=== PATIENT | male | born 1980 | race Caucasian/White ===

== ENCOUNTER 2017-02-25 09:47 | Outpatient (RCR) | payer MEDICARE, SELFPAY ==
[2017-02-17 00:41] VITALS: BP 166/114; PULSE 108; RESP 18; TEMP 37
== END 2017-03-17 23:59 ==
LOC: WC 09:47
PROVIDERS: Family Provider Family Medicine; PCP Family Medicine; Visit Provider Surgery
DX: Z09 Encounter for follow-up examination after completed treatment for conditions other than malignant neoplasm (principal)

== ENCOUNTER 2018-06-12 23:04 | Emergency (ER) | payer MEDICARE, SELFPAY ==
[2018-06-12 23:05] VITALS: BP 155/76; PULSE 110; RESP 18; TEMP 36.9; O2SAT 92; BMI 34.0
--- NOTE | 2018-06-12 23:23 | ED.DCSUM_ITS ---
- ER Visit Summary Date of Service: 06/12/18 Chief Complaint: Multiple complaints History of Present Illness: The patient is a 37 M who is been ill for a couple of days. He complains of about 2 days of subjective fever, sore throat, right ear pain, cough. He also complains of 3 days of nausea and vomiting. He complains of right upper abdominal and flank pain. No diarrhea. No urinary symptoms. Physical Examination: Heart rate 110 vitals otherwise unremarkable Tympanic membranes are clear Uvula is midline and patient appears to have bilateral tonsillar enlargement I could not clearly see exudates however there is poor visualization as patient has a strong gag reflex Tender anterior cervical lymphadenopathy worse on the right Heart regular tachycardia Lungs are clear Abdomen soft no reproducible tenderness no guarding no rebound Test Results: CBC CMP lipase unremarkable. Creatinine is 1.56. Chest x-ray shows no acute disease. CT of the soft tissue of the neck shows a 1.9 x 1.5 x 1.6 cm right Palatino tonsillar abscess. Emergency Department Course and Treatment: Patient was symptomatically treated with IV fluids and Toradol. I did speak to Dr. Lofton who is on-call for ENT. He did review the images. The abscess or fluid collection does appear to be within the tonsil itself rather than a peritonsillar abscess. He notes that these are not drained. He recommended IV antibiotics here as well as steroids. He was given IV Unasyn and Decadron. He will be discharged on oral antibiotics to follow closely as an outpatient in the office tomorrow. Patient understands to return for new or worsening symptoms. All questions answered bedside. Patient discharged. Treatment Plan: [] Disposition: Discharge Impression: Right palatine tonsillar abscess This note was generated with [employer] dictation software. It may contain incorrect words, spelling, and punctuation that were not noted in review of the chart prior to signing ED Disposition - Plan for ED Patient: Referrals: Michael Perez MD [Primary Care Provider] -
[2018-06-12 23:38] LABS: Absolute Lymphocyte Count 1.15 X10^3/ul (0.83-4.51); Absolute Neutrophil Count 3.9 X10^3/uL (2.0-7.7); Basophil# 0.03 X10^3/uL; Basophil% 0.5 % (0-1); Eosinophil# 0.03 X10^3/uL; Eosinophils% 0.5 % (0-5); Hematocrit 46.3 % (40-54); Hemoglobin 15.3 g/dl (13.0-16.5); Lymphocyte # 1.15 X10^3/ul (4.0); Lymphocyte % 19.7 % (19-41); Mean Corpuscular Volume 90.8 fL (80-94); Mean Platelet Vol. 11.1 fl (6.2-12.0); Monocyte# 0.74 X10^3/uL; Monocyte% 12.6 % (0-10); Neutrophil # 3.89 X10^3/uL (2.7-7.7); Neutrophil % 66.5 % (47-70); Platelet Count 189 K/mm3 (150-450); RBC Distribution Width CV 13.9 % (11.6-14.6); White Blood Count 5.9 K/mm3 (4.4-11.0)
[2018-06-12] MEDS: Ketorolac 30 MG/ML Syringe IV (23:38)
[2018-06-12] MEDS: 0.9% Normal Saline 1,000 ML 999 ML IV (23:38)
[2018-06-12 23:39] LABS: POSITIVE COUNT NO; POSITIVE DIFFERENTIAL NO; POSITIVE MORPHOLOGY NO
[2018-06-13] LABS: BUN 21 mg/dL (7-18); Creatinine, Serum 1.56 mg/dL (0.70-1.30); Estimated Creatinine Clearance 66.29 ml/min; Glucose 201 mg/dL (74-106)
[2018-06-13 00:01] LABS: ALB/GLOB Ratio 0.9 RATIO (0.9-2.4); AST(SGOT) 38 U/L (15-37); Alanine Aminotransfer ALT/SGPT 38 U/L (16-61); Albumin, Serum 3.5 g/dL (3.2-5.0); Alkaline Phosphatase 92 U/L (45-117); Anion Gap 8 (5-15); BUN/Creat Ratio 13.5 RATIO (10-20); Calcium,Total 8.6 mg/dL (8.5-10.1); Chloride 101 mmol/L (98-107); EST Glomerular Filtration Rate 53 mL/min (>60); Est Glom Filt Rate - Afr Amer 64 mL/min (>60); Globulin 3.9 g/dL (2.2-4.2); Lipase 131 U/L (73-393); Potassium 3.5 mmol/L (3.5-5.1); Protein, Total 7.4 g/dL (6.4-8.2); Sodium Level 138 mmol/L (136-145)
--- NOTE | 2018-06-13 00:10 | RAD_ITS ---
STUDY: X-RAY CHEST REASON FOR EXAM: Male, 37 years old. General illness with nausea and vomiting. TECHNIQUE: PA and lateral views of the chest. COMPARISON: March 19, 2014. FINDINGS: The lungs appear hyperexpanded. There is mild interstitial thickening visible in both lungs. There is no evidence for airspace consolidation. There is no demonstrated pleural abnormality. Normal size heart. Normal mediastinum and asad. There is prominence of the pulmonary hilar arteries without peripheral pulmonary vascular congestion. Normal visualized aortic arch and descending thoracic aorta. Normal visualized thoracic spine. Normal visualized ribs, clavicles, and shoulders. There is no demonstrated abnormality of the visualized soft tissue structures of the upper abdomen. RAD/Chest PA and Lateral IMPRESSION: No radiographic evidence of acute cardiopulmonary disease. Electronically Signed: Tracy Becerril MD at 1:03 EDT , Service support ,
--- NOTE | 2018-06-13 01:29 | ED.DEP ---
ED Disposition - Plan for ED Patient: Instructions: ED Tonsillitis Prescriptions: Amox/Clavulanate Tablet [Augmentin Tablet] 875 mg PO Q12H #20 tab Referrals: Michael Perez MD [Primary Care Provider] - Wilian Valero MD [STAFF PHYSICIAN] -
[2018-06-13 02:48] VITALS: PULSE 79; RESP 16; O2SAT 100
--- NOTE | 2018-06-13 23:21 | CT_ITS ---
STUDY: CT SOFT TISSUE NECK WITH CONTRAST REASON FOR EXAM: Male, 37 years old. Throat and right-sided ear pain. RADIATION DOSAGE (If Supplied By Facility): CTDIvol = ( 22.35 ) mGy, DLP = ( 613.83 ) mGycm TECHNIQUE: The patient was scanned in a multi-detector CT scanner. High resolution transaxial imaging was performed following intravenous administration of 100 ml Isovue 300. Sagittal and coronal images were reconstructed. Individualized dose optimization techniques were used for this CT. COMPARISON: None. FINDINGS: Normal bilateral parotid glands. Normal bilateral group burner machine spaces. Normal bilateral parapharyngeal spaces. Normal bilateral carotid spaces. Normal bilateral sublingual and submandibular glands and spaces. Normal visualized nasopharynx. Normal retropharyngeal space. Normal perivertebral space. There is a loculated collection in the right palatine tonsil measuring 1.9 x 1.5 x 1.6 cm in size. This suggests the possibility of an abscess. This lesion has some peripheral enhancement. The visualized tongue, tongue base and oropharynx are normal. There are some prominent right-sided level 2 nodes, possibly hyperplastic. Normal epiglottis, bilateral vallecula and hypopharynx. The pre-epiglottic and paraglottic adipose spaces are normal. Normal visualized bilateral piriform sinuses, aryepiglottic folds, vocal cords, and arytenoid-cricoid articulations. Normal subglottic trachea. Normal bilateral lobes of the thyroid gland. Normal visualized pulmonary apices. There is mucoperiosteal thickening visible throughout several ethmoid sinuses. There is mucoperiosteal thickening within bilateral maxillary sinuses and sphenoid sinuses. Frontal sinuses appear to be clear. Normal visualized cervical spine. CT/Soft Tissue Neck WITH Contrast IMPRESSION: 1. CT findings suggest a tonsillar abscess in the right palatine tonsil. 2. Mildly right-sided hyperplastic lymph nodes. 3. Mild paranasal sinus disease. Electronically Signed: Tracy Becerril MD at 0:51 EDT , Service support ,
== END 2018-06-13 02:48 | disposition home or self-care (01) ==
LOC: ED 23:35
PROVIDERS: Emergency Provider Emergency Medicine; Family Provider Family Medicine; PCP Family Medicine
DX: J36 Peritonsillar abscess (principal); E11.9 Type 2 diabetes mellitus without complications; Z72.0 Tobacco use
CPT/HCPCS: 70491; 71046; 80053; 83690; 85025; 96361; 96365; 96375; 99284; J7030; J7050; Q9967; A4216; J0295

== ENCOUNTER 2019-10-12 02:32 | Inpatient (IN) | payer MEDICARE, MEDICAID, SELFPAY ==
[2019-10-12] VITALS (39 sets, daily range): BP systolic 130–193; BP diastolic 50–122; PULSE 69–108; RESP 12–22; TEMP 36.3–37.2; O2SAT 96–100; BMI 35.1; BMI 35.4
--- NOTE | 2019-10-12 02:46 | EKG12_ITS ---
Test Reason : CP Blood Pressure : / mmHG Vent. Rate : 096 BPM Atrial Rate : 096 BPM P-R Int : 156 ms QRS Dur : 086 ms QT Int : 352 ms P-R-T Axes : 042 029 025 degrees QTc Int : 444 ms Normal sinus rhythm ST elevation consider lateral injury or acute infarct ACUTE MN / STEMI Abnormal ECG Confirmed by VITOR MENDOZA, LILIAN ([id number]), video effects editor AARON WAYNE ([id number]) on 10/12/2019 1:26:24 PM Referred By: Lior Juarez Confirmed By:LILIAN ADLER MD
--- NOTE | 2019-10-12 02:50 | RAD_ITS ---
STUDY: X-RAY CHEST REASON FOR EXAM: Male, 39 years old. CHEST PAIN TECHNIQUE: Frontal view COMPARISON: 06-13-18 FINDINGS: The lungs are clear and expanded. There is no demonstrated pleural abnormality. Normal size heart. Normal mediastinum and asad. Normal visualized pulmonary arteries. Normal visualized aortic arch and descending thoracic aorta. Normal visualized thoracic spine. Normal visualized ribs, clavicles, and shoulders. There is no demonstrated abnormality of the visualized soft tissue structures of the upper abdomen. RAD/Chest 1 View (Portable) IMPRESSION: Normal x-ray examination of the chest. Electronically Signed: Mil Peters MD at 3:10 EDT , Service support ,
[2019-10-12] MEDS: Heparin Injection (Vial) 5,000 UNIT/ML VIAL 4000 UNIT IV (02:52)
[2019-10-12] MEDS: TICAGRELOR 90 MG TABLET 180 MG PO (02:52)
[2019-10-12] MEDS: Aspirin 81 MG TAB.CHEW 324 MG PO (02:52)
[2019-10-12 02:55] LABS: Absolute Neutrophil Count 6.4 X10^3/uL (2.0-7.7); Basophil# 0.04 X10^3/uL; Basophil% 0.4 % (0-1); Eosinophil# 0.23 X10^3/uL; Eosinophils% 2.2 % (0-5); Hematocrit 47.2 % (40-54); Hemoglobin 15.3 g/dL (13.0-16.5); Lymphocyte % 27.8 % (19-41); Mean Corp Hgb Conc 32.4 g/dL (32-36); Mean Corpuscular Hgb 29.8 pg (27.0-32.0); Mean Platelet Vol. 10.5 fl (6.2-12.0); Monocyte# 0.87 X10^3/uL; Monocyte% 8.3 % (0-10); NRBC Flagged by Analyzer 0 % (0-5); Neutrophil # 6.38 X10^3/uL (2.7-7.7); Platelet Count 275 K/mm3 (150-450); RBC Distribution Width CV 14.1 % (11.6-14.6); RBC Distribution Width SD 47.8 fl (35.1-43.9); Red Blood Count 5.13 M/mm3 (4.6-6.2); White Blood Count 10.5 K/mm3 (4.4-11.0)
[2019-10-12] MEDS: Nitroglycerin SL (ED/IMG/CATH) 0.4 MG TABLET SUBLINGUAL ×2 (02:57→03:02)
[2019-10-12] MEDS: 0.9% Normal Saline 1,000 ML 150 ML IV ×2 (02:58→05:13)
--- NOTE | 2019-10-12 02:59 | ED.DCSUM_ITS ---
- ER Visit Summary Date of Service: 10/12/19 Chief Complaint: Chest pain History of Present Illness: The patient is a [address] Perez. He reports that 2 hours ago while working on his truck (light activity) he developed a substernal squeezing. He denies any radiation. He states it was 9 out of 10 at worst an 8 out of 10 currently. This was worsened by nothing. Reports that he was very diaphoretic with it and putting cold on his chest seemed to help. He denies any nausea, vomiting, or shortness of breath. He has never had anything like this before. Patient reports that he has a history of diabetes in the past, but that his doctor took him off of medications for this a while ago. He denies any high blood pressure high cholesterol. No known history of heart problems. He does not smoke. He does chew tobacco. He does have a family history of coronary artery disease a greater than 55 years old. Physical Examination: Vitals: Stable. Afebrile. General: Well-nourished and well-developed. Head: Normocephalic atraumatic. Neck: Supple, no lymphadenopathy. No JVD. Nontender. Cardiovascular: Tachycardic regular rhythm. No murmurs. Respiratory: No respiratory distress. Clear to auscultation bilaterally. Abdominal: Soft, nontender, nondistended, normal bowel sounds. No guarding, rebound, or peritoneal signs. Back: Nontender. Extremities: Nontender, no edema. Skin: Normal color, no rash. Skin graft in the right inguinal region with no evidence of infection. Neurologic: Alert and oriented ?3. Cranial nerves II through XII are intact. Normal strength and sensation. Psych: Normal affect. Test Results: EKG is sinus at [address] elevation in leads I and aVL and reciprocal changes inferiorly. This is a change since 2017. Emergency Department Course and Treatment: Patient was given aspirin p.o. He was given sublingual nitroglycerin. He was given heparin IV. He is given Brilinta p.o. Treatment Plan: Patient was discussed with Dr. Juarez and Dr. Wisdom. He is going to be taken to the Licensed Sales Assistant for further evaluation and treatment. Disposition: Admitted in serious condition. Impression: 1. ST elevation PR. 2. Critical care time 30 minutes. This note was generated with Dragon dictation software. It may contain incorrect words, spelling, and punctuation that were not noted in review of the chart p rior to signing ED Disposition - Plan for ED Patient: Referrals: Michael Perez MD [Primary Care Provider] -
[2019-10-12 03:01] LABS: Prothrombin Time (Protime)PT. 12.7 SECONDS (11.7-14.9)
[2019-10-12 03:02] LABS: Partial Thromboplast Time 28.7 Seconds (24.1-36.2)
[2019-10-12] MEDS: Metoprolol Tartrate 5 MG/5 ML Vial IV ×3 (03:09→17:06)
[2019-10-12 03:12] LABS: Anion Gap 4 (5-15); BUN 10 mg/dL (7-18); BUN/Creat Ratio 9.6 RATIO (10-20); Chloride 104 mmol/L (98-107); Creatinine, Serum 1.04 mg/dL (0.70-1.30); EST Glomerular Filtration Rate 84 mL/min (>60); Est Glom Filt Rate - Afr Amer 102 mL/min (>60); Estimated Creatinine Clearance 100.56 ml/min; Glucose 240 mg/dL (74-106); Potassium 3.7 mmol/L (3.5-5.1); Sodium Level 138 mmol/L (136-145)
--- NOTE | 2019-10-12 03:16 | PCM.HP.STD ---
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 Patient was working on his truck when his symptoms started. His chest pain improved with placing something cold on his chest.. Associated with his symptoms is nausea and diaphoresis. His EKG showed ST elevation so a STEMI alert was called and patient was taken to cardiac cath. Patient reports that his home hypertensive and diabetic medication was discontinued by his doctor Of note patient from heart attack on September 182019. His mother was 60 years old at the time of . Past Medical History Past Medical History (Chronic Problems): Chronic Problems Proteinuria due to type 2 diabetes mellitus (Chronic) Tobacco dependence (Chronic) Morbid obesity (Chronic) Poor personal hygiene (Chronic) Noncompliance with diet and medication regimen (Chronic) Uncontrolled type 2 diabetes mellitus (Chronic) Allergies No Known Allergies Allergy (Verified 06/12/18 23:07) Home Medications: Ambulatory Orders Medication Instructions Recorded Acetaminophen [Tylenol Tablet] 650 mg PO Q4H PRN PRN tablet 11/16/16 Ascorbic Acid [Vitamin C] 500 mg PO BIDCM tablet 11/16/16 Carvedilol [Coreg (Beta Lan)] 12.5 mg PO BID tablet 11/16/16 Famotidine [Pepcid] 20 mg PO BID tablet 11/16/16 Glucerna Shake 120 ml PO 4X/DAY 11/16/16 Insulin Aspart [Novolog Flexpen] 16 units SC TIDAC 11/16/16 Insulin Detemir [Levemir FlexPen] 10 units SC QHS 11/16/16 Insulin Detemir [Levemir FlexPen] 26 units SC QAM 11/16/16 Nutritional Supplement [Johnson - 1 packet PO BIDCM packet 11/16/16 ORANGE FLAVOR] Oxycodone CR [Oxycontin] 10 mg PO BID #14 tablet 11/16/16 Oxycodone [Oxyir] 10 mg PO Q4H PRN PRN #60 tablet 11/16/16 Rivaroxaban [Xarelto] 10 mg PO DAILY #14 tablet 11/16/16 Zinc Sulfate (50mg elemental) 220 mg PO BID capsule 11/16/16 [Zinc Sulfate] Guaifenesin [Robitussin] 10 ml PO Q4H PRN PRN 12/03/16 Amox/Clavulanate Tablet [Augmentin 875 mg PO Q12H #20 tab 06/13/18 Tablet] Surgical History: - - recent I&D of diabetic abscess right thigh on 11/10/16. Psychiatric History: No pertinent psych hx Smoking Status: Current every day smoker Tobacco Use: Chew - *Family History Maternal History Items: Heart Disease Paternal History Items: Heart Disease Review of Systems Constitutional: Denies: Chills, Fever, Weight Change HEENT: Denies: Head Aches, Sinus Congestion, Sinus Drainage Cardiovascular: Reports: Chest Pain. Denies: Palpitations Respiratory: Denies: Cough, Shortness of breath at rest, Sputum production Gastrointestinal: Reports: Nausea. Denies: Abdominal Pain, Vomiting Genitourinary: Denies: Dysuria Musculoskeletal: Reports: Arm Pain. Denies: Joint Pain, Joint Tenderness Skin: Denies: Rash, Wounds Neurological: Denies: Numbness, Tingling, Focal weakness Psychiatric: Denies: Anxiety, Depression, Homicidal Ideations, Suicidal Ideations Hematologic/ Lymphatic: Denies: Easy Bruising, Easy Bleeding VTE Information - Inpt Only VTE Present on Admission: No VTE Mechan Device Prophylaxis: SCD's VTE Pharm Prophylaxis ordered?: No Patient Problems: Active and Suspected Problems STEMI (ST elevation myocardial infarction) (Acute) - Physical Exam Vitals/I&O's: Vital Signs Temp Pulse Resp BP Pulse Ox 98.5 F 108 H 16 180/110 H 99 10/12/19 02:33 10/12/19 03:02 10/12/19 02:44 10/12/19 03:02 10/12/19 02:59 Oxygen Flow Rate (L/min) 2 Oxygen Delivery Method Nasal Cannula Weight: 114.3 kg Body Mass Index (BMI) 35.1 Finger Stick Blood Glucose 194 General: Alert, Oriented x3, Cooperative HEENT: Atraumatic, PERRLA, EOMI, Normocephalic Neck: Supple, Trachea Midline Lungs: Clear to auscultation, Normal air movement Cardiovascular: Regular rate, Normal S1, Normal S2, No murmurs Abdomen: Bowel Sounds Present, Soft, Non Tender Extremities: No edema, Capillary Refill Less than 3 Seconds Skin: No rashes, No breakdown Musculoskeletal: No Tenderness to Palpation of Joints or Extremities Neurological: Cranial nerves II-XII grossly intact Psych/Mental Status: Normal Affect, Appropriate Laboratory Results 10/12/19 02:45: WBC 10.5, RBC 5.13, Hgb 15.3, Hct 47.2, MCV 92.0, MCH 29.8, MCHC 32.4, RDW Std Deviation 47.8 H, RDW Coeff of Hayley 14.1, Plt Count 275, MPV 10.5, Immature Gran % (Auto) 0.300, Neut % (Auto) 61.0, Lymph % (Auto) 27.8, [place] % (Auto) 8.3, Eos % (Auto) 2.2, Baso % (Auto) 0.4, Absolute Neuts (auto) 6.4, Absolute Lymphs (auto) 2.90, Nucleated RBC % 0 10/12/19 02:45: PT 12.7, INR 1.0, APTT 28.7 10/12/19 02:45: Sodium 138, Potassium 3.7, Chloride 104, Carbon Dioxide 30.0, Anion Gap 4 L, BUN 10, Creatinine 1.04, Estim Creat Clear Calc 100.56, Est GFR (MDRD) Af Amer 102, Est GFR (MDRD) Non-Af 84, BUN/Creatinine Ratio 9.6 L, Glucose 240 H, Calcium 9.0, Troponin I 0.022 Current Medications Sodium Chloride () 1,000 mls @ 150 mls/hr IV .Q6H40M PATEL Last Admin: 10/12/19 02:58 Dose: 150 mls/hr Documented by: Nitroglycerin (Nitrostat) 0.4 mg SUBLINGUAL Q5M PRN PRN Reason: Chest Pain Last Admin: 10/12/19 03:02 Dose: 0.4 mg Documented by: Assessment/Plan All Active Problems STEMI (ST elevation myocardial infarction) (Acute) The patient is a 39 year old M w significant history of hypertension; diabetes; and tobacco abuse who presents emergency department with excruciating substernal chest pain that radiated to his right arm and found to have ST elevation GA. STElevation GA. Patient received aspirin, Brilinta and heparin at emergency department. He also received sublingual nitroglycerin and Lopressor IV. He was brought to the Donor Floor Technician. Follow recommendations after Donor Floor Technician. Diabetes mellitus Accu-Chek QA CHS and 3 AM. Correction scale insulin ordered for now. A1c ordered. Hypertension Trend blood pressures After cardiac cath assess for need of blood pressure medications. Received Lopressor IV at the emergency department. Trend blood pressures. Tobacco abuse Patient chews tobacco Counseled. DVT prophylaxis SCD. Received heparin at emergency department for ST elevation GA. Inpatient E&M: 56124 Init Hosp L3
[2019-10-12 04:36] LABS: ACT Activated Clotting Time 147 sec (74-137)
[2019-10-12 04:36] LABS: ACT Activated Clotting Time 180 sec (74-137)
--- NOTE | 2019-10-12 04:38 | CL.I_ITS ---
Patient Name: ARIK CANAS Study Date: 10/12/2019 Performing: Lior Juarez MD Ht: 71 inches 180 cm : 1980 Wt: 251.7 lbs 114 kg Age: 39 Gender: male BSA: 2.32 PROCEDURE(S) PERFORMED PZ49-YLE/COR/LV ER11-EPM, SURYA AND/OR PTCA, ARTERY OR GRAFT, SINGLE VESSEL CLINICAL PROFILE AND CO-MORBIDITIES Patient presents with STEMI for emergent cardiac cath. Indications: New Onset Angina <= 2 months, ACS <= 24 hrs, Suspected CAD Heart Failure: None Stress/Imaging Stress/Image Study Performed: No Angina Classification Anginal Classification w/in 2 Weeks: CCS IV CAD Presentations: Unstable angina. STEMI. Symptom onset Date/Time: 10/12/2019 02:33:00 Time Cookie mated Comorbidities/Risk Factors: Hypertension Dyslipidemia Family History of Premature CAD CONCLUSIONS Normal LV size, wall motion,and systolic function Normal Left Ventricular systolic function LVEF: by LV gram 65 % Elevated Left Ventricular End Diastolic Pressure Single vessel CAD of the proximal OM#1 Possibly signficant distal RCA lesion Non obstructive coronary artery disease of LCX and LAD. Successful PTCA/SURYA proximal OM#1 with a 2.25 x 38 Promus Synergy, post dilated proximally with a 2.5 x 8 NC Balloon; 100%-->0%, no dissection. RECOMMENDATIONS Referred for immediate PCI Highly recommend quitting all tobacco products Follow up with primary blacking wheel tender Risk factor modification ASA Indefinitley Plavix for at least 12 months Routine post interventional care Refer for Outpatient Cardiac Rehab Manual sheath removal per protocol Follow up with Dr. Juarez Stress echo in 2 weeks to eval distal RCA lesion. Manual sheath removal. DESCRIPTION OF PROCEDURE The patient arrived to the procedure lab. The risks and benefits of the procedure as well as a full d escription of our services here and lack of surgical backup were fully explained to the patient and/o r their significant other prior to the catheterization. The Timeout was completed, verifying the elvira ect patient and procedure. The patient's procedural site was prepped and draped in the usual fashion. Local anesthetic was given subcutaneously to right groin region with Lidocaine 2%. Using a modified Seldinger technique, arterial access was obtained via the right femoral artery, a 6Fr sheath was inse rted.. Right Coronary Artery selective angiography was then performed in multiple views using a 4 Fr . 3DRC catheter. Left Coronary Artery selective angiography was performed in multiple views using a 6 Fr. EBU 3.75 Guide Catheter. Left Ventriculography was performed in MARTINEZ projection using a 4 Fr. Pig tail catheter. LV to AO pullback pressures were then recorded EBU 3.75 Guide catheter was inserted and engaged into the LCA. Runthrough Guide wire was advanced to the 1st OM. Emerge 2.0 x 12 Balloon catheter was inserted. Balloon catheter was advanced across l esion in the first obtuse marginal, proximal. PTCA balloon inflated at 6 atms for 8 secs. Emerge 2.0 x 12 Balloon catheter was reinserted Balloon catheter was advanced across lesion in the first obtuse marginal, proximal. PTCA balloon inflated at 7 atms for 14 secs. PTCA balloon inflated at 7 atms for 7 secs. PTCA balloon inflated at 6 atms for 7 secs. PTCA balloon inflated at 7 atms for 10 secs. Syne rgy 2.25 x 38 Drug Eluting stent was inserted. Drug Eluting stent was advanced across the lesion in t he first obtuse marginal, proximal. NC Emerge 2.5 x 8 Balloon catheter was inserted. Balloon catheter was advanced across lesion in the first obtuse marginal, proximal. Contrast was injected through the sheath and the Right Iliac and Femoral artery were assessed for possible closure device. The arterial sheath was sutured in place and capped CORONARY ANGIOGRAPHY DOMINANCE: Right Dominant LEFT HEART ASSESSMENT Left Ventricular Ejection Fraction: by LV Gram 65 % Normal Left Ventricular systolic function Elevated Left Ventricular End Diastolic Pressure LVEDP: 19 mmHg Normal LV wall motion LEFT MAIN: 30 distal % Stenosis LEFT ANTERIOR DESCENDING ARTERY: PROX LAD: Mild luminal irregularities less than 30% MID LAD: Mild luminal irregularities less than 30% DIAGONAL 1: Proximal - Mild luminal irregularities less than 30% CIRCUMFLEX ARTERY: Moderate luminal irregularities up to 50% OM 1: Proximal - is occluded RIGHT CORONARY ARTERY: PROX RCA: 40 % Stenosis DISTAL RCA: 65 % Stenosis INTERVENTION INFORMATION LESION SITE: 1st OM (Proximal) Lesion Complexity: High/C, lesion at bifurcation: No, thrombus present: Yes, lesion length: 38 mm, cu lprit lesion: Yes Pre Stenosis: 100 % Pre intervention CONI flow: 0 PROCEDURE: Drug Eluting Stent with pre and post dilatation Post Stenosis: 0 % Post intervention CONI flow: 3 Lesion Devices: Medtronic 6 Fr EBU3.5 100cm Guide Catheter Terumo .014 Runthrough Extra Floppy 180cm straight Albert Sci Synergy MR SURYA 2.25x38 Albert Sci NC EMERGE MR 2.50x08 BALLOON Albert Sci EMERGE MR 2.00x12 BALLOON COMPLICATIONS No Complications PROCEDURE MEDICATIONS Fentanyl 25 mcg IV Oxygen: 2 L/min via nasal cannula Heparin 6000 unit(s) IV 10/12/2019 03:45:17 Heparin 4000 unit(s) IV 10/12/2019 04:10:54 Nitro 200 mcg IC 10/12/2019 03:47:30 Nitro 200 mcg IC 10/12/2019 03:47:30 Nitro 200 mcg IC 10/12/2019 03:49:25 IV Bolus: .9 NaCl 900ml total 10/12/2019 03:42:44 SUMMARY OF HEMODYNAMIC DATA Time AIR REST ECG 03:28:11 AO 146/117 (132) SA 03:41:25 LV 154/-11, 16 04:06:51 LV 153/-10, 19 04:06:57 LVp 154/-13, 15 04:07:03 AOp 146/89 (113) 04:07:08 Signed By Lior Juarez MD On 10/12/2019 04:37:47 Lior Juarez MD
--- NOTE | 2019-10-12 04:42 | ECHOCS_ITS ---
Reason For Study: Chest Pain Procedure This was a 2D Doppler, Color Flow transthoracic echocardiogram. Contrast injection was performed. The study was technically difficult. Exam performed portable in ICU/CCU. Left Ventricle Mild concentric left ventricular hypertrophy. The estimated ejection fraction is 55 %. Normal diastology for age. Lateral-Basal: Mildly hypokinetic. Right Ventricle Normal size and thickness. Normal systolic function. Atria Normal left atrium. Normal right atrium. Normal atrial septum. Mitral Valve The mitral valve is structurally normal. No prolapse or stenosis seen. Tricuspid Valve Normal tricuspid valve. Unable to estimate RV systolic pressure due to insufficient tricuspid regurgitant envelope. Aortic Valve Normal aortic valve. Trisinus/trileaflet aortic valve. Pulmonic Valve Normal pulmonic valve. Great Vessels Normal aortic root. Normal arch. Normal inferior vena cava. Inferior vena cava collapse with respiration. Pericardium/Pleural No pericardial effusion. Medication Diluted definity 2ml given slow IV push to enhance endocardial definition. MMode/2D Measurements & Calculations LVIDd: 4.5 cm IVSd: 1.2 cm Ao root diam: 2.6 cm LVIDs: 3.0 cm LVPWd: 1.3 cm RVDd: 2.3 cm FS: 32.6 % LAV(MOD-bp): 41.3 ml LVAd ap4: 27.3 cm2 SV(MOD-sp4): 38.5 ml LAV(MOD-bp) Indexed: 17.7 ml/m2 EDV(MOD-sp4): 72.6 ml LAV(MOD-sp2): 50.3 ml EDV(sp4-el): 75.7 ml LAV(MOD-sp4): 28.0 ml LVAs ap4: 15.8 cm2 ESV(MOD-sp4): 34.1 ml ESV(sp4-el): 33.4 ml EF(MOD-sp4): 53.1 % EF(sp4-el): 56.0 % SV(sp4-el): 42.4 ml LA A4 area: 13.9 cm2 LA dimension(2D): 3.9 cm RA A4 area: 12.5 cm2 Doppler Measurements & Calculations MV E max darrion: 102.6 cm/sec Lat Peak E' Darrion: 10.0 cm/sec Med Peak E' Darrion: 7.1 cm/sec MV A max darrion: 87.1 cm/sec E/E' lat: 10.3 E/E' med: 14.4 MV E/A: 1.2 Ao V2 max: 126.2 cm/sec LV V1 max: 98.0 cm/sec PA V2 max: 93.8 cm/sec Ao max P.4 mmHg LV V1 max P.8 mmHg Ao V2 mean: 89.6 cm/sec Ao mean P.6 mmHg Ao V2 VTI: 23.9 cm Interpretation Summary Mild concentric left ventricular hypertrophy. The estimated ejection fraction is 55 %. Normal diastology for age. Lateral-Basal: Mildly hypokinetic Unable to estimate RV systolic pressure due to insufficient tricuspid regurgitant envelope. The study was technically difficult. Contrast injection was performed. There is no comparison study available. Ordering Physician: Lior Juarez Referring Physician: JESSICA Perez Performed By: Bety Sawyer RDCS, RVT
--- NOTE | 2019-10-12 04:42 | EKG12_ITS ---
Test Reason : POST CATH Blood Pressure : / mmHG Vent. Rate : 077 BPM Atrial Rate : 077 BPM P-R Int : 176 ms QRS Dur : 074 ms QT Int : 378 ms P-R-T Axes : 056 082 085 degrees QTc Int : 427 ms Normal sinus rhythm Normal ECG When compared with ECG of 12-OCT-2019 02:39, MANUAL COMPARISON REQUIRED, DATA IS UNCONFIRMED Confirmed by VITOR MENDOZA, LILIAN ([id number]), editor & co founder AARON WAYNE ([id number]) on 10/14/2019 1:05:25 PM Referred By: Lior Juarez Confirmed By:LILIAN ADLER MD
[2019-10-12] MEDS: diazePAM 5 MG Tablet PO (05:21)
[2019-10-12 06:04] LABS: Absolute Lymphocyte Count 2.17 X10^3/uL (0.83-4.51); Absolute Neutrophil Count 9.1 X10^3/uL (2.0-7.7); Basophil# 0.05 X10^3/uL; Basophil% 0.4 % (0-1); Eosinophil# 0.09 X10^3/uL; Eosinophils% 0.7 % (0-5); Hematocrit 43.4 % (40-54); Hemoglobin 14.1 g/dL (13.0-16.5); Lymphocyte # 2.17 X10^3/ul (4.0); Lymphocyte % 17.8 % (19-41); Mean Corp Hgb Conc 32.5 g/dL (32-36); Mean Corpuscular Hgb 29.8 pg (27.0-32.0); Mean Corpuscular Volume 91.8 fL (80-94); Mean Platelet Vol. 10.8 fl (6.2-12.0); Monocyte# 0.66 X10^3/uL; Monocyte% 5.4 % (0-10); NRBC Flagged by Analyzer 0 % (0-5); Neutrophil # 9.14 X10^3/uL (2.7-7.7); Neutrophil % 75.2 % (47-70); Platelet Count 264 K/mm3 (150-450); RBC Distribution Width CV 14.2 % (11.6-14.6); RBC Distribution Width SD 47.8 fl (35.1-43.9); Red Blood Count 4.73 M/mm3 (4.6-6.2); White Blood Count 12.2 K/mm3 (4.4-11.0)
[2019-10-12 06:31] LABS: ACT Activated Clotting Time 169 sec (74-137)
[2019-10-12 06:39] LABS: AST(SGOT) 172 U/L (15-37); Alanine Aminotransfer ALT/SGPT 78 U/L (16-61); Albumin, Serum 3.3 g/dL (3.2-5.0); Alkaline Phosphatase 86 U/L (45-117); Anion Gap 3 (5-15); BUN 9 mg/dL (7-18); BUN/Creat Ratio 9.5 RATIO (10-20); Chloride 106 mmol/L (98-107); Cholesterol 190 mg/dL (200); Creatinine, Serum 0.94 mg/dL (0.70-1.30); EST Glomerular Filtration Rate 94 mL/min (>60); Est Glom Filt Rate - Afr Amer 114 mL/min (>60); Estimated Creatinine Clearance 111.26 ml/min; Globulin 3.3 g/dL (2.2-4.2); Glucose 248 mg/dL (74-106); High Density Lipoprotein 24 mg/dL; Potassium 4.9 mmol/L (3.5-5.1); Protein, Total 6.6 g/dL (6.4-8.2); Sodium Level 135 mmol/L (136-145); Triglycerides 215 mg/dL; Very Low Density Lipoprotein 43 mg/dL (5-40)
--- NOTE | 2019-10-12 08:16 | CRPHASE1 ---
Patient Communication PHII Cardiac Rehab Discussed with Patient:: Yes Guide to Cardiac Rehab Given to Patient:: Yes Cardiac Rehab Facility Choice List Given to Patient:: Yes Choice Program [facility] CR PHII:: Communication Given to CR, Refer to [facility] Kick Press Operator:: Lior Juarez Refer Phase II Cardiac Rehab:: Yes Sessions:: 36 sessions - 3 days/wk, 12 weeks Risk Factors/Lifestyle Laboratory Values: Cardiac Rehab Phase I Labs Triglycerides 215 mg/dL (-199) H 10/12/19 05:50 Cholesterol 190 mg/dL (200) 10/12/19 05:50 LDL Cholesterol 123 mg/dL (0-130) 10/12/19 05:50 HDL Cholesterol 24 mg/dL (40-) L 10/12/19 05:50 Cardiac Rehabilitation Info Cardiac Rehabilitation Program Information: Cardiac Rehabilitation is important for patients like you who are recovering from a heart problem. Cardiac rehabilitation programs are recognized as integral to the continued care of the patient with coronary heart disease. The cardiac rehabilitation program is designed to optimize a patient's physical, psychological, and social functioning. Health child care teacher work in cardiac rehabilitation programs and assist you with getting the treatments you need to get stronger and healthier - like exercise, healthy eating habits, and medications. Cardiac rehabilitation has been show to help people with heart problems live longer and have better life enjoyment than people who do not go to cardiac rehabilitation. Please contact the Cardiac Rehabilitation Program at [facility] at in two weeks if you have not heard from them.
--- NOTE | 2019-10-12 08:17 | CRPH1.INSTRU ---
General Education CAD and cardiac anatomy and function:: Patient communicates acknowledgment Explanation of diagnoses and procedures:: Patient communicates acknowledgment Sign/Symptoms of NE:: Patient communicates acknowledgment Antiplatelet therapy: Patient communicates acknowledgment Proper use of NTG-SL: Patient communicates acknowledgment Emergency procedures and activation of EMS: Patient communicates acknowledgment Compliance of all prescribed medications: Patient communicates acknowledgment Smoking Patient Nicotine/Smoking Risk Factors Are:: Cigarettes Recommendations Include:: Smoking cessation strategies/Smoking packet Nicotine/Smoking Response Code:: Patient communicates acknowledgment, Needs reinforcement Dyslipidemia Patient Dyslipidemia Risk Factors Are:: Total Cholesterol, Triglycerides, HDL, LDL Recommendations Include:: Lipid profile provided Dyslipidemia Response Code:: Patient communicates acknowledgment, Needs reinforcement Overweight/Obesity Patient Overweight/Obesity Risk Factors Are:: Obesity - > or = 30 Recommendations Include:: Weight loss of 5-10% Overweight/Obesity:: Patient communicates acknowledgment, Needs reinforcement Hypertension Recommendations Include:: Maintain BP <130/85, BP <130/80 if diabetic, DASH dietary guidelines, Decrease/maintain normal body weight Hypertension:: Patient communicates acknowledgment, Needs reinforcement Diabetes Patient Diabetes Risk Factors Are:: Elevated blood sugars Date of HgbA1c:: 10/12/19 - PENDING Recommendations Include:: Maintain fasting blood sugars 70-110 md/dL, Maintain HgbA1c of 6% or less, Monitor blood sugar as prescribed, Diabetic dietary guidelines, Decrease/maintain body weight Diabetes:: Patient communicates acknowledgment, Needs reinforcement Metabolic Syndrome Patient Metabolic Syndrome Risk Factors Are [3 of 5]:: Fasting blood sugar > 100 mg/dL, Waist circumference > 35 [female] or 40 [male], High triglyceride >150, Hypertension, Low HDL <40 [male] or < 50 [female] Recommendations Include:: Reinforce compliance to risk factor modifications, Patient is diabetic, Encouraged follow-up with Primary Care Physician Metabolic Syndrome Response Code:: Patient communicates acknowledgment, Needs reinforcement Sedentary Patient Sedentary Risk Factors Are:: Lack of regular exercise Recommendations Include:: Aerobic exercise 5-7 times/week for 20-30 minutes continuously Sedentary Response Code:: Patient communicates acknowledgment, Needs reinforcement
[2019-10-12 08:20] LABS: Hemoglobin A1c 10.3 % (3.8-5.6)
[2019-10-12] MEDS: TICAGRELOR 90 MG TABLET PO ×2 (09:21→21:00)
[2019-10-12] MEDS: Carvedilol 3.125 MG TABLET PO (09:21)
[2019-10-12] MEDS: Losartan Potassium 25 MG Tablet PO ×2 (09:21→16:48)
[2019-10-12] MEDS: Insulin Lispro 100 UNIT/ML INSULN.PEN SC ×3 (10:02→21:01)
--- NOTE | 2019-10-12 11:36 | CASEMGMT ---
RN CM Assessment Note Intro role of CM to patient in room. Pt is awake, alert and able to participate in assessment. States he is independent, no care needs and plans to return home on discharge. Presentation: chest pain Diagnosis: STEMI PCP: Dr. Perez Insurance: [facility]: [facility] Prescription Benefit: yes, Brilinta savings card reviewed with patient including ballard checking for further prescriptions and taking medication as prescribed daily. Pt is aware to contact cardiology office if any issues arise with medications. LNOK: Friend, Allan Carias Living Arrangements: Lives independently. Tranportation: drives DME: none Patient DC Goals: Home on discharge DC Plan: Home on discharge. RN CM let pt know to contact cm if any concerns/needs arise. Aure ESCALANTE RN ACM
[2019-10-12] MEDS: 0.9% Saline Lock 10 ML Syringe IV ×2 (12:32→17:06)
[2019-10-12] MEDS: Carvedilol 6.25 MG Tablet PO (16:47)
[2019-10-12 16:51] LABS: Bedside Glucose 213 mg/dL (70-110)
--- NOTE | 2019-10-12 16:53 | NURSING ---
oral BP meds given
[2019-10-12] MEDS: Atorvastatin Calcium 80 MG Tablet PO (21:00)
[2019-10-12 21:26] LABS: Bedside Glucose 209 mg/dL (70-110)
[2019-10-13] VITALS (7 sets, daily range): BP systolic 142–151; BP diastolic 82–88; PULSE 63–97; RESP 16; TEMP 36.5–36.9; O2SAT 95–98
[2019-10-13] MEDS: Insulin Lispro 100 UNIT/ML INSULN.PEN SC ×3 (02:38→11:41)
[2019-10-13 02:51] LABS: Bedside Glucose 172 mg/dL (70-110)
--- NOTE | 2019-10-13 03:16 | CPS ---
EMISSION SPECIALIST discussed with patient about CPAP at home per order. Pt. told this EMISSION SPECIALIST that he does not wear CPAP at home. CPAP was not listed in patient's medical history either. PAP was not started for this reason.
[2019-10-13 07:00] LABS: Bedside Glucose 192 mg/dL (70-110)
[2019-10-13] MEDS: TICAGRELOR 90 MG TABLET PO (09:08)
[2019-10-13] MEDS: Carvedilol 6.25 MG Tablet PO (09:08)
[2019-10-13] MEDS: Aspirin E.C. 81 MG Tablet PO (09:08)
--- NOTE | 2019-10-13 09:08 | CASEMGMT ---
Call from pt's Mark ESCAMILLA and she was updated on pt at this time. SStorion NICOLE CM
[2019-10-13] MEDS: Losartan Potassium 25 MG Tablet PO (09:19)
--- NOTE | 2019-10-13 09:20 | PCM.PN.CARD ---
Subjectve: Patient doing very well, no 24-hour events. Telemetry negative. EKG shows normal sinus rhythm with resolution of ST segment elevation and lateral T wave inversion. Echocardiogram shows minimal inferior lateral hypokinesis. Right groin is clean/dry/intact without evidence of thrills, bruits or hematoma. Hemoglobin and creatinine are within nominal limits. Objective: Vital Signs Temp Pulse Resp BP Pulse Ox 97.8 F 97 16 151/88 H 95 10/13/19 09:00 10/13/19 09:00 10/13/19 09:00 10/13/19 09:00 10/13/19 09:00 Oxygen Flow Rate (L/min) 2 Oxygen Delivery Method Room Air Weight: 247 lb 2.211 oz Body Mass Index (BMI) 35.4 Finger Stick Blood Glucose 194 Intake and Output for Last 24 Hours 10/11/19 10/12/19 10/13/19 23:59 23:59 23:59 Intake Total 2780 / 2780 300 / 300 Output Total 1600 / 1600 Balance 1180 / 1180 300 / 300 General: Awake, Alert, Oriented x 3 HEENT: PERRL, EOMI, Sclera Non Icteric Neck: Supple, Good ROM, No Lymph Node Enlargement Lungs: Clear to auscultation Cardiovascular: Regular Rhythm, Normal S1, Normal S2, No Murmurs, No Rubs, No Gallops Vascular: No Carotid Bruits, Normal Femoral Pulses, Normal Radial Pulses, Normal Dorsalis Pedal Pulse, Normal Posterior Tibial Pulses Abdomen: Bowel Sounds Present, Soft, Non Tender, No HSM, No Organomegaly Extremities: No Cyanosis, No Clubbing, No edema Neurological: No Focal Motor or Sensory Deficit Rhythm: EKG: ECHO: Stress Test: Cardiac Cath: PCI: CT Surgery: Holter monitor: EPS: PPM: CXR: Chest CT Scan: Medical Necessity - Tobacco Use Smoking Status: Current every day smoker Tobacco Use: Chew Assessment/Plan 1. STEMI: Patient presented with acute onset chest pain with lateral ST segment elevation and T wave inversion inferiorly. He underwent emergent left heart catheterization and emergent angioplasty and stenting of a small ramus intermedius branch with an excellent result. Patient has a distal right coronary artery stenosis that may require intervention in the future. At this point he will continue his baby aspirin, Brilinta, Coreg and losartan. We will evaluate him in 2 weeks time with a stress echocardiogram to determine whether he requires elective angioplasty and stenting of his distal right coronary artery. The patient wishes to be discharged home as he has nobody at home to take care of his dog who is been there for the past day and a half. I asked that the patient find somebody else to come and let the dog out, but apparently he is uncomfortable with that option. I would recommend we discharge the patient home this afternoon. Should he have any recurrent anginal symptoms between now and his stress test I would have a low threshold for intervention of his distal right coronary artery. 2. Hyperlipidemia: Continue Lipitor therapy. Repeat lipid profile in 6 weeks time. 3. Patient may be discharged home and follow-up with Dr. Juarez going forward. Inpatient E&M: [id number] Subs Hosp L2
--- NOTE | 2019-10-13 10:00 | EKG12_ITS ---
Test Reason : AM EKG Blood Pressure : / mmHG Vent. Rate : 070 BPM Atrial Rate : 070 BPM P-R Int : 164 ms QRS Dur : 074 ms QT Int : 406 ms P-R-T Axes : 006 091 104 degrees QTc Int : 438 ms Normal sinus rhythm Normal ECG When compared with ECG of 12-OCT-2019 06:33, MANUAL COMPARISON REQUIRED, DATA IS UNCONFIRMED Confirmed by ROQUE JUAREZ ([id number]), online editor AARON WAYNE ([id number]) on 10/15/2019 11:30:27 AM Referred By: Roque Juarez Confirmed By:ROQUE JUAREZ
--- NOTE | 2019-10-13 10:07 | PCM.DC ---
- Discharge Diagnoses Current Active Problems: Current Active and Chronic Problems (Last Updated 10/12/19 @ 11:08 by Laura Umanzor) Arteriosclerosis of coronary artery in patient with history of myocardial infarction (Chronic) Stented coronary artery (Chronic 10/12/19) Single vessel CAD of the proximal OM#1. Possibly signficant distal RCA lesion. Non obstructive coronary artery disease of LCX and LAD. Successful PTCA/SURYA proximal OM#1 with a 2.25 x 38 Promus Synergy, Per [facility] @ [facility] 10/12/2019 STEMI (ST elevation myocardial infarction) (Acute) You will use the following diet at home:: Calorie/Carbohydrate Controlled (specify 1200, 1400, etc) - 1800 rachele., Cardiac Your food should be the consistency of: Regular Discharge Activity: Return to Normal Activity Return to work on:: 10/19/19 Weight Bearing Status: Full weight bearing Call your doctor if you observe: Fever of 101 or Higher, Shortness of breath, Dizziness, Fainting spells, Chest pain, Increased palpitations (irregular heartbeat), Uncontrolled pain Instructions: Heart Attack, Coronary Stents, Using a Blood Sugar Log, Hypoglycemia (Low Blood Sugar), How to Check Your Blood Sugar Allergies/Adverse Reactions: Allergies No Known Allergies Allergy (Verified 06/12/18 23:07) Medications to take at Discharge Aspirin E.C. [Ecotrin] 81 mg PO DAILY@0800 #90 tab 10/13/19 Atorvastatin Calcium [Lipitor] 80 mg PO QHS #90 tab 10/13/19 Carvedilol [Coreg] 6.25 mg PO BID #90 tab 10/13/19 Insulin Glargine [Lantus SoloStar Pen] 16 units SUBCUT DAILY #2 pen 10/13/19 Losartan Potassium [Cozaar] 25 mg PO DAILY #90 tab 10/13/19 Metformin HCl [Glucophage] 500 mg PO BID #90 tab 10/13/19 Ticagrelor [Brilinta] 90 mg PO BID #90 tab 10/13/19 The following prescriptions were given: Ticagrelor [Brilinta] 90 mg PO BID #90 tab Transmission Status: Pending to [id number] Carvedilol [Coreg] 6.25 mg PO BID #90 tab Transmission Status: Pending to [id number] Losartan Potassium [Cozaar] 25 mg PO DAILY #90 tab Transmission Status: Pending to [id number] Aspirin E.C. [Ecotrin] 81 mg PO DAILY@0800 #90 tab Transmission Status: Pending to [id number] Metformin HCl [Glucophage] 500 mg PO BID #90 tab Transmission Status: Pending to [id number] Insulin Glargine [Lantus SoloStar Pen] 16 units SUBCUT DAILY #2 pen Transmission Status: Pending to [id number] Atorvastatin Calcium [Lipitor] 80 mg PO QHS #90 tab Transmission Status: Pending to [id number] Orders to be completed after discharge: Glucometer Location: None Selected Phase II, Outpatient Cardiac Rehab Location: None Selected Primary Care Physician: Michael Perez MD [Primary Care Provider] - Please follow up with your Primary Care Physician in: 1 week. Test Results: Test results from this visit will be discussed in further detail at your follow-up appointment, if applicable. Please Follow Up With: Lior Juarez MD When: 2 weeks.
--- NOTE | 2019-10-13 11:41 | PHA.DC.MC ---
Pharmacy Service has performed discharge medication reconciliation and counseling for this patient. 1. TICAGRELOR 90MG PO BID 2. CARVEDILOL 6.25MG PO BID 3. LOSARTAN 25MG PO DAILY 4. ASPIRIN 81MG PO DAILYCM 5. METFORMIN 500MG PO BID 6. INSULIN GLARGINE 16UNITS SC DAILY 7. ATORVASTATIN 80MG PO QHS The patient's discharge medication list was reviewed for discrepancies and discrepancies were resolved. Home Medications Aspirin E.C. [Ecotrin] 81 mg PO DAILY@0800 #90 tab 10/13/19 Atorvastatin Calcium [Lipitor] 80 mg PO QHS #90 tab 10/13/19 Carvedilol [Coreg] 6.25 mg PO BID #90 tab 10/13/19 Insulin Glargine [Lantus SoloStar Pen] 16 units SUBCUT DAILY #2 pen 10/13/19 Losartan Potassium [Cozaar] 25 mg PO DAILY #90 tab 10/13/19 Metformin HCl [Glucophage] 500 mg PO BID #90 tab 10/13/19 Ticagrelor [Brilinta] 90 mg PO BID #90 tab 10/13/19 The patient was counseled on the following discharge medications and changes in medications for homegoing were reviewed. The Reason for Use, instructions for use, and potential side effects were reviewed for all new medications. The patient's questions regarding all of their medications were answered. The patient was able to verbally demonstrate an understanding of their discharge medications. Patient counseled by student support counselorJameel.
[2019-10-13 11:55] LABS: Bedside Glucose 239 mg/dL (70-110)
--- NOTE | 2019-10-13 12:12 | PCM.DC.SUM ---
Discharge Date and Diagnosis - Problem List Patient Problems: Active and Suspected Problems (Last Updated 10/12/19 @ 11:08 by Laura Umanzor) STEMI (ST elevation myocardial infarction) (Acute) Date of Admission: 10/12/19 Date of Discharge: 10/13/19 - Primary Discharge Diagnosis Acute Problems: Active Problems (Last Updated 10/12/19 @ 11:08 by Laura Umanzor) #[address] elevation TX, status post PTCA/SURYA proximal obtuse marginal branch. #2 uncontrolled type 2 diabetes mellitus. #3 uncontrolled hypertension. #4 noncompliance. - Secondary Discharge Diagnosis Chronic Problems: Chronic Problems (Last Updated 10/12/19 @ 11:08 by Laura Umanzor) Arteriosclerosis of coronary artery in patient with history of myocardial infarction (Chronic) Stented coronary artery (Chronic 10/12/19) Single vessel CAD of the proximal OM#1. Possibly signficant distal RCA lesion. Non obstructive coronary artery disease of LCX and LAD. 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 Electronically Signed: Mil Peters MD at 3:10 EDT , Service support , Dr. Juarez, cardiology. Operations: None, - Procedures: 2-D Echocardiogram, Cardiac catheterization, EKG Summary of Care Provided: Patient seen and examined on the day of discharge and appeared to be stable to be discharged home. He denied any symptoms, no chest pain or shortness of breath. His vital signs are stable. He has been ambulating without symptoms. The patient is a 39 year old M presented to the emergency room because of chest pain, found to have acute ST elevation TX. He underwent emergent cardiac catheterization, found to have proximal obtuse marginal branch lesion, status post PTCA/SURYA and also found to have possible significant distal RCA lesion which was not stented. His troponin went up to 37. His chest x-ray showed no acute findings. This patient does have history of type 2 diabetes mellitus and hypertension but he is not compliant. He is supposed to be on blood pressure medications as well as insulin but he is not taking any medications for the last year and half. He mentioned that he just stopped taking his medications. His hemoglobin C was 10.3%. Lipid profile revealed triglyceride of 215, total cholesterol of 190, LDL cholesterol of 123 and HDL cholesterol of 24. Patient was treated with aspirin, Lipitor, Brilinta, Coreg and losartan. Post cardiac catheterization, patient had no more chest pain. He remained in sinus rhythm on telemetry without evidence of cardiac arrhythmias. Blood pressure stabilized as well as blood glucose. He was started on Lantus as well as sliding scale. 2D echocardiogram revealed mild LVH, ejection fraction of 55%, mildly hypokinetic lateral basal wall. After started on Lantus daily, blood sugar stable in the range of around 190s. Patient counseled multiple times on the importance of compliance with his medications given that he was noncompliant and now, he ended up with heart attack. Patient discharged home in a stable condition, discharged on aspirin, Lipitor, Coreg, losartan, Brilinta, Lantus and metformin, prescription was given for glucometer with lancets and alcohol swabs, recommended to check blood sugar at least 3-4 times daily, monitor blood pressure, recommended follow-up with PCP in 1 week and follow-up with cardiology in 2 weeks. Cardiology is planning to do stress echocardiogram as outpatient in 2 weeks. Patient Problems: Active and Suspected Problems (Last Updated 10/12/19 @ 11:08 by Laura Umanzor) STEMI (ST elevation myocardial infarction) (Acute) - Physical Exam Vitals/I&O's: Vital Signs Temp Pulse Resp BP Pulse Ox 97.8 F 97 16 151/88 H 95 10/13/19 09:00 10/13/19 09:00 10/13/19 09:00 10/13/19 09:00 10/13/19 09:00 Oxygen Flow Rate (L/min) 2 Oxygen Delivery Method Room Air Weight: 247 lb 2.211 oz Body Mass Index (BMI) 35.4 Finger Stick Blood Glucose 194 Intake and Output for Last 24 Hours 10/11/19 10/12/19 10/13/19 23:59 23:59 23:59 Intake Total 2780 / 2780 300 / 300 Output Total 1600 / 1600 Balance 1180 / 1180 300 / 300 General: Alert, Oriented x3, Cooperative, No apparent distress HEENT: Atraumatic, PERRLA, EOMI, Normocephalic Oral: Moist Mucosa, No Gingival or Mucosal Lesions/ Ulcerations Neck: Supple, No JVD, Negative Carotid Bruits, Trachea Midline, Thyroid Normal Size and Texture Lungs: Clear to auscultation, Normal air movement, No rhonchi, No wheeze, No rales Cardiovascular: Regular rate, Regular Rhythm, Normal S1, Normal S2, PMI Normal Abdomen: Bowel Sounds Present, Soft, Non Tender, Non-Distended, No Hepato-splenomegaly, Obese Extremities: No clubbing, No cyanosis, No edema Skin: No rashes, No breakdown Lymphatic: No Cervical, Supraclavicular, or Inguinal Adenopathy Neurological: Cranial nerves II-XII grossly intact, Neuro grossly intact Psych/Mental Status: Normal Affect, Appropriate Laboratory Results 10/12/19 16:45: POC Glucose 213 H 10/12/19 20:56: POC Glucose 209 H 10/13/19 02:37: POC Glucose 172 H 10/13/19 06:42: POC Glucose 192 H 10/13/19 11:39: POC Glucose 239 H Current Medications Acetaminophen (Tylenol) 650 mg PO Q6H PRN PRN PRN Reason: Pain Score 1-3/10 Aspirin (Ecotrin) 81 mg PO DAILY@0800 [facility] Last Admin: 10/13/19 09:08 Dose: 81 mg Documented by: Atorvastatin Calcium (Lipitor) 80 mg PO QHS [facility] Last Admin: 10/12/19 21:00 Dose: 80 mg Documented by: Atropine Sulfate () 0.5 mg IV UD PRN PRN Reason: HR <50 bpm [facility] Last Admin: 10/13/19 09:08 Dose: 6.25 mg Documented by: Dextrose (D50w Syringe) 0 gm IV X1 PRN; Protocol PRN Reason: Hypoglycemia Diazepam (Valium) 5 mg PO Q6H PRN PRN PRN Reason: BACK SPASMS/ANXIETY Last Admin: 10/12/19 05:21 Dose: 5 mg Documented by: Glucagon () 1 mg IM .X1 PRN PRN Reason: Hypoglycemia Heparin Sodium (Beef Lung) (Heparin 500 Unit/5 Ml (100/Ml)) 500 unit IV UD PRN PRN Reason: HEPARIN FLUSH Insulin Glargine (Lantus ([facility] [place])) 16 units SC DAILY [facility] Last Admin: 10/13/19 11:41 Dose: 16 u Documented by: Insulin Human Lispro (Humalog Kwikpen ([facility] [place])) 0 unit SC ACHS & 3AM [facility]; Protocol Last Admin: 10/13/19 11:41 Dose: 4 u Documented by: Labetalol HCl (Trandate) 5 mg IV X1 PRN PRN Reason: SBP > 160 when pulling sheath Losartan Potassium (Cozaar) 25 mg PO DAILY [facility] Last Admin: 10/13/19 09:19 Dose: 25 mg Documented by: Metoclopramide HCl (Reglan) 5 mg IV Q6H PRN PRN PRN Reason: NAUSEA/VOMITING Metoprolol Tartrate (Lopressor (Beta Lan)) 5 mg IV Q4H PRN PRN Reason: BLOOD PRESSURE Last Admin: 10/12/19 17:06 Dose: 5 mg Documented by: Morphine Sulfate () 2 - 4 mg IV Q4H PRN PRN PRN Reason: Pain Score 1-10/10 Morphine Sulfate () 2 - 4 mg IV Q4H PRN PRN PRN Reason: Pain Score 1-10/10 Nitroglycerin (Nitrostat) 0.4 mg SUBLINGUAL Q5M PRN PRN Reason: CARDIAC/CHEST PAIN Ondansetron HCl (Zofran) 4 mg IV Q8H PRN PRN PRN Reason: NAUSEA/VOMITING Sodium Chloride () 500 ml IV BOLUS PRN PRN Reason: VASO-VAGAL PROTOCOL Sodium Chloride () 10 - 40 ml IV UD PRN PRN Reason: SALINE FLUSH Last Admin: 10/12/19 17:06 Dose: 10 ml Documented by: Ticagrelor (Brilinta) 90 mg PO BID [facility] Last Admin: 10/13/19 09:08 Dose: 90 mg Documented by: Discharge Activity: Return to Normal Activity Return to work on:: 10/19/19 Weight Bearing Status: Full weight bearing Call your doctor if you observe: Fever of 101 or Higher, Shortness of breath, Dizziness, Fainting spells, Chest pain, Increased palpitations (irregular heartbeat), Uncontrolled pain Home Medications: Medications to take at Discharge Aspirin E.C. [Ecotrin] 81 mg PO DAILY@0800 #90 tab 10/13/19 Atorvastatin Calcium [Lipitor] 80 mg PO QHS #90 tab 10/13/19 Carvedilol [Coreg] 6.25 mg PO BID #90 tab 10/13/19 Insulin Glargine [Lantus SoloStar Pen] 16 units SUBCUT DAILY #2 pen 10/13/19 Losartan Potassium [Cozaar] 25 mg PO DAILY #90 tab 10/13/19 Metformin HCl [Glucophage] 500 mg PO BID #90 tab 10/13/19 Ticagrelor [Brilinta] 90 mg PO BID #90 tab 10/13/19 Following Prescrptions Were Given to Patient: Ticagrelor [Brilinta] 90 mg PO BID #90 tab Transmission Status: Received by [id number] Carvedilol [Coreg] 6.25 mg PO BID #90 tab Transmission Status: Received by [id number] Losartan Potassium [Cozaar] 25 mg PO DAILY #90 tab Transmission Status: Received by [id number] Aspirin E.C. [Ecotrin] 81 mg PO DAILY@0800 #90 tab Transmission Status: Received by [id number] Metformin HCl [Glucophage] 500 mg PO BID #90 tab Transmission Status: Received by [id number] Insulin Glargine [Lantus SoloStar Pen] 16 units SUBCUT DAILY #2 pen Transmission Status: Received by [id number] Atorvastatin Calcium [Lipitor] 80 mg PO QHS #90 tab Transmission Status: Received by [id number] Other Amb Orders: Glucometer Location: None Selected Phase II, Outpatient Cardiac Rehab Location: None Selected Primary Care Physician: Michael Perez MD [Primary Care Provider] - Please follow up with your Primary Care Physician in: 1 week. Please Follow Up With: Lior Juarez MD When: 2 weeks. Patient Instructions: Using a Blood Sugar Log, Coronary Stents, Hypoglycemia (Low Blood Sugar), How to Check Your Blood Sugar, Heart Attack Disposition: Home Minutes spent on discharge:: 33 Patient Condition:: Stable Medical Necessity - Tobacco Use Smoking Status: Current every day smoker Tobacco Use: Chew Meaningful Use Info Meaningful Use Diagnoses (Choose all that apply): AMI - AMI/Post PCI/Angioplasty Aspirin given w/in 24hrs of arrival?: Yes ASA at discharge?: Yes Statins at discharge?: Yes Martín/ARB at discharge?: Yes Beta Lan at discharge?: Yes Done w/ Acute TX measure.: Yes Documented LVEF (%): 55 Inpatient E&M: 16101 Disch Hosp
== END 2019-10-13 15:33 | disposition home or self-care (01) | DRG 247 ==
LOC: ED 02:45 → ICU 03:20 → PCU 21:06
PROVIDERS: Admitting Provider Hospitalist; Emergency Provider Emergency Medicine; PCP Family Medicine; Referring Provider Internal Medicine Cardiovascular Disease; Visit Provider Hospitalist
DX: I21.3 ST elevation (STEMI) myocardial infarction of unspecified site (principal); I25.110 Atherosclerotic heart disease of native coronary artery with unstable angina pectoris; E11.65 Type 2 diabetes mellitus with hyperglycemia; R80.9 Proteinuria, unspecified; I10 Essential (primary) hypertension; E78.5 Hyperlipidemia, unspecified; F17.220 Nicotine dependence, chewing tobacco, uncomplicated; E66.01 Morbid (severe) obesity due to excess calories; Z68.35 Body mass index [BMI] 35.0-35.9, adult; Z91.14 Patient's other noncompliance with medication regimen; Z91.11 Patient's noncompliance with dietary regimen
CPT/HCPCS: 71045; 80048; 80053; 80061; 82962; 83036; 84484; 85025; 85347; 85610; 85730; 92941; 93005; 93306; 93458; 99152; 99251; 99285; 99406; J7030; J7040; Q9957; Q9967; A4216; C1725; C1769; C1874; C1887; C8929; C9606; G0463

== ENCOUNTER → 2019-10-30 12:27 | Outpatient (CLI) | payer MEDICARE, MEDICAID, SELFPAY ==
[2019-10-12 04:43] VITALS: BMI 35.4
--- NOTE | 2019-10-30 12:29 | STEWCON_ITS ---
Reason For Study: CAD Stress Results Protocol: Wes Protocol WITH DEFINITY Maximum Predicted HR: 180 bpm Target HR: 153 bpm % Maximum Predicted HR: 63 % Heart Stage Duration Rate BP Comment (mm:ss) (bpm) Diluted Definity 7 ML; Wes Protocol-Pt Jumped Off Treadmill D/T Leg Pain W/Max HR 122; Converted to Dobutamine-In 2nd Stage of - Baseline 78 144/78HR dec to 48 BPM and BP Elevated 240/120-Stopped -Hydralazine 10 mg IVP at 1332 Per Order-Switched to Wes Per Order Wes Protocol 3:00 103 138/72No Chest Pain Stage I Wes Protocol 3:14 114 154/72No Chest Pain; Patient Jumped Off Treadmill Again; Images Obtained Stage II Recovery 81 132/74No Chest Pain Stress Duration: 6:14 mm:ss Maximum Stress HR: 114 bpm METS: 7 Baseline Echocardiogram Findings The estimated ejection fraction is 65 %. Stress Echo Wall motion Data Resting WM Intermediate WM Stress WM Resting Wall Motion Wall Motion Stress No regional wall motion Infero-Basal: Mildly hypokinetic. abnormalities noted. EKG Data The baseline ECG displays normal sinus rhythm. The patient exercised according to the regular Wes protocol for a total duration of 6:14. The maximum heart rate attained was 114 beats per minute. This was 63% of maximum predicted heart rate. The patient exercised into stage 2 of the Wes protocol. During stress, there were no ST or T wave changes noted to suggest ischemia. No clinical angina was noted. No arrhythmias noted. Interpretation Summary The estimated ejection fraction is 65 %. Abnormal, submaximal, treadmill echocardiogram. Positive for subtle ischemia of the inferior basal tobias at peak exercise seen in the parasternal line parasternal short views. No anginal symptoms noted. No arrhythmias noted. Appropriate blood pressure response to exercise. Final LVEF of 55%. Test terminated the patient jumped off due to leg pain. Exercise testing initially involved patient walking on a treadmill but he jumped off due to his legs leg pain and poor heart rate response to exercise. He was then switched to a dobutamine however developed a hypertensive blood pressure response to dobutamine. The patient was given hydralazine 10 mg x 1 and his blood pressure improved. A second exercise attempt was performed but the patient again jumped off due to leg pain. Rate- pressure product was 17,094 making this an adequate test. Patient tolerate procedure well. Poor echo windows requiring Definity agent. No complications. The study was technically difficult. Contrast injection was performed. Ordering Physician: Lior Juarez Referring Physician: Michael Faust Performed By: Leon Groves RCS
== END ==
PROVIDERS: PCP Family Medicine; Referring Provider Internal Medicine Cardiovascular Disease; Visit Provider Internal Medicine Cardiovascular Disease
DX: I25.10 Atherosclerotic heart disease of native coronary artery without angina pectoris (principal); I25.2 Old myocardial infarction; Z95.5 Presence of coronary angioplasty implant and graft
CPT/HCPCS: 93017; 93350; J7040; Q9957; A4216; C8928

== ENCOUNTER → 2019-11-06 14:56 | Outpatient (CLI) | payer MEDICARE, MEDICAID, SELFPAY ==
[2019-11-06 14:27] VITALS: BMI 35.3
[2019-11-06 15:57] LABS: Hematocrit 41.4 % (40-54); Hemoglobin 13.5 g/dL (13.0-16.5); Mean Corp Hgb Conc 32.6 g/dL (32-36); Mean Corpuscular Hgb 29.7 pg (27.0-32.0); Mean Corpuscular Volume 91.2 fL (80-94); Mean Platelet Vol. 10.2 fl (6.2-12.0); Platelet Count 433 K/mm3 (150-450); RBC Distribution Width CV 13.6 % (11.6-14.6); RBC Distribution Width SD 45.4 fl (35.1-43.9); Red Blood Count 4.54 M/mm3 (4.6-6.2); White Blood Count 12.4 K/mm3 (4.4-11.0)
[2019-11-06 16:34] LABS: Anion Gap 5 (5-15); BUN 7 mg/dL (7-18); BUN/Creat Ratio 8.8 RATIO (10-20); Calcium,Total 8.9 mg/dL (8.5-10.1); Chloride 107 mmol/L (98-107); Creatinine, Serum 0.79 mg/dL (0.70-1.30); EST Glomerular Filtration Rate 115 mL/min (>60); Est Glom Filt Rate - Afr Amer 139 mL/min (>60); Glucose 135 mg/dL (74-106); Potassium 3.9 mmol/L (3.5-5.1); Sodium Level 138 mmol/L (136-145)
== END ==
PROVIDERS: PCP Family Medicine; Referring Provider Internal Medicine Cardiovascular Disease; Visit Provider Internal Medicine Cardiovascular Disease
DX: I25.10 Atherosclerotic heart disease of native coronary artery without angina pectoris (principal); I25.2 Old myocardial infarction; R94.39 Abnormal result of other cardiovascular function study; Z95.5 Presence of coronary angioplasty implant and graft
CPT/HCPCS: 36415; 80048; 85027

== ENCOUNTER 2020-04-14 21:14 | Emergency (ER) | payer MEDICARE, SELFPAY ==
[2019-11-06 14:27] VITALS: BMI 35.3
[2020-04-14 21:15] VITALS: BP 192/109; PULSE 98; RESP 16; TEMP 37; O2SAT 98; BMI 35.7
--- NOTE | 2020-04-14 21:55 | RAD_ITS ---
HISTORY: FALL. PAIN MOSTLY ON TOP OF LEFT HAND AROUND METACARPAL AREA. ADDITIONAL HISTORY: None provided. EXAMINATION/TECHNIQUE: XR Hand Min 3 Views Left Number of images including paperwork: 3 COMPARISON: None FINDINGS: BONES: No acute fracture. Old healed left fifth metacarpal fracture. JOINTS: No subluxation. SOFT TISSUES: No distinct foreign body. RAD/Hand Min 3 Views IMPRESSION: No acute osseous abnormality. at 2205 Reported and signed by: Beth Jackman MD Electronically Signed: Beth Jackman MD at 22:05 EST Tel , Service support ,
[2020-04-14 22:08] VITALS: BP 182/116; PULSE 101; RESP 16; O2SAT 99
--- NOTE | 2020-04-14 22:25 | ED.VIS.GEN ---
History of Present Illness Chief Complaint: Upper Extremity Injury Informant: Patient Onset: Today Context: Sudden Onset Timing: Continuous Current Severity: Moderate Maximum Severity: Moderate Narrative: Patient is an otherwise healthy 3-year-old male who presents to the emergency department with left hand injury. Patient states that he was trying to pull a wench. He states that he slipped on ice. He fell striking his left elbow and left hand. States he had no pain at the elbow. Since then, he has had burning pain on the dorsum of the left hand near the fourth and fifth fingers. He did not strike his head. He denies loss of consciousness. He is otherwise been in his normal state of health. Prior similar symptoms: No Recent Illness/Hospitalization: No Past Medical History - Allergies and Home Meds Allergies/Adverse Reactions: Allergies No Known Allergies Allergy (Verified 04/14/20 21:19) Primary Care Physician: Michael Perez MD [Primary Care Provider] - Prior records reviewed: Yes Past Medical History: None Surgical History: noncontributory, - - recent I&D of diabetic abscess right thigh on 11/10/16. Smoking Status: Current every day smoker - Family History Maternal Family History: Reports: Heart Disease Paternal Family History: Reports: Heart Disease Review of Systems General: Denies: Chills, Fever, Sweats Eyes: Denies: Visual changes - bilaterally, Diplopia ENT: Denies: Rhinorrhea, Sore throat Cardiovascular: Denies: Chest pain, Palpitations Respiratory: Denies: Dyspnea, Cough, Dyspnea on exertion Gastrointestinal: Denies: Abdominal pain, Nausea, Vomiting, Diarrhea, Melena, Hematochezia Genitourinary: Denies: Dysuria, Hematuria, Frequency Musculoskeletal: Denies: Back pain, Extremity Pain Skin: Denies: Rash, Wounds Neurological: Denies: Headache, Weakness, Numbness Physical Exam Vital Signs/Narrative: Vital Signs Temp Pulse Resp BP Pulse Ox 04/14/20 22:08 101 H 16 182/116 H 99 04/14/20 21:15 98.6 F 98 16 192/109 H 98 Inital Vital Signs reviewed: Yes General: Well nourished, Well developed, No Acute Distress Head: Normocephalic, Atraumatic Eyes: Perrl, EOMI ENT: Moist mucous membranes, No rhinorrhea Neck: Supple, Nontender Cardiovascular: Regular rate, Regular rhythm, No murmurs Respiratory: No distress, CTA bilaterally, Chest nontender Abdomen: Soft, Nontender, Nondistended, Normal bowel sounds Back: Nontender, Normal Inspection Extremities: No edema, Tenderness - Examination of the hand shows some mild tenderness on the dorsum. The skin is intact. His pulses are normal. He is able to flex and extend. Skin: Normal color, No rash Neurological: Alert, Oriented x3, Cranial nerves II-XII grossly intact, Normal Strength, Normal Sensation Psychological: Normal affect, Normal Mood Diagnostic/Tx/Re-eval Clinical Impression(s) from Imaging Studies Hand X-Ray 04/14/20 21:55 IMPRESSION: No acute osseous abnormality. at 2205 Reported and signed by: Beth Jackman MD Electronically Signed: Beth Jackman MD at 22:05 EST Tel , Service support , - Medical Decision Making Plain films were obtained of the hand. There is no evidence of fracture dislocation. Patient's pulses are normal. This was reviewed by both myself and the radiologist. My suspicion is that he may have an ulnar neuropraxia given the distribution of his pain. He will continue ice and elevation. He will be given a short course of analgesics. He will be discharged home. Impression 1. Ulnar neuropraxia ED Disposition - Plan for ED Patient: Instructions: ED Contusion, Upper Extremity Prescriptions: Hydrocodone Bitart/Apap 5-325 [[place] 5MG-325MG] 1 tab PO Q6H PRN PRN 3 Days #10 tab PRN Reason: Pain Prescription Printed Referrals: Michael Perez MD [Primary Care Provider] -
[2020-04-14] MEDS: HYDROcodone Bitartrate/Apap 5/325 Tablet PO (22:40)
[2020-04-14 22:45] VITALS: RESP 16
--- NOTE | 2020-04-14 22:46 | ED.RN ---
LEFT ARM RASHEEDA WRAPPED PER INSTRUCTION. FINGERS WARM, PINK, PULSES INTACT AFTER WRAPPING. PT INSTRUCTED ON PROPER USE OF RASHEEDA WRAP AT HOME. PT VERBALIZES UNDERSTANDING
== END 2020-04-14 22:47 | disposition home or self-care (01) ==
LOC: ED 22:42
PROVIDERS: Emergency Provider Emergency Medicine; PCP Family Medicine
DX: S54.02XA Injury of ulnar nerve at forearm level, left arm, initial encounter (principal); W01.10XA Fall on same level from slipping, tripping and stumbling with subsequent striking against unspecified object, initial encounter; Y93.9 Activity, unspecified; Y92.9 Unspecified place or not applicable; Y99.9 Unspecified external cause status; E11.9 Type 2 diabetes mellitus without complications; F17.200 Nicotine dependence, unspecified, uncomplicated; Z79.02 Long term (current) use of antithrombotics/antiplatelets; Z79.82 Long term (current) use of aspirin; Z79.4 Long term (current) use of insulin; Z79.899 Other long term (current) drug therapy
CPT/HCPCS: 73130; 99283

== ENCOUNTER 2020-07-11 16:14 | Emergency (ER) | payer MEDICARE, MEDICAID, SELFPAY ==
[2020-06-13 14:32] VITALS: BMI 35.7
[2020-07-11 16:15] VITALS: BP 129/82; PULSE 121; RESP 18; TEMP 36.8; O2SAT 97; BMI 35.0
--- NOTE | 2020-07-11 16:45 | EKG12_ITS ---
Test Reason : DIZZINESS Blood Pressure : / mmHG Vent. Rate : 115 BPM Atrial Rate : 115 BPM P-R Int : 152 ms QRS Dur : 086 ms QT Int : 336 ms P-R-T Axes : 048 078 072 degrees QTc Int : 464 ms Sinus tachycardia Otherwise normal ECG Confirmed by GIOVANNA MENDOAZ, YOLA ([id number]), commissioning editor GOLDIE MCNEAL ([id number]) on 07/14/2020 9:00:23 AM Referred By: SHYAM Confirmed By:YOLA HEREDIA MD
[2020-07-11] MEDS: 0.9% Normal Saline 1,000 ML 1000 ML IV (16:53)
--- NOTE | 2020-07-11 17:17 | RAD_ITS ---
STUDY: X-RAY CHEST REASON FOR EXAM: Male, 39 years old. Cough and dizziness TECHNIQUE: Single AP portable view of the chest. COMPARISON: 10/12/2019 FINDINGS: EKG leads overlie the chest The lungs are clear and expanded. There is no demonstrated pleural abnormality. Normal size heart. Normal mediastinum and asad. Normal visualized pulmonary arteries. Normal visualized aortic arch and descending thoracic aorta. Normal visualized thoracic spine. Normal visualized ribs, clavicles, and shoulders. There is no demonstrated abnormality of the visualized soft tissue structures of the upper abdomen. RAD/Chest 1 View (Portable) IMPRESSION: Normal x-ray examination of the chest. Electronically Signed: Tim Plata MD at 17:29 EDT , Service support ,
[2020-07-11] MEDS: 0.9% Normal Saline 1,000 ML 999 ML IV (17:25)
[2020-07-11 17:35] LABS: Absolute Lymphocyte Count 0.93 X10^3/uL (0.83-4.51); Absolute Neutrophil Count 9.9 X10^3/uL (2.0-7.7); Basophil# 0.03 X10^3/uL; Basophil% 0.3 % (0-1); Eosinophil# 0.17 X10^3/uL; Eosinophils% 1.5 % (0-5); Hematocrit 47.2 % (40-54); Hemoglobin 15.3 g/dL (13.0-16.5); Lymphocyte # 0.93 X10^3/ul (0.83-4.51); Mean Corp Hgb Conc 32.4 g/dL (32-36); Mean Corpuscular Hgb 29.1 pg (27.0-32.0); Mean Corpuscular Volume 89.9 fL (80-94); Mean Platelet Vol. 11.3 fl (6.2-12.0); Monocyte# 0.59 X10^3/uL; Monocyte% 5.1 % (0-10); NRBC Flagged by Analyzer 0 % (0-5); Neutrophil # 9.85 X10^3/uL (2.7-7.7); Neutrophil % 84.6 % (47-70); Platelet Count 274 K/mm3 (150-450); RBC Distribution Width CV 14.1 % (11.6-14.6); RBC Distribution Width SD 46.5 fl (35.1-43.9); Red Blood Count 5.25 M/mm3 (4.6-6.2); White Blood Count 11.6 K/mm3 (4.4-11.0)
[2020-07-11 17:47] LABS: AST(SGOT) 14 U/L (15-37); Alanine Aminotransfer ALT/SGPT 35 U/L (16-61); Albumin, Serum 3.5 g/dL (3.2-5.0); Alkaline Phosphatase 103 U/L (45-117); Anion Gap 10 (5-15); BUN 21 mg/dL (7-18); BUN/Creat Ratio 13.7 RATIO (10-20); Calcium,Total 8.3 mg/dL (8.5-10.1); Chloride 103 mmol/L (98-107); Creatinine, Serum 1.53 mg/dL (0.70-1.30); EST Glomerular Filtration Rate 54 mL/min (>60); Est Glom Filt Rate - Afr Amer 65 mL/min (>60); Estimated Creatinine Clearance 68.36 ml/min; Globulin 3.6 g/dL (2.2-4.2); Glucose 216 mg/dL (74-106); Potassium 4.1 mmol/L (3.5-5.1); Protein, Total 7.1 g/dL (6.4-8.2); Sodium Level 136 mmol/L (136-145)
[2020-07-11 18:50] LABS: D-Dimer Quantitative (DVT/PE) 0.37 FEU/ug/m (0.27-0.49)
[2020-07-11 18:57] VITALS: BP 141/83; PULSE 101; RESP 20; O2SAT 97
--- NOTE | 2020-07-11 19:28 | ED.DCSUM_ITS ---
- ER Visit Summary Date of Service: 07/11/20 Chief Complaint: Lightheaded History of Present Illness: The patient is a [address] Bearden off. He reports that he jumped out of bed this morning at 1030 and was lightheaded. He did not pass out. Reports throughout the day when he stands from a sitting position he gets lightheaded again. This lasts seconds at a time. He denies any vertigo or double vision. His review of systems is negative. Physical Examination: Vitals: Stable. Afebrile. General: Well-nourished and well-developed. Head: Normocephalic atraumatic. Neck: Supple, no lymphadenopathy. No JVD. Nontender. Cardiovascular: Regular rate and rhythm. No murmurs. Respiratory: No respiratory distress. Clear to auscultation bilaterally. Abdominal: Soft, nontender, nondistended, normal bowel sounds. No guarding, rebound, or peritoneal signs. Back: Nontender. Extremities: Nontender, no edema. Skin: Normal color, no rash. Neurologic: Alert and oriented ?3. Cranial nerves II through XII are intact. Normal strength and sensation. Psych: Normal affect. Test Results: EKG is sinus tach 115 with no acute changes. Troponin is negative. D-dimer is negative. LFTs show an AST of 14. Chem-7 shows a glucose 216, BUN 21, creatinine 1.53, calcium of 8.3. Creatinine was 0.79?1.04 in 2019. It was 1.56 in 2019. CBC shows a white count 11.6 with 85 segmented neutrophils and 8 lymphocytes. Clinical Impression(s) from Imaging Studies Chest X-Ray 07/11/20 17:17 IMPRESSION: Normal x-ray examination of the chest. Electronically Signed: Tim Plata MD at 17:29 EDT , Service support , Emergency Department Course and Treatment: Patient had an IV placed. He was given 2 L of normal saline and feels much improved. Treatment Plan: Patient will be discharged instructions to push fluids. Follow- up his primary care physician in 2 days for another exam. Return to the emergency department for any worsening symptoms. Disposition: To home in improved and stable condition. Impression: 1. Dehydration. 2. Acute kidney injury. This note was generated with [employer] dictation software. It may contain incorrect words, spelling, and punctuation that were not noted in review of the chart prior to signing ED Disposition - Plan for ED Patient: Disposition: Home or Assisted Living Instructions: ED Dehydration (Adult), ED Hypotension, Orthostatic Referrals: Michael Perez MD [Primary Care Provider] - 2 Days
[2020-07-11 19:42] VITALS: BP 129/76; PULSE 103; RESP 20; O2SAT 95
== END 2020-07-11 19:43 | disposition home or self-care (01) ==
PROVIDERS: Emergency Provider Emergency Medicine; PCP Family Medicine
DX: E86.0 Dehydration (principal); N17.9 Acute kidney failure, unspecified; I25.10 Atherosclerotic heart disease of native coronary artery without angina pectoris; E11.9 Type 2 diabetes mellitus without complications; I10 Essential (primary) hypertension; Z72.0 Tobacco use; Z79.82 Long term (current) use of aspirin; Z79.4 Long term (current) use of insulin; Z79.899 Other long term (current) drug therapy
CPT/HCPCS: 36415; 71045; 80053; 84484; 85025; 85379; 93005; 96360; 96361; 99284; J7030

== ENCOUNTER 2020-10-26 17:28 | Observation (INO) | payer MEDICARE, MEDICAID, SELFPAY ==
[2020-10-26] VITALS (10 sets, daily range): BP systolic 130–174; BP diastolic 79–114; PULSE 86–111; RESP 16–20; TEMP 36.6–37.1; O2SAT 95–98; BMI 36.9; BMI 34.4
--- NOTE | 2020-10-26 17:44 | EKG12_ITS ---
Test Reason : CP Blood Pressure : / mmHG Vent. Rate : 109 BPM Atrial Rate : 109 BPM P-R Int : 162 ms QRS Dur : 086 ms QT Int : 342 ms P-R-T Axes : 037 054 037 degrees QTc Int : 460 ms Sinus tachycardia Nonspecific ST abnormality Abnormal ECG Confirmed by NORM MENDOZA, KENAN ([id number]), photographic editor GOLDIE MCNEAL ([id number]) on 10/28/2020 10:13:39 A M Referred By: TIMA Confirmed By:KISHA ZHENG MD
[2020-10-26 17:53] LABS: Absolute Lymphocyte Count 2.17 X10^3/uL (0.83-4.51); Absolute Neutrophil Count 7.8 X10^3/uL (2.0-7.7); Basophil# 0.07 X10^3/uL; Basophil% 0.6 % (0-1); Eosinophil# 0.22 X10^3/uL; Hematocrit 44.2 % (40-54); Hemoglobin 14.4 g/dL (13.0-16.5); Lymphocyte # 2.17 X10^3/ul (0.83-4.51); Lymphocyte % 19.6 % (19-41); Mean Corp Hgb Conc 32.6 g/dL (32-36); Mean Corpuscular Hgb 29.4 pg (27.0-32.0); Mean Corpuscular Volume 90.4 fL (80-94); Mean Platelet Vol. 10.5 fl (6.2-12.0); Monocyte# 0.81 X10^3/uL; Monocyte% 7.3 % (0-10); NRBC Flagged by Analyzer 0 % (0-5); Neutrophil # 7.78 X10^3/uL (2.7-7.7); Neutrophil % 70.1 % (47-70); Platelet Count 330 K/mm3 (150-450); RBC Distribution Width CV 14.4 % (11.6-14.6); RBC Distribution Width SD 47.6 fl (35.1-43.9); Red Blood Count 4.89 M/mm3 (4.6-6.2); White Blood Count 11.1 K/mm3 (4.4-11.0)
[2020-10-26] MEDS: Aspirin 81 MG TAB.CHEW 324 MG PO (17:57)
--- NOTE | 2020-10-26 18:05 | RAD_ITS ---
STUDY: X-RAY CHEST REASON FOR EXAM: Male, 40 years old. chest pain TECHNIQUE: AP portable COMPARISON: 07/11/2020 FINDINGS: Less than optimal inspiratory effort is seen however the lungs are clear. There is no demonstrated pleural abnormality. Normal size heart. Normal mediastinum and asad. Normal visualized pulmonary arteries. Normal visualized aortic arch and descending thoracic aorta. Normal visualized thoracic spine. Normal visualized ribs, clavicles, and shoulders. There is no demonstrated abnormality of the visualized soft tissue structures of the upper abdomen. No change since prior exam RAD/Chest 1 View (Portable) IMPRESSION: No acute cardiopulmonary pathology. Electronically Signed: John Muñoz MD at 18:20 EDT , Service support ,
[2020-10-26 18:11] LABS: Anion Gap 10 (5-15); BUN 13 mg/dL (7-18); BUN/Creat Ratio 9.1 RATIO (10-20); Calcium,Total 9.1 mg/dL (8.5-10.1); Chloride 104 mmol/L (98-107); Creatinine, Serum 1.43 mg/dL (0.70-1.30); EST Glomerular Filtration Rate 58 mL/min (>60); Est Glom Filt Rate - Afr Amer 70 mL/min (>60); Estimated Creatinine Clearance 67.98 ml/min; Glucose 239 mg/dL (74-106); Potassium 4.3 mmol/L (3.5-5.1); Sodium Level 138 mmol/L (136-145); Troponin-I HS 26.8 pg/mL (3.0-78.5)
--- NOTE | 2020-10-26 18:46 | ED.VIS.CHEST ---
HPI History of Present Illness Chief Complaint: Chest Pain Informant: patient Onset/Context/Timing Onset: Hours Activity at onset: sudden and activity on onset (Pulling off a trailer hitch) Timing: Intermittent and Lasts (30 to 40 minutes) Quality: Positive for Tightness Location: Substernal Current Severity: 10 Maximum Severity: /10 Worsened By: Exertion Relieved By: Rest Associated Symptoms: Positive for Nausea, Diaphoresis and Lightheadedness; Negative for Vomiting, Dyspnea, Cough, Fever, Acid Reflux and Palpitations Narrative Narrative: Patient is a 40-year-old male with known history of coronary disease. He states he has 2 stents. He states he is compliant with his medication. He is a smoker. Does have history of poorly controlled diabetes, hypercholesterolemia and obesity. He states this pain was not similar to the pain he experienced when he had his ME. He denies heartburn, indigestion or sour eructation. Denies black or maroon-colored stool. He denies radiation of the discomfort. He denies history of PE. He has a remote history of DVT. Prior Similar Symptoms: No CVD Risk Factors: Positive for Diabetes and Smoking PE Risk Factors: Negative for Recent Travel/Surgery, Recent Immobilization and OCP + Smoking + >/=35 TAD Risk Factors: Positive for Hypertension; Negative for Marfan's Syndrome and Family History [facility] Medical History (Updated 10/26/20 @ 21:[address] Junior Walls MD) Abnormal stress echo Arteriosclerosis of coronary artery in patient with history of myocardial infarction History of ST elevation myocardial infarction (STEMI) (10/12/19) Morbid obesity Noncompliance with diet and medication regimen Poor personal hygiene Tobacco dependence Uncontrolled type 2 diabetes mellitus Home Medications aspirin 81 mg PO DAILY@0800 #90 tab 10/13/19 [Rx Last Taken Unknown] carvedilol 6.25 mg PO BID #90 tab 10/13/19 [Rx Last Taken Unknown] insulin glargine 16 units SC DAILY #2 pen 10/13/19 [Rx Last Taken Unknown] metformin 500 mg PO BID #90 tab 10/13/19 [Rx Last Taken Unknown] ticagrelor 90 mg PO BID #90 tab 10/13/19 [Rx Last Taken Unknown] atorvastatin 80 mg tablet 80 mg PO QHS #90 tab 06/13/20 [Rx Last Taken Unknown] losartan 25 mg tablet 25 mg PO DAILY #90 tablet 06/13/20 [Rx Last Taken Unknown] Allergy/AdvReac Type Severity Reaction Status Date / Time No Known Allergies Allergy Verified 10/26/20 17:30 Family History Father Myocardial infarction Mother CVA (cerebral vascular accident) Surgical History Stented coronary artery (10/12/19) Social History (Updated 10/26/20 @ 18:[address] Junior Walls MD) housing: other details: 3 dogs Smoking Status: Current every day smoker tobacco type: cigarettes and smokeless tobacco Smokeless tobacco user: chewing tobacco how long ago did patient quit smokin year ago alcohol intake: never substance use type: does not use caffeine: Yes Type: tea ROS ROS ED Constitutional Constitutional ED: Denies chills, fever(s), subjective, sweats or weight loss Eyes Eyes: Denies blurry vision, change in vision or diplopia ENT ENT ED: Denies ear pain, rhinorrhea or sore throat Cardiovascular Cardiovascular: Reports as per HPI; Denies orthopnea or paroxysmal nocturnal dyspnea Respiratory/Chest Respiratory/Chest: Reports dyspnea; Denies cough, dyspnea on exertion, orthopnea, paroxysmal nocturnal dyspnea or sputum Gastrointestinal Gastrointestinal: Reports nausea; Denies abdominal pain, constipation, diarrhea, melena or vomiting Genitourinary Genitourinary ED: Denies dysuria, hematuria or urinary frequency Musculoskeletal Musculoskeletal: Denies arthralgias, back pain, myalgias or neck pain Integumentary Denies rash Neurologic Neurologic: Denies headache(s), paresthesias or weakness Endocrine Endocrinology: Denies polydipsia, polyphagia or polyuria Hematologic/Lymphatic Hematologic/Lymphatic: Denies easy bleeding or easy bruising EXAM Physical Exam Const Vital Signs: 10/26/20 17:28 10/26/20 17:30 10/26/20 17:53 Temperature 97.9 F Temperature Source Oral Pulse Rate 111 H Respiratory Rate 18 Respiratory Effort Normal Non-Labored Blood Pressure 130/83 H Blood Pressure Mean 98 Pulse Ox 96 98 Oxygen Delivery Method Room Air Room Air 10/26/20 18:28 10/26/20 19:00 10/26/20 20:00 Temperature Temperature Source Pulse Rate 100 99 93 Respiratory Rate 18 18 18 Respiratory Effort Blood Pressure 143/86 H 135/84 H 138/79 H Blood Pressure Mean 105 101 98 Pulse Ox 98 96 96 Oxygen Delivery Method Room Air Room Air Room Air 10/26/20 21:00 Temperature Temperature Source Pulse Rate 92 Respiratory Rate 18 Respiratory Effort Blood Pressure 174/97 H Blood Pressure Mean 122 Pulse Ox 97 Oxygen Delivery Method Room Air Positive well nourished, well developed and obese General Appearance ED: well developed and NAD Nutritional Appearance: obese HEENT Reports TM's clear and moist mucous membranes normocephalic and atraumatic Tympanic Membrane ED: Yes TM's clear Eyes PERRL and EOMs intact bilaterally General Eye ED: Negative for pale conjunctiva or scleral icterus Neck No no lymphadenopathy, No supple and no JVD Chest Wall inspection of chest normal and palpation of chest normal Resp normal respiratory effort and clear to auscultation bilaterally Cardio regular rate, regular rhythm, S1 normal heart sound and S2 normal heart sound GI normal to inspection, nondistended, normoactive bowel sounds, soft to palpation and non-tender Back/Spine no CVA tenderness and no thoracic nor lumbar tenderness Extremity normal to inspection General Extremety ED: Negative for edema, pulses abnormal or tenderness General Extremity: Negative for edema or pulses abnormal Neuro oriented x3, CN's II-XII intact bilaterally and no sensory deficits noted Sensorium / Orientation: awake and alert Motor Exam: strength 5/5 throughout Psych mental status grossly normal Skin no rashes or lesions noted and no wounds Heart Score History: Moderately Suspicious ECG: Nonspecific Repolarization Age: </= 45 years Risk Factors: >/= 3 Risk Factors or History of CAD Troponin: </= Normal Limit Score: 4 MDM MDM Lab Data Attestation: I reviewed the patient's lab results. Lab results narrative: Patient was informed first troponin is normal. 3-hour delta was ordered. Labs: Laboratory Results - last 24 hr 10/26/20 10/26/20 10/26/20 17:30 17:30 19:41 WBC 11.1 H RBC 4.89 Hgb 14.4 Hct 44.2 MCV 90.4 MCH 29.4 MCHC 32.6 RDW Std Deviation 47.6 H RDW Coeff of Hayley 14.4 Plt Count 330 MPV 10.5 Immature Gran % (Auto) 0.400 Neut % (Auto) 70.1 H Lymph % (Auto) 19.6 [place] % (Auto) 7.3 Eos % (Auto) 2.0 Baso % (Auto) 0.6 Absolute Neuts (auto) 7.8 H Absolute Lymphs (auto) 2.17 Nucleated RBC % 0 Sodium 138 Potassium 4.3 Chloride 104 Carbon Dioxide 24.0 Anion Gap 10 BUN 13 Creatinine 1.43 H Estim Creat Clear Calc 67.98 Est GFR (MDRD) Af Amer 70 Est GFR (MDRD) Non-Af 58 L BUN/Creatinine Ratio 9.1 L Glucose 239 H Calcium 9.1 Troponin I High Sens 26.8 41.4 2-hour delta is abnormal. With patient's heart score of 4 hospitalist was paged for serial enzymes and cardiology consult to evaluate his exertional chest tightness. Radiography Chest X-Ray - ED: 1 View, Heart, Lungs, Mediastinum, Bony Structures and No Acute Disease Diagnostic Testing: Radiology Impression Chest X-Ray 10/26/20 18:05 IMPRESSION: No acute cardiopulmonary pathology. Electronically Signed: John Muñoz MD at 18:20 EDT , Service support , EKG Initial EKG: Interpretation: Sinus Tachycardia (Sinus tachycardia with a ventricular rate of 109. There is nonstick ST-T wave changes noted. GA interval is 160 ms. QRS duration 86 ms. QT duration 342 ms. 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 coronary artery disease, History of diabetes mellitus, type II, Dyslipidemia, Tobacco use Prescriptions: No Action atorvastatin 80 mg tablet 80 mg PO QHS Qty: 90 RF: 3 losartan 25 mg tablet 25 mg PO DAILY Qty: 90 RF: 3 aspirin 81 MG tablet 81 mg PO DAILY@0800 Qty: 90 RF: 0 insulin glargine 100 UNITS/ML insulin pen 16 units SC DAILY Qty: 2 RF: 0 ticagrelor 90 MG tablet 90 mg PO BID Qty: 90 RF: 0 carvedilol 6.25 MG tablet 6.25 mg PO BID Qty: 90 RF: 0 metformin 500 MG tablet 500 mg PO BID Qty: 90 RF: 0 Primary Care Provider: Michael Perez Referrals: Michael Perez MD [Primary Care Provider] - Disposition Disposition: Acute Care Hospital [facility]
[2020-10-26 20:15] LABS: Troponin-I HS 41.4 pg/mL (3.0-78.5)
--- NOTE | 2020-10-26 22:21 | PCM.HP.STD ---
HPI - General General Date of Admission: 10/26/20 HPI Narrative ARIK CANAS, is a 40 M with history of STEMI in September 2019 status post PCI of ramus intermedius came to ER for sudden onset of midsternal chest pressure that lasted for about 15 to 20 minutes while he was trying to pull tailgate from the truck. Patient also had chest pain about 6 months ago which resolved after 10 minutes on taking rest. This time, it was localized without radiation associated with mild shortness of breath. He denies near syncope, diaphoresis or syncope. In ED, patient heart rate in 90s to 110s, sinus rhythm, blood pressure elevated 174/97. Twelve-lead EKG in the ER shows sinus tach at 109 bpm, nonspecific ST-T abnormality QTC 460 ms. First isolated troponin negative. Patient used to follow Dr. Juarez and had a stress echo in October 2019 which reported EF 65% with no echo criteria for stress-induced arrhythmia or angina or ST-T changes suggestive of ischemia. Patient last follow-up was Anmol Sawyer in May 2020. The patient is further admitted for evaluation of atypical chest pain, possible unstable angina. Patient father of heart attack few months ago and his mother September 2019 from a stroke. Patient is still a smoker about a pack per day and chew tobacco too. [facility] Medical History Abnormal stress echo Arteriosclerosis of coronary artery in patient with history of myocardial infarction History of ST elevation myocardial infarction (STEMI) (10/12/19) Morbid obesity Noncompliance with diet and medication regimen Poor personal hygiene Tobacco dependence Uncontrolled type 2 diabetes mellitus Home Medications aspirin 81 mg PO DAILY@0800 #90 tab 10/13/19 [Rx Last Taken Unknown] carvedilol 6.25 mg PO BID #90 tab 10/13/19 [Rx Last Taken Unknown] insulin glargine 16 units SC DAILY #2 pen 10/13/19 [Rx Last Taken Unknown] metformin 500 mg PO BID #90 tab 10/13/19 [Rx Last Taken Unknown] ticagrelor 90 mg PO BID #90 tab 10/13/19 [Rx Last Taken Unknown] atorvastatin 80 mg tablet 80 mg PO QHS #90 tab 06/13/20 [Rx Last Taken Unknown] losartan 25 mg tablet 25 mg PO DAILY #90 tablet 06/13/20 [Rx Last Taken Unknown] Allergy/AdvReac Type Severity Reaction Status Date / Time No Known Allergies Allergy Verified 10/26/20 17:30 Family History Father Myocardial infarction Mother CVA (cerebral vascular accident) Surgical History Stented coronary artery (10/12/19) Social History housing: other details: 3 dogs Smoking Status: Current every day smoker tobacco type: cigarettes and smokeless tobacco Smokeless tobacco user: chewing tobacco how long ago did patient quit smokin year ago alcohol intake: never substance use type: does not use caffeine: Yes Type: tea ROS ROS Narrative Constitutional: No fever or chills. HEENT: Reports systems reviewed and no addt'l complaints, except as documented Respiratory/Chest: As mentioned in HPI Gastrointestinal: Denies coffee ground emesis, hematemesis or vomiting Genitourinary: Denies burning urination or new urinary tract symptoms Musculoskeletal: Reports joint pain and limited range of motion Neurologic: Denies seizure-like activity skin: No ulcer. No rash Endocrinology: Reports systems reviewed and no addt'l complaints, except as documented Hematologic/Lymphatic: Reports systems reviewed and no addt'l complaints, except as documented Rest 12 ROS are negative except as mentioned in HPI Vital Signs Vital Signs Vital Signs: 10/26/20 17:28 10/26/20 17:30 10/26/20 17:53 Temperature 97.9 F Temperature Source Oral Pulse Rate 111 H Respiratory Rate 18 Respiratory Effort Normal Non-Labored Blood Pressure 130/83 H Blood Pressure Mean 98 Pulse Ox 96 98 Oxygen Delivery Method Room Air Room Air 10/26/20 18:28 10/26/20 19:00 10/26/20 20:00 Temperature Temperature Source Pulse Rate 100 99 93 Respiratory Rate 18 18 18 Respiratory Effort Blood Pressure 143/86 H 135/84 H 138/79 H Blood Pressure Mean 105 101 98 Pulse Ox 98 96 96 Oxygen Delivery Method Room Air Room Air Room Air 10/26/20 21:00 Temperature Temperature Source Pulse Rate 92 Respiratory Rate 18 Respiratory Effort Blood Pressure 174/97 H Blood Pressure Mean 122 Pulse Ox 97 Oxygen Delivery Method Room Air Weight Weight: 250 lb Body Mass Index (BMI) 36.9 Physical Exam Narrative General: Alert, Oriented x3, Cooperative, morbid obesity BMI 36.9 kg/m?. HEENT: Atraumatic, PERRLA, EOMI, Normocephalic Oral: No Gingival or Mucosal Lesions/ Ulcerations Neck: Supple, No JVD, Negative Carotid Bruits Lungs: Air entry diminished in bilateral lung bases. No crepitation/rhonchi Cardiovascular: Regular rate, Regular Rhythm, Normal S1, Normal S2, No murmurs Abdomen: Bowel Sounds Present, Soft, Non Tender, Non-Distended : No renal angle tenderness. No suprapubic tenderness. Extremities: No edema, Capillary Refill Less than 3 Seconds Skin: No rashes, No breakdown Musculoskeletal: No Tenderness to Palpation of Joints or Extremities Neurological: Cranial nerves II-XII grossly intact, DTR 2+/4 and Symmetrical, Neuro grossly intact Psych/Mental Status: Normal Affect, Appropriate. Results Lab / Micro Data Result Diagrams: 10/26/20 17:30 10/26/20 17:30 Labs: Laboratory Results - last 24 hr 10/26/20 17:30: WBC 11.1 H, RBC 4.89, Hgb 14.4, Hct 44.2, MCV 90.4, MCH 29.4, MCHC 32.6, RDW Std Deviation 47.6 H, RDW Coeff of Hayley 14.4, Plt Count 330, MPV 10.5, Immature Gran % (Auto) 0.400, Neut % (Auto) 70.1 H, Lymph % (Auto) 19.6, [place] % (Auto) 7.3, Eos % (Auto) 2.0, Baso % (Auto) 0.6, Absolute Neuts (auto) 7.8 H, Absolute Lymphs (auto) 2.17, Nucleated RBC % 0 10/26/20 17:30: Sodium 138, Potassium 4.3, Chloride 104, Carbon Dioxide 24.0, Anion Gap 10, BUN 13, Creatinine 1.43 H, Estim Creat Clear Calc 67.98, Est GFR (MDRD) Af Amer 70, Est GFR (MDRD) Non-Af 58 L, BUN/Creatinine Ratio 9.1 L, Glucose 239 H, Calcium 9.1, Troponin I High Sens 26.8 10/26/20 19:41: Troponin I High Sens 41.4 Radiology Impression Chest X-Ray 10/26/20 18:05 IMPRESSION: No acute cardiopulmonary pathology. Electronically Signed: John Muñoz MD at 18:20 EDT , Service support , Assessment & Plan Assessment/Plan (1) Chest pain, exertional: PLAN: This 40-year-old old gentleman with history of coronary artery disease, STEMI in September 2019 admitted for atypical chest pain. 1. Atypical chest pain possible unstable angina: Patient is being admitted to PCU. CONI risk score 3. Serial hs-troponin enzymes and twelve-lead EKG. If hs-troponins negative, will do pharmacological nuclear stress test tomorrow a.m. The patient is on aspirin, Brilinta, carvedilol, high intensity atorvastatin and losartan. Patient home medications continued. Fasting profile and TSH tomorrow a.m. 2. Coronary artery disease status post STEMI in September 2019: Patient had PCI of ramus intermedius and was also found distal RCA stenosis which was left for future elective evaluation. 3. Diabetes mellitus type 2, uncontrolled: Glucose is 239. A1c tomorrow a.m. Accu-Chek insulin is covered with sliding scale. Lantus insulin increased to 20 minutes continues daily. 4. CKD stage III: Patient last creatinine was 1.53 in July 06. Currently 1.43. Estimated GFR 68 mL/min. 5. Hypertension: Blood pressure is uncontrolled. On losartan. Titrate the medication as required. 6. Dyslipidemia: As mentioned above. 7. Chronic tobacco use: Patient smokes cigarettes and also chews tobacco. Smoking session consult. Nicotine patch is contraindicated in view of current evaluation of acute coronary syndrome. VT prophylaxis: Lovenox 40 mg subcu daily. Advance directive: Patient agreed for full code. Patient does not have advanced directive/living will. Does not have designated healthcare power of sports attorney. Charges/Coding Visit Charges OBSV E&M: 41533 Initial observation care L3
[2020-10-26 22:54] LABS: Magnesium 2.1 mg/dL (1.6-2.6)
--- NOTE | 2020-10-26 23:40 | EKG12_ITS ---
Test Reason : CP ADMIT Blood Pressure : / mmHG Vent. Rate : 089 BPM Atrial Rate : 089 BPM P-R Int : 178 ms QRS Dur : 086 ms QT Int : 366 ms P-R-T Axes : 052 039 038 degrees QTc Int : 445 ms Normal sinus rhythm Nonspecific ST and T wave abnormality Abnormal ECG When compared with ECG of 11-JUL-2020 16:50, No significant change was found Confirmed by NORM MENDOZA, KENAN ([id number]), material expeditor GOLDIE MCNAEL ([id number]) on 10/28/2020 10:19:30 A M Referred By: DR QUAN Confirmed By:KISHA ZHENG MD
[2020-10-27] MEDS: Atorvastatin Calcium 80 MG Tablet PO (00:14)
[2020-10-27] MEDS: Carvedilol 6.25 MG Tablet PO ×2 (00:14→14:49)
[2020-10-27] MEDS: Enoxaparin 40 MG/0.4 ML Syringe SC ×2 (00:14→14:58)
[2020-10-27] MEDS: TICAGRELOR 90 MG TABLET PO ×2 (00:14→06:44)
[2020-10-27 02:29] LABS: Troponin-I HS 53.2 pg/mL (3.0-78.5)
[2020-10-27 02:42] LABS: Cholesterol 119 mg/dL (200); High Density Lipoprotein 26 mg/dL; Thyroid Stim Hormone (TSH) 1.53 uIU/mL (0.358-3.74); Triglycerides 291 mg/dL; Very Low Density Lipoprotein 58 mg/dL (5-40)
[2020-10-27 03:00] VITALS: PULSE 92
[2020-10-27 05:40] VITALS: BP 148/93; PULSE 82; RESP 16; TEMP 36.4; O2SAT 97
[2020-10-27 06:12] VITALS: RESP 16; O2SAT 97
[2020-10-27] MEDS: Aspirin E.C. 81 MG Tablet PO (06:43)
[2020-10-27] MEDS: Losartan Potassium 50 MG Tablet PO (06:43)
[2020-10-27 06:51] LABS: Bedside Glucose 184 mg/dL (70-110)
[2020-10-27 07:32] VITALS: PULSE 79
[2020-10-27 07:56] VITALS: O2SAT 96
--- NOTE | 2020-10-27 11:17 | DCINST_ITS ---
Discharge Instructions Diet Discharge Diet: Low fat / Low cholesterol and Carb Control Diet Activity Discharge Activity: Return to Normal Activity Dressing / Incision Call your doctor if you observe: Shortness of breath, Dizziness and Chest pain Follow Up Care Test Results: Test results from this visit will be discussed in further detail at your follow-up appointment, if applicable. Discharge Plan Admission Admit Date/Time: 10/26/20 22:20 Primary Reason for Your Visit: Chest pain Attending Provider: Grace Ríos Primary Care Provider: Michael Perez Discharge Orders/Prescriptions Prescriptions: Continued atorvastatin 80 mg tablet 80 mg PO QHS Qty: 90 RF: 3 aspirin 81 MG tablet 81 mg PO DAILY@0800 Qty: 90 RF: 0 ticagrelor 90 MG tablet 90 mg PO BID Qty: 90 RF: 0 carvedilol 6.25 MG tablet 6.25 mg PO BID Qty: 90 RF: 0 metformin 500 MG tablet 500 mg PO BID Qty: 90 RF: 0 Changed losartan 25 mg tablet 50 mg PO DAILY Qty: 90 RF: 3 insulin glargine 100 UNITS/ML insulin pen 20 unit SC DAILY Qty: 2 RF: 0 Referrals / Follow Up: Michael Perez MD [Primary Care Provider] - In 1 Week Anmol Sawyer NP, [employer]CHNICIAN-[facility] [Nurse Practitioner] - Within 1 Month Disposition Disposition (needs filled in before D/C Order can be placed): Home, Self Care
--- NOTE | 2020-10-27 11:30 | PHA.DC.MC ---
Pharmacy Service has performed discharge medication reconciliation and counseling for this patient. The patient was counseled on the following home discharge medication changes: 1. losartan: dose change 2. lantus: dose change The patient's questions regarding all of their medications were answered. The patient was able to verbally demonstrate an understanding of their discharge medications. Home Medications aspirin 81 mg PO DAILY@0800 #90 tab 10/13/19 carvedilol 6.25 mg PO BID #90 tab 10/13/19 metformin 500 mg PO BID #90 tab 10/13/19 ticagrelor 90 mg PO BID #90 tab 10/13/19 atorvastatin 80 mg tablet 80 mg PO QHS #90 tab 06/13/20 insulin glargine 20 unit SC DAILY #2 pen 10/27/20 losartan 50 mg PO DAILY #90 tablet 10/27/20 The patient's discharge medication list was reviewed for discrepancies and discrepancies were resolved.
[2020-10-27 12:06] LABS: Anion Gap 8 (5-15); BUN 15 mg/dL (7-18); BUN/Creat Ratio 16.2 RATIO (10-20); Calcium,Total 8.8 mg/dL (8.5-10.1); Chloride 101 mmol/L (98-107); Creatinine, Serum 0.93 mg/dL (0.70-1.30); EST Glomerular Filtration Rate 96 mL/min (>60); Est Glom Filt Rate - Afr Amer 116 mL/min (>60); Estimated Creatinine Clearance 111.33 ml/min; Glucose 278 mg/dL (74-106); Potassium 4.2 mmol/L (3.5-5.1); Sodium Level 135 mmol/L (136-145)
--- NOTE | 2020-10-27 12:54 | STRESSREP_ITS ---
Stress Test Report Date: 10/27/2020 Procedure: Pharmacologic stress nuclear imaging study Indications: Chest pain Consent: Per the patient Procedure: The patient underwent pharmacologic (Regadenoson) evaluation with a peak heart rate of 104 beats per minute (58%predicted maximal heart rate) and a peak blood pressure of 190/110 mmHg. The baseline ECG demonstrated sinus rhythm with diffuse ST depressions. EKG during lexiscan infusion revealed no significant change from baseline. EKG post infusion revealed no significant change from baseline [There were no cardiac dysrhythmias pretest, during pharmacologic infusion, or recovery]. [There was no complaint of chest discomfort during pharmacologic infusion or recovery]. The examination was discontinued secondary to completion of protocol. Impression: 1. Lexiscan stress test test is negative for Lexiscan infusion induced EKG changes of ischemia. 2. Lexiscan stress test test is negative for Lexiscan infusion induced chest pain. 3. Results of the nuclear portion of the test is as below Myocardial perfusion imaging study: Technique: The patient was injected with [] millicuries of technetium 99m Cardiolite and subsequently rest SPECT Cardiolite nuclear imaging was obtained in the horizontal long, vertical long, and short axis views. The patient underwent pharmacologic [Regadenoson 0.4mg] evaluation. Please see above for details. The patient was injected with [] millicuries of technetium 99m Cardiolite and subsequently stress SPECT Cardiolite nuclear imaging was obtained in the horizontal long, vertical long, and short axis views. A gated Cardiolite study at peak stress was obtained. Interpretation: Rest and stress SPECT Cardiolite nuclear imaging status post realignment, normalization, and attenuation correction demonstrate mildly decreased radioisotope uptake in the inferior wall on the rest images prior to attenuation correction that is worse on the stress images. After attenuation correction there appears to be overall normal myocardial radioisotope uptake. However there is also concern of artifact adjacent to the inferior wall on the attenuati on corrected images. Mild inferior ischemia cannot be excluded. Gated images reveal hypokinesis of the lateral wall and septum. The reported LVEF is 42%. Impression: 1. Mild inferior ischemia cannot be excluded. 2. Estimated ejection fraction is 42%. This note was generated with [employer] software. It may contain incorrect words, spelling, and punctuation that were not noted in checking the note before signing.
--- NOTE | 2020-10-27 14:16 | PCM.PN.HOSP ---
Documented by User: Esther Shelby NP, TELEPHONE ORDER CLERK ROOM SERVICE-C 10/27/20 14:29 Subjective Subjective Patient seen and examined. Denies further chest pain. Underwent stress test this morning which was reported to be abnormal. Plan for cardiology consultation. Patient denies other symptoms or complaints. Objective Data Objective Data Vital Signs: Vital Signs Temp Pulse Resp BP Pulse Ox 97.5 F L 79 16 148/93 H 96 10/27/20 05:40 10/27/20 07:32 10/27/20 06:12 10/27/20 05:40 10/27/20 07:56 Oxygen Delivery Method Room Air Weight: 246 lb 14.684 oz Body Mass Index (BMI) 34.4 Intake & Output: Intake and Output for Last 24 Hours 10/25/20 10/26/20 10/27/20 23:59 23:59 23:59 Intake Total 0 / 0 Balance 0 / 0 Lab / Micro Data Result Diagrams: 10/26/20 17:30 10/27/20 11:30 Labs: Laboratory Results - last 24 hr 10/26/20 17:30: WBC 11.1 H, RBC 4.89, Hgb 14.4, Hct 44.2, MCV 90.4, MCH 29.4, MCHC 32.6, RDW Std Deviation 47.6 H, RDW Coeff of Hayley 14.4, Plt Count 330, MPV 10.5, Immature Gran % (Auto) 0.400, Neut % (Auto) 70.1 H, Lymph % (Auto) 19.6, [place] % (Auto) 7.3, Eos % (Auto) 2.0, Baso % (Auto) 0.6, Absolute Neuts (auto) 7.8 H, Absolute Lymphs (auto) 2.17, Nucleated RBC % 0 10/26/20 17:30: Sodium 138, Potassium 4.3, Chloride 104, Carbon Dioxide 24.0, Anion Gap 10, BUN 13, Creatinine 1.43 H, Estim Creat Clear Calc 67.98, Est GFR (MDRD) Af Amer 70, Est GFR (MDRD) Non-Af 58 L, BUN/Creatinine Ratio 9.1 L, Glucose 239 H, Calcium 9.1, Troponin I High Sens 26.8 10/26/20 19:41: Troponin I High Sens 41.4 10/26/20 19:41: Magnesium 2.1 10/27/20 02:02: Triglycerides 291 H, Cholesterol 119, LDL Cholesterol 35, VLDL Cholesterol 58 H, HDL Cholesterol 26 L, TSH 1.53 10/27/20 02:02: Troponin I High Sens 53.2 10/27/20 06:41: POC Glucose 184 H 10/27/20 11:30: Sodium 135 L, Potassium 4.2, Chloride 101, Carbon Dioxide 26.0, Anion Gap 8, BUN 15, Creatinine 0.93, Estim Creat Clear Calc 111.33, Est GFR (MDRD) Af Amer 116, Est GFR (MDRD) Non-Af 96, BUN/Creatinine Ratio 16.2, Glucose 278 H, Calcium 8.8 Radiography Diagnostic Testing: Radiology Impression Chest X-Ray 10/26/20 18:05 IMPRESSION: No acute cardiopulmonary pathology. Electronically Signed: John Muñoz MD at 18:20 EDT , Service support , Physical Exam Const alert, oriented x3 and no apparent distress Orientation / Consciousness: awake, oriented to person, oriented to place and oriented to time HEENT normocephalic and moist oral mucous membranes Eyes PERRL, EOMs intact bilaterally and conjunctivae normal Neck no lymphadenopathy Resp normal respiratory effort and clear to auscultation bilaterally Cardio regular rate, regular rhythm and no murmurs Peripheral Pulses: pulses 2+ throughout GI normal to inspection, nondistended, normoactive bowel sounds, non-tender and non-distended Extremity normal to inspection Skin no rashes or lesions noted Lesions: no lesions Rashes: no rashes Trauma: no lacerations or abrasions Neuro CN's II-XII intact bilaterally, no focal motor deficits, no sensory deficits noted and deep tendon reflexes 2+ bilaterally Psych mental status grossly normal and affect normal Assessment & Plan Assessment/Plan (1) Chest pain, exertional: PLAN: 1. Chest pain, abnormal stress test-troponin negative. Patient underwent stress test which showed potential mild inferior ischemia, estimated ejection fraction 42%. Consult cardiology. Continue aspirin, statin, carvedilol, losartan, Brilinta. 2. CAD with history of PCI to ramus intermedius-cath September 2019 patient was also noted to have distal RCA stenosis with planned further outpatient evaluation/intervention. Continue medical management as noted above. 3. Type 2 diabetes mellitus-hold oral regimen. Accu-Cheks with sliding scale insulin. Continue long-acting regimen. Repeat hemoglobin A1c. 4. Hypertension-stable, continue losartan, carvedilol. 5. Hyperlipidemia-continue statin. 6. Chronic tobacco dependence-encouraged cessation. 7. Obesity-encouraged diet and lifestyle modifications. DVT prophylaxis-Lovenox subcu This patient was seen by FELIX Reyes under the supervision of Dr. Ríos. Documented by User: Dr. Grace Ríos MD 10/27/20 16:18 Objective Data Lab / Micro Data Result Diagrams: 10/26/20 17:30 10/27/20 11:30 Charges/Coding Addendum Addendum: Patient seen by Esther W[place] under my supervision Patient seen and examined. He was admitted with a complaint of chest pain and is been managed for chest pain rule out ACS. Patient has a history of CAD s/p stents back in 2019 and has continued smoking. At time of review he had no complaints and chest pain had improved. Review of systems otherwise negative. Labs and vitals reviewed. O/E: Const alert, oriented x3 and no apparent distress Orientation / Consciousness: awake, oriented to person, oriented to place and oriented to time HEENT normocephalic and moist oral mucous membranes Eyes PERRL, EOMs intact bilaterally and conjunctivae normal Neck no lymphadenopathy Resp normal respiratory effort and clear to auscultation bilaterally Cardio regular rate, regular rhythm and no murmurs Peripheral Pulses: pulses 2+ throughout GI normal to inspection, nondistended, normoactive bowel sounds, non-tender and non-distended Extremity normal to inspection Skin no rashes or lesions noted Lesions: no lesions Rashes: no rashes Trauma: no lacerations or abrasions Neuro CN's II-XII intact bilaterally, no focal motor deficits, no sensory deficits noted and deep tendon reflexes 2+ bilaterally Psych mental status grossly normal and affect normal Plan is for stress test today. Patient had stress test which was abnormal and showed potential mild inferior ischemia with estimated EF of 42%. On aspirin and statin as well as carvedilol, losartan and Brilinta. Cardiology consulted. Continue insulin sliding scale for diabetes well to oral meds on hold. Patient counseled to quit smoking. On Lovenox for DVT prophylaxis. Await cardiology recommendations. Rest as per FELIX Reyes's note which I reviewed and endorsed. Visit Charges Inpatient E&M: 23211 Subs Hosp L2
[2020-10-27 14:41] LABS: Bedside Glucose 190 mg/dL (70-110)
[2020-10-27 14:45] VITALS: BP 166/112; PULSE 80; RESP 16; TEMP 36.7; O2SAT 96
[2020-10-27 15:13] LABS: Hemoglobin A1c 9.4 % (3.8-5.6)
[2020-10-27] MEDS: Insulin Lispro 100 UNIT/ML INSULN.PEN SC (17:14)
[2020-10-27 17:26] LABS: Bedside Glucose 291 mg/dL (70-110)
--- NOTE | 2020-10-27 18:47 | PCM.DC ---
Discharge Instructions Diet Discharge Diet: Low fat / Low cholesterol and 2000 mg Sodium Diet Activity Discharge Activity: Return to Normal Activity (Limit strenuous activity) Dressing / Incision Call your doctor if you observe: Numbness or Tingling, Shortness of breath, Dizziness, Swelling in the ankles, Chest pain and Increased palpitations (irregular heartbeat) Follow Up Care Please Follow Up With: Cassandra Cruz MD When: call tomorrow to schedule heart catheterization Test Results: Test results from this visit will be discussed in further detail at your follow-up appointment, if applicable. Discharge Plan Admission Admit Date/Time: 10/26/20 22:20 Primary Reason for Your Visit: Chest pain Attending Provider: Grace Ríos Primary Care Provider: Michael Perez Consulting Providers: Cassandra Cruz Instructions Patient Instructions: CAD, Warning Signs of a Heart Attack, Heart Attack: Back at Home Discharge Orders/Prescriptions Prescriptions: Continued atorvastatin 80 mg tablet 80 mg PO QHS Qty: 90 RF: 3 aspirin 81 MG tablet 81 mg PO DAILY@0800 Qty: 90 RF: 0 ticagrelor 90 MG tablet 90 mg PO BID Qty: 90 RF: 0 carvedilol 6.25 MG tablet 6.25 mg PO BID Qty: 90 RF: 0 metformin 500 MG tablet 500 mg PO BID Qty: 90 RF: 0 Changed losartan 25 mg tablet 50 mg PO DAILY Qty: 90 RF: 3 insulin glargine 100 UNITS/ML insulin pen 20 unit SC DAILY Qty: 2 RF: 0 Referrals / Follow Up: Michael Perez MD [Primary Care Provider] - In 1 Week Anmol Sawyer NP, RESIDENTIAL SUPPORT WORKER-C [Nurse Practitioner] - Within 1 Month Cassandra Curz MD [STAFF PHYSICIAN] - In 1 Day (Call [facility] to schedule outpatient heart catheterization. ) Disposition Disposition (needs filled in before D/C Order can be placed): Home, Self Care
--- NOTE | 2020-10-27 19:28 | PCM.HOSP.N ---
Hospitalist Note Notified by Esther Shelby NP patient wanting to go home and follow-up outpatient for cardiac catheterization. States she discussed case with Dr. Cruz who agreed to patient following up outpatient and requesting that I enter discharge instructions for patient that he may be discharged today. Case discussed with Esther Shelby NP regarding patient's follow-up needs. Discharge instructions entered along with discharge order
--- NOTE | 2020-10-28 07:59 | PCM.DC.SUM ---
Documented by User: Esther Shelby NP, HEAD OF GEOGRAPHY-C 10/28/20 08:05 Providers Date of Admission: 10/26/20 Date of Discharge: 10/27/20 Primary Care Physician: Dr. Michael Perez MD Consultations 10/27/20 14:28 Consult: Cardiology Routine Consulting Provider: Cassandra Cruz Reason for Consult: Chest pain, abnormal stress EMERGENT Consult: No MD Notified: Yes Date Notified: 10/27/20 Time Notified: 14:28 Method of Notification: Text Reason For Visit: ATYPICAL CHEST PAIN Diagnosis Discharge Diagnosis (1) Chest pain, exertional: Status: Acute Code(s): R07.9 - Chest pain, unspecified Medications at Discharge Home Medications aspirin 81 mg PO DAILY@0800 #90 tab 10/13/19 carvedilol 6.25 mg PO BID #90 tab 10/13/19 metformin 500 mg PO BID #90 tab 10/13/19 ticagrelor 90 mg PO BID #90 tab 10/13/19 atorvastatin 80 mg tablet 80 mg PO QHS #90 tab 06/13/20 insulin glargine 20 unit SC DAILY #2 pen 10/27/20 losartan 50 mg PO DAILY #90 tablet 10/27/20 Hospital Course Operations None Procedures Stress test Summary of Care Provided Minutes Spent on Discharge: 35 Hospital Course: Patient is a 40-year-old male admitted 10/26/2020 due to chest pain. 1. Chest pain, abnormal stress test-troponin negative. Patient underwent stress test which showed potential mild inferior ischemia, estimated ejection fraction 42%. Cardiology consulted. Per cardiology, patient can complete heart cath as outpatient. He is to call office tomorrow to schedule. He denies further chest pain day of discharge. Continue aspirin, statin, carvedilol, losartan, Brilinta. 2. CAD with history of PCI to ramus intermedius-cath September 2019 patient was also noted to have distal RCA stenosis with planned further outpatient evaluation/intervention. Continue medical management as noted above. Plan for outpatient cath. 3. Type 2 diabetes mellitus-Repeat hemoglobin A1c 9.4%. Continue home oral regimen. Glargine increased to 20 units daily. Will need further outpatient adjustment. Recommend increasing Metformin to 1000 mg twice daily. Follow-up with PCP for further management. 4. Hypertension-stable, continue losartan, carvedilol. Losartan increased to 50 mg daily. 5. Hyperlipidemia-continue statin. 6. Chronic tobacco dependence-encouraged cessation. 7. Obesity-encouraged diet and lifestyle modifications. Physical Exam Const alert, oriented x3 and no apparent distress Orientation / Consciousness: awake, oriented to person, oriented to place and oriented to time HEENT normocephalic and moist oral mucous membranes Eyes PERRL, EOMs intact bilaterally and conjunctivae normal Neck no lymphadenopathy Resp normal respiratory effort and clear to auscultation bilaterally Cardio regular rate, regular rhythm and no murmurs Peripheral Pulses: pulses 2+ throughout GI normal to inspection, nondistended, normoactive bowel sounds, non-tender and non-distended Extremity normal to inspection Skin no rashes or lesions noted Lesions: no lesions Rashes: no rashes Trauma: no lacerations or abrasions Neuro CN's II-XII intact bilaterally, no focal motor deficits, no sensory deficits noted and deep tendon reflexes 2+ bilaterally Psych mental status grossly normal and affect normal Patient seen and examined prior to discharge. Physical assessment as noted above. Patient is stable for discharge with follow up recommendations as noted above. This patient was seen by FELIX Reyes under the supervision of Dr. Ríos. Weight / BMI Weight Weight: 246 lb 14.684 oz Body Mass Index (BMI) 34.4 ABG / Lab / Microbiology Data Result Diagrams: 10/26/20 17:30 10/27/20 11:30 Laboratory: Laboratory Results - last 24 hr 10/27/20 02:02: Hemoglobin A1c 9.4 H 10/27/20 11:30: Sodium 135 L, Potassium 4.2, Chloride 101, Carbon Dioxide 26.0, Anion Gap 8, BUN 15, Creatinine 0.93, Estim Creat Clear Calc 111.33, Est GFR (MDRD) Af Amer 116, Est GFR (MDRD) Non-Af 96, BUN/Creatinine Ratio 16.2, Glucose 278 H, Calcium 8.8 10/27/20 14:32: POC Glucose 190 H 10/27/20 17:11: POC Glucose 291 H D/C Instructions Discharge Diet: Low fat / Low cholesterol and 2000 mg Sodium Diet Call your doctor if you observe: Numbness or Tingling, Shortness of breath, Dizziness, Swelling in the ankles, Chest pain and Increased palpitations (irregular heartbeat) Please Follow Up With: Cassandra Cruz MD When: call tomorrow to schedule heart catheterization Meaningful Use Info Meaningful Use Diagnoses (Choose all that apply): None applicable Discharge Plan Admission Admit Date/Time: 10/26/20 22:20 Primary Reason for Your Visit: Chest pain Attending Provider: Grace Ríos Primary Care Provider: Michael Perez Consulting Providers: Cassandra Cruz Instructions Patient Instructions: CAD, Warning Signs of a Heart Attack, Heart Attack: Back at Home Discharge Orders/Prescriptions Prescriptions: Continued atorvastatin 80 mg tablet 80 mg PO QHS Qty: 90 RF: 3 aspirin 81 MG tablet 81 mg PO DAILY@0800 Qty: 90 RF: 0 ticagrelor 90 MG tablet 90 mg PO BID Qty: 90 RF: 0 carvedilol 6.25 MG tablet 6.25 mg PO BID Qty: 90 RF: 0 metformin 500 MG tablet 500 mg PO BID Qty: 90 RF: 0 Changed losartan 25 mg tablet 50 mg PO DAILY Qty: 90 RF: 3 insulin glargine 100 UNITS/ML insulin pen 20 unit SC DAILY Qty: 2 RF: 0 Referrals / Follow Up: Michael Perez MD [Primary Care Provider] - In 1 Week Cassandra Cruz MD [STAFF PHYSICIAN] - In 1 Day (Call [facility] to schedule outpatient heart catheterization. ) Anmol Sawyer NP, HEAD OF GEOGRAPHY-C [Nurse Practitioner] - Within 1 Month Disposition Disposition (needs filled in before D/C Order can be placed): Home, Self Care Documented by User: Dr. Grace Ríos MD 10/28/20 16:35 Providers Date of Admission: 10/26/20 Reason For Visit: ATYPICAL CHEST PAIN Medications at Discharge Home Medications aspirin 81 mg PO DAILY@0800 #90 tab 10/13/19 carvedilol 6.25 mg PO BID #90 tab 10/13/19 metformin 500 mg PO BID #90 tab 10/13/19 ticagrelor 90 mg PO BID #90 tab 10/13/19 atorvastatin 80 mg tablet 80 mg PO QHS #90 tab 06/13/20 insulin glargine 20 unit SC DAILY #2 pen 10/27/20 losartan 50 mg PO DAILY #90 tablet 10/27/20 ABG / Lab / Microbiology Data Result Diagrams: 10/26/20 17:30 10/27/20 11:30 Discharge Plan Admission Admit Date/Time: 10/26/20 22:20 Primary Reason for Your Visit: Chest pain Attending Provider: Grace Ríos Primary Care Provider: Michael Perez Consulting Providers: Cassandra Cruz Instructions Patient Instructions: CAD, Warning Signs of a Heart Attack, Heart Attack: Back at Home Discharge Orders/Prescriptions Prescriptions: Continued atorvastatin 80 mg tablet 80 mg PO QHS Qty: 90 RF: 3 aspirin 81 MG tablet 81 mg PO DAILY@0800 Qty: 90 RF: 0 ticagrelor 90 MG tablet 90 mg PO BID Qty: 90 RF: 0 carvedilol 6.25 MG tablet 6.25 mg PO BID Qty: 90 RF: 0 metformin 500 MG tablet 500 mg PO BID Qty: 90 RF: 0 Changed losartan 25 mg tablet 50 mg PO DAILY Qty: 90 RF: 3 insulin glargine 100 UNITS/ML insulin pen 20 unit SC DAILY Qty: 2 RF: 0 Referrals / Follow Up: Michael Perez MD [Primary Care Provider] - In 1 Week Cassandra Cruz MD [STAFF PHYSICIAN] - In 1 Day (Call [facility] to schedule outpatient heart catheterization. ) Anmol Sawyer NP, HEAD OF GEOGRAPHY-C [Nurse Practitioner] - Within 1 Month Disposition Disposition (needs filled in before D/C Order can be placed): Home, Self Care Charges/Coding Addendum Addendum: Patient seen by Esther Shelby NP-see under my supervision. Patient is a 40-year-old male with a past medical history of CAD s/p stents in September 2019 was admitted with a complaint of chest pain. He was admitted to manage for chest pain to rule out ACS. He had a stress test done which was abnormal and showed potential mild inferior ischemia with estimated EF of 42%. Cardiology was consulted. Patient was continued on his aspirin and Brilinta as well as carvedilol, losartan and statin. Patient insisted on being discharged and this was discharged with cardiology who felt patient could have cardiac cath on outpatient basis. Patient was therefore discharged home on 10/27/2020. He is follow-up with his primary care doctor and cardiology for scheduling of outpatient cath. Patient was seen and examined prior to discharge. He had no complaints and felt well. Chest pain had not recurred. Review of systems otherwise negative. Labs and vitals reviewed. Home medication reviewed and reconciled. O/E: Const alert, oriented x3 and no apparent distress Orientation / Consciousness: awake, oriented to person, oriented to place and oriented to time HEENT normocephalic and moist oral mucous membranes Eyes PERRL, EOMs intact bilaterally and conjunctivae normal Neck no lymphadenopathy Resp normal respiratory effort and clear to auscultation bilaterally Cardio regular rate, regular rhythm and no murmurs Peripheral Pulses: pulses 2+ throughout GI normal to inspection, nondistended, normoactive bowel sounds, non-tender and non-distended Extremity normal to inspection Skin no rashes or lesions noted Lesions: no lesions Rashes: no rashes Trauma: no lacerations or abrasions Neuro CN's II-XII intact bilaterally, no focal motor deficits, no sensory deficits noted and deep tendon reflexes 2+ bilaterally Psych mental status grossly normal and affect normal Plan is for discharge home, to follow up with cardiology to schedule outpatient cardiac cath, and to also follow up with PCP. Rest as per Esther Shelby HEAD OF GEOGRAPHY-C's note, which I have reviewed and endorsed. Visit Charges OBSV E&M: 18528 Observation care discharge
== END 2020-10-27 18:52 | disposition home or self-care (01) ==
LOC: ED 21:57 → PCU 23:03
PROVIDERS: Nurse Practitioner Family; Admitting Provider Internal Medicine; Emergency Provider Emergency Medicine; PCP Family Medicine; Visit Provider Student in an Organized Health Care Education/Training Program
DX: R07.89 Other chest pain (principal); I25.10 Atherosclerotic heart disease of native coronary artery without angina pectoris; E11.22 Type 2 diabetes mellitus with diabetic chronic kidney disease; E66.01 Morbid (severe) obesity due to excess calories; Z68.36 Body mass index [BMI] 36.0-36.9, adult; E78.5 Hyperlipidemia, unspecified; I12.9 Hypertensive chronic kidney disease with stage 1 through stage 4 chronic kidney disease, or unspecified chronic kidney disease; F17.210 Nicotine dependence, cigarettes, uncomplicated; F17.220 Nicotine dependence, chewing tobacco, uncomplicated; I25.2 Old myocardial infarction; Z91.14 Patient's other noncompliance with medication regimen; Z79.899 Other long term (current) drug therapy; Z79.4 Long term (current) use of insulin; Z86.718 Personal history of other venous thrombosis and embolism; Z79.82 Long term (current) use of aspirin; R94.39 Abnormal result of other cardiovascular function study; N18.1 Chronic kidney disease, stage 1
CPT/HCPCS: 36415; 71045; 78452; 80048; 80061; 82962; 83036; 83735; 84443; 84484; 85025; 93005; 93017; 96372; 97802; 99218; 99251; 99284; A9500; A4216; G0378; G0463; J2785

== ENCOUNTER → 2020-11-08 14:00 | Outpatient (CLI) | payer MEDICARE, MEDICAID, SELFPAY ==
[2020-11-08 13:22] LABS: International Normalized Ratio 0.9; Prothrombin Time (Protime)PT. 11.5 SECONDS (11.7-14.9)
[2020-11-08 14:19] LABS: AST(SGOT) 17 U/L (15-37); Alanine Aminotransfer ALT/SGPT 43 U/L (16-61); Albumin, Serum 3.7 g/dL (3.2-5.0); Alkaline Phosphatase 105 U/L (45-117); Bilirubin, Direct 0.11 mg/dL (0.00-0.30); Cholesterol 113 mg/dL (200); Globulin 3.7 g/dL (2.2-4.2); High Density Lipoprotein 30 mg/dL; Protein, Total 7.4 g/dL (6.4-8.2); Triglycerides 236 mg/dL; Very Low Density Lipoprotein 47 mg/dL (5-40)
[2020-11-10 08:21] VITALS: BMI 34.9
== END ==
PROVIDERS: Nurse Practitioner Family; Physician Assistant Medical; PCP Family Medicine; Visit Provider Specialist
DX: I25.119 Atherosclerotic heart disease of native coronary artery with unspecified angina pectoris (principal); I25.2 Old myocardial infarction; E78.5 Hyperlipidemia, unspecified; Z95.5 Presence of coronary angioplasty implant and graft
CPT/HCPCS: 36415; 80061; 80076; 85610

== ENCOUNTER 2020-11-11 12:35 | Inpatient (IN) | payer MEDICARE, MEDICAID, SELFPAY ==
[2020-11-11] VITALS (10 sets, daily range): BP systolic 125–177; BP diastolic 83–111; PULSE 81–94; RESP 15–20; TEMP 36.6–37.2; O2SAT 97–100; BMI 34.8; BMI 36.0
--- NOTE | 2020-11-11 12:47 | EKG12_ITS ---
Test Reason : CP Blood Pressure : / mmHG Vent. Rate : 090 BPM Atrial Rate : 090 BPM P-R Int : 172 ms QRS Dur : 086 ms QT Int : 364 ms P-R-T Axes : 042 025 046 degrees QTc Int : 445 ms Normal sinus rhythm Nonspecific ST abnormality Abnormal ECG Confirmed by VITOR MENDOZA, LILIAN ([id number]), news editor GOLDIE MCNEAL ([id number]) on 11/14/2020 12:41:50 PM Referred By: CATY Confirmed By:LILIAN ADLER MD
--- NOTE | 2020-11-11 13:00 | RAD_ITS ---
STUDY: X-RAY CHEST REASON FOR EXAM: Male, 40 years old. Chest pain TECHNIQUE: Single AP portable view of the chest. COMPARISON: Comparison is made with prior study 10/26/2020. FINDINGS: EKG electrodes are seen. Mild increased markings at the left lung base suggestive of either linear atelectasis and/or early infiltrate. Follow-up is recommended. There is no demonstrated pleural abnormality. Normal size heart. Normal mediastinum and asad. Normal visualized pulmonary arteries. Normal visualized aortic arch and descending thoracic aorta. Normal visualized thoracic spine. Normal visualized ribs, clavicles, and shoulders. There is no demonstrated abnormality of the visualized soft tissue structures of the upper abdomen. RAD/Chest 1 View (Portable) IMPRESSION: Increased linear markings at the left lung base suggestive of either linear atelectasis and/or early infiltrate. Electronically Signed: Danielito Tim MD at 13:24 EDT , Service support ,
--- NOTE | 2020-11-11 13:03 | ED.VIS.CHEST ---
HPI History of Present Illness Chief Complaint: Chest Pain Informant: patient Onset/Context/Timing Onset: Weeks Activity at onset: gradual Timing: Intermittent Quality: Positive for Dull and Heaviness Location: Substernal Current Severity: Gone Maximum Severity: Moderate Worsened By: Exertion Relieved By: Rest Associated Symptoms: Positive for Nausea, Vomiting, Diaphoresis and Dyspnea; Negative for Cough, Fever, Acid Reflux and Palpitations Narrative Narrative: 40-year-old male has a known history of coronary disease he had 2 cardiac stents a year ago. States for last 2 months has been having intermittent exertional chest pain with walking steps or going up a hill. He said he has to stop because the pain gets so intense. He gets short of breath nauseated sometimes vomits and sometimes breaks out in a sweat. Patient states that he was actually hospitalized 2 weeks ago and abnormal stress test and was post to have a cardiac catheterization this week and again canceled by his insurance according to the patient. He had chest pain today but that is since resolved. Prior Similar Symptoms: Yes Recent Illness/Hospitalization: Yes PFSH PFS Medical History Atherosclerotic heart disease [place] coronary artery w/angina pectoris DVT (deep venous thrombosis) Essential hypertension History of diabetes mellitus, type II History of ST elevation myocardial infarction (STEMI) (10/12/19) Morbid obesity Noncompliance with diet and medication regimen Poor personal hygiene Smoker Tobacco dependence Tobacco use Uncontrolled type 2 diabetes mellitus Home Medications aspirin 81 mg PO DAILY@0800 #90 tab 10/13/19 [Rx Last Taken 10/26/20 0900] carvedilol 6.25 mg PO BID #90 tab 10/13/19 [Rx Last Taken 10/26/20 09:00] metformin 500 mg PO BID #90 tab 10/13/19 [Rx Last Taken 10/26/20 09:00] ticagrelor 90 mg PO BID #90 tab 10/13/19 [Rx Last Taken 10/26/20 09:00] atorvastatin 80 mg tablet 80 mg PO QHS #90 tab 06/13/20 [Rx Last Taken 10/25/20 22:00] insulin glargine 20 unit SC DAILY #2 pen 10/27/20 [Rx Last Taken 10/26/20 09:00] losartan 50 mg PO DAILY #90 tablet 10/27/20 [Rx Last Taken 10/26/20 09:00] nitroglycerin 0.4 mg sublingual tablet 0.4 mg SUBLINGUAL Q5-15M PRN #25 tab 11/01/20 [Rx Last Taken Unknown] isosorbide mononitrate 30 mg tablet,extended release 24 hr 30 mg PO DAILY #30 tab 11/08/20 [Rx Last Taken Unknown] Allergy/AdvReac Type Severity Reaction Status Date / Time No Known Allergies Allergy Verified 11/11/20 12:40 Family History Father Myocardial infarction Mother CVA (cerebral vascular accident) Surgical History H/O cardiac catheterization History of coronary artery stent placement History of coronary artery stent placement (10/12/19) Social History housing: other details: 3 dogs Smoking Status: Current every day smoker tobacco type: cigarettes and smokeless tobacco Smokeless tobacco user: chewing tobacco how long ago did patient quit smokin year ago alcohol intake: never substance use type: does not use caffeine: Yes Type: tea ROS ROS ED ROS Narrative Chest pain, intermittent dyspnea with exertion intermittent nausea diaphoresis with chest pain. Review of Systems ROS Unobtainable: Denies due to encephalopathy Constitutional Constitutional ED: Denies chills or fever(s) Eyes Eyes: Reports none ENT ENT ED: Denies ear pain or sore throat Cardiovascular Cardiovascular: Reports as per HPI and chest pain; Denies palpitations or racing heartbeat Respiratory/Chest Respiratory/Chest: Reports cough and dyspnea on exertion; Denies dyspnea Gastrointestinal Gastrointestinal: Reports nausea and vomiting; Denies abdominal pain, constipation, diarrhea or melena Genitourinary Genitourinary ED: Denies dysuria or hematuria Musculoskeletal Musculoskeletal: Denies myalgias Integumentary Denies rash Neurologic Neurologic: Denies headache(s) Psychiatric Psychiatric: Denies depression Endocrine Endocrinology: Denies polyuria Hematologic/Lymphatic Hematologic/Lymphatic: Denies easy bruising Allergic/Immunologic Allergic/Immunologic ED: Denies urticaria EXAM Physical Exam Narrative Exam Narrative: Middle-age male in acute distress. Currently pain-free. His vital signs are stable afebrile. ENT exam is unremarkable. Neck nontender no JVD. Lungs clear to auscultation bilaterally. Heart regular rhythm no murmur. Abdomen soft nontender normal bowel sounds no peritoneal signs. Patient moving all 4 extremities. Calves are nontender without edema or cords. Neurologically is awake and alert with no focal motor deficits. Const Vital Signs: 11/11/20 12:36 11/11/20 12:58 11/11/20 12:59 Temperature 97.8 F Temperature Source Temporal Pulse Rate 94 Respiratory Rate 20 H Respiratory Effort Normal Non-Labored Blood Pressure 163/96 H Blood Pressure Mean 118 Pulse Ox 97 Oxygen Delivery Method Room Air Room Air Positive well nourished and well developed; Negative for obese, cachectic, contractures or unkempt General Appearance ED: well developed and NAD; Negative for unkempt, cachectic, contractures or pallor Nutritional Appearance: Negative for cachectic or obese HEENT Reports moist mucous membranes normocephalic and atraumatic; Negative for trauma or tenderness Eyes PERRL and EOMs intact bilaterally Neck no lymphadenopathy, supple and no JVD General: Negative for tenderness Chest Wall inspection of chest normal and palpation of chest normal Chest: Negative for tenderness Resp normal respiratory effort and clear to auscultation bilaterally Effort and Inspection: respiratory distress Cardio regular rate, regular rhythm, S1 normal heart sound, S2 normal heart sound and no murmurs Rate: Negative for bradycardia or tachycardic GI normal to inspection, nondistended, normoactive bowel sounds, soft to palpation, non-tender, non-distended and no masses Back/Spine no CVA tenderness General Back: Negative for CVA tenderness Extremity normal to inspection General Extremety ED: Negative for edema, pulses abnormal or tenderness General Extremity: Negative for edema or pulses abnormal Neuro oriented x3 and CN's II-XII intact bilaterally Sensorium / Orientation: awake, alert, oriented to person, oriented to place and oriented to time Motor Exam: strength 5/5 throughout Psych mental status grossly normal Appearance: Negative for unkempt Mood & Affect: Negative for depressed or tearful Skin no rashes or lesions noted and no wounds General Skin Exam: Negative for jaundice or pallor Heart Score History: Highly Suspicious ECG: Normal Age: </= 45 years Risk Factors: >/= 3 Risk Factors or History of CAD Score: 4 MDM MDM MDM Narrative Medical decision making narrative: Patient is a 40-year-old male with history of coronary disease and prior stents. Had reportedly had an abnormal stress test 2 weeks ago. His history is consistent with angina and even unstable angina. I spoke to the hospitalist who spoke to cardiology who is going to take him to the [facility]. He is not having acute HI but his symptoms need further evaluation with a cardiac catheterization. He is stable at this time. Lab Data Attestation: I reviewed the patient's lab results. Lab results narrative: CBC shows a white count of 10. Hemoglobin 13.7. Electrolytes unremarkable. Normal gap of 7. Normal creatinine. Troponin 18. Labs: Laboratory Results - last 24 hr 11/11/20 11/11/20 12:50 12:50 WBC 10.4 RBC 4.69 Hgb 13.7 Hct 42.4 MCV 90.4 MCH 29.2 MCHC 32.3 RDW Std Deviation 47.9 H RDW Coeff of Hayley 14.6 Plt Count 305 MPV 10.5 Immature Gran % (Auto) 0.300 Neut % (Auto) 72.6 H Lymph % (Auto) 17.7 L [place] % (Auto) 7.3 Eos % (Auto) 1.6 Baso % (Auto) 0.5 Absolute Neuts (auto) 7.5 Absolute Lymphs (auto) 1.84 Nucleated RBC % 0 Sodium 136 Potassium 4.4 Chloride 104 Carbon Dioxide 25.0 Anion Gap 7 BUN 10 Creatinine 0.85 Estim Creat Clear Calc 121.81 Est GFR (MDRD) Af Amer 128 Est GFR (MDRD) Non-Af 106 BUN/Creatinine Ratio 11.8 Glucose 250 H Calcium 9.0 Troponin I High Sens 18 Radiography Chest X-Ray - ED: 1 View, Read by ED Physician, Normal, Heart, Lungs, Mediastinum, Bony Structures, No Acute Disease and Chronic Changes Diagnostic Testing: Her recent chest x-ray shows no acute abnormality. Normal cardiac silhouette. No infiltrate. Interpreted by me. Rhythm Strip Rhythm Strip: Sinus Rhythm Rate: 90 Ectopy: None EKG Initial EKG: Attestation: I personally reviewed and interpreted this EKG as follows: Interpretation: Sinus Rhythm and No Acute Injury Pattern Comments: Normal sinus rhythm rate no acute signs of HI or ischemia. Prior EKG tracings: not available for review Discharge Plan Dx/Rx/DC Orders Clinical Impression: Acute chest pain, History of coronary artery stent placement, Angina of effort, Diabetes Disposition Disposition: Acute Care Hospital [facility]
[2020-11-11 13:04] LABS: Absolute Lymphocyte Count 1.84 X10^3/uL (0.83-4.51); Absolute Neutrophil Count 7.5 X10^3/uL (2.0-7.7); Basophil# 0.05 X10^3/uL; Basophil% 0.5 % (0-1); Eosinophil# 0.17 X10^3/uL; Eosinophils% 1.6 % (0-5); Hematocrit 42.4 % (40-54); Hemoglobin 13.7 g/dL (13.0-16.5); Lymphocyte # 1.84 X10^3/ul (0.83-4.51); Lymphocyte % 17.7 % (19-41); Mean Corp Hgb Conc 32.3 g/dL (32-36); Mean Corpuscular Hgb 29.2 pg (27.0-32.0); Mean Corpuscular Volume 90.4 fL (80-94); Mean Platelet Vol. 10.5 fl (6.2-12.0); Monocyte# 0.76 X10^3/uL; Monocyte% 7.3 % (0-10); NRBC Flagged by Analyzer 0 % (0-5); Neutrophil # 7.53 X10^3/uL (2.7-7.7); Neutrophil % 72.6 % (47-70); Platelet Count 305 K/mm3 (150-450); RBC Distribution Width CV 14.6 % (11.6-14.6); RBC Distribution Width SD 47.9 fl (35.1-43.9); Red Blood Count 4.69 M/mm3 (4.6-6.2); White Blood Count 10.4 K/mm3 (4.4-11.0)
[2020-11-11] MEDS: Aspirin 81 MG TAB.CHEW 324 MG PO (13:11)
[2020-11-11 13:16] LABS: Anion Gap 7 (5-15); BUN 10 mg/dL (7-18); BUN/Creat Ratio 11.8 RATIO (10-20); Chloride 104 mmol/L (98-107); Creatinine, Serum 0.85 mg/dL (0.70-1.30); EST Glomerular Filtration Rate 106 mL/min (>60); Est Glom Filt Rate - Afr Amer 128 mL/min (>60); Estimated Creatinine Clearance 121.81 ml/min; Glucose 250 mg/dL (74-106); Potassium 4.4 mmol/L (3.5-5.1); Sodium Level 136 mmol/L (136-145); Troponin-I HS 18 pg/mL (3.0-78.0)
--- NOTE | 2020-11-11 14:08 | CASEMGMT ---
According to the [facility] website, the following are in-network tertiary facilities: [facility], [facility], [facility], [facility], [facility], [facility], [facility], and . [facility] NICOLE CM
--- NOTE | 2020-11-11 14:24 | CL.D_ITS ---
Patient Name: ARIK CANAS Study Date: 11/11/2020 Performing: Mitchel Denis MD Ht: 70.86 inches 180 cm : 1980 Wt: 249.12 lbs 113 kg Age: 40 Gender: male BSA: 2.31 PROCEDURE(S) PERFORMED [id number]/COR/LV CLINICAL PROFILE AND INDICATIONS Indications: Worsening Angina Heart Failure: None Stress/Imaging Stress/Image Study Performed: No CAD Presentations: Unstable angina. CONCLUSIONS Severe triple-vessel disease with distal left main coronary stenosis, high-grade proximal LAD stenosi s, high-grade proximal right coronary artery stenosis in the large vessel and high-grade distal right coronary artery stenosis. Previously placed stent in the circumflex artery is patent. RECOMMENDATIONS Surgery consult for coronary revascularization DESCRIPTION OF PROCEDURE The patient arrived to the procedure lab. The risks and benefits of the procedure as well as a full d escription of our services here and current unavailability of surgical backup were fully explained to the patient and/or their significant other prior to the catheterization. The Timeout was completed, verifying the correct patient and procedure. The patient's procedural site was prepped and draped in the usual fashion. Local anesthetic was given subcutaneously to right radial region with Lidocaine 2% . Using a modified Seldinger technique, arterial access was obtained via the right radial artery, a 6 Fr sheath was inserted. Right Coronary Artery selective angiography was then performed in multiple v iews using a 5 Fr. 4.0 [place] catheter. Left Coronary Artery selective angiography was performed in mu ltiple views using a 5 Fr. 4.0 [place] catheter. Left Ventriculography was performed in MARTINEZ projection using a 5 Fr. [place] catheter. LV to AO pullback pressures were then recorded.The arterial sheath was pulled and a TR Band was applied for hemostasis w/ 16ml air0 CORONARY ANGIOGRAPHY DOMINANCE: Right Dominant LEFT HEART ASSESSMENT Left Ventricular Ejection Fraction: by LV Gram 60 % Normal LV wall motion Normal Left Ventricular systolic function LEFT MAIN: 40% distal LEFT ANTERIOR DESCENDING ARTERY: PROX LAD: Proximal 90% stenosis in a tandem 80% stenosis and diffuse disease noted in the mid to dist al LAD CIRCUMFLEX ARTERY: MID CIRC: Mild luminal irregularities OM 1: Proximal - Previously placed stent is patent RIGHT CORONARY ARTERY: Large dominant right coronary artery with critical 99% proximal stenosis and m id to distal 80% stenosis COMPLICATIONS No Complications PROCEDURE MEDICATIONS Versed 1 mg IV Fentanyl 50 mcg IV Oxygen: 2 L/min via nasal cannula Heparin given IA 11/11/2020 13:48:04 Verapamil 2.5mg, Ntg 100mcgs, 3000 units of Heparin given IA 11/11/2020 13:48:04 SUMMARY OF HEMODYNAMIC DATA Time AIR REST ECG 13:42:20 AO 158/101 (135) SA 13:54:01 LV 150/13, 20 14:04:37 LV 156/13, 20 14:04:44 LV 143/15, 24 14:05:47 LV 148/16, 23 14:05:54 LVp 150/15, 23 14:05:59 AOp 149/98 (116) 14:06:04 Signed By Mitchel Denis MD On 11/11/2020 14:23:09 Mitchel Denis MD
--- NOTE | 2020-11-11 16:37 | NURSING ---
The patient gave his keys to alessia vazquez, in security. It is planned that his brother will come and get the keys, and vehicle later today.
--- NOTE | 2020-11-11 17:05 | PCM.CONS.C ---
Assessment & Plan Assessment/Plan (1) Acute chest pain: PLAN: He presented with acute chest discomfort which was suggestive of unstable angina. A decision was made to bring him directly to the cardiac catheterization lab. This was undertaken and the results are noted below. Left main coronary artery with distal 40% stenosis. Left anterior descending artery with proximal 90% stenosis. Left circumflex artery with first obtuse marginal branch previously stented which is patent. Dominant large right coronary artery with proximal to mid 99% stenosis and mid to distal 80% stenosis. Preserved left ventricular systolic function. Based on the above angiographic findings the patient will be referred for urgent coronary artery bypass surgery. (2) History of coronary artery stent placement: PLAN: His previous stenting is as noted above and is noted to be patent. (3) Essential hypertension: PLAN: His blood pressure is mildly elevated he would continue with the current medical therapy. Thank you for allowing me to participate in the care of your patient. Please don't hesitate to call if any issues arise. HPI Consult Data Date of Consult: 11/11/20 HPI Narrative HPI Narrative: ARIK CANAS, is a 40 M who presented to the emergency room with complaints of chest discomfort. He has a history of coronary artery disease status post ST elevated myocardial infarction in September 2019 with PTCA/SURYA to proximal OM 1. This was followed by a stress echocardiogram on 10/30/2019 that was considered to be abnormal. Due to abnormal stress test, he was to undergo repeat heart catheterization to evaluate RCA. This was not done. He presented to the emergency room 2 weeks ago with chest pain and diaphoresis and underwent a stress test again which was abnormal. He was scheduled for a cardiac catheterization to be performed on an outpatient basis but this was denied by his insurance. He has continued to complain of tightness in his chest and presented to the emergency room today with chest pain I was called by the hospitalist to try and sort out this conundrum. We decided that as he had continued chest discomfort, an abnormal stress test, and mildly abnormal EKG he should undergo a cardiac catheterization. He has denied any dizziness or diaphoresis near syncope or syncope. [facility] Medical History Atherosclerotic heart disease [place] coronary artery w/angina pectoris DVT (deep venous thrombosis) Essential hypertension History of diabetes mellitus, type II History of ST elevation myocardial infarction (STEMI) (10/12/19) Morbid obesity Noncompliance with diet and medication regimen Poor personal hygiene Smoker Tobacco dependence Tobacco use Uncontrolled type 2 diabetes mellitus Home Medications aspirin 81 mg PO DAILY@0800 #90 tab 10/13/19 [Rx Last Taken 10/26/20 0900] carvedilol 6.25 mg PO BID #90 tab 10/13/19 [Rx Last Taken 10/26/20 09:00] metformin 500 mg PO BID #90 tab 10/13/19 [Rx Last Taken 10/26/20 09:00] ticagrelor 90 mg PO BID #90 tab 10/13/19 [Rx Last Taken 10/26/20 09:00] atorvastatin 80 mg tablet 80 mg PO QHS #90 tab 06/13/20 [Rx Last Taken 10/25/20 22:00] insulin glargine 20 unit SC DAILY #2 pen 10/27/20 [Rx Last Taken 10/26/20 09:00] losartan 50 mg PO DAILY #90 tablet 10/27/20 [Rx Last Taken 10/26/20 09:00] nitroglycerin 0.4 mg sublingual tablet 0.4 mg SUBLINGUAL Q5-15M PRN #25 tab 11/01/20 [Rx Last Taken Unknown] isosorbide mononitrate 30 mg tablet,extended release 24 hr 30 mg PO DAILY #30 tab 11/08/20 [Rx Last Taken Unknown] Allergy/AdvReac Type Severity Reaction Status Date / Time No Known Allergies Allergy Verified 11/11/20 12:40 Family History Father Myocardial infarction Mother CVA (cerebral vascular accident) Surgical History H/O cardiac catheterization (11/11/20) History of coronary artery stent placement (10/12/19) Social History housing: other details: 3 dogs Smoking Status: Current every day smoker tobacco type: cigarettes and smokeless tobacco Smokeless tobacco user: chewing tobacco how long ago did patient quit smokin year ago alcohol intake: never substance use type: does not use caffeine: Yes Type: tea ROS Constitutional Constitutional: Denies fever(s) or weight loss Eyes Eyes: Reports systems reviewed and no addt'l complaints, except as documented ENT HEENT: Reports systems reviewed and no addt'l complaints, except as documented Cardiovascular Cardiovascular: Reports chest pain at rest and chest pain with activity; Denies dyspnea at rest, dyspnea on exertion, edema, palpitations or paroxysmal nocturnal dyspnea Respiratory/Chest Respiratory/Chest: Denies dyspnea on exertion, productive cough, shortness of breath at rest or shortness of breath with exertion Gastrointestinal Gastrointestinal: Denies change in bowel habits, nausea, vomiting or weight changes Genitourinary Genitourinary: Denies difficulty urinating Musculoskeletal Musculoskeletal: Denies joint stiffness or muscle weakness Integumentary Integumentary: Denies lesions Neurologic Neurologic: Denies dizziness or syncope Psychiatric Psychiatric: Denies anxiety Endocrine Endocrinology: Denies excessive sweating or fatigue Hematologic/Lymphatic Hematologic/Lymphatic: Denies anemia Allergic/Immunologic Allergic/Immunologic: Denies seasonal rhinorrhea Physical Exam Const oriented x3 and healthy appearing HEENT normocephalic Eyes PERRL Neck full ROM Chest inspection of chest normal Cardio regular rate, regular rhythm, S1 normal heart sound and S2 normal heart sound GI normal to inspection, nondistended, normoactive bowel sounds Extremity no pedal edema Neuro oriented x3 and CN's II-XII intact bilaterally Objective Data Vital Signs: Vital Signs Temp Pulse Resp BP Pulse Ox 98.9 F 85 15 125/83 H 98 11/11/20 16:40 11/11/20 16:40 11/11/20 16:40 11/11/20 16:40 11/11/20 16:40 Oxygen Delivery Method Room Air Weight: 251 lb Body Mass Index (BMI) 36.0 Lab / Micro Data Result Diagrams: 11/11/20 12:50 11/11/20 12:50 Labs: Laboratory Results - last 24 hr 11/11/20 12:50: WBC 10.4, RBC 4.69, Hgb 13.7, Hct 42.4, MCV 90.4, MCH 29.2, MCHC 32.3, RDW Std Deviation 47.9 H, RDW Coeff of [place] 14.6, Plt Count 305, MPV 10.5, Immature Gran % (Auto) 0.300, Neut % (Auto) 72.6 H, Lymph % (Auto) 17.7 L, [place] % (Auto) 7.3, Eos % (Auto) 1.6, Baso % (Auto) 0.5, Absolute Neuts (auto) 7.5, Absolute Lymphs (auto) 1.84, Nucleated RBC % 0 11/11/20 12:50: Sodium 136, Potassium 4.4, Chloride 104, Carbon Dioxide 25.0, Anion Gap 7, BUN 10, Creatinine 0.85, Estim Creat Clear Calc 121.81, Est GFR (MDRD) Af Amer 128, Est GFR (MDRD) Non-Af 106, BUN/Creatinine Ratio 11.8, Glucose 250 H, Calcium 9.0, Troponin I High Sens 18 Rhythm Strip Rhythm Strip: Sinus Rhythm Rate: 90 Ectopy: None Cardiology Labs/Tests 11/11/20 12:50: WBC 10.4, RBC 4.69, Hgb 13.7, Hct 42.4, MCV 90.4, MCH 29.2, MCHC 32.3, Plt Count 305, MPV 10.5, Immature Gran % (Auto) 0.300, Neut % (Auto) 72.6 H, Lymph % (Auto) 17.7 L, [place] % (Auto) 7.3, Eos % (Auto) 1.6, Baso % (Auto) 0.5, Absolute Neuts (auto) 7.5, Nucleated RBC % 0 11/11/20 12:50: Sodium 136, Potassium 4.4, Chloride 104, Carbon Dioxide 25.0, Anion Gap 7, BUN 10, Creatinine 0.85, Est GFR (MDRD) Af Amer 128, Est GFR (MDRD) Non-Af 106, BUN/Creatinine Ratio 11.8, Glucose 250 H, Calcium 9.0 Rhythm: EKG: ECHO: Stress Test: Cardiac Cath: PCI: CT Surgery: Holter monitor: EPS: PPM: CXR: Chest CT Scan: Radiography Diagnostic Testing: Radiology Impression Chest X-Ray 11/11/20 13:00 IMPRESSION: Increased linear markings at the left lung base suggestive of either linear atelectasis and/or early infiltrate. Electronically Signed: Danielito Tim MD at 13:24 EDT , Service support ,
--- NOTE | 2020-11-11 17:08 | HP.PCM.HOS_ITS ---
Documented by User: Esther Shelby NP, ASSISTED LIVING HOME DIRECTOR-C 11/11/20 17:33 HPI - General General Date of Admission: 11/11/20 Date of Service: 11/11/20 Chief Complaint: Abnormal heart cath HPI Narrative ARIK CANAS, is a 40 M who presentsTo the emergency room due to chest pain. Patient reports chest pain awoke him from sleep this morning. He describes associated nausea and diaphoresis. Patient has had intermittent exertional chest pain symptoms for a few months. He had an abnormal stress test 2 weeks ago and had planned for outpatient cardiac cath however this was delayed due to insurance. Patient underwent heart cath upon admission which showed severe triple-vessel disease. Patient accepted at [facility] and transport arrangements made. Patient was seen and examined in the intensive care unit. He denies chest pain currently. Patient complains of anxiety. He has a past medical history of CAD with history of PCI to ramus intermedius, type 2 diabetes mellitus, hypertension, hyperlipidemia, chronic tobacco dependence, obesity. [facility]LY [facility] Medical History Atherosclerotic heart disease [place] coronary artery w/angina pectoris DVT (deep venous thrombosis) Essential hypertension History of diabetes mellitus, type II History of ST elevation myocardial infarction (STEMI) (10/12/19) Morbid obesity Noncompliance with diet and medication regimen Poor personal hygiene Smoker Tobacco dependence Tobacco use Uncontrolled type 2 diabetes mellitus Home Medications aspirin 81 mg PO DAILY@0800 #90 tab 10/13/19 [Rx Last Taken 10/26/20 0900] carvedilol 6.25 mg PO BID #90 tab 10/13/19 [Rx Last Taken 10/26/20 09:00] metformin 500 mg PO BID #90 tab 10/13/19 [Rx Last Taken 10/26/20 09:00] ticagrelor 90 mg PO BID #90 tab 10/13/19 [Rx Last Taken 10/26/20 09:00] atorvastatin 80 mg tablet 80 mg PO QHS #90 tab 06/13/20 [Rx Last Taken 10/25/20 22:00] insulin glargine 20 unit SC DAILY #2 pen 10/27/20 [Rx Last Taken 10/26/20 09:00] losartan 50 mg PO DAILY #90 tablet 10/27/20 [Rx Last Taken 10/26/20 09:00] nitroglycerin 0.4 mg sublingual tablet 0.4 mg SUBLINGUAL Q5-15M PRN #25 tab 11/01/20 [Rx Last Taken Unknown] isosorbide mononitrate 30 mg tablet,extended release 24 hr 30 mg PO DAILY #30 tab 11/08/20 [Rx Last Taken Unknown] Allergy/AdvReac Type Severity Reaction Status Date / Time No Known Allergies Allergy Verified 11/11/20 12:40 Family History Father Myocardial infarction Mother CVA (cerebral vascular accident) Surgical History H/O cardiac catheterization (11/11/20) History of coronary artery stent placement (10/12/19) Social History housing: other details: 3 dogs Smoking Status: Current every day smoker tobacco type: cigarettes and smokeless tobacco Smokeless tobacco user: chewing tobacco how long ago did patient quit smokin year ago alcohol intake: never substance use type: does not use caffeine: Yes Type: tea ROS Constitutional Constitutional: Denies change in weight, chills, fatigue, fever(s) or weakness Cardiovascular Cardiovascular: Reports chest pain; Denies edema, lightheadedness, palpitations or syncope Respiratory/Chest Respiratory/Chest: Denies cough, dyspnea, productive cough, shortness of breath at rest, shortness of breath with exertion or wheezing Gastrointestinal Gastrointestinal: Denies abdominal pain, constipation, diarrhea, nausea or vomiting Genitourinary Genitourinary: Denies burning urination, difficulty urinating, dysuria, hematuria, urinary frequency, urinary incontinence or urinary urgency Musculoskeletal Musculoskeletal: Denies back pain, joint pain or muscle weakness Integumentary Integumentary: Denies erythema, lesions, rash or wounds Neurologic Neurologic: Denies abnormal speech, confusion, dizziness, focal weakness, numbness, paresthesias, seizure-like activity or syncope Psychiatric Psychiatric: Denies anxiety or depression Hematologic/Lymphatic Hematologic/Lymphatic: Denies anemia, easy bleeding or easy bruising Allergic/Immunologic Allergic/Immunologic: Denies hives or asthma Vital Signs Vital Signs Vital Signs: 11/11/20 12:36 11/11/20 12:58 11/11/20 12:59 Temperature 97.8 F Temperature Source Temporal Pulse Rate 94 Respiratory Rate 20 H Respiratory Effort Normal Non-Labored Blood Pressure 163/96 H Blood Pressure Mean 118 Blood Pressure Source Blood Pressure Position Blood Pressure Location Pulse Ox 97 Oxygen Delivery Method Room Air Room Air 11/11/20 13:46 11/11/20 16:40 Temperature 98 F 98.9 F Temperature Source Temporal Temporal Pulse Rate 89 85 Respiratory Rate 16 15 Respiratory Effort Blood Pressure 151/91 H 125/83 H Blood Pressure Mean 111 97 Blood Pressure Source Monitor Blood Pressure Position Semi-Fowlers Blood Pressure Location Left Arm Pulse Ox 98 98 Oxygen Delivery Method Room Air Room Air Weight Weight: 251 lb Body Mass Index (BMI) 36.0 Physical Exam Const alert, oriented x3 and no apparent distress Orientation / Consciousness: awake, oriented to person, oriented to place and oriented to time HEENT normocephalic and moist oral mucous membranes Eyes PERRL, EOMs intact bilaterally and conjunctivae normal Neck no lymphadenopathy Resp normal respiratory effort and clear to auscultation bilaterally Cardio regular rate, regular rhythm and no murmurs Peripheral Pulses: pulses 2+ throughout GI normal to inspection, nondistended, normoactive bowel sounds, non-tender and non-distended Extremity normal to inspection Skin no rashes or lesions noted Lesions: no lesions Rashes: no rashes Trauma: no lacerations or abrasions Neuro CN's II-XII intact bilaterally, no focal motor deficits, no sensory deficits noted and deep tendon reflexes 2+ bilaterally Psych mental status grossly normal and affect normal Results Lab / Micro Data Result Diagrams: 11/11/20 12:50 11/11/20 12:50 Labs: Laboratory Results - last 24 hr 11/11/20 12:50: WBC 10.4, RBC 4.69, Hgb 13.7, Hct 42.4, MCV 90.4, MCH 29.2, MCHC 32.3, RDW Std Deviation 47.9 H, RDW Coeff of [place]ley 14.6, Plt Count 305, MPV 10.5, Immature Gran % (Auto) 0.300, Neut % (Auto) 72.6 H, Lymph % (Auto) 17.7 L, [place] % (Auto) 7.3, Eos % (Auto) 1.6, Baso % (Auto) 0.5, Absolute Neuts (auto) 7.5, Absolute Lymphs (auto) 1.84, Nucleated RBC % 0 11/11/20 12:50: Sodium 136, Potassium 4.4, Chloride 104, Carbon Dioxide 25.0, Anion Gap 7, BUN 10, Creatinine 0.85, Estim Creat Clear Calc 121.81, Est GFR (MDRD) Af Amer 128, Est GFR (MDRD) Non-Af 106, BUN/Creatinine Ratio 11.8, Glucose 250 H, Calcium 9.0, Troponin I High Sens 18 Rhythm Strip Rhythm Strip: Sinus Rhythm Rate: 90 Ectopy: None Radiology Impression Chest X-Ray 11/11/20 13:00 IMPRESSION: Increased linear markings at the left lung base suggestive of either linear atelectasis and/or early infiltrate. Electronically Signed: Danielito Tim MD at 13:24 EDT , Service support , Assessment & Plan Assessment/Plan (1) Atherosclerotic heart disease [place] coronary artery w/angina pectoris: PLAN: 1. Unstable angina, severe triple disease-patient underwent heart cath which demonstrated severe triple-vessel disease with distal left main coronary stenosis, high-grade proximal LAD stenosis, high-grade proximal right coronary artery stenosis in the large vessel and high-grade distal right coronary artery stenosis. Previous stent in the circumflex artery patent. Patient will be transferred to [facility] for surgery consult for coronary revascularization. 2. CAD with history of PCI to ramus intermedius-medical management, transfer to tertiary facility as noted above. 3. Type 2 diabetes mellitus-recent hemoglobin A1c 9.4%. Continue home oral and insulin regimen. 4. Hypertension-stable, continue losartan, carvedilol, isosorbide. 5. Hyperlipidemia-continue statin. 6. Chronic tobacco dependence-encouraged cessation. 7. Obesity-encouraged diet and lifestyle modifications. DVT prophylaxis-Heparin This patient was seen by FELIX Reyes under the supervision of Dr. Clemente. Documented by User: Dr. Shaq Clemente DO 11/11/20 18:27 HPI - General General Date of Admission: 11/11/20 [facility] Medical History Atherosclerotic heart disease [place] coronary artery w/angina pectoris DVT (deep venous thrombosis) Essential hypertension History of diabetes mellitus, type II History of ST elevation myocardial infarction (STEMI) (10/12/19) Morbid obesity Noncompliance with diet and medication regimen Poor personal hygiene Smoker Tobacco dependence Tobacco use Uncontrolled type 2 diabetes mellitus Home Medications aspirin 81 mg PO DAILY@0800 #90 tab 10/13/19 [Rx Last Taken 10/26/20 0900] carvedilol 6.25 mg PO BID #90 tab 10/13/19 [Rx Last Taken 10/26/20 09:00] metformin 500 mg PO BID #90 tab 10/13/19 [Rx Last Taken 10/26/20 09:00] ticagrelor 90 mg PO BID #90 tab 10/13/19 [Rx Last Taken 10/26/20 09:00] atorvastatin 80 mg tablet 80 mg PO QHS #90 tab 06/13/20 [Rx Last Taken 10/25/20 22:00] insulin glargine 20 unit SC DAILY #2 pen 10/27/20 [Rx Last Taken 10/26/20 09:00] losartan 50 mg PO DAILY #90 tablet 10/27/20 [Rx Last Taken 10/26/20 09:00] nitroglycerin 0.4 mg sublingual tablet 0.4 mg SUBLINGUAL Q5-15M PRN #25 tab 11/01/20 [Rx Last Taken Unknown] isosorbide mononitrate 30 mg tablet,extended release 24 hr 30 mg PO DAILY #30 tab 11/08/20 [Rx Last Taken Unknown] Allergy/AdvReac Type Severity Reaction Status Date / Time No Known Allergies Allergy Verified 11/11/20 12:40 Family History Father Myocardial infarction Mother CVA (cerebral vascular accident) Surgical History H/O cardiac catheterization (11/11/20) History of coronary artery stent placement (10/12/19) Social History (Reviewed 11/11/20 @ 17:30 by Esther Shelby ASSISTED LIVING HOME DIRECTOR, ASSISTED LIVING HOME DIRECTOR-C) housing: other details: 3 dogs Smoking Status: Current every day smoker tobacco type: cigarettes and smokeless tobacco Smokeless tobacco user: chewing tobacco how long ago did patient quit smokin year ago alcohol intake: never substance use type: does not use caffeine: Yes Type: tea Results Lab / Micro Data Result Diagrams: 11/11/20 12:50 11/11/20 12:50 Charges/Coding Addendum Addendum: Patient was seen and examined independently of Esther Shelby, he came to the emergency room today at [facility] with complaints of chest discomfort and shortness of breath on minimal exertion, patient had a positive stress test approximately 2 weeks ago and was scheduled for an outpatient cardiac catheterization but according to the patient and the emergency room physician, this heart catheterization was not approved by his insurance carrier. On examination he appeared in good health and spirits. Vital signs as documented. Skin warm and dry and without overt rashes. Neck without JVD, neck was supple, trachea midline, thyroid was normal. Lungs clear bilaterally, normal air movement was noted. Heart exam notable for regular rhythm, normal sounds and absence of murmurs, rubs or gallops. Abdomen unremarkable and without evidence of organomegaly, masses, or abdominal aortic enlargement. Bowel sounds are present, abdomen is not distended. Extremities nonedematous, no cyanosis was noted, no clubbing was noted. Neuro: Cranial nerves II through XII are grossly intact, no focal motor deficits were noted, sensation to light touch and pinprick intact, motor exam 5/5 throughout. Psych: Patient is alert and oriented x3, he does not appear anxious or depressed, he does not appear agitated. I contacted Dr. Denis by phone, I reviewed the case with him and he decided to take the patient to [facility] to do an emergent cath on the patient. I have reviewed Esther Shelby's history and physical including her medical assessment and plan of care and endorse it. Visit Charges Inpatient E&M: 18766 Init Hosp L3
--- NOTE | 2020-11-11 17:33 | PCM.DC.SUM ---
Documented by User: Esther Shelby NP, DOG HANDLER-C 11/11/20 17:34 Providers Date of Admission: 11/11/20 Date of Discharge: 11/11/20 Primary Care Physician: Dr. Michael Perez MD Reason For Visit: chest pain Diagnosis Discharge Diagnosis (1) Atherosclerotic heart disease [place] coronary artery w/angina pectoris: Status: Acute Code(s): I25.119 - Atherosclerotic heart disease of [place] coronary artery with unspecified angina pectoris Medications at Discharge Home Medications aspirin 81 mg PO DAILY@0800 #90 tab 10/13/19 carvedilol 6.25 mg PO BID #90 tab 10/13/19 metformin 500 mg PO BID #90 tab 10/13/19 ticagrelor 90 mg PO BID #90 tab 10/13/19 atorvastatin 80 mg tablet 80 mg PO QHS #90 tab 06/13/20 insulin glargine 20 unit SC DAILY #2 pen 10/27/20 losartan 50 mg PO DAILY #90 tablet 10/27/20 nitroglycerin 0.4 mg sublingual tablet 0.4 mg SUBLINGUAL Q5-15M PRN #25 tab 11/01/20 isosorbide mononitrate 30 mg tablet,extended release 24 hr 30 mg PO DAILY #30 tab 11/08/20 Hospital Course Operations None Procedures Cardiac catheterization Summary of Care Provided Minutes Spent on Discharge: 35 Hospital Course: Patient is a 40-year-old male admitted 11/11/2020 due to unstable angina. 1. Unstable angina, severe triple disease-patient underwent heart cath which demonstrated severe triple-vessel disease with distal left main coronary stenosis, high-grade proximal LAD stenosis, high-grade proximal right coronary artery stenosis in the large vessel and high-grade distal right coronary artery stenosis. Previous stent in the circumflex artery patent. Patient will be transferred to [facility] for surgery consult for coronary revascularization. 2. CAD with history of PCI to ramus intermedius-medical management, transfer to tertiary facility as noted above. 3. Type 2 diabetes mellitus-recent hemoglobin A1c 9.4%. Continue home oral and insulin regimen. 4. Hypertension-stable, continue losartan, carvedilol, isosorbide. 5. Hyperlipidemia-continue statin. 6. Chronic tobacco dependence-encouraged cessation. 7. Obesity-encouraged diet and lifestyle modifications. Patient seen and examined prior to discharge. Physical assessment as noted below. Transfer to [facility] for further cardiac management. This patient was seen by FELIX Reyes under the supervision of Dr. Clemente. Physical Exam Const alert, oriented x3 and no apparent distress Orientation / Consciousness: awake, oriented to person, oriented to place and oriented to time HEENT normocephalic and moist oral mucous membranes Eyes PERRL, EOMs intact bilaterally and conjunctivae normal Neck no lymphadenopathy Resp normal respiratory effort and clear to auscultation bilaterally Cardio regular rate, regular rhythm and no murmurs Peripheral Pulses: pulses 2+ throughout GI normal to inspection, nondistended, normoactive bowel sounds, non-tender and non-distended Extremity normal to inspection Skin no rashes or lesions noted Lesions: no lesions Rashes: no rashes Trauma: no lacerations or abrasions Neuro CN's II-XII intact bilaterally, no focal motor deficits, no sensory deficits noted and deep tendon reflexes 2+ bilaterally Psych mental status grossly normal and affect normal Weight / BMI Weight Weight: 251 lb Body Mass Index (BMI) 36.0 ABG / Lab / Microbiology Data Result Diagrams: 11/11/20 12:50 11/11/20 12:50 Laboratory: Laboratory Results - last 24 hr 11/11/20 12:50: WBC 10.4, RBC 4.69, Hgb 13.7, Hct 42.4, MCV 90.4, MCH 29.2, MCHC 32.3, RDW Std Deviation 47.9 H, RDW Coeff of [place]ley 14.6, Plt Count 305, MPV 10.5, Immature Gran % (Auto) 0.300, Neut % (Auto) 72.6 H, Lymph % (Auto) 17.7 L, [place] % (Auto) 7.3, Eos % (Auto) 1.6, Baso % (Auto) 0.5, Absolute Neuts (auto) 7.5, Absolute Lymphs (auto) 1.84, Nucleated RBC % 0 11/11/20 12:50: Sodium 136, Potassium 4.4, Chloride 104, Carbon Dioxide 25.0, Anion Gap 7, BUN 10, Creatinine 0.85, Estim Creat Clear Calc 121.81, Est GFR (MDRD) Af Amer 128, Est GFR (MDRD) Non-Af 106, BUN/Creatinine Ratio 11.8, Glucose 250 H, Calcium 9.0, Troponin I High Sens 18 Radiography Diagnostic Testing: Radiology Impression Chest X-Ray 11/11/20 13:00 IMPRESSION: Increased linear markings at the left lung base suggestive of either linear atelectasis and/or early infiltrate. Electronically Signed: Danielito Tim MD at 13:24 EDT , Service support , Meaningful Use Info Meaningful Use Diagnoses (Choose all that apply): None applicable Discharge Plan Admission Admit Date/Time: 11/11/20 16:20 Attending Provider: Shaq Clemente Primary Care Provider: Michael Perez Discharge Orders/Prescriptions Prescriptions: No Action atorvastatin 80 mg tablet 80 mg PO QHS Qty: 90 RF: 3 isosorbide mononitrate 30 mg tablet extended release 24 hr 30 mg PO DAILY Qty: 30 RF: 6 aspirin 81 MG tablet 81 mg PO DAILY@0800 Qty: 90 RF: 0 ticagrelor 90 MG tablet 90 mg PO BID Qty: 90 RF: 0 carvedilol 6.25 MG tablet 6.25 mg PO BID Qty: 90 RF: 0 metformin 500 MG tablet 500 mg PO BID Qty: 90 RF: 0 losartan 25 mg tablet 50 mg PO DAILY Qty: 90 RF: 3 insulin glargine 100 UNITS/ML insulin pen 20 unit SC DAILY Qty: 2 RF: 0 nitroglycerin [Nitrostat] 0.4 mg tablet, sublingual 0.4 mg sublingual Q5-15M PRN (Reason: chest pain) Qty: 25 RF: 3 Referrals / Follow Up: Michael Perez MD [Primary Care Provider] - Disposition Discharge Orders: Discharge Patient (Routine); Ordered 11/11/20 Ordered By: Esther Shelby DOG HANDLER Documented by User: Dr. Shaq Clemente DO 11/11/20 18:32 Providers Date of Admission: 11/11/20 Reason For Visit: chest pain Medications at Discharge Home Medications aspirin 81 mg PO DAILY@0800 #90 tab 10/13/19 carvedilol 6.25 mg PO BID #90 tab 10/13/19 metformin 500 mg PO BID #90 tab 10/13/19 ticagrelor 90 mg PO BID #90 tab 10/13/19 atorvastatin 80 mg tablet 80 mg PO QHS #90 tab 06/13/20 insulin glargine 20 unit SC DAILY #2 pen 10/27/20 losartan 50 mg PO DAILY #90 tablet 10/27/20 nitroglycerin 0.4 mg sublingual tablet 0.4 mg SUBLINGUAL Q5-15M PRN #25 tab 11/01/20 isosorbide mononitrate 30 mg tablet,extended release 24 hr 30 mg PO DAILY #30 tab 11/08/20 ABG / Lab / Microbiology Data Result Diagrams: 11/11/20 12:50 11/11/20 12:50 Discharge Plan Admission Admit Date/Time: 11/11/20 16:20 Attending Provider: Shaq Clemente Primary Care Provider: Michael Perez Discharge Orders/Prescriptions Prescriptions: No Action atorvastatin 80 mg tablet 80 mg PO QHS Qty: 90 RF: 3 isosorbide mononitrate 30 mg tablet extended release 24 hr 30 mg PO DAILY Qty: 30 RF: 6 aspirin 81 MG tablet 81 mg PO DAILY@0800 Qty: 90 RF: 0 ticagrelor 90 MG tablet 90 mg PO BID Qty: 90 RF: 0 carvedilol 6.25 MG tablet 6.25 mg PO BID Qty: 90 RF: 0 metformin 500 MG tablet 500 mg PO BID Qty: 90 RF: 0 losartan 25 mg tablet 50 mg PO DAILY Qty: 90 RF: 3 insulin glargine 100 UNITS/ML insulin pen 20 unit SC DAILY Qty: 2 RF: 0 nitroglycerin [Nitrostat] 0.4 mg tablet, sublingual 0.4 mg sublingual Q5-15M PRN (Reason: chest pain) Qty: 25 RF: 3 Referrals / Follow Up: Michael Perez MD [Primary Care Provider] - Disposition Discharge Orders: Discharge Patient (Routine); Ordered 11/11/20 Ordered By: Esther Shelby NP Charges/Coding Addendum Addendum: Patient was seen and examined independently of Esther Shelby, he underwent a cardiac catheterization today which showed triple-vessel disease, cardiology called [facility] and was able to get the patient admitted to [facility] in [place] for probable bypass. At the time my examination in ICU, patient appeared comfortable and did not have any chest pain or shortness of breath. On examination he appeared in good health and spirits. Vital signs as documented. Skin warm and dry and without overt rashes. Neck without JVD, neck was supple, trachea midline, thyroid was normal. Lungs clear bilaterally, normal air movement was noted. Heart exam notable for regular rhythm, normal sounds and absence of murmurs, rubs or gallops. Abdomen unremarkable and without evidence of organomegaly, masses, or abdominal aortic enlargement. Bowel sounds are present, abdomen is not distended. Extremities nonedematous, no cyanosis was noted, no clubbing was noted. Neuro: Cranial nerves II through XII are grossly intact, no focal motor deficits were noted, sensation to light touch and pinprick intact, motor exam 5/5 throughout. Psych: Patient is alert and oriented x3, he does not appear anxious or depressed, he does not appear agitated. I discussed his medical care with him including explaining why he needed to be transferred to [facility] in [place], the patient seemed to understand this. He also seemed to understand the cardiac bypass procedure after I explained to him. I have reviewed Esther Shelby's discharge summary including her medical assessment and plan of care and endorse it. Visit Charges OBSV E&M: [id number] Observ/hosp same date L3
[2020-11-11] MEDS: hydrALAZINE 20 MG/ML Vial 10 MG IV (17:34)
[2020-11-11] MEDS: 0.9% Saline Lock 10 ML Syringe IV (17:36)
== END 2020-11-11 18:30 | disposition short-term general hospital (02) | DRG 287 ==
LOC: ED 13:16 → CLSP 14:44 → ACINP 14:47 → ICU 15:22 → CLSP 17:00 → ICU 17:00
PROVIDERS: Admitting Provider Internal Medicine; Emergency Provider Emergency Medicine; PCP Family Medicine; Visit Provider Internal Medicine
DX: I25.110 Atherosclerotic heart disease of native coronary artery with unstable angina pectoris (principal); E11.65 Type 2 diabetes mellitus with hyperglycemia; I10 Essential (primary) hypertension; E78.5 Hyperlipidemia, unspecified; F17.210 Nicotine dependence, cigarettes, uncomplicated; E66.01 Morbid (severe) obesity due to excess calories; Z68.36 Body mass index [BMI] 36.0-36.9, adult; Z91.11 Patient's noncompliance with dietary regimen; Z91.14 Patient's other noncompliance with medication regimen; Z79.02 Long term (current) use of antithrombotics/antiplatelets; Z79.82 Long term (current) use of aspirin; Z79.4 Long term (current) use of insulin; Z79.899 Other long term (current) drug therapy; I25.2 Old myocardial infarction; Z86.718 Personal history of other venous thrombosis and embolism; Z95.5 Presence of coronary angioplasty implant and graft
CPT/HCPCS: 71045; 80048; 84484; 85025; 87426; 93005; 93458; 99152; 99153; 99285; J7040; Q9967; A4216; C1769; C1894

== ENCOUNTER 2020-12-12 04:50 | Emergency (ER) | payer MEDICARE, MEDICAID, SELFPAY ==
[2020-12-12 04:52] VITALS: BP 166/102; PULSE 108; RESP 18; TEMP 36.1; O2SAT 97; BMI 32.1
--- NOTE | 2020-12-12 04:54 | EKG12_ITS ---
Test Reason : CP Blood Pressure : / mmHG Vent. Rate : 106 BPM Atrial Rate : 106 BPM P-R Int : 170 ms QRS Dur : 086 ms QT Int : 348 ms P-R-T Axes : 042 064 050 degrees QTc Int : 462 ms Sinus tachycardia Otherwise normal ECG Confirmed by VITOR MENDOZA, LILIAN ([id number]), editorial assistant GOLDIE MCNEAL ([id number]) on 12/14/2020 10:13:56 AM Referred By: BRITTNEY Confirmed By:LILIAN ADLER MD
--- NOTE | 2020-12-12 05:11 | EX.ED.DYSGE1 ---
HPI History of Present Illness Chief Complaint: Chest Other Informant: patient Narrative Narrative: 40-year-old male presents the emergency department for pain in the right shoulder. He tells me that about a month ago he had a heart catheterization in [place]. He states that they went through his right wrist. Last night he was laying in bed he woke with a sudden onset of pain in the shoulder. Notes it is very focal worse with some movements. He notes that yesterday he had to pull on his hitch to to get it apart. PFSH PFS Medical History Atherosclerotic heart disease [place] coronary artery w/angina pectoris DVT (deep venous thrombosis) Essential hypertension History of ST elevation myocardial infarction (STEMI) (10/12/19) Morbid obesity Noncompliance with diet and medication regimen Poor personal hygiene Smoker Tobacco dependence Tobacco use Type 2 diabetes mellitus Uncontrolled type 2 diabetes mellitus Home Medications aspirin 81 mg PO DAILY@0800 #90 tab 10/13/19 [Rx Last Taken 10/26/20 0900] metformin 500 mg PO BID #90 tab 10/13/19 [Rx Last Taken 10/26/20 09:00] ticagrelor 90 mg PO BID #90 tab 10/13/19 [Rx Last Taken 10/26/20 09:00] atorvastatin 80 mg tablet 80 mg PO QHS #90 tab 06/13/20 [Rx Last Taken 10/25/20 22:00] insulin glargine 20 unit SC DAILY #2 pen 10/27/20 [Rx Last Taken 10/26/20 09:00] nitroglycerin 0.4 mg sublingual tablet 0.4 mg SUBLINGUAL Q5-15M PRN #25 tab 11/01/20 [Rx Last Taken Unknown] carvedilol 25 mg tablet 25 mg PO BID 11/17/20 [History Last Taken Unknown] chlorthalidone 25 mg tablet 25 mg PO DAILY 11/17/20 [History Last Taken Unknown] losartan 100 mg tablet 100 mg PO DAILY 11/17/20 [History Last Taken Unknown] amlodipine 5 mg tablet 5 mg PO DAILY #30 tab 12/05/20 [Rx Last Taken Unknown] Allergy/AdvReac Type Severity Reaction Status Date / Time No Known Allergies Allergy Verified 12/12/20 04:54 Family History Father Myocardial infarction Mother CVA (cerebral vascular accident) Surgical History H/O cardiac catheterization (11/11/20) History of coronary artery stent placement (11/14/20) Social History housing: other details: 3 dogs Smoking Status: Current every day smoker tobacco type: cigarettes and smokeless tobacco Smokeless tobacco user: chewing tobacco how long ago did patient quit smokin year ago alcohol intake: never substance use type: does not use caffeine: Yes Type: tea ROS ROS ED Constitutional Constitutional ED: Denies chills or weight loss Eyes Eyes: Denies change in vision or diplopia ENT ENT ED: Denies ear pain, rhinorrhea or sore throat Cardiovascular Cardiovascular: Denies chest pain, orthopnea, palpitations or racing heartbeat Respiratory/Chest Respiratory/Chest: Denies cough, dyspnea or orthopnea Gastrointestinal Gastrointestinal: Denies abdominal pain, diarrhea, nausea or vomiting Genitourinary Genitourinary ED: Denies dysuria, hematuria or urinary frequency Musculoskeletal Musculoskeletal: Reports other Details: See HPI ; Denies arthralgias or myalgias Integumentary Denies abscess or rash Neurologic Neurologic: Denies headache(s) or weakness Psychiatric Psychiatric: Denies anxiety, depression, suicidal ideation or suicidal thoughts Endocrine Endocrinology: Denies polydipsia, polyphagia or polyuria Allergic/Immunologic Allergic/Immunologic ED: Denies mouth swelling, tongue swelling or urticaria EXAM Physical Exam Const Vital Signs: 12/12/20 04:52 Temperature 97 F L Temperature Source Temporal Pulse Rate 108 H Respiratory Rate 18 Blood Pressure 166/102 H Blood Pressure Mean 123 Pulse Ox 97 Positive well nourished and well developed General Appearance ED: well developed HEENT Reports normocephalic, head/scalp atraumatic and moist mucous membranes Eyes PERRL and EOMs intact bilaterally Neck no lymphadenopathy, supple and no JVD Resp normal respiratory effort and clear to auscultation bilaterally Cardio regular rate, regular rhythm and no murmurs GI normal to inspection, nondistended, normoactive bowel sounds and non-tender Palpation: soft Back/Spine no CVA tenderness and normal ROM Extremity Extremity Narrative: Patient has focal tenderness to palpation along the biceps tendons both the long and the short. He also has some tenderness to the supraspinatus region. General Extremety ED: Negative for edema General Extremity: Negative for edema Neuro oriented x3 and CN's II-XII intact bilaterally Sensorium / Orientation: alert Motor Exam: strength 5/5 throughout Psych mental status grossly normal Mood & Affect: Negative for depressed or tearful Skin no rashes or lesions noted and no wounds MDM MDM MDM Narrative Medical decision making narrative: EKG obtained through nursing protocol showed a sinus tachycardia at a rate of 106. On my examination however the patient's heart rate is 82 all at rest I do not think that this is a pulmonary embolism. Clinically however his pain is reproducible with palpation of the tendons and with his history of pulling on a hitch yesterday could easily be a tendinitis. He will receive a dose of Toradol. Would recommend ice rest anti-inflammatories with food follow-up with primary care if not improved EKG Initial EKG: Attestation: I personally reviewed and interpreted this EKG as follows: Comments: Sinus tachycardia with a ventricular rate of 106. Discharge Plan Triage Chief Complaint: Chest Other ED Provider: Lior Hernandez Dx/Rx/DC Orders Clinical Impression: Biceps tendinitis of right shoulder Instructions: ED Tendonitis Prescriptions: No Action atorvastatin 80 mg tablet 80 mg PO QHS Qty: 90 RF: 3 amlodipine [Norvasc] 5 mg tablet 5 mg PO DAILY Qty: 30 RF: 12 aspirin 81 MG tablet 81 mg PO DAILY@0800 Qty: 90 RF: 0 ticagrelor 90 MG tablet 90 mg PO BID Qty: 90 RF: 0 metformin 500 MG tablet 500 mg PO BID Qty: 90 RF: 0 insulin glargine 100 UNITS/ML insulin pen 20 unit SC DAILY Qty: 2 RF: 0 nitroglycerin [Nitrostat] 0.4 mg tablet, sublingual 0.4 mg sublingual Q5-15M PRN (Reason: chest pain) Qty: 25 RF: 3 carvedilol 25 mg tablet 25 mg PO BID RF: 0 chlorthalidone 25 mg tablet 25 mg PO DAILY RF: 0 losartan 100 mg tablet 100 mg PO DAILY RF: 0 Primary Care Provider: Michael Perez Referrals: Michael Perez MD [Primary Care Provider] - 1 Week if not improving Disposition Disposition: Home, Self Care
[2020-12-12] MEDS: Ketorolac 60 MG/2 ML Vial IM (05:21)
== END 2020-12-12 05:43 | disposition home or self-care (01) ==
LOC: ED 05:20
PROVIDERS: Emergency Provider Emergency Medicine; PCP Family Medicine
DX: M75.21 Bicipital tendinitis, right shoulder (principal); I25.119 Atherosclerotic heart disease of native coronary artery with unspecified angina pectoris; E11.65 Type 2 diabetes mellitus with hyperglycemia; I10 Essential (primary) hypertension; Z91.14 Patient's other noncompliance with medication regimen; F17.210 Nicotine dependence, cigarettes, uncomplicated; E66.01 Morbid (severe) obesity due to excess calories; Z79.4 Long term (current) use of insulin; Z79.82 Long term (current) use of aspirin; Z79.02 Long term (current) use of antithrombotics/antiplatelets; Z79.899 Other long term (current) drug therapy; I25.2 Old myocardial infarction; Z95.5 Presence of coronary angioplasty implant and graft
CPT/HCPCS: 93005; 96372; 99282

== ENCOUNTER 2021-02-21 16:11 | Inpatient (IN) | payer MEDICARE, MEDICAID, SELFPAY ==
[2021-02-21 16:11] VITALS: BP 172/98; PULSE 102; RESP 18; TEMP 35.7; O2SAT 98; BMI 32.1
[2021-02-21 18:43] LABS: Absolute Lymphocyte Count 1.79 X10^3/uL (0.83-4.51); Absolute Neutrophil Count 10.8 X10^3/uL (2.0-7.7); Basophil# 0.06 X10^3/uL; Basophil% 0.4 % (0-1); Eosinophil# 0.21 X10^3/uL; Eosinophils% 1.5 % (0-5); Hematocrit 42.1 % (40-54); Hemoglobin 14.1 g/dL (13.0-16.5); Lymphocyte # 1.79 X10^3/ul (0.83-4.51); Lymphocyte % 12.7 % (19-41); Mean Corp Hgb Conc 33.5 g/dL (32-36); Mean Corpuscular Volume 86.6 fL (80-94); Mean Platelet Vol. 10.1 fl (6.2-12.0); Monocyte# 1.22 X10^3/uL; Monocyte% 8.6 % (0-10); NRBC Flagged by Analyzer 0 % (0-5); Neutrophil # 10.77 X10^3/uL (2.7-7.7); Neutrophil % 76.3 % (47-70); Platelet Count 420 K/mm3 (150-450); RBC Distribution Width SD 41.1 fl (35.1-43.9); Red Blood Count 4.86 M/mm3 (4.6-6.2); White Blood Count 14.1 K/mm3 (4.4-11.0)
--- NOTE | 2021-02-21 20:43 | CT_ITS ---
We are attempting to reach an attending provider to discuss findings. An addendum with communication details will be sent when the communication is complete. INDICATION: Right flank pain EXAMINATION: CT ABDOMEN AND PELVIS WITHOUT CONTRAST - CT Abdomen And Pelvis W/O Contrast Injection TECHNIQUE: Helically acquired images were obtained of the abdomen and pelvis without oral or IV contrast. A radiation dose optimization technique was used for this scan. IV Contrast dosage and agent: None. Oral contrast: None. Radiation Dose (provided by facility) CTDIvol (19.25 ) mGy, DLP ( 1067.70) mGy-cm COMPARISON: None. FINDINGS: LOWER CHEST: Normal atelectasis of lung bases. There are several focal areas suspected atelectasis versus infiltrate along the RIGHT costophrenic sulcus. No cardiomegaly or pericardial effusion. Moderate to extensive vascular calcifications within the coronary vessels. LIVER: Normal size configuration density given limitation of noncontrast imaging.. No focal mass. GALLBLADDER AND BILIARY TREE: No calcified gallstones. No gallbladder distension or wall edema. No intra- or extrahepatic biliary ductal dilation. PANCREAS: No focal cystic or solid mass. SPLEEN: Normal size without focal cystic or solid mass. ADRENAL GLANDS: No nodules. KIDNEYS AND URETERS: 1. Kidneys have normal configuration. There is a subtle nonobstructing calcification in the RIGHT kidney measuring approximately 2 mm in size. No evidence of ureteral stones. 2. The RIGHT ureter however does, in close proximity to an area inflammatory changes and soft tissue stranding within the low pelvis on the RIGHT. No evidence of ureteral obstruction. PERITONEUM: There is soft tissue stranding in the RIGHT hemipelvis including the peritoneum which appears to be associated with the RIGHT side of the sigmoid colon, there is a organized fluid collection adjacent to the sigmoid colon measuring approximately 5.6 x 3.2 cm in size likely representing a peridiverticular abscess. No evidence of free air in the remaining abdomen and pelvis. There is moderate diverticulosis however in the remaining sigmoid colon. No other fluid collection. BOWEL: No evidence of acute appendicitis. No stomach or bowel distension. No focal inflammatory change. LYMPH NODES: No enlarged mesenteric or retroperitoneal lymph nodes. VESSELS: Aorta is non-dilated. Scattered aortic calcifications are present URINARY BLADDER: Bladder is contracted and has a thickened irregular wall which in part may be contributed by reactive changes secondary to the adjacent inflammatory/infectious changes of the sigmoid colon. REPRODUCTIVE ORGANS: No pelvic masses. ABDOMINAL WALL: No discrete abdominal or pelvic wall hernia. BONES: No lytic or blastic abnormality. CT/Abdomen/Pelvis without Cont IMPRESSION: 1. Small nonobstructing calcification in the LEFT kidney. No evidence of ureteral stones or CT evidence of obstructive uropathy. 2. Marked abnormality within the RIGHT hemipelvis with soft tissue stranding trace fluid noted, and an organized fluid collection adjacent to the RIGHT side of the sigmoid colon at the rectosigmoid junction measuring approximately 5.6 x 3.2 cm in size consistent with a peridiverticular abscess. No free air identified. 3. Moderate diverticulosis in the remaining sigmoid colon. No bowel obstruction. 4. Incidental note of minimal patchy atelectasis versus subtle infiltrate at the RIGHT lung base. 5. Moderate to extensive coronary vascular calcifications present. 6. Thickened wall of a contracted gallbladder. Reactive changes associated with the adjacent soft tissue stranding of the diverticulitis is a consideration. No calcifications or distinct bladder masses. No air noted within the bladder. 7. No evidence cholelithiasis. Electronically Signed: Huy Villagomez MD at 21:21 EST Tel , Service support ,
[2021-02-21 20:46] LABS: Mucous, Urine 0 SEEN /hpf (<or=2+)
[2021-02-21 20:56] LABS: Color, Urine Yellow (Yellow); Glucose, Dipstick 1000 mg/dl (Normal); Ketone-Dipstick Negative (Negative); Leukocyte Esterase-Dipstick 100 /ul (Negative); Nitrite-Dipstick Negative (Negative); Occult Blood-Urine 10 /ul (Negative); Protein-Dipstick 30 mg/dl (Negative); Specific Gravity, Urine 1.025 (1.002-1.030); Urine Bilirubin Dipstick Negative (Negative); Urine Clarity Sl. Cloudy (Clear); Urine Urobilinogen Normal (Normal)
[2021-02-21 21:06] LABS: Squamous Epithelial Cells - UA 0-5 SEEN /hpf (0-5)
[2021-02-21 21:07] LABS: Red Blood Cells-Urine 0-5 SEEN /hpf (0-5)
[2021-02-21 21:08] LABS: Bacteria 1+ /hpf (None Seen); White Blood Cells 25-50 SEEN /hpf (0-5)
[2021-02-21 21:37] LABS: Anion Gap 8 (5-15); BUN 9 mg/dL (7-18); BUN/Creat Ratio 9.2 RATIO (10-20); Calcium,Total 8.9 mg/dL (8.5-10.1); Chloride 104 mmol/L (98-107); Creatinine, Serum 0.97 mg/dL (0.70-1.30); EST Glomerular Filtration Rate 90 mL/min (>60); Est Glom Filt Rate - Afr Amer 109 mL/min (>60); Estimated Creatinine Clearance 106.74 ml/min; Glucose 196 mg/dL (74-106); Potassium 3.5 mmol/L (3.5-5.1); Sodium Level 137 mmol/L (136-145)
--- NOTE | 2021-02-21 23:08 | EDS_ITS ---
HPI HPI - GI History of Present Illness Chief Complaint: Abd Pain Informant: patient Abdominal Pain/Flank Pain Onset: Yesterday Context: Gradual Onset Timing: Continuous Quality: Cramping Location: Right Flank Worsened by: Food Relieved by: Nothing Nausea/Vomiting/Emesis GI Symptom: Positive for Nausea and Vomiting Diarrhea/Melena/Hematochezia GI Symptom: Positive for Diarrhea; Negative for Melena and Hematochezia Associated Symptoms Associated Symptoms: Positive for Frequency; Negative for Dysuria and Hematuria Narrative Narrative: Patient presents with abdominal pain that began yesterday. Patient states it is gradually getting worse. Patient describes the pain as cramping. Patient states the pain is over the right side of his abdomen. Patient states it is worse with eating. Patient admits to some nausea and vomiting. Patient denies any hematemesis or coffee-ground emesis. Patient admits to some diarrhea. Patient states it is brown and watery. Patient denies any melena or hematochezia. Patient admits to some urinary frequency but denies any dysuria or hematuria. PFSH PFSH Medical History Atherosclerotic heart disease [place] coronary artery w/angina pectoris DVT (deep venous thrombosis) Essential hypertension History of ST elevation myocardial infarction (STEMI) (10/12/19) Morbid obesity Noncompliance with diet and medication regimen Poor personal hygiene Smoker Tobacco dependence Tobacco use Type 2 diabetes mellitus Uncontrolled type 2 diabetes mellitus Home Medications aspirin 81 mg PO DAILY@0800 #90 tab 10/13/19 [Rx Last Taken 10/26/20 0900] metformin 500 mg PO BID #90 tab 10/13/19 [Rx Last Taken 10/26/20 09:00] ticagrelor 90 mg PO BID #90 tab 10/13/19 [Rx Last Taken 10/26/20 09:00] atorvastatin 80 mg tablet 80 mg PO QHS #90 tab 06/13/20 [Rx Last Taken 10/25/20 22:00] insulin glargine 20 unit SC DAILY #2 pen 10/27/20 [Rx Last Taken 10/26/20 09:00] nitroglycerin 0.4 mg sublingual tablet 0.4 mg SUBLINGUAL Q5-15M PRN #25 tab 11/01/20 [Rx Last Taken Unknown] carvedilol 25 mg tablet 25 mg PO BID 11/17/20 [History Last Taken Unknown] chlorthalidone 25 mg tablet 25 mg PO DAILY 11/17/20 [History Last Taken Unknown] losartan 100 mg tablet 100 mg PO DAILY 11/17/20 [History Last Taken Unknown] amlodipine 5 mg tablet 5 mg PO DAILY #30 tab 12/05/20 [Rx Last Taken Unknown] Allergy/AdvReac Type Severity Reaction Status Date / Time No Known Allergies Allergy Verified 02/21/21 16:13 Family History Father Myocardial infarction Mother CVA (cerebral vascular accident) Surgical History H/O cardiac catheterization (11/11/20) History of coronary artery stent placement (11/14/20) Social History housing: other details: 3 dogs Smoking Status: Current every day smoker tobacco type: cigarettes and smokeless tobacco Smokeless tobacco user: chewing tobacco how long ago did patient quit smokin year ago alcohol intake: never substance use type: does not use caffeine: Yes Type: tea ROS ROS ED Constitutional Constitutional ED: Denies chills or fever(s) Eyes Eyes: Denies blurry vision or change in vision ENT ENT ED: Denies rhinorrhea or sore throat Cardiovascular Cardiovascular: Denies chest pain or palpitations Respiratory/Chest Respiratory/Chest: Denies cough or dyspnea Gastrointestinal Gastrointestinal: Reports abdominal pain, diarrhea, nausea and vomiting Genitourinary Genitourinary ED: Denies dysuria or hematuria Musculoskeletal Musculoskeletal: Denies back pain or neck pain Integumentary Denies abscess or rash Neurologic Neurologic: Denies headache(s) or weakness Allergic/Immunologic Allergic/Immunologic ED: Denies mouth swelling or urticaria EXAM Physical Exam Const Vital Signs: 02/21/21 16:11 Temperature 96.2 F L Temperature Source Temporal Pulse Rate 102 H Respiratory Rate 18 Blood Pressure 172/98 H Blood Pressure Mean 122 Pulse Ox 98 Oxygen Delivery Method Room Air Positive well nourished, well developed and obese General Appearance ED: well developed Nutritional Appearance: obese HEENT Reports moist mucous membranes Neck supple and no JVD Resp normal respiratory effort and clear to auscultation bilaterally Cardio regular rate and regular rhythm GI non-distended Palpation: soft and tender epigastric, RLQ and RUQ; Negative for guarding or rebound tenderness present Neuro CN's II-XII intact bilaterally, moves all extremities and no sensory deficits noted Sensorium / Orientation: alert, oriented to person, oriented to place and o riented to time Motor Exam: strength 5/5 throughout Psych mental status grossly normal MDM MDM MDM Narrative Medical decision making narrative: CBC shows a leukocytosis of 14.1. Basic metabolic profile was within normal limits. Anion gap was normal. CO2 was normal. Urinalysis shows leukocyte Estrace of 100 with 25-50 white blood cells and 1+ bacteria. CT scan of the abdomen and pelvis was obtained. There is no ureteral lithiasis or obstruction. There is nonobstructing left renal calculus. There is a 5.6 x 3.2 cm diverticular abscess noted in the right hemipelvis along the sigmoid colon and rectosigmoid junction. This was interpreted by the radiologist and reviewed by myself. Patient was given a dose of IV Zosyn. Case was discussed with Dr. Reynoso. She agrees with Zosyn and will follow along with the patient. She recommended admitting the patient to the hospitalist. Case was discussed with the hospitalist. He will admit the patient to his service. Patient understands and is agreeable with the plan. All questions were answered. Lab Data Attestation: I reviewed the patient's lab results. Labs: Laboratory Results - last 24 hr 02/21/21 02/21/21 02/21/21 18:33 20:40 20:40 WBC 14.1 H RBC 4.86 Hgb 14.1 Hct 42.1 MCV 86.6 MCH 29.0 MCHC 33.5 RDW Std Deviation 41.1 RDW Coeff of [place] 13.0 Plt Count 420 MPV 10.1 Immature Gran % (Auto) 0.500 Neut % (Auto) 76.3 H Lymph % (Auto) 12.7 L [place] % (Auto) 8.6 Eos % (Auto) 1.5 Baso % (Auto) 0.4 Absolute Neuts (auto) 10.8 H Absolute Lymphs (auto) 1.79 Nucleated RBC % 0 Sodium 137 Potassium 3.5 Chloride 104 Carbon Dioxide 25.0 Anion Gap 8 BUN 9 Creatinine 0.97 Estim Creat Clear Calc 106.74 Est GFR (MDRD) Af Amer 109 Est GFR (MDRD) Non-Af 90 BUN/Creatinine Ratio 9.2 L Glucose 196 H Calcium 8.9 Urine Color Yellow Urine Clarity Sl. Cloudy Urine pH 5.0 Ur Specific [place] 1.025 Urine Protein 30 H Urine Glucose (UA) 1000 H Urine Ketones Negative Urine Occult Blood 10 H Urine Nitrite Negative Urine Bilirubin Negative Urine Urobilinogen Normal Ur Leukocyte Esterase 100 H Urine RBC 0-5 SEEN Urine WBC 25-50 SEEN Ur Squamous Epith Cells 0-5 SEEN Urine Bacteria 1+ Urine Mucus 0 SEEN Radiography Diagnostic Testing: Clinical Impression(s) from Imaging Studies Abdomen/Pelvis CT 02/21/21 20:43 IMPRESSION: 1. Small nonobstructing calcification in the LEFT kidney. No evidence of ureteral stones or CT evidence of obstructive uropathy. 2. Marked abnormality within the RIGHT hemipelvis with soft tissue stranding trace fluid noted, and an organized fluid collection adjacent to the RIGHT side of the sigmoid colon at the rectosigmoid junction measuring approximately 5.6 x 3.2 cm in size consistent with a peridiverticular abscess. No free air identified. 3. Moderate diverticulosis in the remaining sigmoid colon. No bowel obstruction. 4. Incidental note of minimal patchy atelectasis versus subtle infiltrate at the RIGHT lung base. 5. Moderate to extensive coronary vascular calcifications present. 6. Thickened wall of a contracted gallbladder. Reactive changes associated with the adjacent soft tissue stranding of the diverticulitis is a consideration. No calcifications or distinct bladder masses. No air noted within the bladder. 7. No evidence cholelithiasis. Electronically Signed: Huy Villagomez MD at 21:21 EST Tel , Service support , ADDENDUM: 02/21/21 0378 IMPRESSION: 1. Small nonobstructing calcification in the LEFT kidney. No evidence of ureteral stones or CT evidence of obstructive uropathy. 2. Marked abnormality within the RIGHT hemipelvis with soft tissue stranding trace fluid noted, and an organized fluid collection adjacent to the RIGHT side of the sigmoid colon at the rectosigmoid junction measuring approximately 5.6 x 3.2 cm in size consistent with a peridiverticular abscess. No free air identified. 3. Moderate diverticulosis in the remaining sigmoid colon. No bowel obstruction. 4. Incidental note of minimal patchy atelectasis versus subtle infiltrate at the RIGHT lung base. 5. Moderate to extensive coronary vascular calcifications present. 6. Thickened wall of a contracted gallbladder. Reactive changes associated with the adjacent soft tissue stranding of the diverticulitis is a consideration. No calcifications or distinct bladder masses. No air noted within the bladder. 7. No evidence cholelithiasis. N.B. : The above Results were Read Back by Huy Villagomez MD to Dr Devon MD, and understanding confirmed on 02/21/2021 21:28:12 (ET). Electronically Signed: Huy Villagomez MD at 21:21 EST Tel , Service support , Discharge Plan Triage Chief Complaint: Abd Pain ED Provider: Nolan Marquis Dx/Rx/DC Orders Clinical Impression: Colonic diverticular abscess Prescriptions: No Action atorvastatin 80 mg tablet 80 mg PO QHS Qty: 90 RF: 3 amlodipine [Norvasc] 5 mg tablet 5 mg PO DAILY Qty: 30 RF: 12 aspirin 81 MG tablet 81 mg PO DAILY@0800 Qty: 90 RF: 0 ticagrelor 90 MG tablet 90 mg PO BID Qty: 90 RF: 0 metformin 500 MG tablet 500 mg PO BID Qty: 90 RF: 0 insulin glargine 100 UNITS/ML insulin pen 20 unit SC DAILY Qty: 2 RF: 0 nitroglycerin [Nitrostat] 0.4 mg tablet, sublingual 0.4 mg sublingual Q5-15M PRN (Reason: chest pain) Qty: 25 RF: 3 carvedilol 25 mg tablet 25 mg PO BID RF: 0 chlorthalidone 25 mg tablet 25 mg PO DAILY RF: 0 losartan 100 mg tablet 100 mg PO DAILY RF: 0 Primary Care Provider: Michael Perez Referrals: Michael Perez MD [Primary Care Provider] - Disposition Disposition: Acute Care Hospital [facility]
--- NOTE | 2021-02-21 23:30 | PCM.HP.STD ---
HPI - General General Date of Admission: 02/21/21 HPI Narrative ARIK CANAS, is a 40 M s/p stent; tobacco abuse; and hypertension who presents to emergency department with progressively worsening right lower quadrant pain that started a day before presentation. He rates his pain as 6-7 on a scale of 1-10. He described the pain as squeezing. He denies any aggravating or ameliorating factors. He reports nausea and vomiting. The pain radiates to his entire abdomen and to his lower back. He reports reddish vomitus but reportedly had some pizza a day before he vomited and is unclear when there is color of the sputum was from the sputum. [facility] Medical History Atherosclerotic heart disease [place] coronary artery w/angina pectoris DVT (deep venous thrombosis) Essential hypertension History of ST elevation myocardial infarction (STEMI) (10/12/19) Morbid obesity Noncompliance with diet and medication regimen Poor personal hygiene Smoker Tobacco dependence Tobacco use Type 2 diabetes mellitus Uncontrolled type 2 diabetes mellitus Home Medications nitroglycerin 0.4 mg sublingual tablet 0.4 mg SUBLINGUAL Q5-15M PRN #25 tab 11/01/20 [Rx Last Taken Unknown] carvedilol 25 mg tablet 25 mg PO BID 11/17/20 [History Last Taken Unknown] losartan 100 mg tablet 100 mg PO DAILY 11/17/20 [History Last Taken Unknown] aspirin 81 mg PO DAILY@0800 02/21/21 [History Last Taken Unknown] atorvastatin 80 mg PO QHS 02/21/21 [History Last Taken Unknown] insulin glargine 16 unit SC QHS 02/21/21 [History Last Taken Unknown] metformin 500 mg PO BID 02/21/21 [History Last Taken Unknown] ticagrelor 90 mg PO BID 02/21/21 [History Last Taken Unknown] Allergy/AdvReac Type Severity Reaction Status Date / Time No Known Allergies Allergy Verified 02/21/21 16:13 Family History Father Myocardial infarction Mother CVA (cerebral vascular accident) Surgical History H/O cardiac catheterization (11/11/20) History of coronary artery stent placement (11/14/20) Social History housing: other details: 3 dogs Smoking Status: Current every day smoker tobacco type: cigarettes and smokeless tobacco Smokeless tobacco user: chewing tobacco how long ago did patient quit smokin year ago alcohol intake: never substance use type: does not use caffeine: Yes Type: tea ROS ROS Narrative Constitutional: Denies fever, chills, fatigue, anorexia and change in weight Eyes: Denies blurry vision, change in eye color, change in vision, discharge from eye(s), double vision, erythema, eye pain, loss of vision or other HEENT: Denies abnormal hearing, dysphagia, ear pain, epistaxis, headache(s), hearing loss, nasal congestion, nasal discharge, post nasal drip, sinus pressure, sore throat or other Cardiovascular: Denies chest pain or palpitations. Denies dyspnea on exertion, orthopnea and paroxysmal nocturnal dyspnea Respiratory/Chest: Denies cough, excessive phlegm production, shortness of breath with exertion and wheezing Gastrointestinal: Reports abdominal pain, nausea and vomiting. Coffee ground emesis, constipation, diarrhea, dyspepsia,hematochezia, loose stools, melena, or other Genitourinary: Denies burning urination, difficulty urinating, dysuria, hematuria, nocturia, urinary frequency, urinary hesitancy, urinary incontinence, urinary urgency or other Musculoskeletal: Denies arthralgias, back pain, joint pain, joint stiffness, joint swelling, myalgias, neck pain or other Neurologic: Denies abnormal gait, abnormal speech, confusion, disequilibrium, dizziness, focal weakness, headache(s), numbness, paresthesias, seizure-like activity, seizures, syncope, tingling, tremor(s) or other Psychiatric: Denies anxiety, depression, homicidal ideation, suicidal ideation or other Endocrinology: Denies change in body appearance, cold intolerance, excessive sweating, heat intolerance, polydipsia, polyuria or other Hematologic/Lymphatic: Denies anemia, easy bleeding, easy bruising, lymphadenopathy or other Integumentary: Denies rashes Allergic/Immunologic: Denies rhinitis, hives, eczema, asthma or other Vital Signs Vital Signs Vital Signs: 02/21/21 16:11 Temperature 96.2 F L Temperature Source Temporal Pulse Rate 102 H Respiratory Rate 18 Blood Pressure 172/98 H Blood Pressure Mean 122 Pulse Ox 98 Oxygen Delivery Method Room Air Weight Weight: 104.326 kg Body Mass Index (BMI) 32.1 Physical Exam Narrative Physical exam: General: Well-nourished, well-developed. Head: Normocephalic, atraumatic, no tenderness Eyes: PERRLA, EOMI ENT, no trauma, moist mucous membranes, no rhinorrhea Neck: Nontender, full range of motion, no spinal tenderness, deformities, step-off CVS: Regular rate and rhythm. S1-S2 present. No murmur, gallop or rub. Respiratory : clear to auscultation bilaterally, chest wall nontender, no wheezing Abdomen: Soft, tender, nondistended, normal bowel sounds, no masses : Deferred Back: Nontender, no CVA tenderness, no midline spinal tenderness, deformities, step-offs Extremities: Nontender full range of motion, no trauma Skin: Normal color, no trauma, abrasions Neuro: Alert, oriented, cranial nerves II through XII grossly intact. Psychiatry: Normal mood. Normal affect. Not depressed. Not anxious. Results Lab / Micro Data Result Diagrams: 02/21/21 18:33 02/21/21 20:40 Labs: Laboratory Results - last 24 hr 02/21/21 18:33: WBC 14.1 H, RBC 4.86, Hgb 14.1, Hct 42.1, MCV 86.6, MCH 29.0, MCHC 33.5, RDW Std Deviation 41.1, RDW Coeff of [place] 13.0, Plt Count 420, MPV 10.1, Immature Gran % (Auto) 0.500, Neut % (Auto) 76.3 H, Lymph % (Auto) 12.7 L, [place] % (Auto) 8.6, Eos % (Auto) 1.5, Baso % (Auto) 0.4, Absolute Neuts (auto) 10.8 H, Absolute Lymphs (auto) 1.79, Nucleated RBC % 0 02/21/21 20:40: Sodium 137, Potassium 3.5, Chloride 104, Carbon Dioxide 25.0, Anion Gap 8, BUN 9, Creatinine 0.97, Estim Creat Clear Calc 106.74, Est GFR (MDRD) Af Amer 109, Est GFR (MDRD) Non-Af 90, BUN/Creatinine Ratio 9.2 L, Glucose 196 H, Calcium 8.9 02/21/21 20:40: Urine Color Yellow, Urine Clarity Sl. Cloudy, Urine pH 5.0, Ur Specific [place] 1.025, Urine Protein 30 H, Urine Glucose (UA) 1000 H, Urine Ketones Negative, Urine Occult Blood 10 H, Urine Nitrite Negative, Urine Bilirubin Negative, Urine Urobilinogen Normal, Ur Leukocyte Esterase 100 H, Urine RBC 0-5 SEEN, Urine WBC 25-50 SEEN, Ur Squamous Epith Cells 0-5 SEEN, Urine Bacteria 1+, Urine Mucus 0 SEEN Radiology Impression Abdomen/Pelvis CT 02/21/21 20:43 IMPRESSION: 1. Small nonobstructing calcification in the LEFT kidney. No evidence of ureteral stones or CT evidence of obstructive uropathy. 2. Marked abnormality within the RIGHT hemipelvis with soft tissue stranding trace fluid noted, and an organized fluid collection adjacent to the RIGHT side of the sigmoid colon at the rectosigmoid junction measuring approximately 5.6 x 3.2 cm in size consistent with a peridiverticular abscess. No free air identified. 3. Moderate diverticulosis in the remaining sigmoid colon. No bowel obstruction. 4. Incidental note of minimal patchy atelectasis versus subtle infiltrate at the RIGHT lung base. 5. Moderate to extensive coronary vascular calcifications present. 6. Thickened wall of a contracted gallbladder. Reactive changes associated with the adjacent soft tissue stranding of the diverticulitis is a consideration. No calcifications or distinct bladder masses. No air noted within the bladder. 7. No evidence cholelithiasis. Electronically Signed: Huy Villagomez MD at 21:21 EST Tel , Service support , ADDENDUM: 02/21/21 [id number] IMPRESSION: 1. Small nonobstructing calcification in the LEFT kidney. No evidence of ureteral stones or CT evidence of obstructive uropathy. 2. Marked abnormality within the RIGHT hemipelvis with soft tissue stranding trace fluid noted, and an organized fluid collection adjacent to the RIGHT side of the sigmoid colon at the rectosigmoid junction measuring approximately 5.6 x 3.2 cm in size consistent with a peridiverticular abscess. No free air identified. 3. Moderate diverticulosis in the remaining sigmoid colon. No bowel obstruction. 4. Incidental note of minimal patchy atelectasis versus subtle infiltrate at the RIGHT lung base. 5. Moderate to extensive coronary vascular calcifications present. 6. Thickened wall of a contracted gallbladder. Reactive changes associated with the adjacent soft tissue stranding of the diverticulitis is a consideration. No calcifications or distinct bladder masses. No air noted within the bladder. 7. No evidence cholelithiasis. N.B. : The above Results were Read Back by Huy Villagomez MD to Dr Devon MD, and understanding confirmed on 02/21/2021 21:28:12 (ET). Electronically Signed: Huy Villagomez MD at 21:21 EST Tel , Service support , Assessment & Plan Assessment/Plan (1) Colonic diverticular abscess: (2) Atherosclerotic heart disease [place] coronary artery w/angina pectoris: QUALIFIERS: [place] vs. transplanted heart: [place] heart Qualified Code(s): I25.119 - Atherosclerotic heart disease of [place] coronary artery with unspecified angina pectoris PLAN: Diverticular abscess Review of Emergency department labs showed white count of 14.1; with neutrophilia and lymphopenia. Abdomen pelvis CT with diverticular abscess as above. Actual abdomen pelvis CT was independently interpreted and I agree with radiologist interpretation. Started on [facility] emergency department and continued. Emergency department doctor and hospitalist discussed the case with general surgeon. N.p.o. after midnight. General surgery consult. Pain control with as needed morphine IV and p.o. oxycodone. Bowel protocol and antiemetics ordered. Trend CBC and BMP Diabetes mellitus Patient with hyperglycemia on presentation Hold home Metformin. Basal insulin continued. Accu-Chek with correction scale insulin ordered. CAD status post stenting Review of record showed that patient had multivessel PCI on 11/14/2020. Procedure was done at [email or web address] Patient has had 6 stents in total. Aspirin and Brilinta continued. General surgery is not planning on surgery at this time. Losartan and carvedilol continued Hypertension Blood pressure is not within goal Losartan and carvedilol continued. Trend blood pressure and adjust blood pressure medications. DVT prophylaxis: SCD ordered. Charges/Coding Visit Charges Inpatient E&M: 52764 Init Hosp L3
[2021-02-21 23:49] VITALS: BP 128/76; PULSE 97; RESP 16; TEMP 36.6; O2SAT 98
[2021-02-22] VITALS (11 sets, daily range): BP systolic 104–174; BP diastolic 60–102; PULSE 81–95; RESP 18; TEMP 36.7–38; O2SAT 94–99; BMI 33.7
--- NOTE | 2021-02-22 00:13 | PCS.PANDOC ---
PANDEMIC DOCUMENTATION INITIATED: Date: 10/31/2020 Time: 190
[2021-02-22] MEDS: Insulin Lispro 100 UNIT/ML INSULN.PEN SC (00:42)
[2021-02-22] MEDS: 0.9% Saline Lock 10 ML Syringe IV ×2 (00:43→05:49)
[2021-02-22 00:56] LABS: Bedside Glucose 182 mg/dL (70-110)
[2021-02-22] MEDS: Morphine 2 MG/ML Syringe IV ×2 (00:57→05:49)
[2021-02-22 06:00] LABS: Absolute Lymphocyte Count 1.49 X10^3/uL (0.83-4.51); Absolute Neutrophil Count 10.8 X10^3/uL (2.0-7.7); Basophil# 0.05 X10^3/uL; Basophil% 0.4 % (0-1); Eosinophil# 0.23 X10^3/uL; Eosinophils% 1.7 % (0-5); Hematocrit 37.9 % (40-54); Hemoglobin 12.9 g/dL (13.0-16.5); Lymphocyte # 1.49 X10^3/ul (0.83-4.51); Lymphocyte % 10.7 % (19-41); Mean Corpuscular Hgb 29.7 pg (27.0-32.0); Mean Corpuscular Volume 87.1 fL (80-94); Mean Platelet Vol. 10.3 fl (6.2-12.0); Monocyte% 9.4 % (0-10); NRBC Flagged by Analyzer 0 % (0-5); Neutrophil # 10.76 X10^3/uL (2.7-7.7); Neutrophil % 77.3 % (47-70); Platelet Count 404 K/mm3 (150-450); RBC Distribution Width CV 13.1 % (11.6-14.6); RBC Distribution Width SD 41.7 fl (35.1-43.9); Red Blood Count 4.35 M/mm3 (4.6-6.2); White Blood Count 13.9 K/mm3 (4.4-11.0)
[2021-02-22] MEDS: Carvedilol 25 MG Tablet PO ×2 (06:34→22:15)
[2021-02-22] MEDS: Losartan Potassium 100 MG Tablet PO (06:34)
[2021-02-22 06:36] LABS: Anion Gap 9 (5-15); BUN 11 mg/dL (7-18); BUN/Creat Ratio 11.6 RATIO (10-20); Chloride 105 mmol/L (98-107); Creatinine, Serum 0.95 mg/dL (0.70-1.30); EST Glomerular Filtration Rate 93 mL/min (>60); Est Glom Filt Rate - Afr Amer 112 mL/min (>60); Estimated Creatinine Clearance 105.66 ml/min; Glucose 168 mg/dL (74-106); Potassium 3.1 mmol/L (3.5-5.1); Sodium Level 138 mmol/L (136-145)
[2021-02-22 06:50] LABS: Bedside Glucose 190 mg/dL (70-110)
--- NOTE | 2021-02-22 07:35 | PCM.CONS.GEN ---
Assessment & Plan Assessment/Plan (1) Colonic diverticular abscess: PLAN: I have been consulted in conjunction with Dr. Reynoso. I have discussed this patient with Dr. Reynoso. Recommend continued NPO, bowel rest, IV antibiotics and IV fluids. Discussed the CT scan with the patient. Plan to take a conservative treatment plan at this time. Due to patient's recent cardiac events, he is unable to come off of his blood thinners making surgery considerably more challenging. We are not planning surgical intervention at this time. The size of the abscess appears to be to small for drain placement. I have discussed with the patient awaiting until pain has resolved prior to starting him on a diet. We discussed the amount of day stay will depend on his symptoms. Patient is also aware that if his symptoms become worse, surgery may be recommended at that time. Patient's potassium is low, I would recommend replacing. Patient has had the opportunity to ask and have questions answered. Patient verbally understands and agrees with the plan. Thank you for allowing us to participate in this patient's care. HPI Consult Data Date of Consult: 02/22/21 HPI Narrative HPI Narrative: ARIK CANAS, is a 40 M who presents with 2 day history of worsening abdominal pain. Patient stated his pain/discomfort started on Saturday. He stated he had pizza on Saturday night and was blaming his symptoms on that. He denies any recent consumption of nuts, seeds or popcorn. He notes since his symptoms started he is having diarrhea. He had nausea and vomiting x 1 yesterday. He noted mid pelvic/left lower quadrant pain and pain in his lower back. He notes lack of appetite over the last few days. He denies previous history of diverticulitis. He denies previous colonoscopy. He denies family history of colon disease. He denies previous abdominal surgeries. He notes a cardiac history for the last few years. Patient states he has had 1 confirmed myocardial infarction in October 2020 and according to charting, patient had a myocardial infarction in summer. Patient had 5 stents placed including a bare metal stent at [facility] in October 2020. He notes he had a previous cardiac stent placed a few years ago. He is currently on Brilinta and aspirin. He has followed up with his boarding specialist here at [facility]. He will have to be maintained on his blood thinner for at least 1 year. He stated he returned to smoking cigarettes last week. He notes he has had the same pack of cigarettes for 1 week. He was a heavy smoker previously. He denies alcohol use or any illicit drug use. He denies any pulmonary history. He is a diabetic. Upon evaluation, patient states that his pain has improved especially while laying in bed. He denies nausea, vomiting. He states he is thirsty. He denies current chest pain or shortness of breath. He voiced he was hoping to be able to be discharged today. CT scan of the abdomen/pelvis obtained 02/21/21 is demonstrating sigmoid diverticulitis with abscess formation. There is an organized fluid collection measuring 5.6 x 3.2 cm. His WBC was 14.1 yesterday and 13.9 today. His potassium is 3.1 today. [facility] Medical History Atherosclerotic heart disease [place] coronary artery w/angina pectoris DVT (deep venous thrombosis) Essential hypertension History of ST elevation myocardial infarction (STEMI) (10/12/19) Morbid obesity Noncompliance with diet and medication regimen Poor personal hygiene Smoker Tobacco dependence Tobacco use Type 2 diabetes mellitus Uncontrolled type 2 diabetes mellitus Home Medications nitroglycerin 0.4 mg sublingual tablet 0.4 mg SUBLINGUAL Q5-15M PRN #25 tab 11/01/20 [Rx Last Taken Unknown] carvedilol 25 mg tablet 25 mg PO BID 11/17/20 [History Last Taken Unknown] losartan 100 mg tablet 100 mg PO DAILY 11/17/20 [History Last Taken Unknown] aspirin 81 mg PO DAILY@0800 02/21/21 [History Last Taken Unknown] atorvastatin 80 mg PO QHS 02/21/21 [History Last Taken Unknown] insulin glargine 16 unit SC QHS 02/21/21 [History Last Taken Unknown] metformin 500 mg PO BID 02/21/21 [History Last Taken Unknown] ticagrelor 90 mg PO BID 02/21/21 [History Last Taken Unknown] Allergy/AdvReac Type Severity Reaction Status Date / Time No Known Allergies Allergy Verified 02/21/21 16:13 Family History Father Myocardial infarction Mother CVA (cerebral vascular accident) Surgical History H/O cardiac catheterization (11/11/20) History of coronary artery stent placement (11/14/20) Social History housing: other details: 3 dogs Smoking Status: Current every day smoker tobacco type: cigarettes and smokeless tobacco Smokeless tobacco user: chewing tobacco how long ago did patient quit smokin year ago alcohol intake: never substance use type: does not use caffeine: Yes Type: tea ROS Constitutional Constitutional: Reports fatigue and poor appetite Eyes Eyes: Reports systems reviewed and no addt'l complaints, except as documented ENT HEENT: Reports systems reviewed and no addt'l complaints, except as documented Cardiovascular Cardiovascular: Reports systems reviewed and no addt'l complaints, except as documented Respiratory/Chest Respiratory/Chest: Reports systems reviewed and no addt'l complaints, except as documented Gastrointestinal Gastrointestinal: Reports change in bowel habits, diarrhea, loose stools, nausea and vomiting; Denies constipation, hematochezia, melena or weight changes Genitourinary Genitourinary: Reports systems reviewed and no addt'l complaints, except as documented Musculoskeletal Musculoskeletal: Reports back pain Integumentary Integumentary: Reports systems reviewed and no addt'l complaints, except as documented Neurologic Neurologic: Reports systems reviewed and no addt'l complaints, except as documented Psychiatric Psychiatric: Reports systems reviewed and no addt'l complaints, except as documented Endocrine Endocrinology: Reports systems reviewed and no addt'l complaints, except as documented Hematologic/Lymphatic Hematologic/Lymphatic: Reports systems reviewed and no addt'l complaints, except as documented Allergic/Immunologic Allergic/Immunologic: Reports systems reviewed and no addt'l complaints, except as documented Physical Exam Const alert, oriented x3 and no apparent distress HEENT normocephalic and head/scalp atraumatic Eyes PERRL Neck full ROM Lymph Lymphatic: no lymphadenopathy noted Chest inspection of chest normal Resp normal respiratory effort and clear to auscultation bilaterally Cardio regular rate and regular rhythm GI soft to palpation Inspection: central obesity Auscultation: hypoactive bowel sounds Palpation: tender LLQ no CVA tenderness Back/Spine no CVA tenderness Extremity normal to inspection Skin no rashes or lesions noted Neuro no focal motor deficits and no sensory deficits noted Psych mental status grossly normal Lab / Micro Data Result Diagrams: 02/22/21 05:26 02/22/21 05:26 Labs: Laboratory Results - last 24 hr 02/21/21 18:33: WBC 14.1 H, RBC 4.86, Hgb 14.1, Hct 42.1, MCV 86.6, MCH 29.0, MCHC 33.5, RDW Std Deviation 41.1, RDW Coeff of [place] 13.0, Plt Count 420, MPV 10.1, Immature Gran % (Auto) 0.500, Neut % (Auto) 76.3 H, Lymph % (Auto) 12.7 L, [place] % (Auto) 8.6, Eos % (Auto) 1.5, Baso % (Auto) 0.4, Absolute Neuts (auto) 10.8 H, Absolute Lymphs (auto) 1.79, Nucleated RBC % 0 02/21/21 20:40: Sodium 137, Potassium 3.5, Chloride 104, Carbon Dioxide 25.0, Anion Gap 8, BUN 9, Creatinine 0.97, Estim Creat Clear Calc 106.74, Est GFR (MDRD) Af Amer 109, Est GFR (MDRD) Non-Af 90, BUN/Creatinine Ratio 9.2 L, Glucose 196 H, Calcium 8.9 02/21/21 20:40: Urine Color Yellow, Urine Clarity Sl. Cloudy, Urine pH 5.0, Ur Specific [employer] 1.025, Urine Protein 30 H, Urine Glucose (UA) 1000 H, Urine Ketones Negative, Urine Occult Blood 10 H, Urine Nitrite Negative, Urine Bilirubin Negative, Urine Urobilinogen Normal, Ur Leukocyte Esterase 100 H, Urine RBC 0-5 SEEN, Urine WBC 25-50 SEEN, Ur Squamous Epith Cells 0-5 SEEN, Urine Bacteria 1+, Urine Mucus 0 SEEN 02/22/21 00:13: POC Glucose 182 H 02/22/21 05:26: WBC 13.9 H, RBC 4.35 L, Hgb 12.9 L, Hct 37.9 L, MCV 87.1, MCH 29.7, MCHC 34.0, RDW Std Deviation 41.7, RDW Coeff of [place] 13.1, Plt Count 404, MPV 10.3, Immature Gran % (Auto) 0.500, Neut % (Auto) 77.3 H, Lymph % (Auto) 10.7 L, [place] % (Auto) 9.4, Eos % (Auto) 1.7, Baso % (Auto) 0.4, Absolute Neuts (auto) 10.8 H, Absolute Lymphs (auto) 1.49, Nucleated RBC % 0 02/22/21 05:26: Sodium 138, Potassium 3.1 L, Chloride 105, Carbon Dioxide 24.0, Anion Gap 9, BUN 11, Creatinine 0.95, Estim Creat Clear Calc 105.66, Est GFR (MDRD) Af Amer 112, Est GFR (MDRD) Non-Af 93, BUN/Creatinine Ratio 11.6, Glucose 168 H, Calcium 9.0 02/22/21 05:43: POC Glucose 190 H Radiology Impression Abdomen/Pelvis CT 02/21/21 20:43 IMPRESSION: 1. Small nonobstructing calcification in the LEFT kidney. No evidence of ureteral stones or CT evidence of obstructive uropathy. 2. Marked abnormality within the RIGHT hemipelvis with soft tissue stranding trace fluid noted, and an organized fluid collection adjacent to the RIGHT side of the sigmoid colon at the rectosigmoid junction measuring approximately 5.6 x 3.2 cm in size consistent with a peridiverticular abscess. No free air identified. 3. Moderate diverticulosis in the remaining sigmoid colon. No bowel obstruction. 4. Incidental note of minimal patchy atelectasis versus subtle infiltrate at the RIGHT lung base. 5. Moderate to extensive coronary vascular calcifications present. 6. Thickened wall of a contracted gallbladder. Reactive changes associated with the adjacent soft tissue stranding of the diverticulitis is a consideration. No calcifications or distinct bladder masses. No air noted within the bladder. 7. No evidence cholelithiasis. Electronically Signed: Huy Villagomez MD at 21:21 EST Tel , Service support , ADDENDUM: 02/21/21 [id number] IMPRESSION: 1. Small nonobstructing calcification in the LEFT kidney. No evidence of ureteral stones or CT evidence of obstructive uropathy. 2. Marked abnormality within the RIGHT hemipelvis with soft tissue stranding trace fluid noted, and an organized fluid collection adjacent to the RIGHT side of the sigmoid colon at the rectosigmoid junction measuring approximately 5.6 x 3.2 cm in size consistent with a peridiverticular abscess. No free air identified. 3. Moderate diverticulosis in the remaining sigmoid colon. No bowel obstruction. 4. Incidental note of minimal patchy atelectasis versus subtle infiltrate at the RIGHT lung base. 5. Moderate to extensive coronary vascular calcifications present. 6. Thickened wall of a contracted gallbladder. Reactive changes associated with the adjacent soft tissue stranding of the diverticulitis is a consideration. No calcifications or distinct bladder masses. No air noted within the bladder. 7. No evidence cholelithiasis. N.B. : The above Results were Read Back by Huy Villagomez MD to Dr Devon MD, and understanding confirmed on 02/21/2021 21:28:12 (ET). Electronically Signed: Huy Villagomez MD at 21:21 EST Tel , Service support , Charges/Coding Visit Charges Office Visits / Consults: 91385 IP Consult L3
[2021-02-22] MEDS: oxyCODONE 5 MG Tablet PO ×3 (07:44→22:51)
[2021-02-22] MEDS: Potassium Chloride 10mEq/100mL 10 MEQ/100 ML IV.SOLN. 100 MEQ IV BOLUS ×4 (10:32→14:03)
[2021-02-22] MEDS: Aspirin E.C. 81 MG Tablet PO (10:33)
[2021-02-22] MEDS: TICAGRELOR 90 MG TABLET PO ×2 (10:33→22:16)
[2021-02-22 11:11] LABS: Bedside Glucose 194 mg/dL (70-110)
--- NOTE | 2021-02-22 11:58 | CASEMGMT ---
RN CM Assessment Introduced role of RN CM to patient.? Patient is alert, oriented and able?to participate in RN CM Assessment. ?Care providers, pharmacy, and demographics verified. Admit Dx: Diverticular Abcess Re-Admit: No Barriers/Issues: None PCP: Michael Perez Specialists: None Preferred Pharmacy: [facility] Insurance: [employer], [employer] Rx Benefit:?Yes LNOK:Sister Teena Belle LW/HPOA: None, declines offered information or completion with psych social worker on this admission. Made aware can return as an outpatient to complete with psych social worker dept. at a later time. Living Arrangements:?Lives alone in a gnd level Duplex, 1 step to enter. ADL?s: Independent with ambulation and ADLs Transportation: Patient drives, drove self to hospital and plans to drive on [place]. DME: None HHC: None SNF: [facility], [place] Goal: Home and does not think will have any needs at DC. Denies any issues, questions, or concerns with DC planning at this time. Aware RNCM will continue to follow should any needs arise. DC PLAN: Home with no anticipated needs identified at this time. ELHAM Medina
--- NOTE | 2021-02-22 12:15 | PCM.PN.HOSP ---
Subjective Subjective Follow-up on acute sigmoid diverticular abscess: Patient was seen and examined. He stated that his pain was much improved. Denied any fever or chills. Has some loose bowel movements. No diarrhea he stated. Objective Data Objective Data Vital Signs: Vital Signs Temp Pulse Resp BP Pulse Ox 99.3 F H 81 18 104/60 94 02/22/21 10:29 02/22/21 10:29 02/22/21 10:29 02/22/21 10:29 02/22/21 10:29 Oxygen Delivery Method Room Air Weight: 106.6 kg Body Mass Index (BMI) 33.7 Intake & Output: Intake and Output for Last 24 Hours 02/20/21 02/21/21 02/22/21 23:59 23:59 23:59 Intake Total 100 / 100 150 / 150 Balance 100 / 100 150 / 150 Lab / Micro Data Result Diagrams: 02/22/21 05:26 02/22/21 05:26 Labs: Laboratory Results - last 24 hr 02/21/21 18:33: WBC 14.1 H, RBC 4.86, Hgb 14.1, Hct 42.1, MCV 86.6, MCH 29.0, MCHC 33.5, RDW Std Deviation 41.1, RDW Coeff of [place] 13.0, Plt Count 420, MPV 10.1, Immature Gran % (Auto) 0.500, Neut % (Auto) 76.3 H, Lymph % (Auto) 12.7 L, [place] % (Auto) 8.6, Eos % (Auto) 1.5, Baso % (Auto) 0.4, Absolute Neuts (auto) 10.8 H, Absolute Lymphs (auto) 1.79, Nucleated RBC % 0 02/21/21 20:40: Sodium 137, Potassium 3.5, Chloride 104, Carbon Dioxide 25.0, Anion Gap 8, BUN 9, Creatinine 0.97, Estim Creat Clear Calc 106.74, Est GFR (MDRD) Af Amer 109, Est GFR (MDRD) Non-Af 90, BUN/Creatinine Ratio 9.2 L, Glucose 196 H, Calcium 8.9 02/21/21 20:40: Urine Color Yellow, Urine Clarity Sl. Cloudy, Urine pH 5.0, Ur Specific [place] 1.025, Urine Protein 30 H, Urine Glucose (UA) 1000 H, Urine Ketones Negative, Urine Occult Blood 10 H, Urine Nitrite Negative, Urine Bilirubin Negative, Urine Urobilinogen Normal, Ur Leukocyte Esterase 100 H, Urine RBC 0-5 SEEN, Urine WBC 25-50 SEEN, Ur Squamous Epith Cells 0-5 SEEN, Urine Bacteria 1+, Urine Mucus 0 SEEN 02/22/21 00:13: POC Glucose 182 H 02/22/21 05:26: WBC 13.9 H, RBC 4.35 L, Hgb 12.9 L, Hct 37.9 L, MCV 87.1, MCH 29.7, MCHC 34.0, RDW Std Deviation 41.7, RDW Coeff of [place] 13.1, Plt Count 404, MPV 10.3, Immature Gran % (Auto) 0.500, Neut % (Auto) 77.3 H, Lymph % (Auto) 10.7 L, [place] % (Auto) 9.4, Eos % (Auto) 1.7, Baso % (Auto) 0.4, Absolute Neuts (auto) 10.8 H, Absolute Lymphs (auto) 1.49, Nucleated RBC % 0 02/22/21 05:26: Sodium 138, Potassium 3.1 L, Chloride 105, Carbon Dioxide 24.0, Anion Gap 9, BUN 11, Creatinine 0.95, Estim Creat Clear Calc 105.66, Est GFR (MDRD) Af Amer 112, Est GFR (MDRD) Non-Af 93, BUN/Creatinine Ratio 11.6, Glucose 168 H, Calcium 9.0 02/22/21 05:26: Magnesium 2.0 02/22/21 05:43: POC Glucose 190 H 02/22/21 11:03: POC Glucose 194 H Radiography Diagnostic Testing: Radiology Impression Abdomen/Pelvis CT 02/21/21 20:43 IMPRESSION: 1. Small nonobstructing calcification in the LEFT kidney. No evidence of ureteral stones or CT evidence of obstructive uropathy. 2. Marked abnormality within the RIGHT hemipelvis with soft tissue stranding trace fluid noted, and an organized fluid collection adjacent to the RIGHT side of the sigmoid colon at the rectosigmoid junction measuring approximately 5.6 x 3.2 cm in size consistent with a peridiverticular abscess. No free air identified. 3. Moderate diverticulosis in the remaining sigmoid colon. No bowel obstruction. 4. Incidental note of minimal patchy atelectasis versus subtle infiltrate at the RIGHT lung base. 5. Moderate to extensive coronary vascular calcifications present. 6. Thickened wall of a contracted gallbladder. Reactive changes associated with the adjacent soft tissue stranding of the diverticulitis is a consideration. No calcifications or distinct bladder masses. No air noted within the bladder. 7. No evidence cholelithiasis. Electronically Signed: Huy Villagomez MD at 21:21 EST Tel , Service support , ADDENDUM: 02/21/212134 IMPRESSION: 1. Small nonobstructing calcification in the LEFT kidney. No evidence of ureteral stones or CT evidence of obstructive uropathy. 2. Marked abnormality within the RIGHT hemipelvis with soft tissue stranding trace fluid noted, and an organized fluid collection adjacent to the RIGHT side of the sigmoid colon at the rectosigmoid junction measuring approximately 5.6 x 3.2 cm in size consistent with a peridiverticular abscess. No free air identified. 3. Moderate diverticulosis in the remaining sigmoid colon. No bowel obstruction. 4. Incidental note of minimal patchy atelectasis versus subtle infiltrate at the RIGHT lung base. 5. Moderate to extensive coronary vascular calcifications present. 6. Thickened wall of a contracted gallbladder. Reactive changes associated with the adjacent soft tissue stranding of the diverticulitis is a consideration. No calcifications or distinct bladder masses. No air noted within the bladder. 7. No evidence cholelithiasis. N.B. : The above Results were Read Back by Huy Villagomez MD to Dr Devon MD, and understanding confirmed on 02/21/2021 21:28:12 (ET). Electronically Signed: Huy Villagomez MD at 21:21 EST Tel , Service support , Physical Exam Narrative Physical exam: General: Alert, Oriented x3, Cooperative, No apparent distress, Well developed HEENT: Atraumatic Oral: Moist Mucosa Neck: Supple Lungs: Diminished to auscultation Cardiovascular: HS I+II, regular, no murmurs Abdomen: Bowel Sounds Present, Soft, Non Tender Extremities: No edema Assessment & Plan Assessment/Plan (1) Colonic diverticular abscess: (2) Atherosclerotic heart disease [place] coronary artery w/angina pectoris: QUALIFIERS: [place] vs. transplanted heart: [place] heart Qualified Code(s): I25.119 - Atherosclerotic heart disease of [place] coronary artery with unspecified angina pectoris (3) Essential hypertension: (4) Hyperlipidemia: QUALIFIERS: Hyperlipidemia type: unspecified Qualified Code(s): E78.5 - Hyperlipidemia, unspecified (5) Type 2 diabetes mellitus: QUALIFIERS: Diabetes mellitus residential insulin use: with residential use Diabetes mellitus complication status: with other specified complication Qualified Code(s): E11.69 - Type 2 diabetes mellitus with other specified complication; Z79.4 - longterm (current) use of insulin (6) Morbid obesity: PLAN: 1. Acute sigmoid diverticular abscess, seen on CT of the abdomen and pelvis WBC count mildly improved to 13.9 from 14.1 General surgery consulted, patient kept n.p.o. Continue IV antibiotics, pain control 2. Hypokalemia, replaced, recheck in a.m. 3. Diabetes mellitus, type II, blood sugars are controlled, Continue to hold Metformin, continue on current Lantus, insulin sliding scale 4. Rest of his chronic medical conditions remained stable -CAD status post stent, hypertension Continue on aspirin, Brilinta, losartan, carvedilol Charges/Coding Visit Charges Inpatient E&M: 63276 Subs Hosp L2
[2021-02-22 17:51] LABS: Bedside Glucose 142 mg/dL (70-110)
[2021-02-22] MEDS: Atorvastatin Calcium 80 MG Tablet PO (22:16)
[2021-02-22 22:21] LABS: Bedside Glucose 125 mg/dL (70-110)
[2021-02-23 05:15] VITALS: BP 113/72; PULSE 80; RESP 18; TEMP 36.9; O2SAT 98
[2021-02-23] MEDS: oxyCODONE 5 MG Tablet PO ×3 (05:23→21:11)
[2021-02-23 05:25] LABS: Bedside Glucose 141 mg/dL (70-110)
[2021-02-23 05:26] VITALS: O2SAT 97
[2021-02-23 05:30] LABS: Absolute Lymphocyte Count 1.34 X10^3/uL (0.83-4.51); Absolute Neutrophil Count 12.4 X10^3/uL (2.0-7.7); Basophil# 0.06 X10^3/uL; Basophil% 0.4 % (0-1); Eosinophil# 0.16 X10^3/uL; Hematocrit 35.4 % (40-54); Hemoglobin 11.8 g/dL (13.0-16.5); Lymphocyte # 1.34 X10^3/ul (0.83-4.51); Lymphocyte % 8.7 % (19-41); Mean Corp Hgb Conc 33.3 g/dL (32-36); Mean Corpuscular Hgb 29.2 pg (27.0-32.0); Mean Corpuscular Volume 87.6 fL (80-94); Mean Platelet Vol. 10.1 fl (6.2-12.0); Monocyte# 1.26 X10^3/uL; Monocyte% 8.2 % (0-10); NRBC Flagged by Analyzer 0 % (0-5); Neutrophil # 12.44 X10^3/uL (2.7-7.7); Neutrophil % 81.2 % (47-70); Platelet Count 414 K/mm3 (150-450); RBC Distribution Width CV 13.3 % (11.6-14.6); RBC Distribution Width SD 43.1 fl (35.1-43.9); Red Blood Count 4.04 M/mm3 (4.6-6.2); White Blood Count 15.3 K/mm3 (4.4-11.0)
[2021-02-23 06:36] LABS: ALB/GLOB Ratio 0.5 RATIO (0.9-2.4); AST(SGOT) 12 U/L (15-37); Alanine Aminotransfer ALT/SGPT 21 U/L (16-61); Albumin, Serum 2.3 g/dL (3.2-5.0); Alkaline Phosphatase 89 U/L (45-117); Anion Gap 9 (5-15); BUN 19 mg/dL (7-18); BUN/Creat Ratio 12.2 RATIO (10-20); Calcium,Total 8.5 mg/dL (8.5-10.1); Chloride 109 mmol/L (98-107); Creatinine, Serum 1.56 mg/dL (0.70-1.30); EST Glomerular Filtration Rate 52 mL/min (>60); Est Glom Filt Rate - Afr Amer 63 mL/min (>60); Estimated Creatinine Clearance 64.34 ml/min; Globulin 4.5 g/dL (2.2-4.2); Glucose 150 mg/dL (74-106); Potassium 3.8 mmol/L (3.5-5.1); Protein, Total 6.8 g/dL (6.4-8.2); Sodium Level 141 mmol/L (136-145)
--- NOTE | 2021-02-23 07:32 | PCM.PN.SRG ---
Subjective Subjective and back pain are a lot better.States abdominal pain Patient white blood count is little up at 15. Patient states abdominal pain and back pain are a lot better still has some tenderness specially to move certain direction. Objective Data Objective Data Vital Signs: Vital Signs Temp Pulse Resp BP Pulse Ox 98.4 F 80 18 113/72 97 02/23/21 05:15 02/23/21 05:15 02/23/21 05:15 02/23/21 05:15 02/23/21 05:26 Oxygen Delivery Method Room Air Weight: 235 lb 0.204 oz Body Mass Index (BMI) 33.7 Intake & Output: Intake and Output for Last 24 Hours 02/21/21 02/22/21 02/23/21 23:59 23:59 23:59 Intake Total 100 / 100 1100 / 1300 450 / 450 Balance 100 / 100 1100 / 1300 450 / 450 Lab / Micro Data Result Diagrams: 02/23/21 05:08 02/23/21 05:08 Labs: Laboratory Results - last 24 hr 02/22/21 05:26: Magnesium 2.0 02/22/21 11:03: POC Glucose 194 H 02/22/21 17:19: POC Glucose 142 H 02/22/21 22:13: POC Glucose 125 H 02/23/21 05:08: WBC 15.3 H, RBC 4.04 L, Hgb 11.8 L, Hct 35.4 L, MCV 87.6, MCH 29.2, MCHC 33.3, RDW Std Deviation 43.1, RDW Coeff of [place] 13.3, Plt Count 414, MPV 10.1, Immature Gran % (Auto) 0.500, Neut % (Auto) 81.2 H, Lymph % (Auto) 8.7 L, [place] % (Auto) 8.2, Eos % (Auto) 1.0, Baso % (Auto) 0.4, Absolute Neuts (auto) 12.4 H, Absolute Lymphs (auto) 1.34, Nucleated RBC % 0 02/23/21 05:08: Sodium 141, Potassium 3.8, Chloride 109 H, Carbon Dioxide 23.0, Anion Gap 9, BUN 19 H, Creatinine 1.56 H, Estim Creat Clear Calc 64.34, Est GFR (MDRD) Af Amer 63, Est GFR (MDRD) Non-Af 52 L, BUN/Creatinine Ratio 12.2, Glucose 150 H, Calcium 8.5, Total Bilirubin 0.60, AST 12 L, ALT 21, Alkaline Phosphatase 89, Total Protein 6.8, Albumin 2.3 L, Globulin 4.5 H, Albumin/Globulin Ratio 0.5 L 02/23/21 05:12: POC Glucose 141 H Physical Exam GI soft to palpation GI Narrative: No peritoneal signs Palpation: tender suprapubic (Mild) Assessment & Plan Assessment/Plan (1) Colonic diverticular abscess: PLAN: Patient's white blood count has increased little bit to 15. However patient states his pain is not any worse and may be a little bit better from yesterday. Definitely better than when he came in. We will continue to monitor if increased pain or fever would check a CT scan today otherwise we will wait for lab work tomorrow?if increased white blood count with beginning a CT abdomen pelvis tomorrow. Carie Reynoso M.D. Pager: [phone] [facility] [address] [place] [address], [facility], [address] [place] [address] Office: [phone]
[2021-02-23 07:48] VITALS: O2SAT 95
[2021-02-23 09:23] VITALS: BP 125/64; PULSE 79; RESP 18; TEMP 36.9; O2SAT 97
[2021-02-23] MEDS: Carvedilol 25 MG Tablet PO ×2 (09:26→21:08)
[2021-02-23] MEDS: TICAGRELOR 90 MG TABLET PO ×2 (09:26→21:08)
[2021-02-23] MEDS: Losartan Potassium 100 MG Tablet PO (09:26)
[2021-02-23] MEDS: Aspirin E.C. 81 MG Tablet PO (09:26)
[2021-02-23 11:06] LABS: Bedside Glucose 165 mg/dL (70-110)
--- NOTE | 2021-02-23 13:41 | NURSING ---
This RN taking over care of pt at this time.
--- NOTE | 2021-02-23 15:41 | PCM.PN.HOSP ---
Subjective Subjective Follow-up on acute sigmoid diverticular abscess: Patient was seen and examined. He complains of slight supra-pubic and left lower quadrant pain. Denies any fever Objective Data Objective Data Vital Signs: Vital Signs Temp Pulse Resp BP Pulse Ox 98.5 F 79 18 125/64 H 97 02/23/21 09:23 02/23/21 09:23 02/23/21 09:23 02/23/21 09:23 02/23/21 09:23 Oxygen Delivery Method Room Air Weight: 106.6 kg Body Mass Index (BMI) 33.7 Intake & Output: Intake and Output for Last 24 Hours 02/21/21 02/22/21 02/23/21 23:59 23:59 23:59 Intake Total 100 / 100 1100 / 1300 500 / 500 Balance 100 / 100 1100 / 1300 500 / 500 Lab / Micro Data Result Diagrams: 02/23/21 05:08 02/23/21 05:08 Labs: Laboratory Results - last 24 hr 02/22/21 17:19: POC Glucose 142 H 02/22/21 22:13: POC Glucose 125 H 02/23/21 05:08: WBC 15.3 H, RBC 4.04 L, Hgb 11.8 L, Hct 35.4 L, MCV 87.6, MCH 29.2, MCHC 33.3, RDW Std Deviation 43.1, RDW Coeff of [place] 13.3, Plt Count 414, MPV 10.1, Immature Gran % (Auto) 0.500, Neut % (Auto) 81.2 H, Lymph % (Auto) 8.7 L, [place] % (Auto) 8.2, Eos % (Auto) 1.0, Baso % (Auto) 0.4, Absolute Neuts (auto) 12.4 H, Absolute Lymphs (auto) 1.34, Nucleated RBC % 0 02/23/21 05:08: Sodium 141, Potassium 3.8, Chloride 109 H, Carbon Dioxide 23.0, Anion Gap 9, BUN 19 H, Creatinine 1.56 H, Estim Creat Clear Calc 64.34, Est GFR (MDRD) Af Amer 63, Est GFR (MDRD) Non-Af 52 L, BUN/Creatinine Ratio 12.2, Glucose 150 H, Calcium 8.5, Total Bilirubin 0.60, AST 12 L, ALT 21, Alkaline Phosphatase 89, Total Protein 6.8, Albumin 2.3 L, Globulin 4.5 H, Albumin/Globulin Ratio 0.5 L 02/23/21 05:12: POC Glucose 141 H 02/23/21 11:02: POC Glucose 165 H Physical Exam Narrative Physical exam: General: Alert, Oriented x3, Cooperative, No apparent distress, Well developed HEENT: Atraumatic Oral: Moist Mucosa Neck: Supple Lungs: Diminished to auscultation Cardiovascular: HS I+II, regular, no murmurs Abdomen: Bowel Sounds Present, Soft, Non Tender Extremities: No edema Assessment & Plan Assessment/Plan (1) Colonic diverticular abscess: (2) Essential hypertension: (3) Hyperlipidemia: QUALIFIERS: Hyperlipidemia type: unspecified Qualified Code(s): E78.5 - Hyperlipidemia, unspecified (4) Type 2 diabetes mellitus: QUALIFIERS: Diabetes mellitus complication status: with other specified complication Diabetes mellitus skilled nursing insulin use: with skilled nursing use Qualified Code(s): E11.69 - Type 2 diabetes mellitus with other specified complication; 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 transplanted heart: [place] heart Qualified Code(s): I25.119 - Atherosclerotic heart disease of [place] coronary artery with unspecified angina pectoris (6) Morbid obesity: PLAN: 1. Acute sigmoid diverticular abscess, seen on CT of the abdomen and pelvis WBC count is 15.3 General surgery consulted, patient kept n.p.o. Continue IV antibiotics, pain control 2. MAURICIO secondary to dehydration, Cr is 1.56 Will hold Losartan, start on IVF 3. Hypokalemia, replaced, recheck in a.m. 3. Diabetes mellitus, type II, blood sugars are controlled, Continue to hold Metformin, continue on current Lantus, insulin sliding scale 4. Rest of his chronic medical conditions remained stable -CAD status post stent, hypertension Continue on aspirin, Brilinta, losartan, carvedilol Charges/Coding Visit Charges Inpatient E&M: 76265 Subs Hosp L2
[2021-02-23 16:50] VITALS: BP 151/90; PULSE 83; RESP 16; TEMP 36.7; O2SAT 97
[2021-02-23 17:11] LABS: Bedside Glucose 133 mg/dL (70-110)
[2021-02-23] MEDS: 0.9% Normal Saline 1,000 ML 200 ML IV (19:03)
[2021-02-23 20:57] VITALS: BP 174/94; PULSE 89; RESP 18; TEMP 36.7; O2SAT 98
[2021-02-23] MEDS: Atorvastatin Calcium 80 MG Tablet PO (21:08)
[2021-02-23 21:16] LABS: Bedside Glucose 118 mg/dL (70-110)
[2021-02-24] MEDS: 0.9% Normal Saline 1,000 ML 200 ML IV ×2 (01:36→06:43)
[2021-02-24 03:54] VITALS: BP 140/81; PULSE 80; RESP 18; TEMP 36.8; O2SAT 97
[2021-02-24] MEDS: 0.9% Saline Lock 10 ML Syringe IV (06:17)
[2021-02-24 06:20] LABS: Absolute Lymphocyte Count 1.38 X10^3/uL (0.83-4.51); Absolute Neutrophil Count 9.6 X10^3/uL (2.0-7.7); Basophil# 0.04 X10^3/uL; Basophil% 0.3 % (0-1); Eosinophil# 0.19 X10^3/uL; Eosinophils% 1.6 % (0-5); Hematocrit 34.8 % (40-54); Hemoglobin 11.5 g/dL (13.0-16.5); Lymphocyte # 1.38 X10^3/ul (0.83-4.51); Lymphocyte % 11.3 % (19-41); Mean Corpuscular Hgb 29.3 pg (27.0-32.0); Mean Corpuscular Volume 88.5 fL (80-94); Mean Platelet Vol. 10.4 fl (6.2-12.0); Monocyte# 1.03 X10^3/uL; Monocyte% 8.4 % (0-10); NRBC Flagged by Analyzer 0 % (0-5); Neutrophil # 9.55 X10^3/uL (2.7-7.7); Neutrophil % 77.9 % (47-70); Platelet Count 423 K/mm3 (150-450); RBC Distribution Width CV 13.2 % (11.6-14.6); RBC Distribution Width SD 43.2 fl (35.1-43.9); Red Blood Count 3.93 M/mm3 (4.6-6.2); White Blood Count 12.3 K/mm3 (4.4-11.0)
[2021-02-24 06:25] LABS: Bedside Glucose 143 mg/dL (70-110)
[2021-02-24 06:54] LABS: ALB/GLOB Ratio 0.5 RATIO (0.9-2.4); AST(SGOT) 14 U/L (15-37); Alanine Aminotransfer ALT/SGPT 17 U/L (16-61); Albumin, Serum 2.1 g/dL (3.2-5.0); Alkaline Phosphatase 91 U/L (45-117); Anion Gap 6 (5-15); BUN 18 mg/dL (7-18); BUN/Creat Ratio 15.5 RATIO (10-20); Calcium,Total 8.5 mg/dL (8.5-10.1); Chloride 112 mmol/L (98-107); Creatinine, Serum 1.16 mg/dL (0.70-1.30); EST Glomerular Filtration Rate 74 mL/min (>60); Est Glom Filt Rate - Afr Amer 89 mL/min (>60); Estimated Creatinine Clearance 86.53 ml/min; Globulin 4.3 g/dL (2.2-4.2); Glucose 137 mg/dL (74-106); Potassium 3.4 mmol/L (3.5-5.1); Protein, Total 6.4 g/dL (6.4-8.2); Sodium Level 143 mmol/L (136-145)
[2021-02-24 08:09] LABS: Magnesium 1.9 mg/dL (1.6-2.6)
--- NOTE | 2021-02-24 08:27 | PN.SURG_ITS ---
Subjective Subjective Patient states pain has improved. Patient's white blood count also improved from 15-12. Objective Data Objective Data Vital Signs: Vital Signs Temp Pulse Resp BP Pulse Ox 98.2 F 80 18 140/81 H 97 02/24/21 03:54 02/24/21 03:54 02/24/21 03:54 02/24/21 03:54 02/24/21 03:54 Oxygen Delivery Method Room Air Weight: 235 lb 0.204 oz Body Mass Index (BMI) 33.7 Intake & Output: Intake and Output for Last 24 Hours 02/22/21 02/23/21 02/24/21 23:59 23:59 23:59 Intake Total 1100 / 1300 550 / 550 2049 Balance 1100 / 1300 550 / 550 2049 Lab / Micro Data Result Diagrams: 02/24/21 05:25 02/24/21 05:25 Labs: Laboratory Results - last 24 hr 02/23/21 11:02: POC Glucose 165 H 02/23/21 16:56: POC Glucose 133 H 02/23/21 21:04: POC Glucose 118 H 02/24/21 05:25: WBC 12.3 H, RBC 3.93 L, Hgb 11.5 L, Hct 34.8 L, MCV 88.5, MCH 29.3, MCHC 33.0, RDW Std Deviation 43.2, RDW Coeff of [place] 13.2, Plt Count 423, MPV 10.4, Immature Gran % (Auto) 0.500, Neut % (Auto) 77.9 H, Lymph % (Auto) 11.3 L, [place] % (Auto) 8.4, Eos % (Auto) 1.6, Baso % (Auto) 0.3, Absolute Neuts (auto) 9.6 H, Absolute Lymphs (auto) 1.38, Nucleated RBC % 0 02/24/21 05:25: Sodium 143, Potassium 3.4 L, Chloride 112 H, Carbon Dioxide 25.0, Anion Gap 6, BUN 18, Creatinine 1.16, Estim Creat Clear Calc 86.53, Est GFR (MDRD) Af Amer 89, Est GFR (MDRD) Non-Af 74, BUN/Creatinine Ratio 15.5, Glucose 137 H, Calcium 8.5, Total Bilirubin 0.60, AST 14 L, ALT 17, Alkaline Phosphatase 91, Total Protein 6.4, Albumin 2.1 L, Globulin 4.3 H, Albumin/Globulin Ratio 0.5 L 02/24/21 05:25: Magnesium 1.9 02/24/21 06:15: POC Glucose 143 H Physical Exam GI soft to palpation GI Narrative: No peritoneal signs Inspection: Negative for abdominal distention Palpation: Negative for tender Assessment & Plan Assessment/Plan (1) Colonic diverticular abscess: PLAN: Patient's white blood count did come down to 12. Continue IV Zosyn. Patient's pain has improved will advance to clears we will plan to stand clears today. Plan for CT abdomen pelvis tomorrow just to verify the abscess has improved so if patient's white blood count is improved he could possibly be discharged tomorrow--patient may need standing liquids for a few days prior to beginning a low fiber diet which he needs to stay on until follow-up in [address] Gleason will be covering this weekend. Carie Reynoso M.D. Pager: [phone] [facility] [address] [place] [address], [facility], [address] [place] [address] Office: [phone] Charges/Coding Visit Charges Inpatient E&M: 85888 Subs Hosp L2
[2021-02-24 08:30] VITALS: BP 170/95; PULSE 84; RESP 14; TEMP 36.4; O2SAT 98
[2021-02-24] MEDS: Aspirin E.C. 81 MG Tablet PO (08:32)
[2021-02-24] MEDS: Carvedilol 25 MG Tablet PO ×2 (08:32→21:01)
[2021-02-24] MEDS: Potassium Chloride Oral Tablet 20 MEQ 60 MEQ PO (08:32)
[2021-02-24] MEDS: TICAGRELOR 90 MG TABLET PO ×2 (08:32→21:00)
[2021-02-24] MEDS: oxyCODONE 5 MG Tablet PO ×2 (11:23→21:07)
[2021-02-24 11:35] LABS: Bedside Glucose 170 mg/dL (70-110)
--- NOTE | 2021-02-24 14:28 | PCM.PN.HOSP ---
Subjective Subjective Follow-up on acute sigmoid diverticular abscess: Patient was seen and examined. He feels slightly improved, denies any fever or chills. No diarrhea Objective Data Objective Data Vital Signs: Vital Signs Temp Pulse Resp BP Pulse Ox 97.5 F L 84 14 170/95 H 98 02/24/21 08:30 02/24/21 08:30 02/24/21 08:30 02/24/21 08:30 02/24/21 08:30 Oxygen Delivery Method Room Air Weight: 106.6 kg Body Mass Index (BMI) 33.7 Intake & Output: Intake and Output for Last 24 Hours 02/22/21 02/23/21 02/24/21 23:59 23:59 23:59 Intake Total 1100 / 1300 550 / 550 2890 / 2890 Balance 1100 / 1300 550 / 550 2890 / 2890 Lab / Micro Data Result Diagrams: 02/24/21 05:25 02/24/21 05:25 Labs: Laboratory Results - last 24 hr 02/23/21 16:56: POC Glucose 133 H 02/23/21 21:04: POC Glucose 118 H 02/24/21 05:25: WBC 12.3 H, RBC 3.93 L, Hgb 11.5 L, Hct 34.8 L, MCV 88.5, MCH 29.3, MCHC 33.0, RDW Std Deviation 43.2, RDW Coeff of [place] 13.2, Plt Count 423, MPV 10.4, Immature Gran % (Auto) 0.500, Neut % (Auto) 77.9 H, Lymph % (Auto) 11.3 L, [place] % (Auto) 8.4, Eos % (Auto) 1.6, Baso % (Auto) 0.3, Absolute Neuts (auto) 9.6 H, Absolute Lymphs (auto) 1.38, Nucleated RBC % 0 02/24/21 05:25: Sodium 143, Potassium 3.4 L, Chloride 112 H, Carbon Dioxide 25.0, Anion Gap 6, BUN 18, Creatinine 1.16, Estim Creat Clear Calc 86.53, Est GFR (MDRD) Af Amer 89, Est GFR (MDRD) Non-Af 74, BUN/Creatinine Ratio 15.5, Glucose 137 H, Calcium 8.5, Total Bilirubin 0.60, AST 14 L, ALT 17, Alkaline Phosphatase 91, Total Protein 6.4, Albumin 2.1 L, Globulin 4.3 H, Albumin/Globulin Ratio 0.5 L 02/24/21 05:25: Magnesium 1.9 02/24/21 06:15: POC Glucose 143 H 02/24/21 11:20: POC Glucose 170 H Physical Exam Narrative Physical exam: General: Alert, Oriented x3, Cooperative, No apparent distress, Well developed HEENT: Atraumatic Oral: Moist Mucosa Neck: Supple Lungs: Diminished to auscultation Cardiovascular: HS I+II, regular, no murmurs Abdomen: Bowel Sounds Present, Soft, Non Tender Extremities: No edema Assessment & Plan Assessment/Plan (1) Colonic diverticular abscess: (2) Essential hypertension: (3) Hyperlipidemia: QUALIFIERS: Hyperlipidemia type: unspecified Qualified Code(s): E78.5 - Hyperlipidemia, unspecified (4) Type 2 diabetes mellitus: QUALIFIERS: Diabetes mellitus terminologist insulin use: with terminologist use Diabetes mellitus complication status: with other specified complication Qualified Code(s): E11.69 - Type 2 diabetes mellitus with other specified complication; 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 transplanted heart: [place] heart Qualified Code(s): I25.119 - Atherosclerotic heart disease of [place] coronary artery with unspecified angina pectoris (6) Morbid obesity: PLAN: 1. Acute sigmoid diverticular abscess, seen on CT of the abdomen and pelvis WBC count is 12.3 General surgery following, patient is on clear liquid diet Continue IV antibiotics, pain control 2. MAURICIO secondary to dehydration, improved Creatinine now is 1.1 Continue to hold Losartan, and IV fluids Repeat blood work in a.m. 3. Hypokalemia, replaced, recheck in a.m. 4. Diabetes mellitus, type II, blood sugars are controlled, Continue to hold Metformin, continue on current Lantus, insulin sliding scale 5. Rest of his chronic medical conditions remained stable -CAD status post stent, hypertension Patient had a recent SURYA placed in October 2020 in [facility]-cannot be off dual antiplatelets for at least 6 months Continue on aspirin, Brilinta, losartan, carvedilol Charges/Coding Visit Charges Inpatient E&M: 30975 Subs Hosp L2
[2021-02-24 14:29] VITALS: BP 151/91; PULSE 75; RESP 15; TEMP 36.6; O2SAT 99
[2021-02-24] MEDS: 0.9% Normal Saline 1,000 ML 100 ML IV (14:29)
[2021-02-24 16:19] VITALS: BP 152/90; PULSE 67; RESP 16; TEMP 36.6; O2SAT 96
[2021-02-24 16:55] LABS: Bedside Glucose 158 mg/dL (70-110)
[2021-02-24] MEDS: Atorvastatin Calcium 80 MG Tablet PO (21:01)
[2021-02-24 22:20] VITALS: BP 168/92; PULSE 75; RESP 18; TEMP 36.9; O2SAT 98
[2021-02-24 22:36] LABS: Bedside Glucose 155 mg/dL (70-110)
[2021-02-25] MEDS: 0.9% Normal Saline 1,000 ML 100 ML IV (00:12)
[2021-02-25 03:55] VITALS: BP 165/97; PULSE 75; RESP 18; TEMP 36.5; O2SAT 98
[2021-02-25 06:05] LABS: Absolute Lymphocyte Count 1.32 X10^3/uL (0.83-4.51); Absolute Neutrophil Count 5.8 X10^3/uL (2.0-7.7); Basophil# 0.05 X10^3/uL; Basophil% 0.6 % (0-1); Eosinophil# 0.23 X10^3/uL; Eosinophils% 2.8 % (0-5); Hematocrit 36.6 % (40-54); Hemoglobin 11.8 g/dL (13.0-16.5); Lymphocyte # 1.32 X10^3/ul (0.83-4.51); Mean Corp Hgb Conc 32.2 g/dL (32-36); Mean Corpuscular Hgb 28.8 pg (27.0-32.0); Mean Corpuscular Volume 89.3 fL (80-94); Mean Platelet Vol. 10.4 fl (6.2-12.0); Monocyte# 0.83 X10^3/uL; Monocyte% 10.1 % (0-10); NRBC Flagged by Analyzer 0 % (0-5); Neutrophil # 5.77 X10^3/uL (2.7-7.7); Platelet Count 457 K/mm3 (150-450); RBC Distribution Width CV 13.4 % (11.6-14.6); RBC Distribution Width SD 44.1 fl (35.1-43.9); White Blood Count 8.2 K/mm3 (4.4-11.0)
[2021-02-25 06:35] LABS: Bedside Glucose 145 mg/dL (70-110)
[2021-02-25 06:50] LABS: ALB/GLOB Ratio 0.5 RATIO (0.9-2.4); AST(SGOT) 17 U/L (15-37); Alanine Aminotransfer ALT/SGPT 23 U/L (16-61); Albumin, Serum 2.3 g/dL (3.2-5.0); Alkaline Phosphatase 91 U/L (45-117); Anion Gap 10 (5-15); BUN 11 mg/dL (7-18); BUN/Creat Ratio 11.3 RATIO (10-20); Calcium,Total 8.5 mg/dL (8.5-10.1); Chloride 112 mmol/L (98-107); Creatinine, Serum 0.97 mg/dL (0.70-1.30); EST Glomerular Filtration Rate 90 mL/min (>60); Est Glom Filt Rate - Afr Amer 109 mL/min (>60); Estimated Creatinine Clearance 103.48 ml/min; Globulin 4.7 g/dL (2.2-4.2); Glucose 146 mg/dL (74-106); Potassium 3.6 mmol/L (3.5-5.1); Sodium Level 143 mmol/L (136-145)
--- NOTE | 2021-02-25 06:57 | NURSING ---
Pt off the floor to CT scan
--- NOTE | 2021-02-25 07:00 | CT_ITS ---
STUDY: CT ABDOMEN AND PELVIS WITH CONTRAST REASON FOR EXAM: Male, 40 years old. diverticulitis w abscess -- with iv and po contrast RADIATION DOSAGE (If Supplied By Facility): CTDIvol = ( 21.54 ) mGy, DLP = ( 1263.78 ) mGycm TECHNIQUE: Transaxial images were obtained from the dome of the diaphragm to the symphysis pubis with oral contrast. Oral and amp; IV Gastrografin and amp; 100mL Isovue-370 was administered. Sagittal and coronal images were reconstructed. Individualized dose optimization techniques were used for this CT. COMPARISON: 02/21/2021 FINDINGS: The visualized lung bases are unremarkable. The visualized portions of the heart are within normal limits. Normal liver. Normal gallbladder and extrahepatic biliary system. Normal spleen. Normal pancreas. Normal bilateral adrenal glands. Normal right kidney. Normal left kidney. Normal visualized stomach. Normal small intestine. Continued wall thickening and stranding of surrounding fat of the sigmoid colon consistent with diverticulitis. Some adjacent free fluid but no loculated fluid collection to suggest abscess. Overall findings are improved when compared with the prior study. No pneumoperitoneum to suggest perforation. The appendix is visualized and appears normal. Normal abdominal aorta. Normal inferior vena cava. Normal retroperitoneum. Normal urinary bladder. Normal abdominal wall. Normal osseous structures. CT/Abdomen/Pelvis WITH Contrast IMPRESSION: Improved sigmoid diverticulitis. No abscess or perforation. Electronically Signed: Huy Granda MD at 8:16 EST Tel , Service support ,
[2021-02-25 08:17] VITALS: BP 175/101; PULSE 70; RESP 16; TEMP 36.6; O2SAT 98
[2021-02-25] MEDS: Carvedilol 25 MG Tablet PO (08:19)
[2021-02-25] MEDS: TICAGRELOR 90 MG TABLET PO (08:19)
[2021-02-25] MEDS: Aspirin E.C. 81 MG Tablet PO (08:20)
--- NOTE | 2021-02-25 10:03 | PCM.DC ---
Discharge Instructions Diet Discharge Diet: 2000 Calorie Control Diet and 2000 mg Sodium Diet Activity Discharge Activity: Return to Normal Activity Follow Up Care Test Results: Test results from this visit will be discussed in further detail at your follow-up appointment, if applicable. Discharge Plan Admission Admit Date/Time: 02/21/21 23:35 Primary Reason for Your Visit: Acute sigmoid diverticular abscess Attending Provider: Margie George Primary Care Provider: Michael Perez Consulting Providers: Carie Reynoso Discharge Orders/Prescriptions Prescriptions: New amoxicillin-pot clavulanate [Augmentin] 875-125 mg tablet 1 tab PO BID 14 Days Qty: 28 RF: 0 Continued metformin 500 MG tablet 500 mg PO BID RF: 0 atorvastatin 80 mg tablet 80 mg PO QHS RF: 0 aspirin 81 MG tablet,delayed release (DR/EC) 81 mg PO DAILY@0800 RF: 0 insulin glargine 100 UNITS/ML insulin pen 16 unit SC QHS RF: 0 ticagrelor 90 MG tablet 90 mg PO BID RF: 0 nitroglycerin [Nitrostat] 0.4 mg tablet, sublingual 0.4 mg sublingual Q5-15M PRN (Reason: chest pain) Qty: 25 RF: 3 carvedilol 25 mg tablet 25 mg PO BID RF: 0 losartan 100 mg tablet 100 mg PO DAILY RF: 0 Referrals / Follow Up: Michael Perez MD [Primary Care Provider] - Within 2 Weeks Carie Reynoso MD [STAFF PHYSICIAN] - Within 2 Weeks Disposition Disposition (needs filled in before D/C Order can be placed): Home, Self Care
--- NOTE | 2021-02-25 10:06 | DS.PCM_ITS ---
Providers Date of Admission: 02/21/21 Primary Care Physician: Dr. Michael Perez MD Consultations 02/21/21 23:58 Consult: General Surgery Routine Consulting Provider: Carie Reynoso Reason for Consult: Diverticular abscess EMERGENT Consult: No MD Notified: Yes Date Notified: 02/22/21 Time Notified: 00:23 Method of Notification: notified in ED by MD Reason For Visit: DIVERTICULAR ABSCESS Diagnosis Discharge Diagnosis (1) Colonic diverticular abscess: Status: Acute Code(s): K57.20 - Diverticulitis of large intestine with perforation and abscess without bleeding (2) Essential hypertension: Status: Chronic Code(s): I10 - Essential (primary) hypertension (3) Hyperlipidemia: Status: Chronic Code(s): E78.5 - Hyperlipidemia, unspecified Qualifiers: Hyperlipidemia type: unspecified Qualified Code(s): E78.5 - Hyperlipidemia, unspecified (4) Type 2 diabetes mellitus: Status: Chronic Code(s): E11.9 - Type 2 diabetes mellitus without complications Qualifiers: Diabetes mellitus senior living insulin use: with senior living use Diabetes mellitus complication status: with other specified complication Qualified Code(s): E11.69 - Type 2 diabetes mellitus with other specified complication; Z79.4 - longterm (current) use of insulin (5) Atherosclerotic heart disease [place] coronary artery w/angina pectoris: Status: Chronic Code(s): I25.119 - Atherosclerotic heart disease of [place] coronary artery with unspecified angina pectoris Qualifiers: [place] vs. transplanted heart: [place] heart Qualified Code(s): I25.119 - Atherosclerotic heart disease of [place] coronary artery with unspecified angina pectoris (6) Morbid obesity: Status: Chronic Code(s): E66.01 - Morbid (severe) obesity due to excess calories Medications at Discharge Home Medications nitroglycerin 0.4 mg sublingual tablet 0.4 mg SUBLINGUAL Q5-15M PRN #25 tab 11/01/20 carvedilol 25 mg tablet 25 mg PO BID 11/17/20 losartan 100 mg tablet 100 mg PO DAILY 11/17/20 aspirin 81 mg PO DAILY@0800 02/21/21 atorvastatin 80 mg PO QHS 02/21/21 insulin glargine 16 unit SC QHS 02/21/21 metformin 500 mg PO BID 02/21/21 ticagrelor 90 mg PO BID 02/21/21 amoxicillin-pot clavulanate [Augmentin] 1 tab PO BID 14 Days #28 tab 02/25/21 Hospital Course Operations None Procedures None Summary of Care Provided Minutes Spent on Discharge: 45 Hospital Course: 40-year-old male with past medical history of type II DM, hypertension who presented with progressive right lower quadrant pain, dull, radiates to lower back. CT of the abdomen and pelvis showed diverticular abscess, measures 5.6 x 3.2 cm. Patient was admitted to the PCU and started on IV Zosyn. He was kept n.p.o. He was followed by general surgery. Patient's hospital stay was complicated by acute kidney injury and electrolyte imbalances that improved. He was kept initially n.p.o. and later resumed on clear liquid diet and then full liquid diet prior to discharge. Patient was able to tolerate his diet. Repeat CT of the abdomen pelvis was done on that showed sigmoid diverticulitis but no abscess. He was discharged on 2 weeks of Augmentin. He will follow-up with Dr. Reynoso in the outpatient in 2 weeks. Physical Exam Narrative Physical exam: General: Alert, Oriented x3, Cooperative, No apparent distress, Well developed HEENT: Atraumatic Oral: Moist Mucosa Neck: Supple Lungs: Diminished to auscultation Cardiovascular: HS I+II, regular, no murmurs Abdomen: Bowel Sounds Present, Soft, very minimal tenderness in the suprapubic region Extremities: No edema Weight / BMI Weight Weight: 106.6 kg Body Mass Index (BMI) 33.7 ABG / Lab / Microbiology Data Result Diagrams: 02/25/21 05:44 02/25/21 05:44 Laboratory: Laboratory Results - last 24 hr 02/24/21 11:20: POC Glucose 170 H 02/24/21 16:17: POC Glucose 158 H 02/24/21 20:57: POC Glucose 155 H 02/25/21 05:44: WBC 8.2, RBC 4.10 L, Hgb 11.8 L, Hct 36.6 L, MCV 89.3, MCH 28.8, MCHC 32.2, RDW Std Deviation 44.1 H, RDW Coeff of [place]ley 13.4, Plt Count 457 H, MPV 10.4, Immature Gran % (Auto) 0.500, Neut % (Auto) 70.0, Lymph % (Auto) 16.0 L, [place] % (Auto) 10.1 H, Eos % (Auto) 2.8, Baso % (Auto) 0.6, Absolute Neuts (auto) 5.8, Absolute Lymphs (auto) 1.32, Nucleated RBC % 0 02/25/21 05:44: Sodium 143, Potassium 3.6, Chloride 112 H, Carbon Dioxide 21.0, Anion Gap 10, BUN 11, Creatinine 0.97, Estim Creat Clear Calc 103.48, Est GFR (MDRD) Af Amer 109, Est GFR (MDRD) Non-Af 90, BUN/Creatinine Ratio 11.3, Glucose 146 H, Calcium 8.5, Total Bilirubin 0.40, AST 17, ALT 23, Alkaline Phosphatase 91, Total Protein 7.0, Albumin 2.3 L, Globulin 4.7 H, Albumin/Globulin Ratio 0.5 L 02/25/21 05:58: POC Glucose 145 H Radiography Diagnostic Testing: Radiology Impression Abdomen/Pelvis CT 02/25/21 07:00 IMPRESSION: Improved sigmoid diverticulitis. No abscess or perforation. Electronically Signed: Huy Granda MD at 8:16 EST Tel , Service support , D/C Instructions Discharge Diet: 2000 Calorie Control Diet and 2000 mg Sodium Diet Meaningful Use Info Meaningful Use Diagnoses (Choose all that apply): None applicable Discharge Plan Admission Admit Date/Time: 02/21/21 23:35 Primary Reason for Your Visit: Acute sigmoid diverticular abscess Attending Provider: Margie George Primary Care Provider: Michael Perez Consulting Providers: Carie Reynoso Discharge Orders/Prescriptions Prescriptions: New amoxicillin-pot clavulanate [Augmentin] 875-125 mg tablet 1 tab PO BID 14 Days Qty: 28 RF: 0 Continued metformin 500 MG tablet 500 mg PO BID RF: 0 atorvastatin 80 mg tablet 80 mg PO QHS RF: 0 aspirin 81 MG tablet,delayed release (DR/EC) 81 mg PO DAILY@0800 RF: 0 insulin glargine 100 UNITS/ML insulin pen 16 unit SC QHS RF: 0 ticagrelor 90 MG tablet 90 mg PO BID RF: 0 nitroglycerin [Nitrostat] 0.4 mg tablet, sublingual 0.4 mg sublingual Q5-15M PRN (Reason: chest pain) Qty: 25 RF: 3 carvedilol 25 mg tablet 25 mg PO BID RF: 0 losartan 100 mg tablet 100 mg PO DAILY RF: 0 Referrals / Follow Up: Michael Perez MD [Primary Care Provider] - Within 2 Weeks Carie Reynoso MD [STAFF PHYSICIAN] - Within 2 Weeks Disposition Disposition (needs filled in before D/C Order can be placed): Home, Self Care Charges/Coding Visit Charges Inpatient E&M: 12191 Disch Hosp
--- NOTE | 2021-02-25 10:39 | PCM.PN.SRG ---
Subjective Subjective No complaints of abdominal pain today. Objective Data Objective Data Abdomen is soft no rebound guarding or peritoneal signs. Vital Signs: Vital Signs Temp Pulse Resp BP Pulse Ox 98 F 70 16 175/101 H 98 02/25/21 08:17 02/25/21 08:17 02/25/21 08:17 02/25/21 08:17 02/25/21 08:17 Oxygen Delivery Method Room Air Weight: 235 lb 0.204 oz Body Mass Index (BMI) 33.7 Intake & Output: Intake and Output for Last 24 Hours 02/23/21 02/24/21 02/25/21 23:59 23:59 23:59 Intake Total 550 / 550 4161.67 / 4161.67 1021.67 / 1021.67 Balance 550 / 550 4161.67 / 4161.67 1021.67 / 1021.67 Lab / Micro Data Result Diagrams: 02/25/21 05:44 02/25/21 05:44 Labs: Laboratory Results - last 24 hr 02/24/21 11:20: POC Glucose 170 H 02/24/21 16:17: POC Glucose 158 H 02/24/21 20:57: POC Glucose 155 H 02/25/21 05:44: WBC 8.2, RBC 4.10 L, Hgb 11.8 L, Hct 36.6 L, MCV 89.3, MCH 28.8, MCHC 32.2, RDW Std Deviation 44.1 H, RDW Coeff of [place] 13.4, Plt Count 457 H, MPV 10.4, Immature Gran % (Auto) 0.500, Neut % (Auto) 70.0, Lymph % (Auto) 16.0 L, [place] % (Auto) 10.1 H, Eos % (Auto) 2.8, Baso % (Auto) 0.6, Absolute Neuts (auto) 5.8, Absolute Lymphs (auto) 1.32, Nucleated RBC % 0 02/25/21 05:44: Sodium 143, Potassium 3.6, Chloride 112 H, Carbon Dioxide 21.0, Anion Gap 10, BUN 11, Creatinine 0.97, Estim Creat Clear Calc 103.48, Est GFR (MDRD) Af Amer 109, Est GFR (MDRD) Non-Af 90, BUN/Creatinine Ratio 11.3, Glucose 146 H, Calcium 8.5, Total Bilirubin 0.40, AST 17, ALT 23, Alkaline Phosphatase 91, Total Protein 7.0, Albumin 2.3 L, Globulin 4.7 H, Albumin/Globulin Ratio 0.5 L 02/25/21 05:58: POC Glucose 145 H Radiography Diagnostic Testing: Radiology Impression Abdomen/Pelvis CT 02/25/21 07:00 IMPRESSION: Improved sigmoid diverticulitis. No abscess or perforation. Electronically Signed: Huy Granda MD at 8:16 EST Tel , Service support , Assessment & Plan Assessment/Plan (1) Colonic diverticular abscess: PLAN: Okay for discharge.
[2021-02-25 13:00] VITALS: BP 186/105; BP 202/112
[2021-02-25] MEDS: amLODIPine 10 MG Tablet PO (13:17)
[2021-02-25 14:02] VITALS: BP 195/107
[2021-02-25 15:13] VITALS: BP 199/106; BP 201/108
[2021-02-25] MEDS: Losartan Potassium 100 MG Tablet PO (16:35)
[2021-02-25 18:06] VITALS: BP 191/102
--- NOTE | 2021-02-25 18:44 | NURSING ---
Patient's bp has been consistently high this afternoon despite x1 amlodipine and x1 losartan doses given. Dr. George aware. Discussed with her and she states she would like the patient to stay overnight. This RN told Dr. George that patient has been getting anxious/agitated and wanting to leave. She states we cannot keep him here against his will. if he chooses to leave he needs to be made aware of the risks. Patient was made aware of the risks of leaving with a BP this eleveated (stroke heart attack etc) and he still wishes to leave. He was asked to take his blood pressure at home (he states he has a wrist monitor at home) and he also needs to fill his amlodipine script.
== END 2021-02-25 18:55 | disposition home or self-care (01) | DRG 392 ==
LOC: ED 23:24 → PCU 02-22 00:40
PROVIDERS: Admitting Provider Hospitalist; Emergency Provider Emergency Medicine; PCP Family Medicine; Visit Provider Internal Medicine
DX: K57.20 Diverticulitis of large intestine with perforation and abscess without bleeding (principal); N17.9 Acute kidney failure, unspecified; E86.0 Dehydration; E87.6 Hypokalemia; R35.0 Frequency of micturition; I25.119 Atherosclerotic heart disease of native coronary artery with unspecified angina pectoris; E11.65 Type 2 diabetes mellitus with hyperglycemia; I10 Essential (primary) hypertension; E78.5 Hyperlipidemia, unspecified; E66.01 Morbid (severe) obesity due to excess calories; Z68.33 Body mass index [BMI] 33.0-33.9, adult; F17.210 Nicotine dependence, cigarettes, uncomplicated; Z91.14 Patient's other noncompliance with medication regimen; Z91.11 Patient's noncompliance with dietary regimen; Z79.4 Long term (current) use of insulin; Z79.82 Long term (current) use of aspirin; Z79.899 Other long term (current) drug therapy; I25.2 Old myocardial infarction; Z86.718 Personal history of other venous thrombosis and embolism; Z95.5 Presence of coronary angioplasty implant and graft
CPT/HCPCS: 36415; 74176; 74177; 80048; 80053; 81001; 82962; 83735; 85025; 99283; 99406; J7030; J7040; J7050; Q9967; A4216

== ENCOUNTER 2022-02-12 23:47 | Emergency (ER) | payer MEDICARE, MEDICAID, SELFPAY ==
[2022-02-12 23:48] VITALS: BP 191/105; PULSE 98; RESP 18; TEMP 35.8; O2SAT 100; BMI 34.6
--- NOTE | 2022-02-12 23:53 | EDS_ITS ---
HPI HPI - GI History of Present Illness Chief Complaint: Abd Pain Informant: patient Abdominal Pain/Flank Pain Onset: Yesterday Context: Gradual Onset (2 to 3 hours after eating [employer] last night) Timing: Continuous and Waxes and wanes (Somewhat colicky) Quality: Aching Location: Epigastric (No radiation, no back pain) Current Severity: 8/10 Maximum Severity: Severe Worsened by: Food (After eating today earlier) Relieved by: Nothing Nausea/Vomiting/Emesis GI Symptom: Positive for Nausea and Vomiting Onset: Today Quality: Positive for Nonbilious; Negative for Blood streaks, Coffee ground or Hematemesis Diarrhea/Melena/Hematochezia GI Symptom: Negative for Diarrhea, Melena or Hematochezia Associated Symptoms Associated Symptoms: Negative for Dysuria, Frequency or Hematuria Narrative Narrative: Patient presenting with abdominal pain that has been there for most 24 hours, started several hours after he ate [employer], worse with other bits of food today but he has not had much of an appetite so he has not eaten very much. Some nausea, force himself to vomit once but did not help the pain. No fevers, dyspnea, chest discomfort, diarrhea, no history of any abdominal surgeries in the past. Never had this pain before. Denies any hematemesis when he vomited. [facility] Medical History Atherosclerotic heart disease [place] coronary artery w/angina pectoris DVT (deep venous thrombosis) Essential hypertension History of ST elevation myocardial infarction (STEMI) (10/12/19) Morbid obesity Noncompliance with diet and medication regimen Poor personal hygiene Smoker Tobacco dependence Tobacco use Type 2 diabetes mellitus Uncontrolled type 2 diabetes mellitus Home Medications nitroglycerin 0.4 mg sublingual tablet (Nitrostat) 0.4 mg sublingual Q5-15M PRN chest pain #25 tabs 11/01/20 [Rx Last Taken Unknown] carvedilol 25 mg tablet 6.25 mg PO BID blood pressure 11/17/20 [History Last Taken Unknown] aspirin 81 mg tablet,delayed release 81 mg PO DAILY@0800 heart health 02/21/21 [History Last Taken Unknown] insulin glargine 100 unit/mL (3 mL) subcutaneous pen 8 unit SC BREAKFAST diabetes 02/21/21 [History Last Taken Unknown] metformin 500 mg tablet 500 mg PO BID diabetes 02/21/21 [History Last Taken Unknown] ticagrelor 90 mg tablet 90 mg PO BID anti platelet 02/21/21 [History Last Taken Unknown] atorvastatin 80 mg tablet 80 mg PO QHS cholesterol #90 tabs 05/10/21 [Rx Last Taken Unknown] losartan 100 mg tablet 50 mg PO DAILY blood pressure 02/12/22 [History Last Taken Unknown] pantoprazole 40 mg tablet,delayed release 40 mg PO DAILY #14 tabs 02/13/22 [Rx Last Taken Unknown] Allergy/AdvReac Type Severity Reaction Status Date / Time No Known Allergies Allergy Verified 02/12/22 23:48 Family History Father Myocardial infarction Mother CVA (cerebral vascular accident) Surgical History H/O cardiac catheterization (11/11/20) History of coronary artery stent placement (11/14/20) Social History housing: other details: 3 dogs Smoking Status: Current every day smoker tobacco type: cigarettes and smokeless tobacco Smokeless tobacco user: chewing tobacco how long ago did patient quit smokin year ago alcohol intake: never substance use type: does not use caffeine: Yes Type: tea ROS ROS ED Constitutional Constitutional ED: Denies chills or fever(s) Eyes Eyes: Denies change in vision or diplopia ENT ENT ED: Denies rhinorrhea or sore throat Cardiovascular Cardiovascular: Denies chest pain or palpitations Respiratory/Chest Respiratory/Chest: Denies cough or dyspnea Gastrointestinal Gastrointestinal: Reports abdominal pain, nausea and vomiting; Denies diarrhea or melena Genitourinary Genitourinary ED: Denies dysuria or hematuria Musculoskeletal Musculoskeletal: Denies back pain or neck pain Integumentary Denies abscess or rash Neurologic Neurologic: Denies headache(s), paresthesias or weakness Psychiatric Psychiatric: Denies anxiety or suicidal thoughts EXAM Physical Exam Const Vital Signs: 02/12/22 23:48 Temperature 96.5 F L Temperature Source Temporal Pulse Rate 98 Respiratory Rate 18 Blood Pressure 191/105 H Blood Pressure Mean 133 Pulse Ox 100 Oxygen Delivery Method Room Air Positive well nourished, well developed and obese General Appearance ED: well developed and NAD Nutritional Appearance: obese HEENT Reports moist mucous membranes normocephalic and atraumatic Eyes PERRL and EOMs intact bilaterally Neck full ROM and supple Resp normal respiratory effort and clear to auscultation bilaterally Cardio regular rate, regular rhythm and no murmurs GI non-distended GI Narrative: Mostly tender epigastrium, mildly left upper quadrant, no other areas of tenderness. No guarding or rebound tenderness. No pulsatile mass palpable. Auscultation: normoactive bowel sounds Palpation: soft Back/Spine no CVA tenderness General Back: other FROM Extremity normal to inspection and full ROM General Extremety ED: Negative for edema, pulses abnormal or tenderness General Extremity: Negative for edema or pulses abnormal Neuro oriented x3, CN's II-XII intact bilaterally and no sensory deficits noted Sensorium / Orientation: awake and alert Motor Exam: strength 5/5 throughout Psych mental status grossly normal and thought process normal Skin no rashes or lesions noted and no wounds MDM MDM MDM Narrative Medical decision making narrative: Labs unremarkable except for his glucose is elevated, he is already a known diabetic. His CT negative for any acute. Patient presents after ultrasound has left and they are unavailable, so I did a bedside ultrasound of his gallbladder which is very lateral in the right upper quadrant, normal-appearing with a normal thickness gallbladder wall 0.16 cm, and with a negative sonographic Snyder's. Patient was treated initially with IV fluids as well as Zofran, morphine, Toradol considering upper GI etiologies as well as biliary colic in the differential in this 41-year-old obese male. I do not see gallstones, as I discussed with him this does not completely rule out the possibility of biliary colic, but I am less suspicious of it because of the location of the pain compared with his gallbladder. He is feeling much better now. I am discharging him on a PPI for 2 weeks, if he still has recurrent discomfort I would advise a better diet, and close outpatient follow-up he is comfortable with that plan. Of note his blood pressure was 191/105 when he arrived. After treating his symptoms, he is 161/101, advised close outpatient follow-up for recheck. Patient does state that he has blood pressure medication that he takes tonight and has not yet taken it so he will take it upon arrival at home. Lab Data Attestation: I reviewed the patient's lab results. Labs: Laboratory Results - last 24 hr 02/13/22 02/13/22 00:01 00:01 WBC 10.8 RBC 4.96 Hgb 14.4 Hct 43.9 MCV 88.5 MCH 29.0 MCHC 32.8 RDW Std Deviation 45.6 H RDW Coeff of Hayley 14.3 Plt Count 289 MPV 10.6 Immature Gran % (Auto) 0.400 Neut % (Auto) 74.8 H Lymph % (Auto) 14.6 L [place] % (Auto) 8.1 Eos % (Auto) 1.6 Baso % (Auto) 0.5 Absolute Neuts (auto) 8.1 H Absolute Lymphs (auto) 1.58 Nucleated RBC % 0 Sodium 134 L Potassium 4.5 Chloride 102 Carbon Dioxide 24.0 Anion Gap 8 BUN 12 Creatinine 0.91 Estim Creat Clear Calc 112.63 Est GFR (MDRD) Af Amer 118 Est GFR (MDRD) Non-Af 97 BUN/Creatinine Ratio 13.2 Glucose 283 H Calcium 9.2 Total Bilirubin 0.50 AST 38 H ALT 55 Alkaline Phosphatase 88 Total Protein 7.3 Albumin 3.3 Globulin 4.0 Albumin/Globulin Ratio 0.8 L Lipase 120 Radiography Diagnostic Testing: Clinical Impression(s) from Imaging Studies Abdomen/Pelvis CT 02/13/22 00:00 IMPRESSION: Some distended and mildly dilated small bowel loops measuring up to 3.5 cm in the left abdomen, with no abrupt transition point identified. Findings may indicate partial obstruction due to stricture/adhesions, or possibly an ileus. Electronically Signed: Raphael Perales MD at 1:16 EST , Discharge Plan Triage Chief Complaint: Abd Pain ED Provider: Sotero Palmer Dx/Rx/DC Orders Clinical Impression: Acute epigastric pain, Hyperglycemia due to type 2 diabetes mellitus, Episode of hypertension Instructions: ED Epigastric Pain Uncertain Cause Prescriptions: New pantoprazole 40 mg tablet,delayed release (DR/EC) 40 mg PO DAILY Qty: 14 0RF No Action metformin 500 MG tablet 500 mg PO BID aspirin 81 MG tablet,delayed release (DR/EC) 81 mg PO DAILY@0800 insulin glargine 100 UNITS/ML insulin pen 8 unit SC BREAKFAST ticagrelor 90 MG tablet 90 mg PO BID losartan 100 mg tablet 50 mg PO DAILY nitroglycerin [Nitrostat] 0.4 mg tablet, sublingual 0.4 mg sublingual Q5-15M PRN (Reason: chest pain) Qty: 25 3RF Rx Instructions: do not exceed 3 doses per episode carvedilol 25 mg tablet 6.25 mg PO BID Rx Instructions: must administer with a meal/food atorvastatin 80 mg tablet 80 mg PO QHS Qty: 90 3RF Primary Care Provider: Care Physician,No Primary Referrals: Michael Perez MD [Non-Staff] - 1 Week if not improving Care Physician,No Primary [Primary Care Provider] - Activity Restrictions/Additional Instructions: Your blood sugar tonight 283; watch your sugar intake. Disposition Disposition: Home, Self Care
--- NOTE | 2022-02-13 | CT_ITS ---
EXAM: CT ABDOMEN AND PELVIS WITH INTRAVENOUS CONTRAST CLINICAL INDICATION: upper abd pain TECHNIQUE: Helically acquired images were obtained of the abdomen and pelvis with intravenous contrast. This CT exam was performed using one or more of the following dose reduction techniques: automated exposure control, adjustment of the mA and/or kV according to patient size, and/or use of iterative reconstruction technique. This report was created using [employer] report generation technology. CONTRAST: IV 100mL [id number] COMPARISON: 02/25/2021 FINDINGS: LOWER THORAX: Unremarkable. Lung bases are clear. No cardiomegaly. No significant pericardial effusion. ABDOMEN: LIVER: Hepatomegaly. GALLBLADDER AND BILE DUCTS: Unremarkable. No calcified gallstones. No gallbladder distention or wall edema. No intra- or extrahepatic biliary ductal dilation. PANCREAS: Unremarkable. No focal cystic or solid mass. SPLEEN: Unremarkable. Normal size without focal cystic or solid mass. ADRENALS: Unremarkable. No nodules. KIDNEYS AND URETERS: Unremarkable. Normal renal size and position. No hydronephrosis. STOMACH AND BOWEL: Some distended and mildly dilated small bowel loops measuring up to 3.5 cm in the left abdomen, with no abrupt transition point identified. Diverticular disease of the colon but no diverticulitis. PELVIS: APPENDIX: The appendix is normal. BLADDER: Unremarkable. REPRODUCTIVE: Unremarkable as visualized. No mass. ABDOMEN and PELVIS: INTRAPERITONEAL SPACE: Tiny amount of fluid in the mesentery. No free air. BONES/JOINTS: Unremarkable. No suspicious lytic or blastic abnormality. SOFT TISSUES: Unremarkable. No discrete abdominal or pelvic wall hernia. VASCULATURE: Unremarkable. Abdominal aorta is non-dilated. LYMPH NODES: Unremarkable. No enlarged lymph nodes. CT/Abdomen/Pelvis W IV Cont ONLY IMPRESSION: Some distended and mildly dilated small bowel loops measuring up to 3.5 cm in the left abdomen, with no abrupt transition point identified. Findings may indicate partial obstruction due to stricture/adhesions, or possibly an ileus. Electronically Signed: Raphael Perales MD at 1:16 EST ,
[2022-02-13 00:09] LABS: Absolute Lymphocyte Count 1.58 X10^3/uL (0.83-4.51); Absolute Neutrophil Count 8.1 X10^3/uL (2.0-7.7); Basophil# 0.05 X10^3/uL; Basophil% 0.5 % (0-1); Eosinophil# 0.17 X10^3/uL; Eosinophils% 1.6 % (0-5); Hematocrit 43.9 % (40-54); Hemoglobin 14.4 g/dL (13.0-16.5); Lymphocyte # 1.58 X10^3/ul (0.83-4.51); Lymphocyte % 14.6 % (19-41); Mean Corp Hgb Conc 32.8 g/dL (32-36); Mean Corpuscular Volume 88.5 fL (80-94); Mean Platelet Vol. 10.6 fl (6.2-12.0); Monocyte# 0.87 X10^3/uL; Monocyte% 8.1 % (0-10); NRBC Flagged by Analyzer 0 % (0-5); Neutrophil # 8.08 X10^3/uL (2.7-7.7); Neutrophil % 74.8 % (47-70); Platelet Count 289 K/mm3 (150-450); RBC Distribution Width CV 14.3 % (11.6-14.6); RBC Distribution Width SD 45.6 fl (35.1-43.9); Red Blood Count 4.96 M/mm3 (4.6-6.2); White Blood Count 10.8 K/mm3 (4.4-11.0)
[2022-02-13] MEDS: Morphine 4 MG/ML Syringe IV (00:17)
[2022-02-13] MEDS: Ondansetron 4 MG/2 ML Vial IV (00:17)
[2022-02-13] MEDS: Ketorolac 15 MG/ML Vial IV (00:17)
[2022-02-13] MEDS: 0.9% Normal Saline 1,000 ML 125 ML IV (00:18)
[2022-02-13 00:35] LABS: ALB/GLOB Ratio 0.8 RATIO (0.9-2.4); AST(SGOT) 38 U/L (15-37); Alanine Aminotransfer ALT/SGPT 55 U/L (16-61); Albumin, Serum 3.3 g/dL (3.2-5.0); Alkaline Phosphatase 88 U/L (45-117); Anion Gap 8 (5-15); BUN 12 mg/dL (7-18); BUN/Creat Ratio 13.2 RATIO (10-20); Calcium,Total 9.2 mg/dL (8.5-10.1); Chloride 102 mmol/L (98-107); Creatinine, Serum 0.91 mg/dL (0.70-1.30); EST Glomerular Filtration Rate 97 mL/min (>60); Est Glom Filt Rate - Afr Amer 118 mL/min (>60); Estimated Creatinine Clearance 112.63 ml/min; Glucose 283 mg/dL (74-106); Lipase 120 U/L (73-393); Potassium 4.5 mmol/L (3.5-5.1); Protein, Total 7.3 g/dL (6.4-8.2); Sodium Level 134 mmol/L (136-145)
[2022-02-13 01:37] VITALS: BP 161/101; PULSE 78; RESP 16; O2SAT 97
[2022-02-13] MEDS: Pantoprazole Sodium 40 MG Tablet PO (01:42)
== END 2022-02-13 01:46 | disposition home or self-care (01) ==
PROVIDERS: Emergency Provider Emergency Medicine; Visit Provider Emergency Medicine
DX: R10.13 Epigastric pain (principal); E11.65 Type 2 diabetes mellitus with hyperglycemia; I25.119 Atherosclerotic heart disease of native coronary artery with unspecified angina pectoris; I10 Essential (primary) hypertension; E66.9 Obesity, unspecified; Z79.02 Long term (current) use of antithrombotics/antiplatelets; Z79.82 Long term (current) use of aspirin; Z79.84 Long term (current) use of oral hypoglycemic drugs; Z79.899 Other long term (current) drug therapy; I25.2 Old myocardial infarction
CPT/HCPCS: 99283; 74177; 80053; 83690; 85025; 96361; 96374; 96375; J7030; Q9967; A4216; J2405

== ENCOUNTER 2022-02-14 03:35 | Inpatient (IN) | payer MEDICARE, MEDICAID, SELFPAY ==
[2022-02-14 03:36] VITALS: BP 170/80; PULSE 103; RESP 16; TEMP 36.3; O2SAT 98; BMI 34.6
--- NOTE | 2022-02-14 03:46 | ED.VIS.GI ---
HPI HPI - GI History of Present Illness Chief Complaint: Abd Pain Informant: patient Abdominal Pain/Flank Pain Onset: Hours (1.5) Context: - (Woke him up from sleep) Timing: Continuous Quality: Aching Location: Epigastric and LUQ Current Severity: Moderate Maximum Severity: Moderate Worsened by: Nothing Relieved by: Nothing Nausea/Vomiting/Emesis GI Symptom: Positive for Nausea; Negative for Vomiting Diarrhea/Melena/Hematochezia GI Symptom: Negative for Diarrhea, Melena or Hematochezia Associated Symptoms Associated Symptoms: Negative for Dysuria, Frequency or Hematuria Narrative Narrative: Patient was seen here last night for the same symptoms, he states that he was fine all day this past day, and went to sleep an hour or 2 after eating cream of turkey, which he ate earlier in the day and did not give him any problems, and woke up around 2 AM with the same pain that he had last night. He states it is epigastric, radiating more to the left than it did yesterday but otherwise the same. Nausea but no vomiting this time. States he did fill the PPI we prescribed him and started taking it. [facility] Medical History Atherosclerotic heart disease [place] coronary artery w/angina pectoris DVT (deep venous thrombosis) Essential hypertension History of ST elevation myocardial infarction (STEMI) (10/12/19) Morbid obesity Noncompliance with diet and medication regimen Poor personal hygiene Smoker Tobacco dependence Tobacco use Type 2 diabetes mellitus Uncontrolled type 2 diabetes mellitus Home Medications nitroglycerin 0.4 mg sublingual tablet (Nitrostat) 0.4 mg sublingual Q5-15M PRN chest pain #25 tabs 11/01/20 [Rx Last Taken Unknown] carvedilol 25 mg tablet 6.25 mg PO BID blood pressure 11/17/20 [History Last Taken Unknown] aspirin 81 mg tablet,delayed release 81 mg PO DAILY@0800 heart health 02/21/21 [History Last Taken Unknown] insulin glargine 100 unit/mL (3 mL) subcutaneous pen 8 unit SC BREAKFAST diabetes 02/21/21 [History Last Taken Unknown] metformin 500 mg tablet 500 mg PO BID diabetes 02/21/21 [History Last Taken Unknown] ticagrelor 90 mg tablet 90 mg PO BID anti platelet 02/21/21 [History Last Taken Unknown] atorvastatin 80 mg tablet 80 mg PO QHS cholesterol #90 tabs 05/10/21 [Rx Last Taken Unknown] losartan 100 mg tablet 50 mg PO DAILY blood pressure 02/12/22 [History Last Taken Unknown] pantoprazole 40 mg tablet,delayed release 40 mg PO DAILY #14 tabs 02/13/22 [Rx Last Taken Unknown] Allergy/AdvReac Type Severity Reaction Status Date / Time No Known Allergies Allergy Verified 02/14/22 03:41 Family History Father Myocardial infarction Mother CVA (cerebral vascular accident) Surgical History H/O cardiac catheterization (11/11/20) History of coronary artery stent placement (11/14/20) Social History housing: other details: 3 dogs Smoking Status: Current every day smoker tobacco type: cigarettes and smokeless tobacco Smokeless tobacco user: chewing tobacco how long ago did patient quit smokin year ago alcohol intake: never substance use type: does not use caffeine: Yes Type: tea ROS ROS ED Constitutional Constitutional ED: Denies chills or fever(s) Eyes Eyes: Denies change in vision or diplopia ENT ENT ED: Denies rhinorrhea or sore throat Cardiovascular Cardiovascular: Denies chest pain or palpitations Respiratory/Chest Respiratory/Chest: Denies cough or dyspnea Gastrointestinal Gastrointestinal: Reports abdominal pain and nausea; Denies diarrhea or vomiting Genitourinary Genitourinary ED: Denies dysuria or hematuria Musculoskeletal Musculoskeletal: Denies back pain or neck pain Integumentary Denies abscess or rash Neurologic Neurologic: Denies headache(s), paresthesias or weakness Psychiatric Psychiatric: Denies anxiety or suicidal thoughts EXAM Physical Exam Const Vital Signs: 02/14/22 03:36 02/14/22 06:21 Temperature 97.3 F L Temperature Source Temporal Pulse Rate 103 H 92 Respiratory Rate 16 14 Blood Pressure 170/80 H 189/100 H Blood Pressure Mean 110 129 Pulse Ox 98 97 Oxygen Delivery Method Room Air Room Air Positive well nourished, well developed and obese General Appearance ED: well developed and NAD Nutritional Appearance: obese HEENT Reports moist mucous membranes normocephalic and atraumatic Eyes PERRL and EOMs intact bilaterally Neck full ROM and supple Resp normal respiratory effort and clear to auscultation bilaterally Cardio regular rate, regular rhythm and no murmurs GI non-distended GI Narrative: Tender epigastrium and left upper quadrant. No right upper quadrant tenderness. Benign abdomen, no guarding or rebound tenderness, obesity limits exam. Auscultation: normoactive bowel sounds Palpation: soft Back/Spine no CVA tenderness General Back: other FROM Extremity normal to inspection General Extremety ED: Negative for edema, pulses abnormal or tenderness General Extremity: Negative for edema or pulses abnormal Neuro oriented x3, CN's II-XII intact bilaterally and no sensory deficits noted Sensorium / Orientation: awake and alert Motor Exam: strength 5/5 throughout Skin no rashes or lesions noted and no wounds MDM MDM MDM Narrative Medical decision making narrative: Labs are largely unchanged, except for the development of a mild nonspecific leukocytosis at 13, we did a CT yesterday that showed nonspecific findings with some distended mildly dilated small bowel loops in the left abdomen without any transition point identified, he has never had surgery in his abdomen so this is very unlikely to be an obstruction. Radiology mentioned the possibility of a localized ileus, again all of this is very nonspecific. I treated him here with IV Zofran and Toradol as well as a GI cocktail and dicyclomine which helped his discomfort. I discussed all this with surgery Dr. Hoang, who recommends repeating his CT with oral and IV contrast, which was obtained and is consistent with a partial small bowel obstruction for unknown reason will admit to medical surgical floor. Lab Data Attestation: I reviewed the patient's lab results. Labs: Laboratory Results - last 24 hr 02/14/22 02/14/22 03:55 03:55 WBC 13.3 H RBC 4.90 Hgb 14.5 Hct 43.5 MCV 88.8 MCH 29.6 MCHC 33.3 RDW Std Deviation 46.5 H RDW Coeff of Hayley 14.5 Plt Count 296 MPV 10.3 Immature Gran % (Auto) 0.400 Neut % (Auto) 79.9 H Lymph % (Auto) 10.6 L [place] % (Auto) 7.7 Eos % (Auto) 1.2 Baso % (Auto) 0.2 Absolute Neuts (auto) 10.6 H Absolute Lymphs (auto) 1.41 Nucleated RBC % 0 Sodium 138 Potassium 4.1 Chloride 103 Carbon Dioxide 25.0 Anion Gap 10 BUN 12 Creatinine 1.05 Estim Creat Clear Calc 97.61 Est GFR (MDRD) Af Amer 99 Est GFR (MDRD) Non-Af 82 BUN/Creatinine Ratio 11.4 Glucose 277 H Calcium 9.1 Lipase 128 Radiography Diagnostic Testing: Clinical Impression(s) from Imaging Studies Abdomen/Pelvis CT 02/14/22 05:27 IMPRESSION: 1. Findings suggest evolving or partial small bowel obstruction. 2. Colonic diverticulosis without evidence of acute diverticulitis. Electronically Signed: Ruma Shafer MD at 7:52 EST , Discharge Plan Triage Chief Complaint: Abd Pain ED Provider: Sotero Palmer Dx/Rx/DC Orders Clinical Impression: Partial small bowel obstruction Prescriptions: No Action metformin 500 MG tablet 500 mg PO BID aspirin 81 MG tablet,delayed release (DR/EC) 81 mg PO DAILY@0800 insulin glargine 100 UNITS/ML insulin pen 8 unit SC BREAKFAST ticagrelor 90 MG tablet 90 mg PO BID losartan 100 mg tablet 50 mg PO DAILY pantoprazole 40 mg tablet,delayed release (DR/EC) 40 mg PO DAILY Qty: 14 0RF nitroglycerin [Nitrostat] 0.4 mg tablet, sublingual 0.4 mg sublingual Q5-15M PRN (Reason: chest pain) Qty: 25 3RF Rx Instructions: do not exceed 3 doses per episode carvedilol 25 mg tablet 6.25 mg PO BID Rx Instructions: must administer with a meal/food atorvastatin 80 mg tablet 80 mg PO QHS Qty: 90 3RF Primary Care Provider: Care Physician,No Primary Referrals: Doctor,Your [Non-Staff] - 1-2 Days if not improving Disposition Disposition: Acute Care Hospital
[2022-02-14] MEDS: Ondansetron 4 MG/2 ML Vial IV (03:57)
[2022-02-14] MEDS: Ketorolac 15 MG/ML Vial IV (03:57)
[2022-02-14] MEDS: Dicyclomine 10 MG Capsule 20 MG PO (04:02)
[2022-02-14] MEDS: Mag Hydrox/Al Hydrox/Simeth 30 ML UDC PO (04:03)
[2022-02-14 04:05] LABS: Absolute Lymphocyte Count 1.41 X10^3/uL (0.83-4.51); Absolute Neutrophil Count 10.6 X10^3/uL (2.0-7.7); Basophil# 0.03 X10^3/uL; Basophil% 0.2 % (0-1); Eosinophil# 0.16 X10^3/uL; Eosinophils% 1.2 % (0-5); Hematocrit 43.5 % (40-54); Hemoglobin 14.5 g/dL (13.0-16.5); Lymphocyte # 1.41 X10^3/ul (0.83-4.51); Lymphocyte % 10.6 % (19-41); Mean Corp Hgb Conc 33.3 g/dL (32-36); Mean Corpuscular Hgb 29.6 pg (27.0-32.0); Mean Corpuscular Volume 88.8 fL (80-94); Mean Platelet Vol. 10.3 fl (6.2-12.0); Monocyte# 1.02 X10^3/uL; Monocyte% 7.7 % (0-10); NRBC Flagged by Analyzer 0 % (0-5); Neutrophil % 79.9 % (47-70); Platelet Count 296 K/mm3 (150-450); RBC Distribution Width CV 14.5 % (11.6-14.6); RBC Distribution Width SD 46.5 fl (35.1-43.9); White Blood Count 13.3 K/mm3 (4.4-11.0)
[2022-02-14 04:25] LABS: Anion Gap 10 (5-15); BUN 12 mg/dL (7-18); BUN/Creat Ratio 11.4 RATIO (10-20); Calcium,Total 9.1 mg/dL (8.5-10.1); Chloride 103 mmol/L (98-107); Creatinine, Serum 1.05 mg/dL (0.70-1.30); EST Glomerular Filtration Rate 82 mL/min (>60); Est Glom Filt Rate - Afr Amer 99 mL/min (>60); Estimated Creatinine Clearance 97.61 ml/min; Glucose 277 mg/dL (74-106); Lipase 128 U/L (73-393); Potassium 4.1 mmol/L (3.5-5.1); Sodium Level 138 mmol/L (136-145)
--- NOTE | 2022-02-14 05:27 | CT_ITS ---
STUDY: CT ABDOMEN AND PELVIS WITH CONTRAST REASON FOR EXAM: Male, 41 years old. left abd pain AND EPIGASTRIC, n/v -- po/iv RADIATION DOSAGE (If Supplied By Facility): CTDIvol = ( 16.90 ) mGy, DLP = ( 1351.10 ) mGycm TECHNIQUE: Transaxial images were obtained from the dome of the diaphragm to the symphysis pubis with oral contrast. IV 100mL Isovue-300 was administered. Sagittal and coronal images were reconstructed. Individualized dose optimization techniques were used for this CT. COMPARISON: CT abdomen and pelvis 02/13/2022 FINDINGS: LOWER CHEST: Dependent atelectasis. LIVER: Enlarged. Fatty infiltration. GALLBLADDER/BILE DUCTS: Unremarkable. PANCREAS: Unremarkable. SPLEEN: Unremarkable. ADRENAL GLANDS: Unremarkable. KIDNEYS / URETERS: Unremarkable. BOWEL / MESENTERY: Dilated small bowel, most pronounced in the left mid abdomen increased compared to prior study. Distal small bowel is decreased caliber relative transition of the right mid abdomen although no abrupt transition identified. There is mild stranding in the mesentery adjacent to the dilated small bowel. Diverticula in the colon. APPENDIX: Identified and normal. No evidence of acute appendicitis. PERITONEUM: No free air. Small amount of fluid in the mid lower abdomen. VESSELS: Abdominal aorta is normal caliber. RETROPERITONEUM: Unremarkable. REPRODUCTIVE ORGANS: Unremarkable. BLADDER: Unremarkable. ABDOMINAL WALL: Unremarkable. BONES: No acute abnormality. OTHER: None. CT/Abdomen/Pelvis WITH Contrast IMPRESSION: 1. Findings suggest evolving or partial small bowel obstruction. 2. Colonic diverticulosis without evidence of acute diverticulitis. Electronically Signed: Ruma Shafer MD at 7:52 EST ,
[2022-02-14 06:21] VITALS: BP 189/100; PULSE 92; RESP 14; O2SAT 97
[2022-02-14] MEDS: Morphine 4 MG/ML Syringe IV (06:54)
--- NOTE | 2022-02-14 08:10 | NURSING ---
MED SURG SULMA PARTIAL SBO
--- NOTE | 2022-02-14 08:12 | PCM.HP.STD ---
HPI - General HPI Narrative ARIK CANAS, is a 41 M who presents with epigastric pain. The patient was in the emergency room about 24 hours earlier. At that time he was having epigastric pain after eating some [employer]. He was discharged home after his pain resolved and he said he went all day until about 3 AM this morning when the pain returned. He says that he is not having any nausea or vomiting. He says that he passed gas since being admitted here in the emergency room and he had a bowel movement a few hours ago. Patient has never had a bowel obstruction in the past. He has no surgical history in his abdomen. [facility] Medical History Atherosclerotic heart disease [place] coronary artery w/angina pectoris DVT (deep venous thrombosis) Essential hypertension History of ST elevation myocardial infarction (STEMI) (10/12/19) Morbid obesity Noncompliance with diet and medication regimen Poor personal hygiene Smoker Tobacco dependence Tobacco use Type 2 diabetes mellitus Uncontrolled type 2 diabetes mellitus Home Medications nitroglycerin 0.4 mg sublingual tablet (Nitrostat) 0.4 mg sublingual Q5-15M PRN chest pain #25 tabs 11/01/20 [Rx Last Taken Unknown] carvedilol 25 mg tablet 6.25 mg PO BID blood pressure 11/17/20 [History Last Taken Unknown] aspirin 81 mg tablet,delayed release 81 mg PO DAILY@0800 [facility] 02/21/21 [History Last Taken Unknown] insulin glargine 100 unit/mL (3 mL) subcutaneous pen 8 unit SC BREAKFAST diabetes 02/21/21 [History Last Taken Unknown] metformin 500 mg tablet 500 mg PO BID diabetes 02/21/21 [History Last Taken Unknown] ticagrelor 90 mg tablet 90 mg PO BID anti platelet 02/21/21 [History Last Taken Unknown] atorvastatin 80 mg tablet 80 mg PO QHS cholesterol #90 tabs 05/10/21 [Rx Last Taken Unknown] losartan 100 mg tablet 50 mg PO DAILY blood pressure 02/12/22 [History Last Taken Unknown] pantoprazole 40 mg tablet,delayed release 40 mg PO DAILY #14 tabs 02/13/22 [Rx Last Taken Unknown] Allergy/AdvReac Type Severity Reaction Status Date / Time No Known Allergies Allergy Verified 02/14/22 03:41 Family History Father Myocardial infarction Mother CVA (cerebral vascular accident) Surgical History H/O cardiac catheterization (11/11/20) History of coronary artery stent placement (11/14/20) Social History housing: other details: 3 dogs Smoking Status: Current every day smoker tobacco type: cigarettes and smokeless tobacco Smokeless tobacco user: chewing tobacco how long ago did patient quit smokin year ago alcohol intake: never substance use type: does not use caffeine: Yes Type: tea ROS Constitutional Constitutional: Denies anorexia, chills or fatigue Eyes Eyes: Denies blurry vision ENT HEENT: Denies abnormal hearing Cardiovascular Cardiovascular: Denies chest pain Respiratory/Chest Respiratory/Chest: Denies cough or dyspnea Gastrointestinal Gastrointestinal: Reports abdominal pain; Denies constipation, diarrhea, dysphagia, nausea or vomiting Musculoskeletal Musculoskeletal: Denies abnormal gait Integumentary Integumentary: Denies new lesions Neurologic Neurologic: Denies abnormal gait Psychiatric Psychiatric: Denies anxiety Endocrine Endocrinology: Denies heat intolerance Hematologic/Lymphatic Hematologic/Lymphatic: Denies easy bleeding Vital Signs Vital Signs Vital Signs: 02/14/22 03:36 02/14/22 06:21 Temperature 97.3 F L Temperature Source Temporal Pulse Rate 103 H 92 Respiratory Rate 16 14 Blood Pressure 170/80 H 189/100 H Blood Pressure Mean 110 129 Pulse Ox 98 97 Oxygen Delivery Method Room Air Room Air Weight Weight: 248 lb 0.321 oz Body Mass Index (BMI) 34.6 Physical Exam Const oriented x3 Resp normal respiratory effort Cardio regular rate and regular rhythm GI soft to palpation Inspection: abdominal distention Palpation: tender epigastric and LLQ Results Lab / Micro Data Result Diagrams: 02/14/22 03:55 02/14/22 03:55 Labs: Laboratory Results - last 24 hr 02/14/22 03:55: WBC 13.3 H, RBC 4.90, Hgb 14.5, Hct 43.5, MCV 88.8, MCH 29.6, MCHC 33.3, RDW Std Deviation 46.5 H, RDW Coeff of Hayley 14.5, Plt Count 296, MPV 10.3, Immature Gran % (Auto) 0.400, Neut % (Auto) 79.9 H, Lymph % (Auto) 10.6 L, [place] % (Auto) 7.7, Eos % (Auto) 1.2, Baso % (Auto) 0.2, Absolute Neuts (auto) 10.6 H, Absolute Lymphs (auto) 1.41, Nucleated RBC % 0 02/14/22 03:55: Sodium 138, Potassium 4.1, Chloride 103, Carbon Dioxide 25.0, Anion Gap 10, BUN 12, Creatinine 1.05, Estim Creat Clear Calc 97.61, Est GFR (MDRD) Af Amer 99, Est GFR (MDRD) Non-Af 82, BUN/Creatinine Ratio 11.4, Glucose 277 H, Calcium 9.1, Lipase 128 Radiology Impression Abdomen/Pelvis CT 02/14/22 05:27 IMPRESSION: 1. Findings suggest evolving or partial small bowel obstruction. 2. Colonic diverticulosis without evidence of acute diverticulitis. Electronically Signed: Ruma Shafer MD at 7:52 EST , Assessment & Plan Assessment/Plan (1) Partial small bowel obstruction: PLAN: The patient returned to the emergency room with returning pain. Repeat CT scan showed small bowel dilation with possible transition point in the right mid abdomen. Patient does report he is having bowel movements and passing flatus and he has no surgical history. The patient had oral contrast during his CAT scan so I will repeat an x-ray in 4 hours to see if this is advanced the colon. Otherwise I will admit the patient was started on IV fluids and keep him n.p.o. I will allow him to have oral medications as he is on a lot of cardiac medications and has had STEMI in the past. Patient is reports that his heart stent was about a year to a year and a half ago. Patient will be observed and if there is no resolution then he may need surgical exploration. This was discussed with the patient. Patient was placed on insulin sliding scale as well. Audie Hoang MD Pager: [facility] [address] [place] [address], [address] [place] [phone] Office:
[2022-02-14 08:33] VITALS: BP 180/88; PULSE 90; RESP 16; TEMP 36.6; O2SAT 98
[2022-02-14 09:22] VITALS: BMI 33.7
[2022-02-14 09:31] VITALS: BP 176/111; PULSE 87; RESP 16; TEMP 36.9; O2SAT 98
[2022-02-14 10:00] LABS: Bedside Glucose 232 mg/dL (74-106)
[2022-02-14] MEDS: Pantoprazole Sodium 40 MG Tablet PO (10:27)
[2022-02-14] MEDS: Losartan Potassium 50 MG Tablet PO (10:27)
[2022-02-14] MEDS: 0.9% Normal Saline 1,000 ML 100 ML IV ×2 (10:27→21:20)
[2022-02-14] MEDS: Carvedilol 6.25 MG Tablet PO ×2 (10:27→21:34)
[2022-02-14] MEDS: Insulin Lispro 100 UNIT/ML INSULN.PEN SC (10:31)
[2022-02-14 12:10] LABS: Bedside Glucose 208 mg/dL (74-106)
--- NOTE | 2022-02-14 12:20 | RAD_ITS ---
INDICATION: sbo, got contrast during CT EXAMINATION/TECHNIQUE: X-RAY - XR Abdomen W/ Decub and/or Erect Views COMPARISON: CT 02/14/2022 FINDINGS: BOWEL GAS PATTERN: Persistent marked dilatation of multiple small bowel loops measuring up to 6.3 cm in diameter. FREE AIR: Not seen ORGANOMEGALY: Not seen. CALCIFICATIONS: No abnormal calcifications observed. LOWER CHEST: No acute pathology. BONES AND SOFT TISSUES: No acute pathology. RAD/Abd Decub and/or Erect(Portabl IMPRESSION: Persistent small bowel obstruction. Electronically Signed: Efe Morillo MD at 18:14 EST ,
[2022-02-14 14:03] VITALS: BP 146/93; PULSE 87; RESP 16; TEMP 36.5; O2SAT 98
[2022-02-14 17:40] LABS: Bedside Glucose 155 mg/dL (74-106)
[2022-02-14 20:00] VITALS: BP 138/81; PULSE 79; RESP 16; TEMP 36.6; O2SAT 97
[2022-02-14] MEDS: Atorvastatin Calcium 80 MG Tablet PO (21:34)
[2022-02-15] VITALS: BP 136/88; PULSE 87; RESP 16; TEMP 36.4; O2SAT 94
[2022-02-15 00:30] LABS: Bedside Glucose 129 mg/dL (74-106)
[2022-02-15 05:29] LABS: Absolute Lymphocyte Count 1.88 X10^3/uL (0.83-4.51); Absolute Neutrophil Count 4.5 X10^3/uL (2.0-7.7); Basophil# 0.03 X10^3/uL; Basophil% 0.4 % (0-1); Eosinophils% 2.7 % (0-5); Hemoglobin 12.6 g/dL (13.0-16.5); Lymphocyte # 1.88 X10^3/ul (0.83-4.51); Lymphocyte % 25.8 % (19-41); Mean Corp Hgb Conc 31.5 g/dL (32-36); Mean Corpuscular Hgb 28.6 pg (27.0-32.0); Mean Corpuscular Volume 90.7 fL (80-94); Mean Platelet Vol. 10.3 fl (6.2-12.0); Monocyte# 0.62 X10^3/uL; Monocyte% 8.5 % (0-10); NRBC Flagged by Analyzer 0 % (0-5); Neutrophil # 4.53 X10^3/uL (2.7-7.7); Neutrophil % 62.2 % (47-70); Platelet Count 269 K/mm3 (150-450); RBC Distribution Width CV 14.5 % (11.6-14.6); RBC Distribution Width SD 47.8 fl (35.1-43.9); Red Blood Count 4.41 M/mm3 (4.6-6.2); White Blood Count 7.3 K/mm3 (4.4-11.0)
[2022-02-15 05:52] LABS: Anion Gap 9 (5-15); BUN 12 mg/dL (7-18); Calcium,Total 8.1 mg/dL (8.5-10.1); Chloride 106 mmol/L (98-107); EST Glomerular Filtration Rate 113 mL/min (>60); Est Glom Filt Rate - Afr Amer 136 mL/min (>60); Estimated Creatinine Clearance 128.11 ml/min; Glucose 121 mg/dL (74-106); Potassium 3.7 mmol/L (3.5-5.1); Sodium Level 140 mmol/L (136-145)
--- NOTE | 2022-02-15 05:55 | RAD_ITS ---
STUDY: X-RAY - ABDOMEN/PELVIS REASON FOR EXAM: Male, 41 years old. sbo TECHNIQUE: Two AP supine views of the abdomen and pelvis. COMPARISON: Comparison is made with prior study dated 02/14/2022. FINDINGS: Normal visualized lung bases. There is less small bowel dilatation at this time. Fecal material is seen throughout the colon. The visualized liver, spleen and kidneys are grossly normal in size and morphology. Normal soft tissue structures. Normal visualized osseous structures. RAD/Abdomen Single View (Portable) IMPRESSION: Less small bowel dilatation at this time with moderate amount of fecal material seen in the colon down to the rectum. Electronically Signed: Danielito Tim MD at 10:46 EST ,
[2022-02-15 06:00] VITALS: BP 134/84; PULSE 90; RESP 14; TEMP 36.4; O2SAT 97
[2022-02-15 07:20] LABS: Bedside Glucose 125 mg/dL (74-106)
[2022-02-15 07:48] VITALS: BP 172/93; PULSE 87; RESP 18; TEMP 36.6; O2SAT 98
[2022-02-15] MEDS: Carvedilol 6.25 MG Tablet PO (07:56)
[2022-02-15] MEDS: Enoxaparin 40 MG/0.4 ML Syringe SC (07:56)
[2022-02-15] MEDS: Pantoprazole Sodium 40 MG Tablet PO (07:56)
[2022-02-15] MEDS: metFORMIN HCl 500 MG Tablet PO (07:57)
[2022-02-15] MEDS: Aspirin E.C. 81 MG Tablet PO (07:57)
[2022-02-15] MEDS: Losartan Potassium 50 MG Tablet PO (07:57)
--- NOTE | 2022-02-15 08:31 | PCM.PN.SRG ---
Subjective Subjective Patient reports he is feeling much better and passing flatus and having a bowel movement. No abdominal pain today. Objective Data Objective Data Vital Signs: Vital Signs Temp Pulse Resp BP Pulse Ox O2 Del Method 97.9 F 87 18 172/93 H 98 Room Air 02/15/22 07:48 02/15/22 07:48 02/15/22 07:48 02/15/22 07:48 02/15/22 07:48 02/15/22 07:48 Oxygen Delivery Method Room Air Weight: 241 lb 15.987 oz Body Mass Index (BMI) 33.7 Intake & Output: Intake and Output for Last 24 Hours 02/13/22 02/14/22 02/15/22 23:59 23:59 23:59 Intake Total 976.66 / 976.66 1120 / 1120 Balance 976.66 / 976.66 1120 / 1120 Lab / Micro Data Result Diagrams: 02/15/22 05:04 02/15/22 05:04 Labs: Laboratory Results - last 24 hr 02/14/22 09:42: POC Glucose 232 H 02/14/22 11:52: POC Glucose 208 H 02/14/22 17:23: POC Glucose 155 H 02/15/22 00:09: POC Glucose 129 H 02/15/22 05:04: WBC 7.3, RBC 4.41 L, Hgb 12.6 L, Hct 40.0, MCV 90.7, MCH 28.6, MCHC 31.5 L D, RDW Std Deviation 47.8 H, RDW Coeff of Hayley 14.5, Plt Count 269, MPV 10.3, Immature Gran % (Auto) 0.400, Neut % (Auto) 62.2, Lymph % (Auto) 25.8, [place] % (Auto) 8.5, Eos % (Auto) 2.7, Baso % (Auto) 0.4, Absolute Neuts (auto) 4.5, Absolute Lymphs (auto) 1.88, Nucleated RBC % 0 02/15/22 05:04: Sodium 140, Potassium 3.7, Chloride 106, Carbon Dioxide 25.0, Anion Gap 9, BUN 12, Creatinine 0.80, Estim Creat Clear Calc 128.11, Est GFR (MDRD) Af Amer 136, Est GFR (MDRD) Non-Af 113, BUN/Creatinine Ratio 15.0, Glucose 121 H, Calcium 8.1 L 02/15/22 06:47: POC Glucose 125 H Radiography Diagnostic Testing: Radiology Impression Abdomen/Pelvis CT 02/14/22 05:27 IMPRESSION: 1. Findings suggest evolving or partial small bowel obstruction. 2. Colonic diverticulosis without evidence of acute diverticulitis. Electronically Signed: Ruma Shafer MD at 7:52 EST , Abdomen X-Ray 02/14/22 12:20 IMPRESSION: Persistent small bowel obstruction. Electronically Signed: Efe Morillo MD at 18:14 EST , Physical Exam Const oriented x3 Resp normal respiratory effort Cardio regular rate GI soft to palpation and non-tender Assessment & Plan Assessment/Plan (1) Partial small bowel obstruction: PLAN: Patient reports he is doing well. I will start him on a clear liquid diet. His x-rays morning shows much less distended bowel in this contrast filling the colon. Patient is having bowel function. If he tolerates advancing his diet I will discharge him home later today. Audie Hoang MD Pager: [facility] [address] [place] [address], [address] [place] [address] Office:
[2022-02-15] MEDS: TICAGRELOR 90 MG TABLET PO (09:54)
--- NOTE | 2022-02-15 11:05 | CASEMGMT ---
RN CM Face to Face with patient for initial transition planning/care coordination assessment. RN CM introduced self and role at [facility]. Patient sitting in chair , alert and oriented. Patient willing to participate in assessment and is able to answer all questions appropriately. Care providers, pharmacy, and demographics verified. Patient wishes to discharge home, denies need for home health at this time. Patient states he has no further needs or concerns at this time. CM to follow for discharge planning needs that may arise. PCP:Chris, recently retired and patient states he will establish with new PCP at same office, declined list. Specialists: Adeel, field servicer Preferred Pharmacy: [facility] Insurance: [employer] Prescription Benefit: yes Living Will/HPOA: none LNOK: sister, brother Living Arrangements: Patient lives alone in a first floor apartment with no steps to enter. Patient states he is independent at home. Transportation: self, sister, brother DME/HHC: Patient denies DME in the home. Patient has previously been to [facility] Disposition Plan: Patient to discharge home with family support and follow-up plans in place. Hanh POWERN, RN, CM
[2022-02-15 11:48] VITALS: BP 161/101; PULSE 87; RESP 18; TEMP 36.6; O2SAT 98
[2022-02-15 12:10] LABS: Bedside Glucose 208 mg/dL (74-106)
[2022-02-15 13:32] VITALS: BP 126/77
--- NOTE | 2022-02-15 14:18 | DS.PCM_ITS ---
Providers Date of Admission: 02/14/22 Primary Care Physician: No Primary Care Phys Reason For Visit: SBO Diagnosis Discharge Diagnosis (1) Partial small bowel obstruction: Status: Acute Code(s): K56.600 - Partial intestinal obstruction, unspecified as to cause Plan: Patient reports he is doing well. I will start him on a clear liquid diet. His x-rays morning shows much less distended bowel in this contrast filling the colon. Patient is having bowel function. If he tolerates advancing his diet I will discharge him home later today. Audie Hoang MD Pager: [facility] [address] [place] [address], [address] [place] [phone] Office: Medications at Discharge Home Medications nitroglycerin 0.4 mg sublingual tablet (Nitrostat) 0.4 mg sublingual Q5-15M PRN chest pain #25 tabs 11/01/20 carvedilol 25 mg tablet 6.25 mg PO BID blood pressure 11/17/20 aspirin 81 mg tablet,delayed release 81 mg PO DAILY@0800 [facility] 02/21/21 insulin glargine 100 unit/mL (3 mL) subcutaneous pen 8 unit SC BREAKFAST diabetes 02/21/21 metformin 500 mg tablet 500 mg PO BID diabetes 02/21/21 ticagrelor 90 mg tablet 90 mg PO BID anti platelet 02/21/21 atorvastatin 80 mg tablet 80 mg PO QHS cholesterol #90 tabs 05/10/21 losartan 100 mg tablet 50 mg PO DAILY blood pressure 02/12/22 pantoprazole 40 mg tablet,delayed release 40 mg PO DAILY #14 tabs 02/13/22 Hospital Course Summary of Care Provided Hospital Course: Patient admitted with abdominal pain which resolved overnight. Morning xray showed that the contrast moved to the colon and small bowel was less distended. he started having more substantial bowel function and tolerated a diet then discharged home. Weight / BMI Weight Weight: 241 lb 15.987 oz Body Mass Index (BMI) 33.7 ABG / Lab / Microbiology Data Result Diagrams: 02/15/22 05:04 02/15/22 05:04 Laboratory: Laboratory Results - last 24 hr 02/14/22 17:23: POC Glucose 155 H 02/15/22 00:09: POC Glucose 129 H 02/15/22 05:04: WBC 7.3, RBC 4.41 L, Hgb 12.6 L, Hct 40.0, MCV 90.7, MCH 28.6, MCHC 31.5 L D, RDW Std Deviation 47.8 H, RDW Coeff of Hayley 14.5, Plt Count 269, MPV 10.3, Immature Gran % (Auto) 0.400, Neut % (Auto) 62.2, Lymph % (Auto) 25.8, [place] % (Auto) 8.5, Eos % (Auto) 2.7, Baso % (Auto) 0.4, Absolute Neuts (auto) 4.5, Absolute Lymphs (auto) 1.88, Nucleated RBC % 0 02/15/22 05:04: Sodium 140, Potassium 3.7, Chloride 106, Carbon Dioxide 25.0, Anion Gap 9, BUN 12, Creatinine 0.80, Estim Creat Clear Calc 128.11, Est GFR (MDRD) Af Amer 136, Est GFR (MDRD) Non-Af 113, BUN/Creatinine Ratio 15.0, Glucose 121 H, Calcium 8.1 L 02/15/22 06:47: POC Glucose 125 H 02/15/22 11:47: POC Glucose 208 H Radiography Diagnostic Testing: Radiology Impression Abdomen/Pelvis CT 02/14/22 05:27 IMPRESSION: 1. Findings suggest evolving or partial small bowel obstruction. 2. Colonic diverticulosis without evidence of acute diverticulitis. Electronically Signed: Ruma Shafer MD at 7:52 EST , Abdomen X-Ray 02/14/22 12:20 IMPRESSION: Persistent small bowel obstruction. Electronically Signed: Efe Morillo MD at 18:14 EST , KUB X-Ray 02/15/22 05:55 IMPRESSION: Less small bowel dilatation at this time with moderate amount of fecal material seen in the colon down to the rectum. Electronically Signed: Danielito Tim MD at 10:46 EST , D/C Instructions Discharge Diet: Light diet - advance as tolerated Discharge Activity: Return to Normal Activity Weight Bearing Status: Weight bearing as tolerated Call your doctor if your incision/area has: Increased Pain/ Swelling Call your doctor if you observe: Fever of 101 or Higher and Inability to have a bowel movement Cleanse incision/area with: Soap & Water Please Follow Up With: Audie Hoang MD When: as needed, Meaningful Use Info Meaningful Use Diagnoses (Choose all that apply): None applicable Discharge Plan Admission Admit Date/Time: 02/14/22 08:04 Attending Provider: Audie Hoang Primary Care Provider: Care Physician,No Primary Discharge Orders/Prescriptions Prescriptions: Continued metformin 500 MG tablet 500 mg PO BID aspirin 81 MG tablet,delayed release (DR/EC) 81 mg PO DAILY@0800 insulin glargine 100 UNITS/ML insulin pen 8 unit SC BREAKFAST ticagrelor 90 MG tablet 90 mg PO BID losartan 100 mg tablet 50 mg PO DAILY pantoprazole 40 mg tablet,delayed release (DR/EC) 40 mg PO DAILY Qty: 14 0RF nitroglycerin [Nitrostat] 0.4 mg tablet, sublingual 0.4 mg sublingual Q5-15M PRN (Reason: chest pain) Qty: 25 3RF Rx Instructions: do not exceed 3 doses per episode carvedilol 25 mg tablet 6.25 mg PO BID Rx Instructions: must administer with a meal/food atorvastatin 80 mg tablet 80 mg PO QHS Qty: 90 3RF Referrals / Follow Up: Care Physician,No Primary [Primary Care Provider] - Doctor,Your [Non-Staff] - 1-2 Days if not improving Disposition Disposition (needs filled in before D/C Order can be placed): Home, Self Care
== END 2022-02-15 15:45 | disposition home or self-care (01) | DRG 390 ==
LOC: ED 08:06 → MS3 08:59
PROVIDERS: Admitting Provider Surgery; Emergency Provider Emergency Medicine; Visit Provider Surgery
DX: K56.600 Partial intestinal obstruction, unspecified as to cause (principal); E11.65 Type 2 diabetes mellitus with hyperglycemia; I25.119 Atherosclerotic heart disease of native coronary artery with unspecified angina pectoris; Z79.4 Long term (current) use of insulin; I10 Essential (primary) hypertension; F17.210 Nicotine dependence, cigarettes, uncomplicated; F17.220 Nicotine dependence, chewing tobacco, uncomplicated; I25.2 Old myocardial infarction; E66.9 Obesity, unspecified; Z68.34 Body mass index [BMI] 34.0-34.9, adult; Z79.02 Long term (current) use of antithrombotics/antiplatelets; Z79.899 Other long term (current) drug therapy; Z79.82 Long term (current) use of aspirin; Z95.5 Presence of coronary angioplasty implant and graft
CPT/HCPCS: 36415; 74018; 74019; 74177; 80048; 80053; 82962; 83690; 85025; 96361; 96374; 96375; 99283; 99284; 99406; J7030; Q9967; A4216; J2405

== ENCOUNTER 2022-05-03 00:42 | Emergency (ER) | payer MEDICARE, MEDICAID, SELFPAY ==
[2022-05-03 00:44] VITALS: BP 201/100; PULSE 109; RESP 18; TEMP 36; O2SAT 100; BMI 35.6
--- NOTE | 2022-05-03 00:55 | RAD_ITS ---
INDICATION: trauma EXAMINATION/TECHNIQUE: X-RAY - XR Ribs Unilateral W/ PA Chest Min 3 Views COMPARISON: None. FINDINGS: SOFT TISSUES: No soft tissue swelling or gas. BONES: No displaced fracture. No sclerotic or destructive changes observed. VISUALIZED LUNGS: Clear. No pneumothorax. RAD/Ribs Uni Min 3V w/PA Chest IMPRESSION: No evidence of displaced rib fracture. Electronically Signed: Leanne Thornton MD at 2:00 EST ,
--- NOTE | 2022-05-03 00:56 | EDS_ITS ---
HPI History of Present Illness Chief Complaint: Chest Other Narrative Narrative: 41-year-old male past medical history of diabetes, coronary artery disease, presents with right-sided chest wall and rib pain that he sustained yesterday evening around 4 5 PM, approximately 9 hours ago. He states that he was taking the tarp off his camper because he was going to pressure wash it. He accidentally bumped into the roof of his truck with his right ribs. He denies falling, hitting his head, loss of consciousness, or other injury. He now has pain in his right ribs anterior and laterally at the bottom of his rib cage. It is worse with movement and coughing, and sometimes breathing. He denies other injury. He has not taken any analgesics because he does not like to take medicine like that. He presents wondering if he broke a rib. [facility] Medical History Atherosclerotic heart disease [place] coronary artery w/angina pectoris DVT (deep venous thrombosis) Essential hypertension History of ST elevation myocardial infarction (STEMI) (10/12/19) Morbid obesity Noncompliance with diet and medication regimen Poor personal hygiene Smoker Tobacco dependence Tobacco use Type 2 diabetes mellitus Uncontrolled type 2 diabetes mellitus Home Medications nitroglycerin 0.4 mg sublingual tablet (Nitrostat) 0.4 mg sublingual Q5-15M PRN chest pain #25 tabs 11/01/20 [Rx Last Taken Unknown] carvedilol 25 mg tablet 6.25 mg PO BID blood pressure 11/17/20 [History Last Taken 02/13/22] aspirin 81 mg tablet,delayed release 81 mg PO DAILY@0800 [facility] 02/21/21 [History Last Taken 02/13/22] insulin glargine 100 unit/mL (3 mL) subcutaneous pen 6 unit SC BREAKFAST diabetes 02/21/21 [History Last Taken 02/13/22] metformin 500 mg tablet 500 mg PO BID diabetes 02/21/21 [History Last Taken 02/13/22] ticagrelor 90 mg tablet 90 mg PO BID anti platelet 02/21/21 [History Last Taken 02/13/22] atorvastatin 80 mg tablet 80 mg PO QHS cholesterol #90 tabs 05/10/21 [Rx Last Taken 02/13/22] losartan 100 mg tablet 50 mg PO DAILY blood pressure 02/12/22 [History Last Taken 02/13/22] Allergy/AdvReac Type Severity Reaction Status Date / Time No Known Allergies Allergy Verified 05/03/22 00:47 Family History Father Myocardial infarction Mother CVA (cerebral vascular accident) Surgical History H/O cardiac catheterization (11/11/20) History of coronary artery stent placement (11/14/20) Social History housing: other details: 3 dogs Smoking Status: Current every day smoker tobacco type: cigarettes and smokeless tobacco Smokeless tobacco user: chewing tobacco how long ago did patient quit smokin year ago alcohol intake: never substance use type: does not use caffeine: Yes Type: tea ROS ROS ED ROS Narrative Constitutional: No fever, no chills. HEENT: No sore throat. No neck pain. No loss of vision. No rhinorrhea. Cardiovascular: Right-sided rib/chest wall type of chest pain. No palpitations. No pedal edema. Respiratory: No cough, no shortness of breath. Abdominal: No abdominal pain. No nausea. No vomiting. Genitourinary: No dysuria. No hematuria. Musculoskeletal: No myalgias. No arthralgias. Neurologic: No headaches. No dizziness. No lightheadedness. Skin: No rash. No change in color. Psychiatric: No depression. No anxiety. EXAM Physical Exam Narrative Exam Narrative: Afebrile. Vital signs noted. HEENT: Normocephalic. Atraumatic. PERRL, EOMI. Neck soft and supple. No point tenderness or step off. Cardiovascular: Regular rate and rhythm with intermittent tachycardia. No murmurs, rubs, or gallops appreciated. Respiratory: No tachypnea. Lungs clear to auscultation bilaterally. Mild tenderness to palpation right lateral to anterior ribs especially numbers 9 and 10. No crepitance. No noted ecchymosis over ribs. Gastrointestinal: Abdomen soft, nontender, with normoactive bowel sounds. No rebound or guarding. Neurological: Awake. Alert. Nonfocal, nonlateralizing. Skin: No rash. Normal color. No pallor. Musculoskeletal: No pedal edema. Full range of motion extremities. Const Vital Signs: 05/03/22 00:44 05/03/22 00:44 Temperature 96.8 F L Temperature Source Temporal Pulse Rate 109 H Respiratory Rate 18 Respiratory Effort Normal Blood Pressure 201/100 H Blood Pressure Mean 133 Pulse Ox 100 Oxygen Delivery Method Room Air MDM MDM MDM Narrative Medical decision making narrative: In the differential diagnosis is rib contusion versus rib fracture. I have low suspicion for pneumothorax. His pulse ox is 100% on room air without evidence of hypoxia. He was able to drive himself here. Of note, he does have elevated blood pressure of 201/100 but is asymptomatic with it. He does have history of hypertension. 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 Right-sided rib x-rays with chest x-ray were obtained and interpreted by myself. He was given an ice pack for comfort. X-rays interpreted by myself show no evidence of displaced rib fracture, no pneumothorax. I reviewed the radiology report which confirms my interpretation. He was given 1 tramadol tablet here. I do not feel narcotic pain medication and prescription form is indicated for his chest wall pain/rib contusion. He was told that he could take [id number] medications and that not all rib fractures are visible on x- ray. Additionally, he has elevated blood pressure reading here with history of hypertension. He is asymptomatic with it without headache or neurological signs or cardiac chest pain signs. I feel he can be discharged safely home with follow-up. Disposition is discharged home in stable condition. Return instructions were reviewed. Radiography Chest X-Ray - ED: Read by ED Physician Diagnostic Testing: Clinical Impression(s) from Imaging Studies Ribs w/Chest X-Ray 05/03/22 00:55 IMPRESSION: No evidence of displaced rib fracture. Electronically Signed: Leanne Thornton MD at 2:00 EST , Discharge Plan Triage Chief Complaint: Chest Other ED Provider: Juan Downs Dx/Rx/DC Orders Clinical Impression: Contusion of ribs, Chest wall pain, Elevated blood pressure reading with diagnosis of hypertension Instructions: ED Chest Wall Contusion, ED Hypertension, Established, ED Bruise, Rib Prescriptions: No Action metformin 500 MG tablet 500 mg PO BID aspirin 81 MG tablet,delayed release (DR/EC) 81 mg PO DAILY@0800 insulin glargine 100 UNITS/ML insulin pen 6 unit SC BREAKFAST ticagrelor 90 MG tablet 90 mg PO BID losartan 100 mg tablet 50 mg PO DAILY nitroglycerin [Nitrostat] 0.4 mg tablet, sublingual 0.4 mg sublingual Q5-15M PRN (Reason: chest pain) Qty: 25 3RF Rx Instructions: do not exceed 3 doses per episode carvedilol 25 mg tablet 6.25 mg PO BID Rx Instructions: must administer with a meal/food atorvastatin 80 mg tablet 80 mg PO QHS Qty: 90 3RF Primary Care Provider: Care Physician,No Primary Referrals: Care Physician,No Primary [Primary Care Provider] - Disposition Disposition: Home, Self Care
[2022-05-03 02:31] VITALS: BP 188/111; PULSE 97; RESP 20; O2SAT 100
[2022-05-03] MEDS: traMADol 50 MG Tablet PO (02:36)
== END 2022-05-03 02:39 | disposition home or self-care (01) ==
PROVIDERS: Emergency Provider Emergency Medicine; Visit Provider Emergency Medicine
DX: S20.219A Contusion of unspecified front wall of thorax, initial encounter (principal); E11.9 Type 2 diabetes mellitus without complications; I25.10 Atherosclerotic heart disease of native coronary artery without angina pectoris; F17.210 Nicotine dependence, cigarettes, uncomplicated; I10 Essential (primary) hypertension; F17.220 Nicotine dependence, chewing tobacco, uncomplicated; W22.8XXA Striking against or struck by other objects, initial encounter
CPT/HCPCS: 71101; 99283

== ENCOUNTER 2022-12-05 13:24 | Emergency (ER) | payer MEDICARE, MEDICAID, SELFPAY ==
[2022-12-05 13:25] VITALS: BP 192/111; PULSE 124; RESP 18; TEMP 37.2; O2SAT 97; BMI 33.4
[2022-12-05 13:35] VITALS: PULSE 120; RESP 12
--- NOTE | 2022-12-05 13:39 | EX.ED.DYSGE1 ---
HPI History of Present Illness Chief Complaint: Dizziness [facility] Medical History Atherosclerotic heart disease [place] coronary artery w/angina pectoris DVT (deep venous thrombosis) Essential hypertension History of ST elevation myocardial infarction (STEMI) (10/12/19) Morbid obesity Noncompliance with diet and medication regimen Poor personal hygiene Smoker Tobacco dependence Tobacco use Type 2 diabetes mellitus Uncontrolled type 2 diabetes mellitus Home Medications nitroglycerin 0.4 mg sublingual tablet (Nitrostat) 0.4 mg sublingual Q5-15M PRN chest pain #25 tabs 11/01/20 [Rx Last Taken Unknown] carvedilol 25 mg tablet 6.25 mg PO BID blood pressure 11/17/20 [History Last Taken 02/13/22] insulin glargine 100 unit/mL (3 mL) subcutaneous pen 6 unit SC BREAKFAST diabetes 02/21/21 [History Last Taken 02/13/22] metformin 500 mg tablet 500 mg PO BID diabetes 02/21/21 [History Last Taken 02/13/22] ticagrelor 90 mg tablet 90 mg PO BID anti platelet 02/21/21 [History Last Taken 02/13/22] losartan 100 mg tablet 50 mg PO DAILY blood pressure 02/12/22 [History Last Taken 02/13/22] Allergy/AdvReac Type Severity Reaction Status Date / Time No Known Allergies Allergy Verified 12/05/22 13:25 Family History Father Myocardial infarction Mother CVA (cerebral vascular accident) Surgical History H/O cardiac catheterization (11/11/20) History of coronary artery stent placement (11/14/20) Social History housing: other details: 3 dogs Smoking Status: Current every day smoker tobacco type: cigarettes and smokeless tobacco Smokeless tobacco user: chewing tobacco how long ago did patient quit smokin year ago alcohol intake: never substance use type: does not use caffeine: Yes Type: tea EXAM Physical Exam Const Vital Signs: 12/05/22 13:25 12/05/22 13:35 12/05/22 13:35 Temperature 98.9 F Temperature Source Temporal Pulse Rate 124 H 120 H Respiratory Rate 18 12 Respiratory Pattern Normal Blood Pressure 192/111 H Blood Pressure Mean 138 Pulse Ox 97 Oxygen Delivery Method Room Air 12/05/22 13:40 12/05/22 15:36 12/05/22 15:44 Temperature 98.9 F Temperature Source Temporal Pulse Rate 123 H 117 H 106 H Respiratory Rate 20 H Respiratory Pattern Blood Pressure 198/95 H 192/117 H 160/95 H Blood Pressure Mean 129 142 116 Pulse Ox 97 Oxygen Delivery Method Room Air 12/05/22 15:48 Temperature 99.4 F H Temperature Source Oral Pulse Rate 104 H Respiratory Rate 22 H Respiratory Pattern Blood Pressure 157/99 H Blood Pressure Mean 118 Pulse Ox 97 Oxygen Delivery Method Room Air MDM MDM MDM Narrative Medical decision making narrative: HISTORY OF PRESENT ILLNESS: 42-year-old male here with dizziness and urinary symptoms. States this began last night. Notes prickly sensation of the entire body also notes decreased urinary output. Drug use. Denies any alcohol use. Denies any chest pain denies any shortness of breath. Denies any fever. Denies any cough. Denies any back pain. Denies abdominal pain. REVIEW OF SYSTEMS: Pertinent positives: Dizziness, decreased urinary output Pertinent negatives: Chest pain, shortness of breath abdominal pain PHYSICAL EXAM: Nursing triage notes reviewed, Vital signs reviewed Constitutional: please see mdm HENT: MMM Eyes: Pupils equal round and reactive to light, Extraocular muscles intact Neck: No stridor, no JVD, full neck ROM Lungs: Clear to auscultation, No wheezing or rales. No increased work of breathing, no conversational dyspnea, no accessory muscle use, no nasal flaring. No respiratory distress noted Heart: Regular rate and rhythm, No murmurs, No rubs and No gallops, 2+ distal pulses (radial, femoral, posterior tibial) in all extremities Abdomen: Soft, there is no tenderness, rigidity, rebound or guarding, no obvious peritoneal signs, no palpable pulsatile abdominal masses, no auscultated abdominal bruit : No CVAT Extremities: No edema Neuro: Alert and oriented x3, neuro exam at baseline, cranial nerves II through XII are intact. No pain with extraocular muscle movement. There is negative test of skew. 5 of 5 strength in upper and lower extremities in flexion extension. Intact sensation to light touch in upper and lower extremity dermatomes. No truncal or extremity ataxia. No dysdiadochokinesia. Normal gait. 2+ reflexes in upper and lower extremities. No meningeal signs. Negative Babinski. NIH of 0. Skin: No rash or lesions noted MEDICAL DECISION MAKING: Chief Complaint: Dizziness External records reviewed: Last ED visit in April 2022 for chest wall pain Factors affecting care: CAD status post stent, STEMI, hyperlipidemia, type 2 diabetes, hypertension Social determinants of health: Tobacco abuse History obtained from others: none Consults: none ALL IMAGES (IF OBTAINED) HAVE BEEN PERSONALLY REVIEWED AND INTERPRETED BY MYSELF. CBC with leukocytosis suggestive of some inflammation, no anemia or thrombocytopenia BMP without evidence of significant electrolyte abnormalities, no anion gap, no acute kidney injury. With mild hyponatremia, no anion gap to suggest endorgan hypoperfusion, no MAURICIO, noted hyperglycemia LFTs show no evidence of hepatobiliary pathology. Troponin is negative, no evidence of myocardial ischemia Urinalysis shows no evidence of urinary inflammation suggestive of UTI Urine tox screen is negative EKG with sinus tachycardia, normal axis, prolonged QT interval, no STEMI Serum alcohol level is negative MDM Narrative: Patient was hypertensive, tachycardic. He is afebrile and nontoxic-appearing his abdomen was benign with RLQ TTP, no salvador sign no peritoneal signs. No focal neurologic deficits. I considered the following differential diagnosis: ICH, toxic ingestion, alcohol withdrawal, stimulant ingestion, thyroid abnormality I obtained a broad lab and imaging work-up to further elucidate the etiology of the patient's complaints. Bladder scan initially showed postvoid residual volume of >300 cc. This is consistent with urinary tension. Did offer Hurtado catheterization however patient refused. Patient CT scan of the brain was negative for acute intracranial abnormalities. EKG, troponin showed no evidence of myocardial ischemia. Patient CBC was remarkable for marked leukocytosis however I could not identify any plausible source of infection in his chest urine or abdomen. No fever. He is nontoxic-appearing. He is not complaining of feeling ill at all. I do not think the patient is experiencing an abnormal systemic response infection or sepsis at this time. No indication for blood cultures or lactate at this time. There is no evidence of urine infection. No evidence of toxic ingestion. I suspect the patient's presentation, dizziness are secondary to abnormal vital signs are secondary to poorly controlled hypertension, poorly controlled diabetes. Was given 1 dose of IV labetalol here with improvement in blood pressure and heart rate. The patient and/or family, caregivers express understanding. The patient and/or family, caregivers agrees with the plan. Shared decision making: I will have a discussion with the patient and or visitors regarding risk/benefits of further testing or admission. They will be made aware of of the risk/benefits inherent in this decision they will be given the opportunity to voice understanding. Total critical care time today provided was at least 0 minutes. This excludes separately billable procedures. Critical care time (if documented) is secondary to the patient having high probability of clinically significant/life threatening deterioration in the patient's condition which required my urgent intervention. Impression: 1. Dizziness 2. Leukocytosis 3. Poorly controlled hypertension 4. Poorly controlled type 2 diabetes Dispo: Discharge Lab Data Labs: Laboratory Results - last 24 hr 12/05/22 12/05/22 14:40 14:54 WBC 20.4 H RBC 5.08 Hgb 14.9 Hct 46.0 MCV 90.6 MCH 29.3 MCHC 32.4 RDW Std Deviation 47.8 H RDW Coeff of Hayley 14.5 Plt Count 290 MPV 10.7 Immature Gran % (Auto) 0.500 Neut % (Auto) 84.2 H Lymph % (Auto) 6.5 L [place] % (Auto) 8.3 Eos % (Auto) 0.1 Baso % (Auto) 0.4 Absolute Neuts (auto) 17.2 H Absolute Lymphs (auto) 1.33 Nucleated RBC % 0 Differential Comment SCANNED Diff Path Review May foll Sodium 131 L Potassium 4.1 Chloride 99 Carbon Dioxide 26.0 Anion Gap 6 BUN 12 Creatinine 0.96 Estim Creat Clear Calc 105.67 Est GFR (MDRD) Af Amer 109 Est GFR (MDRD) Non-Af 90 BUN/Creatinine Ratio 12.4 Glucose 317 H Calcium 8.9 Total Bilirubin 0.90 AST 14 L ALT 30 Alkaline Phosphatase 101 Troponin I High Sens 19 B-Natriuretic Peptide 39.1 Total Protein 7.4 Albumin 3.4 Globulin 4.0 Albumin/Globulin Ratio 0.8 L Urine Color Yellow Urine Clarity Clear Urine pH 6.0 Ur Specific [place] 1.010 Urine Protein Negative Urine Glucose (UA) 1000 H Urine Ketones 50 H Urine Occult Blood Negative Urine Nitrite Negative Urine Bilirubin Negative Urine Urobilinogen Normal Ur Leukocyte Esterase Negative Urine RBC 0 SEEN Urine WBC 0 SEEN Ur Squamous Epith Cells 0 SEEN Urine Bacteria 0 SEEN Urine Mucus 0 SEEN Urine Opiates Screen NEGATIVE Urine Methadone Screen NEGATIVE Ur Barbiturates Screen NEGATIVE Ur Phencyclidine Scrn NEGATIVE Ur Amphetamines Screen NEGATIVE MDMA (Ecstasy) Screen NEGATIVE U Benzodiazepines Scrn NEGATIVE Urine Cocaine Screen NEGATIVE U Cannabinoids Screen NEGATIVE Ur Drug Screen Comment Ethyl Alcohol < 3.0 Radiography Diagnostic Testing: Clinical Impression(s) from Imaging Studies Brain CT 12/05/22 14:17 IMPRESSION: Normal unenhanced CT scan of the brain. Electronically Signed: Danielito Tim MD at 15:36 EDT , Chest X-Ray 12/05/22 14:46 IMPRESSION: Hyperinflation. The lungs are clear. Electronically Signed: Danielito Tim MD at 15:10 EDT , Discharge Plan Triage Chief Complaint: Dizziness Other Complaint: Complaint ED Provider: Kahlil Miner Dx/Rx/DC Orders Instructions: ED Dizziness, Uncertain Cause, Diabetes and High Blood Pressure Prescriptions: No Action metformin 500 MG tablet 500 mg PO BID insulin glargine 100 UNITS/ML insulin pen 6 unit SC BREAKFAST ticagrelor 90 MG tablet 90 mg PO BID losartan 100 mg tablet 50 mg PO DAILY nitroglycerin [Nitrostat] 0.4 mg tablet, sublingual 0.4 mg sublingual Q5-15M PRN (Reason: chest pain) Qty: 25 3RF Rx Instructions: do not exceed 3 doses per episode carvedilol 25 mg tablet 6.25 mg PO BID Rx Instructions: must administer with a meal/food Primary Care Provider: Care Physician,No Primary Referrals: Care Physician,No Primary [Primary Care Provider] - Activity Restrictions/Additional Instructions: Thank you for trusting us with your care today! Please take Tylenol (2 pills, 650 mg), ibuprofen (2 pills, 400 mg) every 6 hours as needed for pain and fever control. Please take all your medicines as prescribed. Please return to the emergency department if your symptoms change or worsen. Please follow with your primary care physician for further outpatient evaluation and management. Disposition Disposition: Home, Self Care Discharge Date/Time: 12/05/22 16:07
[2022-12-05 13:40] VITALS: BP 198/95; PULSE 123; RESP 20; TEMP 37.2; O2SAT 97
--- NOTE | 2022-12-05 14:17 | CT_ITS ---
STUDY: CT BRAIN WITHOUT CONTRAST REASON FOR EXAM: Male, 42 years old. Dizziness, HTN RADIATION DOSAGE (If Supplied By Facility): CTDIvol = ( 47.06 ) mGy, DLP = ( 907.97 ) mGycm TECHNIQUE: Transaxial CT imaging of the brain was performed without administration of intravenous contrast material. Individualized dose optimization techniques were used for this CT. COMPARISON: No relevant priors. FINDINGS: Normal soft tissue structures. Normal calvarium. Normal size ventricles and extra-axial spaces for the patient''s age. Normal white matter tracts of the cerebral hemispheres. Normal basal ganglia and thalami. Normal brainstem. Normal cerebellum. There is no intracranial hemorrhage. There are no findings of an acute ischemic infarction. Normal visualized paranasal sinuses. CT/Brain/Head without Contrast IMPRESSION: Normal unenhanced CT scan of the brain. Electronically Signed: Danielito Tim MD at 15:36 EDT ,
--- NOTE | 2022-12-05 14:18 | EKG12_ITS ---
Test Reason : SYNCOPE Blood Pressure : / mmHG Vent. Rate : 123 BPM Atrial Rate : 123 BPM P-R Int : 144 ms QRS Dur : 088 ms QT Int : 322 ms P-R-T Axes : 043 057 043 degrees QTc Int : 460 ms Sinus tachycardia Otherwise normal ECG Confirmed by NORM MENDOZA, KENAN ([id number]), editorial clerk CHON WALTERS ([id number]) on 12/11/2022 10:45:46 AM Referred By: CORAL Confirmed By:KISHA ZHENG MD
[2022-12-05 14:43] LABS: Bacteria 0 SEEN /hpf (None Seen); Mucous, Urine 0 SEEN /hpf (<or=2+); Red Blood Cells-Urine 0 SEEN /hpf (0-5); Squamous Epithelial Cells - UA 0 SEEN /hpf (0-5); White Blood Cells 0 SEEN /hpf (0-5)
[2022-12-05 14:45] LABS: Color, Urine Yellow (Yellow); Glucose, Dipstick 1000 mg/dl (Normal); Ketone-Dipstick 50 mg/dl (Negative); Leukocyte Esterase-Dipstick Negative /ul (Negative); Nitrite-Dipstick Negative (Negative); Occult Blood-Urine Negative /ul (Negative); Protein-Dipstick Negative (Negative); Urine Bilirubin Dipstick Negative (Negative); Urine Clarity Clear (Clear); Urine Urobilinogen Normal (Normal)
--- NOTE | 2022-12-05 14:46 | RAD_ITS ---
STUDY: X-RAY CHEST REASON FOR EXAM: Male, 42 years old. Dizziness. General discomfort. TECHNIQUE: Single AP portable view of the chest. COMPARISON: Comparison is made with prior study dated May 03, 2022. FINDINGS: EKG electrodes are seen. Hyperinflation. The lungs are clear. There is no demonstrated pleural abnormality. Normal size heart. Normal mediastinum and asad. Normal visualized pulmonary arteries. Normal visualized aortic arch and descending thoracic aorta. Normal visualized thoracic spine. Normal visualized ribs, clavicles, and shoulders. There is no demonstrated abnormality of the visualized soft tissue structures of the upper abdomen. RAD/Chest 1 View (Portable) IMPRESSION: Hyperinflation. The lungs are clear. Electronically Signed: Danielito Tim MD at 15:10 EDT ,
[2022-12-05 14:59] LABS: Amphetamine Urine VISTA NEGATIVE (<1000 ng/mL); Barbiturate Urine VISTA NEGATIVE (< 200 ng/mL); Benzodiazepine Urine VISTA NEGATIVE (< 200 ng/mL); Cocaine Urine VISTA NEGATIVE (< 300 ng/mL); Ecstacy Urine VISTA NEGATIVE (< 500 ng/mL); Methadone Urine VISTA NEGATIVE (< 300 ng/mL); PCP Urine VISTA NEGATIVE (< 25 ng/mL); THC Urine VISTA NEGATIVE (< 50 ng/mL); Vista UDS pH Range 5
[2022-12-05 15:09] LABS: Absolute Lymphocyte Count 1.33 X10^3/uL (0.83-4.51); Absolute Neutrophil Count 17.2 X10^3/uL (2.0-7.7); Basophil# 0.08 X10^3/uL; Basophil% 0.4 % (0-1); Eosinophil# 0.02 X10^3/uL; Eosinophils% 0.1 % (0-5); Hemoglobin 14.9 g/dL (13.0-16.5); Lymphocyte # 1.33 X10^3/ul (0.83-4.51); Lymphocyte % 6.5 % (19-41); Mean Corp Hgb Conc 32.4 g/dL (32-36); Mean Corpuscular Hgb 29.3 pg (27.0-32.0); Mean Corpuscular Volume 90.6 fL (80-94); Mean Platelet Vol. 10.7 fl (6.2-12.0); Monocyte# 1.69 X10^3/uL; Monocyte% 8.3 % (0-10); NRBC Flagged by Analyzer 0 % (0-5); Neutrophil # 17.16 X10^3/uL (2.7-7.7); Neutrophil % 84.2 % (47-70); POSITIVE DIFFERENTIAL YES; Platelet Count 290 K/mm3 (150-450); RBC Distribution Width CV 14.5 % (11.6-14.6); RBC Distribution Width SD 47.8 fl (35.1-43.9); Red Blood Count 5.08 M/mm3 (4.6-6.2); White Blood Count 20.4 K/mm3 (4.4-11.0)
[2022-12-05 15:13] LABS: Differential Indicated SCAN CRITERIA MET
--- NOTE | 2022-12-05 15:14 | ED.RN ---
pt assited up to bathroom for urine sample. pt returns to room with sample. pt reports relief of urinary retention and refuses catheter.
[2022-12-05 15:21] LABS: BNP,B-Type NATRIURETIC PEPTIDE 39.1 pg/mL (0-100)
[2022-12-05 15:24] LABS: ALB/GLOB Ratio 0.8 RATIO (0.9-2.4); AST(SGOT) 14 U/L (15-37); Alanine Aminotransfer ALT/SGPT 30 U/L (16-61); Albumin, Serum 3.4 g/dL (3.2-5.0); Alkaline Phosphatase 101 U/L (45-117); Anion Gap 6 (5-15); BUN 12 mg/dL (7-18); BUN/Creat Ratio 12.4 RATIO (10-20); Calcium,Total 8.9 mg/dL (8.5-10.1); Chloride 99 mmol/L (98-107); Creatinine, Serum 0.96 mg/dL (0.70-1.30); EST Glomerular Filtration Rate 90 mL/min (>60); Est Glom Filt Rate - Afr Amer 109 mL/min (>60); Estimated Creatinine Clearance 105.67 ml/min; Glucose 317 mg/dL (74-106); Potassium 4.1 mmol/L (3.5-5.1); Protein, Total 7.4 g/dL (6.4-8.2); Sodium Level 131 mmol/L (136-145); Troponin-I HS 19 pg/mL (3.0-78.0)
[2022-12-05 15:29] LABS: Differential Comment SCANNED
[2022-12-05 15:36] VITALS: BP 192/117; PULSE 117
[2022-12-05] MEDS: Labetalol (Prefilled) 20 MG/4 ML 10 MG IV (15:41)
[2022-12-05 15:44] VITALS: BP 160/95; PULSE 106
[2022-12-05 15:48] VITALS: BP 157/99; PULSE 104; RESP 22; TEMP 37.4; O2SAT 97
[2022-12-05 16:01] LABS: Alcohol, Blood (Medical)-Serum < 3.0 mg/dL
[2022-12-10 08:55] LABS: Pathologist Review Reviewed
== END 2022-12-05 16:07 | disposition home or self-care (01) ==
PROVIDERS: Emergency Provider Emergency Medicine; Visit Provider Emergency Medicine
DX: R42 Dizziness and giddiness (principal); E11.65 Type 2 diabetes mellitus with hyperglycemia; Z79.4 Long term (current) use of insulin; E87.1 Hypo-osmolality and hyponatremia; R33.9 Retention of urine, unspecified; I25.10 Atherosclerotic heart disease of native coronary artery without angina pectoris; E78.5 Hyperlipidemia, unspecified; D72.829 Elevated white blood cell count, unspecified; I10 Essential (primary) hypertension; F17.210 Nicotine dependence, cigarettes, uncomplicated; F17.220 Nicotine dependence, chewing tobacco, uncomplicated; Z79.84 Long term (current) use of oral hypoglycemic drugs; Z79.02 Long term (current) use of antithrombotics/antiplatelets; Z79.899 Other long term (current) drug therapy; I25.2 Old myocardial infarction; Z95.5 Presence of coronary angioplasty implant and graft
CPT/HCPCS: 99285; 70450; 71045; 80053; 80307; 81001; 82077; 83880; 84484; 85025; 93005; A4216

== ENCOUNTER 2022-12-06 11:19 | Inpatient (IN) | payer MEDICARE, MEDICAID, SELFPAY ==
[2022-12-06] VITALS (15 sets, daily range): BP systolic 65–138; BP diastolic 51–79; PULSE 88–110; RESP 14–25; TEMP 36.2–37.1; O2SAT 93–98; BMI 33.7; BMI 35.4
[2022-12-06] MEDS: 0.9% Normal Saline (1000mL) 1,000 ML 999 ML IV (11:34)
[2022-12-06 11:53] LABS: Absolute Lymphocyte Count 1.02 X10^3/uL (0.83-4.51); Absolute Neutrophil Count 15.5 X10^3/uL (2.0-7.7); Basophil# 0.07 X10^3/uL; Basophil% 0.4 % (0-1); Eosinophil# 0.07 X10^3/uL; Eosinophils% 0.4 % (0-5); Hematocrit 46.7 % (40-54); Lymphocyte # 1.02 X10^3/ul (0.83-4.51); Lymphocyte % 5.7 % (19-41); Mean Corp Hgb Conc 32.1 g/dL (32-36); Mean Corpuscular Hgb 29.6 pg (27.0-32.0); Mean Corpuscular Volume 92.1 fL (80-94); Mean Platelet Vol. 10.4 fl (6.2-12.0); Monocyte# 1.09 X10^3/uL; Monocyte% 6.1 % (0-10); NRBC Flagged by Analyzer 0 % (0-5); Neutrophil # 15.45 X10^3/uL (2.7-7.7); Neutrophil % 86.7 % (47-70); Platelet Count 324 K/mm3 (150-450); RBC Distribution Width CV 14.6 % (11.6-14.6); RBC Distribution Width SD 49.5 fl (35.1-43.9); Red Blood Count 5.07 M/mm3 (4.6-6.2); White Blood Count 17.8 K/mm3 (4.4-11.0)
--- NOTE | 2022-12-06 12:06 | CT_ITS ---
STUDY: CT ABDOMEN AND PELVIS WITH CONTRAST REASON FOR EXAM: Male, 42 years old. Distention, abdominal pain, peritonitis. RADIATION DOSAGE (If Supplied By Facility): CTDIvol = ( 18.10 ) mGy, DLP = ( 1266.06 ) mGycm TECHNIQUE: Transaxial images were obtained from the dome of the diaphragm to the symphysis pubis without oral contrast. IV 100mL Isovue-300 was administered. Sagittal and coronal images were reconstructed. Individualized dose optimization techniques were used for this CT. COMPARISON: Comparison is made with prior study dated February 14, 2022. FINDINGS: The visualized lung bases are unremarkable. Coronary artery calcification. There is decreased attenuation of the liver consistent with steatosis. Hepatomegaly. Normal gallbladder and extrahepatic biliary system. Normal spleen. Normal pancreas. Normal bilateral adrenal glands. Normal right kidney. 1 cm cyst in the upper posterior aspect of the left kidney. Normal visualized stomach. Normal small intestine. There are multiple colonic diverticula consistent with diverticulosis. There is a tubular, thick-walled appendix (>7mm), consistent with acute appendicitis. Inflammatory changes are seen in the right lower quadrant extending to the inferior aspect of the right pararenal space as well as the right pelvis. There is scattered atherosclerotic calcification of the abdominal aorta, without a demonstrated aneurysm. Normal inferior vena cava. Normal retroperitoneum. Diffuse irregular bladder wall thickening worse on the left side. A neoplastic process should be ruled out. There is a small umbilical hernia containing fat. Loss of the normal lumbar lordosis. CT/Abdomen/Pelvis W IV Cont ONLY IMPRESSION: Findings in keeping with acute appendicitis and inflammatory changes seen in the right lower quadrant and extending into the right side of the pelvis. Diffuse bilateral wall thickening worse on the left side. Hepatomegaly and diffuse fatty infiltration of the liver. Scattered sigmoid diverticula. Electronically Signed: Danielito Tim MD at 13:28 EDT ,
[2022-12-06 12:07] LABS: International Normalized Ratio 1.1; Prothrombin Time (Protime)PT. 13.7 SECONDS (11.7-14.9)
[2022-12-06] MEDS: Piperacil/Tazobactam 4.5 GM in 0.9% Normal Saline (100mL MB+) 100 ML IV (12:33)
--- NOTE | 2022-12-06 12:44 | EDS_ITS ---
HPI History of Present Illness Chief Complaint: Dizziness Detail of Chief Complaint: Dizziness which patient advises lightheadedness Informant: patient Onset/Context/Timing Onset: Today and Yesterday Timing: Continuous and Waxes and wanes Quality: Lightheaded Location: Not applicable Current Severity: Mild (Time of evaluation patient is receiving IV fluids and is now supine) Maximum Severity: Severe Worsened by: Upright position Relieved by: Better when supine Associated Symptoms Associated Symptoms: Abdominal distention and discomfort Narrative Narrative: Patient is a 42-year-old male who was seen yesterday for dizziness. He had a CT of the head at that time which was unremarkable. Patient's blood pressure was elevated. Patient was started on antihypertensive medication. He presents today because his dizziness is not improved and is worse when he stands. He denies fever, chills night sweats. Denies headache, visual, ocular auditory symptoms. He denies chest pain, pressure or tightness. He denies shortness of breath or dyspnea on exertion. He does endorse abdominal discomfort and distention. He denies black or maroon-colored stool. He denies dysuria, frequency, urgency or hematuria. He denies rash or any skin since. Prior similar symptoms: Yes Recent Illness/Hospitalization: [facility] Medical History Atherosclerotic heart disease [place] coronary artery w/angina pectoris DVT (deep venous thrombosis) Essential hypertension History of ST elevation myocardial infarction (STEMI) (10/12/19) Morbid obesity Noncompliance with diet and medication regimen Poor personal hygiene Smoker Tobacco dependence Tobacco use Type 2 diabetes mellitus Uncontrolled type 2 diabetes mellitus Home Medications nitroglycerin 0.4 mg sublingual tablet (Nitrostat) 0.4 mg sublingual Q5-15M PRN chest pain #25 tabs 11/01/20 [Rx Last Taken Unknown] carvedilol 25 mg tablet 6.25 mg PO BID blood pressure 11/17/20 [History Last Taken 02/13/22] insulin glargine 100 unit/mL (3 mL) subcutaneous pen 6 unit SC BREAKFAST diabetes 02/21/21 [History Last Taken 02/13/22] metformin 500 mg tablet 500 mg PO BID diabetes 02/21/21 [History Last Taken 02/13/22] ticagrelor 90 mg tablet 90 mg PO BID anti platelet 02/21/21 [History Last Taken 02/13/22] losartan 100 mg tablet 50 mg PO DAILY blood pressure 02/12/22 [History Last Taken 02/13/22] Allergy/AdvReac Type Severity Reaction Status Date / Time No Known Allergies Allergy Verified 12/05/22 13:25 Family History Father Myocardial infarction Mother CVA (cerebral vascular accident) Surgical History H/O cardiac catheterization (11/11/20) History of coronary artery stent placement (11/14/20) Social History housing: other details: 3 dogs Smoking Status: Current every day smoker tobacco type: cigarettes and smokeless tobacco Smokeless tobacco user: chewing tobacco how long ago did patient quit smokin year ago alcohol intake: never substance use type: does not use caffeine: Yes Type: tea ROS ROS ED Constitutional Constitutional ED: Denies chills, fever(s), subjective, sweats or weight loss Eyes Eyes: Denies blurry vision, change in vision or diplopia ENT ENT ED: Denies ear pain, rhinorrhea or sore throat Cardiovascular Cardiovascular: Denies chest pain, orthopnea, palpitations, paroxysmal nocturnal dyspnea or racing heartbeat Respiratory/Chest Respiratory/Chest: Denies cough, dyspnea, dyspnea on exertion, orthopnea or paroxysmal nocturnal dyspnea Gastrointestinal Gastrointestinal: Reports abdominal pain and nausea; Denies constipation, diarrhea, melena or vomiting Genitourinary Genitourinary ED: Denies dysuria, hematuria or urinary frequency Musculoskeletal Musculoskeletal: Denies arthralgias, back pain, myalgias or neck pain Integumentary Denies rash Neurologic Neurologic: Reports weakness; Denies headache(s) or paresthesias Psychiatric Psychiatric: Denies anxiety Endocrine Endocrinology: Denies polydipsia or polyuria Hematologic/Lymphatic Hematologic/Lymphatic: Reports systems reviewed and no addt'l complaints, except as documented Allergic/Immunologic Allergic/Immunologic ED: Denies mouth swelling or tongue swelling EXAM Physical Exam Const Vital Signs: 12/06/22 11:21 12/06/22 11:47 12/06/22 11:58 Temperature 98 F Temperature Source Temporal Pulse Rate 88 Pulse Rate [Lying] Pulse Rate [Sitting (for 1 minute prior to obtaining)] Pulse Rate [Standing (for 1 minute prior to obtaining)] Respiratory Rate 14 Respiratory Effort Normal Respiratory Pattern Normal Blood Pressure 79/51 L 65/52 L Blood Pressure [Lying] Blood Pressure [Sitting (for 1 minute prior to obtaining)] Blood Pressure [Standing (for 1 minute prior to obtaining)] Blood Pressure Mean 60 56 Blood Pressure Mean [Lying] Blood Pressure Mean [Sitting (for 1 minute prior to obtaining)] Blood Pressure Mean [Standing (for 1 minute prior to obtaining)] Pulse Ox 97 Oxygen Delivery Method Room Air 12/06/22 12:48 Temperature Temperature Source Pulse Rate Pulse Rate [Lying] 106 H Pulse Rate [Sitting (for 1 minute prior to obtaining)] 108 H Pulse Rate [Standing (for 1 minute prior to obtaining)] 107 H Respiratory Rate Respiratory Effort Respiratory Pattern Blood Pressure Blood Pressure [Lying] 138/77 H Blood Pressure [Sitting (for 1 minute prior to obtaining)] 126/74 H Blood Pressure [Standing (for 1 minute prior to obtaining)] 122/72 H Blood Pressure Mean Blood Pressure Mean [Lying] 97 Blood Pressure Mean [Sitting (for 1 minute prior to obtaining)] 91 Blood Pressure Mean [Standing (for 1 minute prior to obtaining)] 88 Pulse Ox Oxygen Delivery Method Positive well nourished, well developed and obese Constitutional Narrative: Appears ill. His initial blood pressure in triage was 79/51. Repeat was 65/52. Patient was administered IV fluids in triage and appropriate blood work was initiated. General Appearance ED: well developed; Negative for pallor Nutritional Appearance: obese HEENT Reports dry mucous membranes Negative for trauma or tenderness Mouth ED: Yes dry mucous membranes Mouth: dry mucous membranes Eyes PERRL and EOMs intact bilaterally General Eye ED: Negative for pale conjunctiva or scleral icterus Neck no lymphadenopathy, supple and no JVD Chest Wall inspection of chest normal and palpation of chest normal Resp normal respiratory effort and clear to auscultation bilaterally Cardio regular rhythm, S1 normal heart sound, S2 normal heart sound and no murmurs Rate: tachycardic GI no masses; Negative for normal to inspection, nondistended, normoactive bowel sounds, non-tender, non-distended or hepatosplenomegaly GI Narrative: With generalized peritonitis very firm to rigid abdomen right lower quadrant. He is tympanitic to percussion. Bowel sounds are markedly diminished. Narrative: Normal external genitalia. Back/Spine General Back: CVA tenderness right Extremity General Extremety ED: Negative for edema or tenderness General Extremity: Negative for edema Neuro oriented x3, CN's II-XII intact bilaterally and no sensory deficits noted Sensorium / Orientation: alert Psych mental status grossly normal Skin no rashes or lesions noted, no wounds and skin turgor normal Skin Narrative: Patient's skin is mottled with delayed capillary refill. General Skin Exam: Negative for jaundice or pallor Sepsis Attestation Sepsis Alert: Yes Sepsis Attestation: Agree w/Sepsis Date exam was performed: 12/06/22 Time exam was performed: 11:36 Possible Source of Sepsis: GI tract/intra-abdominal (Started immediately on antibiotics because he was hypotensive and had generalized peritonitis. Patient was deemed to be in critical condition and hemodynamically stable and reason blood cultures were not obtained prior to administration of IV antibiotics.) Sepsis Organ Dysfunction Criteria Present: SBP < 90 mmHg or MAP < 65 mmHg Fluid Resuscitation Fluid resuscitation indicated?: Yes Fluid Resuscitation ordered: Lesser volume fluid bolus ordered (With history of atherosclerotic heart disease. Will administer fluids. If there is an appropriate response will not give the full 30 cc/kg bolus which would be equivalent of 3.3 L.) Amount of fluid ordered: 2,000 Reason for lesser fluid bolus:: Concern for fluid overload and BP Responded to a lesser volume MDM MDM MDM Narrative Medical decision making narrative: With hypertension. Yesterday's visit was read and laboratory results were reviewed. Patient had a high white count at that time. With patient being hypotensive, mottled with delayed cap refill elevated white count yesterday concern patient has sepsis. Verbal orders were given. Not always wrote placed. Additional orders were placed. Blood cultures were not drawn prior to administration antibiotics as patient is hemodynamically unstable. IV fluids were ordered. He was treated with Zosyn since the culprit was deemed to be intra-abdominal. Patient did respond to IV fluids. Dr. Valle was notified once CAT scan was reviewed and formal read was given to me by Dr. Hampton. History & Record Review Discussion w/independent historian: Patient Lab Data Labs: Laboratory Results - last 24 hr 12/06/22 11:45 WBC 17.8 H RBC 5.07 Hgb 15.0 Hct 46.7 MCV 92.1 MCH 29.6 MCHC 32.1 RDW Std Deviation 49.5 H RDW Coeff of Hayley 14.6 Plt Count 324 MPV 10.4 Immature Gran % (Auto) 0.700 Neut % (Auto) 86.7 H Lymph % (Auto) 5.7 L [place] % (Auto) 6.1 Eos % (Auto) 0.4 Baso % (Auto) 0.4 Absolute Neuts (auto) 15.5 H Absolute Lymphs (auto) 1.02 Nucleated RBC % 0 PT 13.7 INR 1.1 Radiography Diagnostic Testing: Clinical Impression(s) from Imaging Studies Abdomen/Pelvis CT 12/06/22 12:06 IMPRESSION: Findings in keeping with acute appendicitis and inflammatory changes seen in the right lower quadrant and extending into the right side of the pelvis. Diffuse bilateral wall thickening worse on the left side. Hepatomegaly and diffuse fatty infiltration of the liver. Scattered sigmoid diverticula. Electronically Signed: Danielito Tim MD at 13:28 EDT , Management Discussion w/another healthcare provider: Hospitalist, Pointer Helper (Dr. Audie Fitzpatrick on-call for surgery was notified of patient is presently seen patient. Plan is OR and admit to medicine because he was hypotensive and has multiple medical problems.) and Radiologist (Radiologist called me regarding CAT scan He was concerned because of urinary bladder thickness and possibility of bladder cancer. I question if this was due to the inflammation from his appendicitis.) Critical Care Time Critical Care Time: Yes Critical care time (excluding procedures): 30-74 minutes (33 minutes), Including time spent: (3, physical, documentation, review of yesterday's records and laboratory results, verbal order to triage nurse since there were no beds initially available for this patient), Discussing w/Patient &/or Family/Plastics Technician, Arranging Admission or Transfer, Performing Direct Patient Care at Bedside and - (3 packs of platelets were ordered since patient on Brilinta needs emergent surgery for acute appendicitis.) Discharge Plan Triage Chief Complaint: Dizziness ED Provider: [facility] Dx/Rx/DC Orders Clinical Impression: Sepsis associated hypotension, Acute hypotension, Hyperlipidemia, Essential hypertension, Type 2 diabetes mellitus, Acute appendicitis with generalized peritonitis, History of atherosclerotic heart disease, 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
[2022-12-06] MEDS: 0.9% Normal Saline (1000mL) 1,000 ML 1000 ML IV (13:15)
--- NOTE | 2022-12-06 13:53 | HP.PCM.HOS_ITS ---
HPI - General General Date of Admission: 12/06/22 Date of Service: 12/06/22 Chief Complaint: Dizziness, abdominal pain. HPI Narrative The patient is a 41 y/o M w/ PMHx: Obesity, Hx DVT, CAD d/p PCI, HTN, HLD, Tobacco use who presents to the [facility] ED on 12/06/22 with history of being seen the day prior in the ED for dizziness and urinary retention with leukocytosis at that time but improved but unfortunately had recurrent dizziness prompting, abdominal pain worse in the RLQ, nausea without emesis, abdominal distention with recent decreased oral intake over the last week as well as onset of night sweats and chills without specific fever prompting ED return given worsened. He currently notes his pain is severe diffuse, worse however right-sided and worse in the right lower quadrant as well as the left lower quadrant with pain constant dull aching and intermittent sharp stabbing 10 out of 10 in severity. Work-up in the ED included T98, heart rate 86, BP initially 79/51, respiratory rate 14, 97% on room air, most recent vital signs include heart rate 106, BP 130/77, orthostatic vital sign not severe appearing, CBC with WC 17.8, h emoglobin 15, platelet 324 with left shift, coags unremarkable, CT abdomen and pelvis with findings in keeping with acute appendicitis with inflammatory changes seen in the right lower quadrant and extending to the right side of the pelvis, diffuse bilateral wall thickening worse on the left side, hepatomegaly and diffuse fatty infiltration of the liver, scattered sigmoid diverticula. Of note recent 12/05/2022 CMP with sodium 131, glucose 317, hepatic profile unremarkable but currently there is no repeat upon requested evaluation of patient. In the ED patient ministered IV Zosyn as well as 30 cc/kg IV fluid bolus and continue maintenance IV fluids. ED discussed case with Dr. Hoang General surgery. FOR[facility]LY [facility] Medical History Atherosclerotic heart disease [place] coronary artery w/angina pectoris DVT (deep venous thrombosis) Essential hypertension History of ST elevation myocardial infarction (STEMI) (10/12/19) Morbid obesity Noncompliance with diet and medication regimen Poor personal hygiene Smoker Tobacco dependence Tobacco use Type 2 diabetes mellitus Uncontrolled type 2 diabetes mellitus Home Medications nitroglycerin 0.4 mg sublingual tablet (Nitrostat) 0.4 mg sublingual Q5-15M PRN chest pain #25 tabs 11/01/20 [Rx Last Taken Unknown] carvedilol 25 mg tablet 6.25 mg PO BID blood pressure 11/17/20 [History Last Taken 02/13/22] insulin glargine 100 unit/mL (3 mL) subcutaneous pen 6 unit SC BREAKFAST diabetes 02/21/21 [History Last Taken 02/13/22] metformin 500 mg tablet 500 mg PO BID diabetes 02/21/21 [History Last Taken 02/13/22] ticagrelor 90 mg tablet 90 mg PO BID anti platelet 02/21/21 [History Last Taken 02/13/22] losartan 100 mg tablet 50 mg PO DAILY blood pressure 02/12/22 [History Last Taken 02/13/22] Allergy/AdvReac Type Severity Reaction Status Date / Time No Known Allergies Allergy Verified 12/05/22 13:25 Family History Father Myocardial infarction Mother CVA (cerebral vascular accident) Surgical History H/O cardiac catheterization (11/11/20) History of coronary artery stent placement (11/14/20) Social History housing: other details: 3 dogs Smoking Status: Current every day smoker tobacco type: cigarettes and smokeless tobacco Smokeless tobacco user: chewing tobacco how long ago did patient quit smokin year ago alcohol intake: never substance use type: does not use caffeine: Yes Type: tea ROS ROS Narrative Admission Review of Systems: CONSTITUTIONAL: No weight loss, fever, + chills, weakness or fatigue. HEENT: Eyes: No visual loss, blurred vision, double vision or yellow sclerae. Ears, Nose, Throat: No hearing loss, sneezing, congestion, runny nose or sore throat. SKIN: No rash or itching, lesions, wounds. CARDIOVASCULAR: + Dizziness. No chest pain, chest pressure or chest discomfort, palpitations, edema, orthopnea, syncopal events. RESPIRATORY: No shortness of breath, cough or sputum, wheezing, hemoptysis. GASTROINTESTINAL: + anorexia, nausea, abdominal pain, No vomiting, diarrhea, [place], BRBPR. GENITOURINARY: No dysuria, frequency, urgency or retention. NEUROLOGICAL: + Dizziness. No headache, syncope, paralysis, ataxia, numbness or tingling in the extremities, focal weakness, change in bowel or bladder control, seizure. MUSCULOSKELETAL: + muscle, back pain, joint pain or stiffness. HEMATOLOGIC: + No easy bleeding or bruising. LYMPHATICS: No enlarged nodes. No history of splenectomy. PSYCHIATRIC: No history of depression or anxiety. ENDOCRINOLOGIC: + reports of sweating, cold or heat intolerance. No polyuria or polydipsia. ALLERGIES: No history of asthma, hives, eczema or rhinitis. Vital Signs Vital Signs Vital Signs: 12/06/22 11:21 12/06/22 11:47 12/06/22 11:58 Temperature 98 F Temperature Source Temporal Pulse Rate 88 Pulse Rate [Lying] Pulse Rate [Sitting (for 1 minute prior to obtaining)] Pulse Rate [Standing (for 1 minute prior to obtaining)] Respiratory Rate 14 Respiratory Effort Normal Respiratory Pattern Normal Blood Pressure 79/51 L 65/52 L Blood Pressure [Lying] Blood Pressure [Sitting (for 1 minute prior to obtaining)] Blood Pressure [Standing (for 1 minute prior to obtaining)] Blood Pressure Mean 60 56 Blood Pressure Mean [Lying] Blood Pressure Mean [Sitting (for 1 minute prior to obtaining)] Blood Pressure Mean [Standing (for 1 minute prior to obtaining)] Pulse Ox 97 Oxygen Delivery Method Room Air 12/06/22 12:48 Temperature Temperature Source Pulse Rate Pulse Rate [Lying] 106 H Pulse Rate [Sitting (for 1 minute prior to obtaining)] 108 H Pulse Rate [Standing (for 1 minute prior to obtaining)] 107 H Respiratory Rate Respiratory Effort Respiratory Pattern Blood Pressure Blood Pressure [Lying] 138/77 H Blood Pressure [Sitting (for 1 minute prior to obtaining)] 126/74 H Blood Pressure [Standing (for 1 minute prior to obtaining)] 122/72 H Blood Pressure Mean Blood Pressure Mean [Lying] 97 Blood Pressure Mean [Sitting (for 1 minute prior to obtaining)] 91 Blood Pressure Mean [Standing (for 1 minute prior to obtaining)] 88 Pulse Ox Oxygen Delivery Method Weight Weight: 241 lb 9.6 oz Body Mass Index (BMI) 33.7 Physical Exam Narrative Physical Examination: General: Awake, alert, oriented x 3 and cooperative, seated upright in the ED bed, uncomfortable appearing, ill-appearing. Skin: Normal color, normal turgor, no icterus, no cyanosis except for occasional staged ecchymoses. HEENT: AT/NC, EOMI, PERRLA, dry MM, no carotid bruits or JVD noted. Lungs: Diminished, bases, appropriate effort, no evidence of any distress, no rales, ronchi or wheezing. Heart: Tachycardic with regular rhythm; no gallop, rub audible. Abdomen: Tense, severe diffuse tenderness with palpation, rebound and voluntary guarding noted, appears distended although habitus makes evaluation difficult, hypoactive BS, difficult to assess HSM given pain. Extremities: No cyanosis, clubbing, or edema. Neurological: Patient awake, alert, oriented as noted, cognitive function intact; pupils equally reactive to light and accommodation, cranial nerves II- XII grossly normal, moving all 4 extremities, no focal deficits, strength m oderately to severely global decrease secondary to acute presentation. Psychiatric: Affect appears fatigued, uncomfortable, ill-appearing, no acute evidence of depressive or anxiety feelings. Results Lab / Micro Data 12/06/22 11:45 12/06/22 13:55 Labs: Laboratory Results - last 24 hr 12/06/22 11:45: WBC 17.8 H, RBC 5.07, Hgb 15.0, Hct 46.7, MCV 92.1, MCH 29.6, MCHC 32.1, RDW Std Deviation 49.5 H, RDW Coeff of Hayley 14.6, Plt Count 324, MPV 10.4, Immature Gran % (Auto) 0.700, Neut % (Auto) 86.7 H, Lymph % (Auto) 5.7 L, [place] % (Auto) 6.1, Eos % (Auto) 0.4, Baso % (Auto) 0.4, Absolute Neuts (auto) 15.5 H, Absolute Lymphs (auto) 1.02, Nucleated RBC % 0, PT 13.7, INR 1.1 Radiology Impression Abdomen/Pelvis CT 12/06/22 12:06 IMPRESSION: Findings in keeping with acute appendicitis and inflammatory changes seen in the right lower quadrant and extending into the right side of the pelvis. Diffuse bilateral wall thickening worse on the left side. Hepatomegaly and diffuse fatty infiltration of the liver. Scattered sigmoid diverticula. Electronically Signed: Danielito Tim MD at 13:28 EDT , Assessment & Plan Assessment/Plan (1) Acute appendicitis with generalized peritonitis: QUALIFIERS: Appendicitis gangrene presence: unspecified whether gangrene present Appendicitis perforation presence: unspecified whether perforation present Appendicitis abscess presence: unspecified whether abscess present Qualified Code(s): K35.20 - Acute appendicitis with generalized peritonitis, without abscess PLAN: Plan The patient is a 41 y/o M w/ PMHx: Obesity, Hx DVT, CAD d/p PCI, HTN, HLD, Tobacco use who presents to the [facility] ED on 12/06/22 with history of being seen the day prior in the ED for dizziness and urinary retention with leukocytosis at that time but improved but unfortunately had recurrent dizziness prompting, abdominal pain worse in the RLQ, nausea without emesis, abdominal distention with recent decreased oral intake over the last week as well as onset of night sweats and chills without specific fever prompting ED return given worsened. #1. Acute sepsis secondary to acute appendicitis with generalized peritonitis (tachycardia, leukocytosis, hypotension, source, leukocytosis): Patient will transition from ED to the OR with Dr. Hoang, will have plts ordered and on hold given Brillinta regimen and last dose AM on day of presentation, will need an on IV Zosyn, will maintain n.p.o. status on IV PPI, will continue aggressive IV fluids, will have as needed oral and IV pain regimen, as needed antiemetic regimen, continue consultation with Dr. Hoang general surgery. At this point given concern for possible bleeding may consider admitting patient if bleeding issues in the OR to the ICU otherwise PCU status if clinically stable which will be discussed postoperatively with surgery. #2. CAD: s/p STEMI 09/2019 w/ PTCA/SURYA to proximal OM , 10/2020 cardiac catheterization with severe triple-vessel disease with distal left main coronary stenosis, high-grade proximal LAD stenosis, high-grade proximal right coronary artery stenosis in the large vessel and high-grade distal right coronary artery stenosis with transfer to [facility] for CABG transferred to [facility] consult for coronary revascularization; however, he ended up undergoing proximal and mid LAD, 1 bare-metal stent to his RCA, 1 drug-eluting stent to his distal RCA with temporarily pacemaker placement at that time secondary to vasovagal reaction post-procedure per report. We will hold Brilinta given current presen tation as noted, platelets available if patient does have postoperative or intraoperative bleeding issues, given hypotension upon presentation will temporally hold hypertensive regimen but once able add back Coreg and home losartan regimen, not on statin therapy per current list. #3. Hypertension: Given acute presentation with hypotension secondary to sepsis as noted above we will hold regimen, add back once appropriate. #4. Hyperlipidemia: Clarifying but per current list not on statin therapy. #5. Diabetes mellitus type II: Hold oral home regimen, n.p.o. status, hemoglobin A1c requested, maintain on accu checks w/ ISS. #6. Tobacco Abuse: Encouraged chew and cigarette tobacco cessation, inpatient consultation per RT, NR if desired. #7. Obesity: Weight loss and lifestyle changes encouraged. #8. DVT prophylaxis: SCDs. #9. CODE status: Patient does not have healthcare power of compliance attorney nor living will in place but notes he would want his Sister Lizzy to be his decision-eli er if he was unable. Discussed CODE status at length including difference between FULL code, DNR-CCA and DNR-CC status. Following discussions about the differences in these status, requested Full Code. Advanced Care Planning Face to Face Time: [] minutes. Charges/Coding Visit Charges Inpatient E&M: 05490 Init Hosp L3 Procedures Hospitalists Procedures: 48035 Advncd Care Plan 30 Min
--- NOTE | 2022-12-06 14:04 | HP.PCM_ITS ---
[facility] - [facility] General Date of Admission: 12/06/22 Date of Service: 12/06/22 Chief Complaint: Dizziness, abdominal pain. HPI Narrative ARIK CANAS, is a 42 M who presents with worsening abdominal pain and dizziness. Patient states his abdominal pain started this morning. He noted some abdominal pain at his bladder/pelvic region last night. He thought this was due to him needing to urinate. He notes over night he experience night sweats and chills. He is unsure if he had a fever has he did not have a thermometer. He denies nausea, vomiting. He notes his appetite has been decreased however his appetite normally is not great. Patient notes over the last few days he has been experiencing constipation. Patient denies previous abdominal surgeries. He denies any pulmonary history. He states he smokes 1/2 ppd x 2 years. He denies alcohol use and he denies illicit drug use. He notes he is on Brilinta starting 2 years ago, 2020. Patient states approximately 2 years ago he had a myocardial infarction. He notes he had 2 stents placed here at [place] at that time, however due to his significant cardiac disease he was transferred to [place] to have an additional 5 stents placed. He has not followed with a airframe and powerplant mechanic in a few in at least a year. Patient also takes aspirin, metformin, two blood pressure medications and cholesterol medication. He does not currently have a PCP. CT scan of the ab/pel was obtained demonstrating the following: The visualized lung bases are unremarkable. Coronary artery calcification. There is decreased attenuation of the liver consistent with steatosis. Hepatomegaly. Normal gallbladder and extrahepatic biliary system. Normal spleen. Normal pancreas. Normal bilateral adrenal glands. Normal right kidney. 1 cm cyst in the upper posterior aspect of the left kidney. Normal visualized stomach. Normal small intestine. There are multiple colonic diverticula consistent with diverticulosis. There is a tubular, thick-walled appendix (>7mm), consistent with acute appendicitis. Inflammatory changes are seen in the right lower quadrant extending to the inferior aspect of the right pararenal space as well as the right pelvis. There is scattered atherosclerotic calcification of the abdominal aorta, without a demonstrated aneurysm. Normal inferior vena cava. Normal retroperitoneum. Diffuse irregular bladder wall thickening worse on the left side. A neoplastic process should be ruled out. There is a small umbilical hernia containing fat. Loss of the normal lumbar lordosis. Patient was apparently evaluated here in the ED yesterday with complaints of dizziness and urinary symptoms. Patient had leukocytosis at that time. Patient was recommended to have a urinary catheter placed and patient declined. Patient was discharged to home yesterday. Patient has also been admitted previously for diverticulitis with abscess in 02/2021. He was treated conservatively. He did not follow-up with Dr. Reynoso after his hospitalization. FORMERLY [facility], [facility] Medical History Atherosclerotic heart disease [place] coronary artery w/angina pectoris DVT (deep venous thrombosis) Essential hypertension History of ST elevation myocardial infarction (STEMI) (10/12/19) Morbid obesity Noncompliance with diet and medication regimen Poor personal hygiene Smoker Tobacco dependence Tobacco use Type 2 diabetes mellitus Uncontrolled type 2 diabetes mellitus Home Medications nitroglycerin 0.4 mg sublingual tablet (Nitrostat) 0.4 mg sublingual Q5-15M PRN chest pain #25 tabs 11/01/20 [Rx Last Taken Unknown] carvedilol 25 mg tablet 6.25 mg PO BID blood pressure 11/17/20 [History Last Taken 02/13/22] insulin glargine 100 unit/mL (3 mL) subcutaneous pen 6 unit SC BREAKFAST diabetes 02/21/21 [History Last Taken 02/13/22] metformin 500 mg tablet 500 mg PO BID diabetes 02/21/21 [History Last Taken 02/13/22] ticagrelor 90 mg tablet 90 mg PO BID anti platelet 02/21/21 [History Last Taken 02/13/22] losartan 100 mg tablet 50 mg PO DAILY blood pressure 02/12/22 [History Last Taken 02/13/22] Allergy/AdvReac Type Severity Reaction Status Date / Time No Known Allergies Allergy Verified 12/05/22 13:25 Family History Father Myocardial infarction Mother CVA (cerebral vascular accident) Surgical History H/O cardiac catheterization (11/11/20) History of coronary artery stent placement (11/14/20) Social History housing: other details: 3 dogs Smoking Status: Current every day smoker tobacco type: cigarettes and smokeless tobacco Smokeless tobacco user: chewing tobacco how long ago did patient quit smokin year ago alcohol intake: never substance use type: does not use caffeine: Yes Type: tea ROS Constitutional Constitutional: Reports chills, lethargy, night sweats and poor appetite Eyes Eyes: Reports systems reviewed and no addt'l complaints, except as documented ENT HEENT: Reports systems reviewed and no addt'l complaints, except as documented Cardiovascular Cardiovascular: Reports systems reviewed and no addt'l complaints, except as documented Respiratory/Chest Respiratory/Chest: Reports systems reviewed and no addt'l complaints, except as documented Gastrointestinal Gastrointestinal: Reports systems reviewed and no addt'l complaints, except as documented and abdominal pain Genitourinary Genitourinary: Reports systems reviewed and no addt'l complaints, except as documented Musculoskeletal Musculoskeletal: Reports systems reviewed and no addt'l complaints, except as documented Integumentary Integumentary: Reports systems reviewed and no addt'l complaints, except as documented Neurologic Neurologic: Reports systems reviewed and no addt'l complaints, except as documented Psychiatric Psychiatric: Reports systems reviewed and no addt'l complaints, except as documented Endocrine Endocrinology: Reports systems reviewed and no addt'l complaints, except as documented Hematologic/Lymphatic Hematologic/Lymphatic: Reports systems reviewed and no addt'l complaints, except as documented Allergic/Immunologic Allergic/Immunologic: Reports systems reviewed and no addt'l complaints, except as documented Vital Signs Vital Signs Vital Signs: 12/06/22 11:21 12/06/22 11:47 12/06/22 11:58 Temperature 98 F Temperature Source Temporal Pulse Rate 88 Pulse Rate [Lying] Pulse Rate [Sitting (for 1 minute prior to obtaining)] Pulse Rate [Standing (for 1 minute prior to obtaining)] Respiratory Rate 14 Respiratory Effort Normal Respiratory Pattern Normal Blood Pressure 79/51 L 65/52 L Blood Pressure [Lying] Blood Pressure [Sitting (for 1 minute prior to obtaining)] Blood Pressure [Standing (for 1 minute prior to obtaining)] Blood Pressure Mean 60 56 Blood Pressure Mean [Lying] Blood Pressure Mean [Sitting (for 1 minute prior to obtaining)] Blood Pressure Mean [Standing (for 1 minute prior to obtaining)] Pulse Ox 97 Oxygen Delivery Method Room Air 12/06/22 12:48 Temperature Temperature Source Pulse Rate Pulse Rate [Lying] 106 H Pulse Rate [Sitting (for 1 minute prior to obtaining)] 108 H Pulse Rate [Standing (for 1 minute prior to obtaining)] 107 H Respiratory Rate Respiratory Effort Respiratory Pattern Blood Pressure Blood Pressure [Lying] 138/77 H Blood Pressure [Sitting (for 1 minute prior to obtaining)] 126/74 H Blood Pressure [Standing (for 1 minute prior to obtaining)] 122/72 H Blood Pressure Mean Blood Pressure Mean [Lying] 97 Blood Pressure Mean [Sitting (for 1 minute prior to obtaining)] 91 Blood Pressure Mean [Standing (for 1 minute prior to obtaining)] 88 Pulse Ox Oxygen Delivery Method Weight Weight: 241 lb 9.6 oz Body Mass Index (BMI) 33.7 Physical Exam Const alert, oriented x3 and no apparent distress HEENT normocephalic and head/scalp atraumatic Teeth and Ging[place]: poor dentition Eyes PERRL Neck General: normal visual inspection Resp normal respiratory effort, normal air movement and clear to auscultation bilaterally Cardio Rate: tachycardic Rhythm: regular rhythm GI GI Narrative: Abdomen- obese, obtunded, guarding to palpation throughout the entire abdomen. Rebound tenderness throughout the lower abdomen. Significant tenderness in the right lower quadrant. Hypoactive bowel sounds. no CVA tenderness Back/Spine no CVA tenderness Extremity normal to inspection Skin Skin Narrative: Multiple abrasions on patient's skin throughout the body Neuro no focal motor deficits and no sensory deficits noted Psych Appearance: unkempt Attitude: calm Results Lab / Micro Data 12/06/22 11:45 12/06/22 13:55 Labs: Laboratory Results - last 24 hr 12/06/22 11:45: WBC 17.8 H, RBC 5.07, Hgb 15.0, Hct 46.7, MCV 92.1, MCH 29.6, MCHC 32.1, RDW Std Deviation 49.5 H, RDW Coeff of Hayley 14.6, Plt Count 324, MPV 10.4, Immature Gran % (Auto) 0.700, Neut % (Auto) 86.7 H, Lymph % (Auto) 5.7 L, [place] % (Auto) 6.1, Eos % (Auto) 0.4, Baso % (Auto) 0.4, Absolute Neuts (auto) 15.5 H, Absolute Lymphs (auto) 1.02, Nucleated RBC % 0, PT 13.7, INR 1.1 Radiology Impression Abdomen/Pelvis CT 12/06/22 12:06 IMPRESSION: Findings in keeping with acute appendicitis and inflammatory changes seen in the right lower quadrant and extending into the right side of the pelvis. Diffuse bilateral wall thickening worse on the left side. Hepatomegaly and diffuse fatty infiltration of the liver. Scattered sigmoid diverticula. 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 Hoang. He will independently evaluate this patient. CT scan of the ab/pel confirms acute appendicitis. Patient has positive signs of peritonitis. Dr. Hoang will plan to perform a laparoscopic appendectomy possible conversion to open procedure, possible bowel resection. Procedure details, risks and benefits have been explained to the patient. Patient has had the opportunity to ask and have questions answered. Patient is aware that since he is on Brilinta, he is at a higher risk of bleeding during the procedure. ED had ordered 3 units of platelets. Patient will be admitted to the ICU secondary to sepsis as the patient has leukocytosis with an episode of hypotension and his increased risk of bleeding from his Brilinta. Thank you for allowing us to participate in this patient's care. Charges/Coding Visit Charges OBSV E&M: 01745 Observ/hosp same date L2
--- NOTE | 2022-12-06 14:07 | NURSING ---
OR THEN ICU WHITE SEPSIS, APPENDICITIS, PERITONITIS
[2022-12-06 14:41] LABS: ALB/GLOB Ratio 0.7 RATIO (0.9-2.4); AST(SGOT) 10 U/L (15-37); Alanine Aminotransfer ALT/SGPT 23 U/L (16-61); Albumin, Serum 2.9 g/dL (3.2-5.0); Alkaline Phosphatase 90 U/L (45-117); Anion Gap 3 (5-15); BUN 24 mg/dL (7-18); BUN/Creat Ratio 14.3 RATIO (10-20); Calcium,Total 8.9 mg/dL (8.5-10.1); Chloride 98 mmol/L (98-107); Creatinine, Serum 1.68 mg/dL (0.70-1.30); EST Glomerular Filtration Rate 48 mL/min (>60); Est Glom Filt Rate - Afr Amer 58 mL/min (>60); Estimated Creatinine Clearance 60.38 ml/min; Glucose 376 mg/dL (74-106); Potassium 5.9 mmol/L (3.5-5.1); Protein, Total 6.9 g/dL (6.4-8.2); Sodium Level 128 mmol/L (136-145)
[2022-12-06 14:42] LABS: Lactic Acid 2.3 mmol/L (0.4-1.9)
--- NOTE | 2022-12-06 15:08 | SUR.PREOP ---
8656 critical lactic acid, called from lab and informed dr. sinha, anesthesia
[2022-12-06] MEDS: Bupivacaine 0.25% 30 ML Vial (15:30)
[2022-12-06] MEDS: 0.9% Normal Saline (1000mL) 1,000 ML 150 ML IV (16:00)
--- NOTE | 2022-12-06 16:05 | APP_PTH ---
PATIENT: ARIK CANAS LOC: [facility] U#:[id number] AGE/SX: 42/M ROOM: [facility] RE12/06/[address]: Dr. Grace Ríos MD : 1980 BED: 1 DIS: 12/09/2022 SPEC #: [id number] RECD: 12/06/22 16:20 STATUS: DELILAH LEELawrence #: [id number] LEELEE: 12/06/22 16:[address]: Audie Hoang DEPT: SURGICAL PATHOLOGY RECD BY: Silvia Fox ENTERED: 12/07/22 07:26 SP TYPE: APPENDIX OTHR DR: Dr. Thony Garcia, DO No Primary Care Phys Tissues: Appendix, NOS Procedures: Surgery Specimen Level III HEADER OPERATION: Laparoscopic appendectomy PRE-OP DIAGNOSIS: Acute appendicitis with generalized peritonitis TISSUE SUBMITTED: Appendix MICROSCOPIC DIAGNOSIS Appendix, appendectomy: Focal minimal acute appendicitis. Moderate to marked periappendicitis. See comment. SJ:tracey 12/11/2022 COMMENT The entire appendix is examined. No obvious perforation is noted. Focal diverticular changes are noted at tip of the appendix. Correlation with clinical findings and appropriate follow up are necessary. Case has been reviewed in consultation with Dr. Edmondson who concurs with the above diagnosis. IDC:AM MICROSCOPIC DESCRIPTION Slides are reviewed. GROSS DESCRIPTION Received in fixative is one container labeled with the patient's name and designated appendix. The specimen consists of an appendix measuring 6.0 cm in length and up to 1.5 cm in diameter. The attached periappendiceal adipose tissue measures up to 1.5 cm in width. The serosal surface is covered with nunez, purulent exudate. No obvious perforation is identified. The lumen is pinpoint. No fecalith is identified. Manager Spa sections are submitted in one cassette. / ANTONIO:tracey 12/07/2022 The rest of the appendix is submitted in five more cassettes, 2-6. / ANTONIO:tracey 12/10/2022 TC:2 [facility]: [id number]
--- NOTE | 2022-12-06 16:16 | OP.PCM_ITS ---
Report of Operation Date of Procedure: 12/06/22 Pre-Operative Diagnosis: Acute appendicitis Post-Operative Diagnosis: Acute appendicitis with perforation and peritonitis Surgery/Procedure Performed:: Laparoscopic appendectomy Type of Anesthesia: General/Regional Estimated Blood Loss (mL): 30 Description of Procedure: The patient was brought into the operating room and general anesthesia was induced. The left arm was tucked and the abdomen was prepped and draped in usual sterile fashion. A small midline incision was made superior to the umbilicus and deepened to the level of the fascia. The fascia was elevated and incised. The peritoneum was also elevated and incised. A finger sweep was performed and a balloon trocar was placed into the abdomen and inflated. The abdomen was insufflated to 15 mmHg and the camera was inserted and the abdomen was inspected for any injuries upon entering the abdomen. There were none. The patient was placed in Trendelenburg position and a 5 mm ports placed in the left lower quadrant and suprapubic areas under direct visualization. Next using atraumatic bowel graspers the appendix was identified. The appendix was inflamed at the distal end. The base was able to be identified and dissected underneath to make a window for the stapler and the stapler was fired to divide the appendix from the colon. There was a thick phlegmon at the tip of the appendix and this was followed downward toward the tip until the contained perforation was identified. The purulent material was suctioned. The appendix was then removed from its mesoappendix once it was isolated using Enseal. The appendix was then placed in Endo Catch bag and removed through the umbilical incision. The staple line was inspected and found to be hemostatic and intact. The area was oozing and it was irrigated and suctioned dry but there was not as much bleeding as expected. The patient also had interloop abscesses in between loops of small bowel. These were all and irrigated. The pelvis was irrigated and suctioned and contain purulent material. A drain was placed through the left lower quadrant port and the middle of the drain was placed in the pelvis and the tip of the drain was placed into the abscess cavity. It was sutured in place using a 3-0 nylon suture. The 5 mm ports are removed under direct visualization. The balloon trocar was deflated and removed and all the air was removed from the abdomen. The umbilical incision fascia was closed with an 0 Vicryl [id number] suture. The incisions were then irrigated with saline and dried. Local anesthetic was injected into the incision sites. The skin incisions were then closed with interrupted 4-0 Monocryl suture and Steri- Strips. Bandages were applied and the patient was awoken and taken to PACU in stable condition. Patient tolerated the procedure well. Admit VTE Documentation VTE Mechan Device Prophylaxis: SCD's
[2022-12-06 18:02] LABS: Reflex Lactate? Y
[2022-12-06 18:58] LABS: Lactic Acid 1.4 mmol/L (0.4-1.9)
[2022-12-06] MEDS: 0.9% Normal Saline (1000mL) 1,000 ML 125 ML IV ×2 (19:01→19:47)
[2022-12-06] MEDS: Pantoprazole Sodium 40 MG in 0.9% Normal Saline (100mL MB+) 100 ML 330 MG IV (19:47)
[2022-12-06] MEDS: Insulin Lispro 100 UNIT/ML INSULN.PEN SC ×2 (19:57→23:34)
[2022-12-06] MEDS: Piperacil/Tazobactam 3.375 GM in 0.9% Normal Saline (50mL MB+) 50 ML IV (21:31)
[2022-12-06] MEDS: Acetaminophen 325 MG Tablet 650 MG PO (21:37)
[2022-12-06] MEDS: oxyCODONE 5 MG Tablet PO (21:37)
[2022-12-06 22:40] LABS: Hematocrit 39.8 % (40-54); Hemoglobin 12.8 g/dL (13.0-16.5)
[2022-12-06 23:55] LABS: Bedside Glucose 266 mg/dL (74-106)
[2022-12-06 23:55] LABS: Bedside Glucose 285 mg/dL (74-106)
[2022-12-07] VITALS (11 sets, daily range): BP systolic 133–152; BP diastolic 71–99; PULSE 93–103; RESP 15–18; TEMP 36.4–37; O2SAT 91–97; BMI 35.1
[2022-12-07] MEDS: oxyCODONE 5 MG Tablet PO ×4 (04:00→23:03)
[2022-12-07 06:18] LABS: Absolute Lymphocyte Count 0.78 X10^3/uL (0.83-4.51); Absolute Neutrophil Count 18.4 X10^3/uL (2.0-7.7); Basophil# 0.02 X10^3/uL; Basophil% 0.1 % (0-1); Hematocrit 38.9 % (40-54); Hemoglobin 12.6 g/dL (13.0-16.5); Lymphocyte # 0.78 X10^3/ul (0.83-4.51); Lymphocyte % 3.8 % (19-41); Mean Corp Hgb Conc 32.4 g/dL (32-36); Mean Corpuscular Hgb 29.8 pg (27.0-32.0); Mean Platelet Vol. 10.8 fl (6.2-12.0); Monocyte# 0.94 X10^3/uL; Monocyte% 4.6 % (0-10); NRBC Flagged by Analyzer 0 % (0-5); Neutrophil # 18.43 X10^3/uL (2.7-7.7); Neutrophil % 90.9 % (47-70); Platelet Count 304 K/mm3 (150-450); RBC Distribution Width CV 14.8 % (11.6-14.6); RBC Distribution Width SD 50.5 fl (35.1-43.9); Red Blood Count 4.23 M/mm3 (4.6-6.2); White Blood Count 20.3 K/mm3 (4.4-11.0)
[2022-12-07] MEDS: 0.9% Normal Saline (1000mL) 1,000 ML 125 ML IV (06:19)
[2022-12-07] MEDS: Piperacil/Tazobactam 3.375 GM in 0.9% Normal Saline (50mL MB+) 50 ML IV ×3 (06:20→23:06)
[2022-12-07] MEDS: Insulin Lispro 100 UNIT/ML INSULN.PEN SC ×3 (06:27→23:18)
[2022-12-07 06:53] LABS: ALB/GLOB Ratio 0.6 RATIO (0.9-2.4); AST(SGOT) 11 U/L (15-37); Alanine Aminotransfer ALT/SGPT 22 U/L (16-61); Albumin, Serum 2.4 g/dL (3.2-5.0); Alkaline Phosphatase 81 U/L (45-117); Anion Gap 5 (5-15); BUN 28 mg/dL (7-18); BUN/Creat Ratio 23.9 RATIO (10-20); Calcium,Total 8.5 mg/dL (8.5-10.1); Chloride 108 mmol/L (98-107); Creatinine, Serum 1.17 mg/dL (0.70-1.30); EST Glomerular Filtration Rate 72 mL/min (>60); Est Glom Filt Rate - Afr Amer 87 mL/min (>60); Estimated Creatinine Clearance 86.71 ml/min; Glucose 284 mg/dL (74-106); Protein, Total 6.4 g/dL (6.4-8.2); Sodium Level 136 mmol/L (136-145)
[2022-12-07 07:13] LABS: Bedside Glucose 287 mg/dL (74-106)
[2022-12-07 07:47] LABS: Hemoglobin A1c 10.3 % (3.8-5.6)
--- NOTE | 2022-12-07 10:35 | CASEMGMT ---
RN FRANCINE Face to Face with patient for initial transition planning/care coordination assessment. RN CM introduced self and role at [facility]. Patient lying in bed, alert and oriented, friend at bedside. Patient willing to participate in assessment and is able to answer all questions appropriately. Care providers, pharmacy, and demographics verified. Patient wishes to discharge home, denies need for home health at this time. Patient states he has no further needs or concerns at this time. CM to follow for discharge planning needs that may arise. PCP: none, PCP list provided to patient Specialists: none Preferred [facility]acy: [facility] Insurance: [employer] [facility] Prescription Benefit: yes Living Will/HPOA: none LNOK: sister Living Arrangements: Patient lives alone in a first floor apartment. Patient states he is independent at home. Transportation: self, family DME/HHC: Patient denies DME in the home. Patient has beent to [facility] in the past. Disposition Plan: Patient to discharge home with family support and follow-up plans in place. Hanh ESCALANTE, RN, CM
[2022-12-07] MEDS: Pantoprazole Sodium 40 MG in 0.9% Normal Saline (100mL MB+) 100 ML 330 MG IV ×2 (11:01→20:55)
--- NOTE | 2022-12-07 12:46 | PN_ITS ---
Subjective Subjective Patient seen and examined. He is POD 1 for laparoscopic appendectomy. He has a drain in situ. He denied any abdominal pain, and denied any nausea, vomiting or any other symptoms. Review of systems is otherwise negative. Objective Data Objective Data Vital Signs: Vital Signs Temp Pulse Resp BP Pulse Ox O2 Del Method O2 Flow Rate 97.6 F L 93 18 152/83 H 93 Room Air 2 12/07/22 10:12/07/22 10:12/07/22 10:12/07/22 10:12/07/22 10:12/07/22 10:12/07/22 07:36 Oxygen Flow Rate (L/min) 2 Oxygen Delivery Method Room Air Weight: 251 lb 9.112 oz Body Mass Index (BMI) 35.1 Intake & Output: Intake and Output for Last 24 Hours 12/05/22 12/06/22 12/07/22 23:59 23:59 23:59 Intake Total 3155.83 / 3155.83 1362.5 / 1362.5 Output Total 445 / 445 620 / 620 Balance 2710.83 / 2710.83 742.5 / 742.5 Lab / Micro Data 12/07/22 05:35 12/07/22 05:35 Labs: Laboratory Results - last 24 hr 12/06/22 13:55: Sodium 128 L, Potassium 5.9 H, Chloride 98, Carbon Dioxide 27.0, Anion Gap 3 L, BUN 24 H, Creatinine 1.68 H, Estim Creat Clear Calc 60.38, Est GFR (MDRD) Af Amer 58 L, Est GFR (MDRD) Non-Af 48 L, BUN/Creatinine Ratio 14.3, Glucose 376 H, Lactic Acid 2.3 H*, Calcium 8.9, Total Bilirubin 1.70 H, AST 10 L , ALT 23, Alkaline Phosphatase 90, Total Protein 6.9, Albumin 2.9 L, Globulin 4.0, Albumin/Globulin Ratio 0.7 L 12/06/22 14:30: Blood Type Cancelled 12/06/22 14:30: Blood Type O POSITIVE, A1 Antigen Typing Cancelled, Rho(D) Type Cancelled, Antibody Screen NEGATIVE 12/06/22 18:18: Lactic Acid 1.4 12/06/22 19:46: POC Glucose 266 H 12/06/22 22:05: Hgb 12.8 L, Hct 39.8 L 12/06/22 23:29: POC Glucose 285 H 12/07/22 05:35: WBC 20.3 H, RBC 4.23 L, Hgb 12.6 L, Hct 38.9 L, MCV 92.0, MCH 29.8, MCHC 32.4, RDW Std Deviation 50.5 H, RDW Coeff of Hayley 14.8 H, Plt Count 304, MPV 10.8, Immature Gran % (Auto) 0.600, Neut % (Auto) 90.9 H, Lymph % (Auto) 3.8 L, Amelia % (Auto) 4.6, Eos % (Auto) 0.0, Baso % (Auto) 0.1, Absolute Neuts (auto) 18.4 H, Absolute Lymphs (auto) 0.78 L, Nucleated RBC % 0, Sodium 136, Potassium 4.0, Chloride 108 H, Carbon Dioxide 23.0, Anion Gap 5, BUN 28 H, Creatinine 1.17, Estim Creat Clear Calc 86.71, Est GFR (MDRD) Af Amer 87, Est GFR (MDRD) Non-Af 72, BUN/Creatinine Ratio 23.9 H, Glucose 284 H, Hemoglobin A1c 10.3 H, Calcium 8.5, Total Bilirubin 0.90, AST 11 L, ALT 22, Alkaline Phosphatase 81, Total Protein 6.4, Albumin 2.4 L, Globulin 4.0, Albumin/Globulin Ratio 0.6 L 12/07/22 06:25: POC Glucose 287 H Radiography Diagnostic Testing: Radiology Impression Abdomen/Pelvis CT 12/06/22 12:06 IMPRESSION: Findings in keeping with acute appendicitis and inflammatory changes seen in the right lower quadrant and extending into the right side of the pelvis. Diffuse bilateral wall thickening worse on the left side. Hepatomegaly and diffuse fatty infiltration of the liver. Scattered sigmoid diverticula. Electronically Signed: Danielito Tim MD at 13:28 EDT , Physical Exam Const alert, oriented x3 and no apparent distress General Appearance: cooperative and well developed HEENT normocephalic, head/scalp atraumatic, moist oral mucous membranes and oropharynx normal Eyes PERRL and EOMs intact bilaterally Neck no lymphadenopathy and supple General: trachea midline and lymphadenopathy Lymph Lymphatic: no lymphedema noted Resp normal respiratory effort, normal air movement and clear to auscultation bila terally Cardio regular rate, regular rhythm, S1 normal heart sound, S2 normal heart sound and no murmurs GI normal to inspection, nondistended, normoactive bowel sounds, soft to palpation, non-tender and non-distended GI Narrative: obese abdomen, drain in situ in left lower quadrant. Extremity normal capillary refill, no clubbing, cyanosis or edema and no calf tenderness Skin General Skin Exam: no breakdown Neuro CN's II-XII intact bilaterally, no focal motor deficits, no sensory deficits noted and deep tendon reflexes 2+ bilaterally Motor Exam: strength 5/5 throughout and general weakness Psych thought process normal and cooperative Assessment & Plan Assessment/Plan (1) Acute appendicitis with generalized peritonitis: QUALIFIERS: Appendicitis gangrene presence: unspecified whether gangrene present Appendicitis perforation presence: unspecified whether perforation present Appendicitis abscess presence: unspecified whether abscess present Qualified Code(s): K35.20 - Acute appendicitis with generalized peritonitis, without abscess PLAN: Plan #Acute appendicitis with generalised peritonitis * s/p laparoscopic appendectomy. Today is POD 1 * on IV zosyn * on clear liquids per general surgery, to advance as tolerated. * #CAD s/p stents * cardiac cath in October 2020 showed severe triple-vessel disease and was tr ansferred to [facility] for CABG. However he ended up having stents placed. * Brilinta held on admission and she is going for surgery. On Coreg and losartan. Not on statin. Unclear why. * #Hypertension: BP meds held as he was hypotensive on admission. Will monitor and resume BP meds as needed. #Type 2 diabetes mellitus: Oral meds on hold. Insulin sliding scale. Accu- Cheks ACHS. #Nicotine dependence: Counseled to quit. #Obesity: BMI is 35. Complicates acute care, expected recovery and prognosis. DVT prophylaxis; SCDs Charges/Coding Visit Charges Inpatient E&M: 40556 Subs Hosp L2
--- NOTE | 2022-12-07 13:19 | PN.SURG_ITS ---
Subjective Subjective Patient reports he is passing a little bit of gas. He is much more comfortable than yesterday. He denies nausea or vomiting. Objective Data Objective Data Vital Signs: Vital Signs Temp Pulse Resp BP Pulse Ox O2 Del Method O2 Flow Rate 97.6 F L 93 18 152/83 H 93 Room Air 2 12/07/22 10:12/07/22 10:12/07/22 10:12/07/22 10:12/07/22 10:12/07/22 10:12/07/22 07:36 Oxygen Flow Rate (L/min) 2 Oxygen Delivery Method Room Air Weight: 251 lb 9.112 oz Body Mass Index (BMI) 35.1 Intake & Output: Intake and Output for Last 24 Hours 12/05/22 12/06/22 12/07/22 23:59 23:59 23:59 Intake Total 3155.83 / 3155.83 1472.5 / 1472.5 Output Total 445 / 445 620 / 620 Balance 2710.83 / 2710.83 852.5 / 852.5 Lab / Micro Data 12/07/22 05:35 12/07/22 05:35 Labs: Laboratory Results - last 24 hr 12/06/22 13:55: Sodium 128 L, Potassium 5.9 H, Chloride 98, Carbon Dioxide 27.0, Anion Gap 3 L, BUN 24 H, Creatinine 1.68 H, Estim Creat Clear Calc 60.38, Est GFR (MDRD) Af Amer 58 L, Est GFR (MDRD) Non-Af 48 L, BUN/Creatinine Ratio 14.3, Glucose 376 H, Lactic Acid 2.3 H*, Calcium 8.9, Total Bilirubin 1.70 H, AST 10 L , ALT 23, Alkaline Phosphatase 90, Total Protein 6.9, Albumin 2.9 L, Globulin 4.0, Albumin/Globulin Ratio 0.7 L 12/06/22 14:30: Blood Type Cancelled 12/06/22 14:30: Blood Type O POSITIVE, A1 Antigen Typing Cancelled, Rho(D) Type Cancelled, Antibody Screen NEGATIVE 12/06/22 18:18: Lactic Acid 1.4 12/06/22 19:46: POC Glucose 266 H 12/06/22 22:05: Hgb 12.8 L, Hct 39.8 L 12/06/22 23:29: POC Glucose 285 H 12/07/22 05:35: WBC 20.3 H, RBC 4.23 L, Hgb 12.6 L, Hct 38.9 L, MCV 92.0, MCH 29.8, MCHC 32.4, RDW Std Deviation 50.5 H, RDW Coeff of Hayley 14.8 H, Plt Count 304, MPV 10.8, Immature Gran % (Auto) 0.600, Neut % (Auto) 90.9 H, Lymph % (Auto) 3.8 L, [place] % (Auto) 4.6, Eos % (Auto) 0.0, Baso % (Auto) 0.1, Absolute Neuts (auto) 18.4 H, Absolute Lymphs (auto) 0.78 L, Nucleated RBC % 0, Sodium 136, Potassium 4.0, Chloride 108 H, Carbon Dioxide 23.0, Anion Gap 5, BUN 28 H, Creatinine 1.17, Estim Creat Clear Calc 86.71, Est GFR (MDRD) Af Amer 87, Est GFR (MDRD) Non-Af 72, BUN/Creatinine Ratio 23.9 H, Glucose 284 H, Hemoglobin A1c 10.3 H, Calcium 8.5, Total Bilirubin 0.90, AST 11 L, ALT 22, Alkaline Phosphatase 81, Total Protein 6.4, Albumin 2.4 L, Globulin 4.0, Albumin/Globulin Ratio 0.6 L 12/07/22 06:25: POC Glucose 287 H Radiography Diagnostic Testing: Radiology Impression Abdomen/Pelvis CT 12/06/22 12:06 IMPRESSION: Findings in keeping with acute appendicitis and inflammatory changes seen in the right lower quadrant and extending into the right side of the pelvis. Diffuse bilateral wall thickening worse on the left side. Hepatomegaly and diffuse fatty infiltration of the liver. Scattered sigmoid diverticula. Electronically Signed: Danielito Tim MD at 13:28 EDT , Physical Exam Const oriented x3 and no apparent distress Resp normal respiratory effort GI soft to palpation Palpation: tender Assessment & Plan Assessment/Plan (1) Acute appendicitis with generalized peritonitis: QUALIFIERS: Appendicitis gangrene presence: unspecified whether gangrene present Appendicitis perforation presence: unspecified whether perforation present Appendicitis abscess presence: unspecified whether abscess present Qualified Code(s): K35.20 - Acute appendicitis with generalized peritonitis, without abscess PLAN: The patient has a drain in place which is serosanguineous. Patient's hemoglobin is stable from yesterday afternoon. Patient reports he is passing some flatus but this is likely the colon waking up of the small bowel as the small bowel is very likely inflamed. I will continue sips and chips until he starts passing more significant flatus. Continue antibiotics and the patient will go home on oral antibiotics. Audie Hoang MD Pager: [facility] [address] [place] [address], [address] [place] [address] Office:
--- NOTE | 2022-12-07 13:20 | DCINST_ITS ---
Discharge Instructions Diet Discharge Diet: Light diet - advance as tolerated Activity Discharge Activity: May Drive (once off pain medications) and May Shower Lifting Restrictions: 15 lbs for 2 weeks Dressing / Incision Call your doctor if your incision/area has: Continuous Slow Oozing, Sudden Increased Bleeding, Increased Pain/ Swelling, Increased Redness, Foul Smelling Discharge and Swelling at the incision site Call your doctor if you observe: Fever of 101 or Higher and Inability to have a bowel movement Change Dressing in: 1 day Cleanse incision/area with: Soap & Water Follow Up Care Please Follow Up With: Audie Hoang MD When: Please call to schedule 1 week follow up appointment. [phone] Test Results: Test results from this visit will be discussed in further detail at your follow- up appointment, if applicable. Discharge Plan Admission Admit Date/Time: 12/06/22 13:58 Attending Provider: Audie Hoang Primary Care Provider: Care Physician,No Primary Consulting Providers: Audie Hoang; Thony Garcia; Grace Ríos Discharge Orders/Prescriptions Prescriptions: No Action metformin 500 MG tablet 500 mg PO BID insulin glargine 100 UNITS/ML insulin pen 6 unit SC BREAKFAST ticagrelor 90 MG tablet 90 mg PO BID losartan 100 mg tablet 50 mg PO DAILY nitroglycerin [Nitrostat] 0.4 mg tablet, sublingual 0.4 mg sublingual Q5-15M PRN (Reason: chest pain) Qty: 25 3RF Rx Instructions: do not exceed 3 doses per episode carvedilol 25 mg tablet 6.25 mg PO BID Rx Instructions: must administer with a meal/food Referrals / Follow Up: Care Physician,No Primary [Primary Care Provider] -
--- NOTE | 2022-12-07 18:39 | CASEMGMT ---
Social Work SW introduced self and role to patient. SW inquired about patient's advance directive status, patient denies having HCPOA/living will paperwork. Pt given advance directives information and advised to contact SW while here or after discharge if he wishes to complete advance directives documents. Sherri Castro ARMHOLE BASTER HAND, PAEDIATRIC SURGEON
[2022-12-07] MEDS: 0.9% Normal Saline (1000mL) 1,000 ML 40 ML IV (18:56)
[2022-12-07 19:19] LABS: Bedside Glucose 195 mg/dL (74-106)
[2022-12-07 19:19] LABS: Bedside Glucose 244 mg/dL (74-106)
[2022-12-07] MEDS: Carvedilol 6.25 MG Tablet PO (23:03)
[2022-12-08 00:33] LABS: Bedside Glucose 232 mg/dL (74-106)
[2022-12-08] MEDS: 0.9% Normal Saline (1000mL) 1,000 ML 40 ML IV (02:29)
[2022-12-08 02:52] VITALS: BP 125/85; PULSE 89; RESP 15; TEMP 36.8; O2SAT 95
[2022-12-08] MEDS: oxyCODONE 5 MG Tablet PO ×4 (03:03→20:33)
[2022-12-08 04:10] VITALS: BMI 34.0
[2022-12-08] MEDS: Piperacil/Tazobactam 3.375 GM in 0.9% Normal Saline (50mL MB+) 50 ML IV ×3 (06:12→22:30)
[2022-12-08] MEDS: Insulin Lispro 100 UNIT/ML INSULN.PEN SC ×3 (06:21→23:47)
[2022-12-08 06:57] LABS: Bedside Glucose 163 mg/dL (74-106)
[2022-12-08 08:44] LABS: Absolute Lymphocyte Count 0.72 X10^3/uL (0.83-4.51); Absolute Neutrophil Count 13.2 X10^3/uL (2.0-7.7); Basophil# 0.04 X10^3/uL; Basophil% 0.3 % (0-1); Eosinophil# 0.04 X10^3/uL; Eosinophils% 0.3 % (0-5); Hemoglobin 11.3 g/dL (13.0-16.5); Lymphocyte # 0.72 X10^3/ul (0.83-4.51); Lymphocyte % 4.8 % (19-41); Mean Corp Hgb Conc 32.3 g/dL (32-36); Mean Corpuscular Hgb 29.6 pg (27.0-32.0); Mean Corpuscular Volume 91.6 fL (80-94); Mean Platelet Vol. 10.9 fl (6.2-12.0); Monocyte# 0.97 X10^3/uL; Monocyte% 6.4 % (0-10); NRBC Flagged by Analyzer 0 % (0-5); Neutrophil # 13.15 X10^3/uL (2.7-7.7); Neutrophil % 87.3 % (47-70); Platelet Count 321 K/mm3 (150-450); RBC Distribution Width CV 14.6 % (11.6-14.6); RBC Distribution Width SD 49.4 fl (35.1-43.9); Red Blood Count 3.82 M/mm3 (4.6-6.2); White Blood Count 15.1 K/mm3 (4.4-11.0)
[2022-12-08 09:00] LABS: Anion Gap 4 (5-15); BUN 21 mg/dL (7-18); BUN/Creat Ratio 28.3 RATIO (10-20); Calcium,Total 8.4 mg/dL (8.5-10.1); Chloride 108 mmol/L (98-107); Creatinine, Serum 0.74 mg/dL (0.70-1.30); EST Glomerular Filtration Rate 122 mL/min (>60); Est Glom Filt Rate - Afr Amer 148 mL/min (>60); Estimated Creatinine Clearance 137.09 ml/min; Glucose 173 mg/dL (74-106); Potassium 3.9 mmol/L (3.5-5.1); Sodium Level 137 mmol/L (136-145)
--- NOTE | 2022-12-08 09:04 | CASEMGMT ---
Social Work Pt does not have LW/POA, declined additional information at this time. MARCUS Anna
[2022-12-08 09:12] VITALS: BP 165/92; PULSE 94; RESP 16; TEMP 36.4; O2SAT 96
--- NOTE | 2022-12-08 09:14 | PN.SURG_ITS ---
Subjective Subjective Patient seen and examined during AM rounds. He reports that he is feeling much better today. He confirms a bowel movement already this morning. He states that he is passing lots of gas. He still believes he has some abdominal distention. He denies any nausea with his diet. Objective Data Objective Data Vital Signs: Vital Signs Temp Pulse Resp BP Pulse Ox O2 Del Method O2 Flow Rate 98.2 F 89 15 125/85 H 95 Room Air 2 12/08/22 02:52 12/08/22 02:52 12/08/22 02:52 12/08/22 02:52 12/08/22 02:52 12/08/22 03:00 12/07/22 07:36 Oxygen Flow Rate (L/min) 2 Oxygen Delivery Method Room Air Weight: 244 lb 0.827 oz Body Mass Index (BMI) 34.0 Intake & Output: Intake and Output for Last 24 Hours 12/06/22 12/07/22 12/08/22 23:59 23:59 23:59 Intake Total 3155.83 / 3155.83 2273.17 / 3100.17 1829 / 1829 Output Total 445 / 445 640 / 1150 1045 / 1045 Balance 2710.83 / 2710.83 1633.17 / 1950.17 784 / 784 Lab / Micro Data 12/08/22 07:44 12/08/22 07:44 Labs: Laboratory Results - last 24 hr 12/07/22 11:21: POC Glucose 244 H 12/07/22 18:02: POC Glucose 195 H 12/07/22 23:17: POC Glucose 232 H 12/08/22 06:19: POC Glucose 163 H 12/08/22 07:44: WBC 15.1 H, RBC 3.82 L, Hgb 11.3 L, Hct 35.0 L, MCV 91.6, MCH 29.6, MCHC 32.3, RDW Std Deviation 49.4 H, RDW Coeff of Hayley 14.6, Plt Count 321, MPV 10.9, Immature Gran % (Auto) 0.900, Neut % (Auto) 87.3 H, Lymph % (Auto) 4.8 L, [place] % (Auto) 6.4, Eos % (Auto) 0.3, Baso % (Auto) 0.3, Absolute Neuts (auto) 13.2 H, Absolute Lymphs (auto) 0.72 L, Nucleated RBC % 0, Sodium 137, Potassium 3.9, Chloride 108 H, Carbon Dioxide 25.0, Anion Gap 4 L, BUN 21 H, Creatinine 0.74, Estim Creat Clear Calc 137.09, Est GFR (MDRD) Af Amer 148, Est GFR (MDRD) Non-Af 122, BUN/Creatinine Ratio 28.3 H, Glucose 173 H, Calcium 8.4 L Physical Exam Const oriented x3 and no apparent distress Resp normal respiratory effort GI GI Narrative: Mild abdominal distention present, operative dressings intact with some drainage particularly about the drain site?these were removed and patient's port sites remain covered with Steri-Strips. There is no vane-incisional erythema or drainage. Patient does have some tenderness right around the port sites, but is otherwise not particularly tender. His left lower quadrant drain contains some clots within the drain tubing but when these were stripped free the drainage is simply serosanguineous. Assessment & Plan Assessment/Plan (1) Acute appendicitis with generalized peritonitis: QUALIFIERS: Appendicitis gangrene presence: unspecified whether gangrene present Appendicitis perforation presence: unspecified whether perforation present Appendicitis abscess presence: unspecified whether abscess present Qualified Code(s): K35.20 - Acute appendicitis with generalized peritonitis, without abscess PLAN: Patient is postoperative day 2 from laparoscopic appendectomy with drain placement for perforated appendicitis. He has experienced return of bowel fu nction and tolerated a clear liquid diet without any subsequent nausea or vomiting. While he has some mild distention, he does express an appetite. Therefore I will plan to advance to a full liquid diet. If he tolerates this diet advancement and his white count is further down trended with stable or improved exam findings tomorrow I will plan to transition him to oral antibiotics. ? Full liquid diet ? Repeat CBC for the a.m. ? Continue drain care ? Remainder of care per hospitalist service Charges/Coding Visit Charges Inpatient E&M: 70057 Subs Hosp L2
[2022-12-08] MEDS: Losartan Potassium 50 MG Tablet PO (11:04)
[2022-12-08] MEDS: Carvedilol 6.25 MG Tablet PO ×2 (11:05→21:21)
[2022-12-08] MEDS: Pantoprazole Sodium 40 MG in 0.9% Normal Saline (100mL MB+) 100 ML 330 MG IV ×2 (11:05→21:06)
--- NOTE | 2022-12-08 13:37 | PN_ITS ---
Subjective Subjective Patient seen and examined. He feels well and had no active complaints and had an uneventful night. Review of systems is otherwise negative. He has remained hemodynamically stable. Wbc is 15.1. Review of systems is otherwise negative. Objective Data Objective Data Vital Signs: Vital Signs Temp Pulse Resp BP Pulse Ox O2 Del Method O2 Flow Rate 97.5 F L 94 16 165/92 H 96 Room Air 2 12/08/22 09:12 12/08/22 09:12 12/08/22 09:12 12/08/22 09:12 12/08/22 09:12 12/08/22 09:12 12/07/22 07:36 Oxygen Flow Rate (L/min) 2 Oxygen Delivery Method Room Air Weight: 244 lb 0.827 oz Body Mass Index (BMI) 34.0 Intake & Output: Intake and Output for Last 24 Hours 12/06/22 12/07/22 12/08/22 23:59 23:59 23:59 Intake Total 3155.83 / 3155.83 2273.17 / 3100.17 1988 Output Total 445 / 445 640 / 1150 1245 / 1245 Balance 2710.83 / 2710.83 1633.17 / 1950.17 744 / 744 Lab / Micro Data 12/08/22 07:44 12/08/22 07:44 Labs: Laboratory Results - last 24 hr 12/07/22 11:21: POC Glucose 244 H 12/07/22 18:02: POC Glucose 195 H 12/07/22 23:17: POC Glucose 232 H 12/08/22 06:19: POC Glucose 163 H 12/08/22 07:44: WBC 15.1 H, RBC 3.82 L, Hgb 11.3 L, Hct 35.0 L, MCV 91.6, MCH 29.6, MCHC 32.3, RDW Std Deviation 49.4 H, RDW Coeff of Hayley 14.6, Plt Count 321, MPV 10.9, Immature Gran % (Auto) 0.900, Neut % (Auto) 87.3 H, Lymph % (Auto) 4.8 L, [place] % (Auto) 6.4, Eos % (Auto) 0.3, Baso % (Auto) 0.3, Absolute Neuts (auto) 13.2 H, Absolute Lymphs (auto) 0.72 L, Nucleated RBC % 0, Sodium 137, Potassium 3.9, Chloride 108 H, Carbon Dioxide 25.0, Anion Gap 4 L, BUN 21 H, Creatinine 0.74, Estim Creat Clear Calc 137.09, Est GFR (MDRD) Af Amer 148, Est GFR (MDRD) Non-Af 122, BUN/Creatinine Ratio 28.3 H, Glucose 173 H, Calcium 8.4 L Physical Exam Const alert, oriented x3 and no apparent distress General Appearance: cooperative and well developed HEENT normocephalic, head/scalp atraumatic, moist oral mucous membranes and oropharynx normal Eyes PERRL and EOMs intact bilaterally Neck no lymphadenopathy and supple General: trachea midline and lymphadenopathy Lymph Lymphatic: no lymphedema noted Resp normal respiratory effort, normal air movement and clear to auscultation bilaterally Cardio regular rate, regular rhythm, S1 normal heart sound, S2 normal heart sound and no murmurs GI normal to inspection, nondistended, normoactive bowel sounds, soft to palpation, non-tender and non-distended GI Narrative: obese abdomen, drain in situ in left lower quadrant. Extremity normal capillary refill, no clubbing, cyanosis or edema and no calf tenderness Skin General Skin Exam: no breakdown Neuro CN's II-XII intact bilaterally, no focal motor deficits, no sensory deficits noted and deep tendon reflexes 2+ bilaterally Motor Exam: strength 5/5 throughout and general weakness Psych thought process normal and cooperative Appearance: appropriate Assessment & Plan Assessment/Plan (1) Acute appendicitis with generalized peritonitis: QUALIFIERS: Appendicitis gangrene presence: unspecified whether gangrene present Appendicitis perforation presence: unspecified whether perforation present Appendicitis abscess presence: unspecified whether abscess present Qualified Code(s): K35.20 - Acute appendicitis with generalized peritonitis, without abscess PLAN: Plan #Acute appendicitis with generalised peritonitis * s/p laparoscopic appendectomy. Today is POD 2 * on IV zosyn * wbc is trending down and is 15.1 * on clear liquids per general surgery, to advance as tolerated. * #CAD s/p stents * cardiac cath in October 2020 showed severe triple-vessel disease and was transferred to [facility] for CABG. However he ended up having stents placed. * resume brilinta as he is post surgery. * #Hypertension: BP meds held as he was hypotensive on admission. Resume BP meds. #Type 2 diabetes mellitus: Oral meds on hold. Insulin sliding scale. Accu- Cheks ACHS. #Nicotine dependence: Counseled to quit. #Obesity: BMI is 35. Complicates acute care, expected recovery and prognosis. DVT prophylaxis: SCDs Charges/Coding Visit Charges Inpatient E&M: 81032 Subs Hosp L2
[2022-12-08 14:52] VITALS: BP 160/96; PULSE 95; RESP 16; TEMP 36.7; O2SAT 96
[2022-12-08 20:27] VITALS: BP 166/100; PULSE 102; RESP 18; TEMP 37.7; O2SAT 95
[2022-12-08 21:12] LABS: Bedside Glucose 182 mg/dL (74-106)
[2022-12-08 21:14] VITALS: BP 163/90
[2022-12-08] MEDS: Psyllium 1 PACKET PO (21:22)
[2022-12-08] MEDS: Albuterol 2.5 MG/3 ML VIAL.NEB. INHALATION (23:23)
[2022-12-08 23:24] VITALS: PULSE 99; RESP 18
[2022-12-09 00:45] VITALS: BP 151/86
[2022-12-09] MEDS: oxyCODONE 5 MG Tablet PO ×2 (00:50→06:02)
[2022-12-09 01:09] VITALS: BP 137/96; PULSE 91; RESP 18; TEMP 37.3; O2SAT 94
[2022-12-09] MEDS: 0.9% Normal Saline (1000mL) 1,000 ML 40 ML IV (01:15)
[2022-12-09 05:01] LABS: Absolute Lymphocyte Count 0.56 X10^3/uL (0.83-4.51); Absolute Neutrophil Count 11.3 X10^3/uL (2.0-7.7); Basophil# 0.05 X10^3/uL; Basophil% 0.4 % (0-1); Eosinophil# 0.22 X10^3/uL; Eosinophils% 1.7 % (0-5); Hematocrit 40.6 % (40-54); Lymphocyte # 0.56 X10^3/ul (0.83-4.51); Lymphocyte % 4.4 % (19-41); Mean Corp Hgb Conc 29.6 g/dL (32-36); Mean Corpuscular Hgb 29.5 pg (27.0-32.0); Mean Corpuscular Volume 99.8 fL (80-94); Mean Platelet Vol. 10.8 fl (6.2-12.0); Monocyte# 0.71 X10^3/uL; Monocyte% 5.5 % (0-10); NRBC Flagged by Analyzer 0 % (0-5); Neutrophil # 11.26 X10^3/uL (2.7-7.7); Neutrophil % 87.5 % (47-70); POSITIVE COUNT YES; POSITIVE DIFFERENTIAL YES; Platelet Count 243 K/mm3 (150-450); RBC Distribution Width CV 14.9 % (11.6-14.6); RBC Distribution Width SD 54.4 fl (35.1-43.9); Red Blood Count 4.07 M/mm3 (4.6-6.2); White Blood Count 12.9 K/mm3 (4.4-11.0)
[2022-12-09 05:03] LABS: Differential Indicated SCAN CRITERIA MET
[2022-12-09 05:46] VITALS: BP 156/86; PULSE 98; RESP 18; TEMP 37.3; O2SAT 95
[2022-12-09] MEDS: Insulin Lispro 100 UNIT/ML INSULN.PEN SC ×2 (05:52→11:30)
[2022-12-09] MEDS: Piperacil/Tazobactam 3.375 GM in 0.9% Normal Saline (50mL MB+) 50 ML IV (05:56)
[2022-12-09 05:57] LABS: Anion Gap 8 (5-15); BUN 15 mg/dL (7-18); Calcium,Total 8.2 mg/dL (8.5-10.1); Chloride 104 mmol/L (98-107); Creatinine, Serum 0.72 mg/dL (0.70-1.30); EST Glomerular Filtration Rate 128 mL/min (>60); Est Glom Filt Rate - Afr Amer 154 mL/min (>60); Glucose 176 mg/dL (74-106); Sodium Level 132 mmol/L (136-145)
[2022-12-09 06:00] VITALS: BMI 34.5
[2022-12-09 06:29] LABS: Bedside Glucose 168 mg/dL (74-106)
[2022-12-09 06:29] LABS: Bedside Glucose 157 mg/dL (74-106)
[2022-12-09 07:11] LABS: Differential Comment SCANNED; Platelet Estimate ADEQUATE (ADEQ)
--- NOTE | 2022-12-09 09:01 | PCM.PN.SRG ---
Subjective Subjective Patient seen and examined during AM rounds. He is found resting in bed. He denies any abdominal discomfort and confirms that he is tolerating his diet advancement without difficulty. Nursing confirms that there have been no acute events overnight and that drain output has been scant. Objective Data Objective Data Vital Signs: Vital Signs Temp Pulse Resp BP Pulse Ox O2 Del Method O2 Flow Rate 99.1 F 98 18 156/86 H 95 Room Air 2 12/09/22 05:46 12/09/22 05:46 12/09/22 05:46 12/09/22 05:46 12/09/22 05:46 12/09/22 05:46 12/07/22 07:36 Oxygen Flow Rate (L/min) 2 Oxygen Delivery Method Room Air Weight: 247 lb 12.793 oz Body Mass Index (BMI) 34.5 Intake & Output: Intake and Output for Last 24 Hours 12/07/22 12/08/22 12/09/22 23:59 23:59 23:59 Intake Total 2273.17 / 3100.17 2149 / 2729 1690.67 / 1690.67 Output Total 640 / 1150 1245 / 1980 1190 / 1190 Balance 1633.17 / 1950.17 904 / 749 500.67 / 500.67 Lab / Micro Data 12/09/22 04:50 12/09/22 04:50 Labs: Laboratory Results - last 24 hr 12/08/22 20:36: POC Glucose 182 H 12/08/22 23:45: POC Glucose 157 H 12/09/22 04:50: WBC 12.9 H, RBC 4.07 L, Hgb 12.0 L, Hct 40.6, MCV 99.8 H D, MCH 29.5, MCHC 29.6 L D, RDW Std Deviation 54.4 H, RDW Coeff of Hayley 14.9 H, Plt Count 243, MPV 10.8, Immature Gran % (Auto) 0.500, Neut % (Auto) 87.5 H, Lymph % (Auto) 4.4 L, [place] % (Auto) 5.5, Eos % (Auto) 1.7, Baso % (Auto) 0.4, Absolute Neuts (auto) 11.3 H, Absolute Lymphs (auto) 0.56 L, Nucleated RBC % 0, Differential Comment SCANNED, Platelet Estimate ADEQUATE, Sodium 132 L, Potassium 4.0, Chloride 104, Carbon Dioxide 20.0 L, Anion Gap 8, BUN 15, Creatinine 0.72, Estim Creat Clear Calc 140.90, Est GFR (MDRD) Af Amer 154, Est GFR (MDRD) Non-Af 128, BUN/Creatinine Ratio 21.0 H, Glucose 176 H, Calcium 8.2 L 12/09/22 05:50: POC Glucose 168 H Physical Exam Const oriented x3 Resp normal respiratory effort GI GI Narrative: Minimal distention present, Steri-Strips remain intact. There is no vane-incisional erythema or drainage. Patient has decreased tenderness around his port sites and the remainder of his abdomen for that matter. His drain output remains serosanguineous and there are slight clots in the line but no purulence. Assessment & Plan Assessment/Plan (1) Acute appendicitis with generalized peritonitis: QUALIFIERS: Appendicitis gangrene presence: unspecified whether gangrene present Appendicitis perforation presence: unspecified whether perforation present Appendicitis abscess presence: unspecified whether abscess present Qualified Code(s): K35.20 - Acute appendicitis with generalized peritonitis, without abscess PLAN: Patient is postoperative day 3 from laparoscopic appendectomy with drain placement for perforated appendicitis. He has experienced return of bowel function and tolerated a full liquid diet without any subsequent nausea or vomiting. His abdominal distention is improved and his drain output remains unconcerning with a serosanguineous character. Therefore his drain was removed at bedside and patient reported immediate relief with this discontinuation. His diet was further advanced and he tolerated this advancement at lunchtime. Antibiotics were transitioned to p.o. Augmentin. With these clinical improvements discharge was recommended and discussed with primary hospitalist service. ?Okay for DC to home today with ongoing antibiotic therapy. Patient reminded that he will have to make outpatient follow-up appointment. ? Okay to continue antiplatelet Charges/Coding Visit Charges Inpatient E&M: 58442 Subs Hosp L2
[2022-12-09 09:13] VITALS: O2SAT 95
[2022-12-09 09:27] VITALS: BP 163/90; PULSE 97; RESP 16; TEMP 36; O2SAT 96
[2022-12-09] MEDS: Carvedilol 6.25 MG Tablet PO (09:32)
[2022-12-09] MEDS: Losartan Potassium 50 MG Tablet PO (09:32)
[2022-12-09] MEDS: Pantoprazole Sodium 40 MG in 0.9% Normal Saline (100mL MB+) 100 ML 330 MG IV (11:25)
[2022-12-09 11:50] LABS: Bedside Glucose 164 mg/dL (74-106)
--- NOTE | 2022-12-09 14:19 | DCINST_ITS ---
Discharge Instructions Diet Discharge Diet: Light diet - advance as tolerated Activity Discharge Activity: Return to Normal Activity Weight Bearing Status: Weight bearing as tolerated Dressing / Incision Call your doctor if your incision/area has: Continuous Slow Oozing, Sudden Increased Bleeding, Increased Pain/ Swelling, Increased Redness, Foul Smelling Discharge and Swelling at the incision site Call your doctor if you observe: Fever of 101 or Higher and Inability to have a bowel movement Cleanse incision/area with: Soap & Water Follow Up Care Please Follow Up With: Audie Hoang MD Test Results: Test results from this visit will be discussed in further detail at your follow- up appointment, if applicable. Discharge Plan Admission Admit Date/Time: 12/06/22 13:58 Primary Reason for Your Visit: acute appendicitis Attending Provider: Grace Ríos Primary Care Provider: Care Physician,Kym Primary Consulting Providers: Audie Hoang; Thony Garcia; Grace Ríos Instructions Patient Instructions: What Is Appendicitis? Discharge Orders/Prescriptions Prescriptions: New amoxicillin-pot clavulanate 875-125 mg Tablet 1 tab PO BIDCM 4 Days Qty: 8 0RF Continued metformin 500 MG tablet 500 mg PO BID insulin glargine 100 UNITS/ML insulin pen 6 unit SC BREAKFAST ticagrelor 90 MG tablet 90 mg PO BID losartan 100 mg tablet 50 mg PO DAILY nitroglycerin [Nitrostat] 0.4 mg tablet, sublingual 0.4 mg sublingual Q5-15M PRN (Reason: chest pain) Qty: 25 3RF Rx Instructions: do not exceed 3 doses per episode carvedilol 25 mg tablet 6.25 mg PO BID Rx Instructions: must administer with a meal/food Referrals / Follow Up: Audie Hoang MD [Med Staff - Active Staff] - Within 1 Week Rosalinda Pressley MD [Med Staff - Active Staff] - Within 2 Weeks (see to establish PCP care) Care Physician,No Primary [Primary Care Provider] - Disposition Disposition (needs filled in before D/C Order can be placed): Home, Self Care
--- NOTE | 2022-12-09 14:19 | PCM.DC.SUM ---
Providers Date of Admission: 12/06/22 Date of Discharge: 12/09/22 Primary Care Physician: Kym Primary Care Phys Consultations 12/06/22 17:26 Consult: General Surgery Routine Consulting Provider: Audie Hoang Reason for Consult: Peritonitis, acute appendicitis EMERGENT Consult: Yes MD Notified: Yes Date Notified: 12/06/22 Time Notified: 14:27 Method of Notification: ED Physician Initiated Consult: Denture Laboratory Technician / Pulmonary Medicine Routine Consulting Provider: Thony Garcia Reason for Consult: Peritonitis, appendicitis on brillinta EMERGENT Consult: No Notified: Yes Date Notified: 12/06/22 Time Notified: 15:24 Method of Notification: Text Reason For Visit: SEPSIS APPENDICITIS PERITONITIS Diagnosis Discharge Diagnosis (1) Acute appendicitis with generalized peritonitis: Status: Acute Code(s): K35.20 - Acute appendicitis with generalized peritonitis, without abscess Qualifiers: Appendicitis gangrene presence: unspecified whether gangrene present Appendicitis perforation presence: unspecified whether perforation present Appendicitis abscess presence: unspecified whether abscess present Qualified Code(s): K35.20 - Acute appendicitis with generalized peritonitis, without abscess Plan #Acute appendicitis with generalised peritonitis s/p laparoscopic appendectomy. Today is POD 2 on IV zosyn wbc is trending down and is 15.1 on clear liquids per general surgery, to advance as tolerated. #CAD s/p stents cardiac cath in October 2020 showed severe triple-vessel disease and was transferred to [facility] for CABG. However he ended up having stents placed. resume brilinta as he is post surgery. #Hypertension: BP meds held as he was hypotensive on admission. Resume BP meds. #Type 2 diabetes mellitus: Oral meds on hold. Insulin sliding scale. Accu-Cheks ACHS. #Nicotine dependence: Counseled to quit. #Obesity: BMI is 35. Complicates acute care, expected recovery and prognosis. DVT prophylaxis: SCDs Medications at Discharge Home Medications nitroglycerin 0.4 mg sublingual tablet (Nitrostat) 0.4 mg sublingual Q5-15M PRN chest pain #25 tabs 11/01/20 carvedilol 25 mg tablet 6.25 mg PO BID blood pressure 11/17/20 insulin glargine 100 unit/mL (3 mL) subcutaneous pen 6 unit SC BREAKFAST diabetes 02/21/21 metformin 500 mg tablet 500 mg PO BID diabetes 02/21/21 ticagrelor 90 mg tablet 90 mg PO BID anti platelet 02/21/21 losartan 100 mg tablet 50 mg PO DAILY blood pressure 02/12/22 amoxicillin 875 mg-potassium clavulanate 125 mg tablet 1 tab PO BIDCM 4 days #8 tabs 12/09/22 oxycodone 5 mg tablet 5 mg PO Q6H PRN pain 3 days #12 tabs 12/09/22 pen needle, diabetic 32 gauge x 5/32 (Pen Needle) #100 ea 12/09/22 Hospital Course Operations appendectomy Procedures None Summary of Care Provided Minutes Spent on Discharge: 45 Hospital Course: Patient is a 42 y/o male with a PMh as outlined who was admitted with a complaint of worsening abdominal pain and dizziness which had been going on since the morning of admission. He had associated night sweats and chills. On admission, CT of the abdomen and pelvis showed evidence of acute appendicitis and multiple colonic diverticula. General surgery was consulted and he was taken emergently for laparoscopic appendectomy. He was placed on IV zosyn. White cell count trended down and he felt much better. His diet was advanced and he tolerated it well. He was discharged home on 12/09/2022. He was discharged on PO augmentin 1 tab twice daily for 4 days. He is to follow up with his PCP and general surgery within 1-2 weeks. Patient seen and examined prior to discharge. He had an uneventful night. Review of systems was otherwise negative. Labs and vials reviewed. Home meds reviewed and reconciled. Drain was pulled by general surgery.Labs and vitals reviewed. Physical Exam Const alert, oriented x3 and no apparent distress General Appearance: cooperative, comfortable and well developed HEENT normocephalic, head/scalp atraumatic, hearing grossly normal bilaterally, moist oral mucous membranes and oropharynx normal Mouth: oral and palatal mucosa normal Eyes PERRL and EOMs intact bilaterally Neck no lymphadenopathy and supple General: trachea midline and lymphadenopathy Lymph Lymphatic: no lymphedema noted Resp normal respiratory effort, normal air movement and clear to auscultation bilaterally Cardio regular rate, regular rhythm, S1 normal heart sound, S2 normal heart sound and no murmurs GI normal to inspection, nondistended, normoactive bowel sounds, soft to palpation, non-tender and non-distended GI Narrative: obese abdomen, drain in situ in left lower quadrant. Extremity normal to inspection, full ROM, normal capillary refill, no clubbing, cyanosis or edema and no calf tenderness Skin no rashes or lesions noted General Skin Exam: no breakdown Neuro oriented x3, CN's II-XII intact bilaterally, moves all extremities, no focal motor deficits, no sensory deficits noted and deep tendon reflexes 2+ bilaterally Motor Exam: strength 5/5 throughout and general weakness Psych thought process normal and cooperative Appearance: appropriate Weight / BMI Weight Weight: 247 lb 12.793 oz Body Mass Index (BMI) 34.5 ABG / Lab / Microbiology Data 12/09/22 04:50 12/09/22 04:50 Laboratory: Laboratory Results - last 24 hr 12/08/22 20:36: POC Glucose 182 H 12/08/22 23:45: POC Glucose 157 H 12/09/22 04:50: WBC 12.9 H, RBC 4.07 L, Hgb 12.0 L, Hct 40.6, MCV 99.8 H D, MCH 29.5, MCHC 29.6 L D, RDW Std Deviation 54.4 H, RDW Coeff of Hayley 14.9 H, Plt Count 243, MPV 10.8, Immature Gran % (Auto) 0.500, Neut % (Auto) 87.5 H, Lymph % (Auto) 4.4 L, [place] % (Auto) 5.5, Eos % (Auto) 1.7, Baso % (Auto) 0.4, Absolute Neuts (auto) 11.3 H, Absolute Lymphs (auto) 0.56 L, Nucleated RBC % 0, Differential Comment SCANNED, Platelet Estimate ADEQUATE, Sodium 132 L, Potassium 4.0, Chloride 104, Carbon Dioxide 20.0 L, Anion Gap 8, BUN 15, Creatinine 0.72, Estim Creat Clear Calc 140.90, Est GFR (MDRD) Af Amer 154, Est GFR (MDRD) Non-Af 128, BUN/Creatinine Ratio 21.0 H, Glucose 176 H, Calcium 8.2 L 12/09/22 05:50: POC Glucose 168 H 12/09/22 11:31: POC Glucose 164 H D/C Instructions Discharge Diet: Light diet - advance as tolerated Weight Bearing Status: Weight bearing as tolerated Call your doctor if your incision/area has: Continuous Slow Oozing, Sudden Increased Bleeding, Increased Pain/ Swelling, Increased Redness, Foul Smelling Discharge and Swelling at the incision site Call your doctor if you observe: Fever of 101 or Higher and Inability to have a bowel movement Cleanse incision/area with: Soap & Water Please Follow Up With: Audie Hoang MD When: Please call to schedule 1 week follow up appointment. [phone] Meaningful Use Info Meaningful Use Diagnoses (Choose all that apply): None applicable Discharge Plan Admission Admit Date/Time: 12/06/22 13:58 Primary Reason for Your Visit: acute appendicitis Attending Provider: Grace Ríos Primary Care Provider: Care Physician,No Primary Consulting Providers: Audie Hoang; Thony Garcia; Grace Ríos Instructions Patient Instructions: What Is Appendicitis? Discharge Orders/Prescriptions Prescriptions: New amoxicillin-pot clavulanate 875-125 mg Tablet 1 tab PO BIDCM 4 Days Qty: 8 0RF oxycodone 5 mg tablet 5 mg PO Q6H PRN (Reason: pain) 3 Days Qty: 12 0RF (DME) pen needle, diabetic [Pen Needle] 32 gauge x 5/32 needle See Rx Instructions .Route Qty: 100 1RF Rx Instructions: As directed Continued metformin 500 MG tablet 500 mg PO BID insulin glargine 100 UNITS/ML insulin pen 6 unit SC BREAKFAST ticagrelor 90 MG tablet 90 mg PO BID losartan 100 mg tablet 50 mg PO DAILY nitroglycerin [Nitrostat] 0.4 mg tablet, sublingual 0.4 mg sublingual Q5-15M PRN (Reason: chest pain) Qty: 25 3RF Rx Instructions: do not exceed 3 doses per episode carvedilol 25 mg tablet 6.25 mg PO BID Rx Instructions: must administer with a meal/food Referrals / Follow Up: Audie Hoang MD [Med Staff - Active Staff] - Within 1 Week Rosalinda Pressley MD [Med Staff - Active Staff] - Within 2 Weeks (see to establish PCP care) Care Physician,No Primary [Primary Care Provider] - Disposition Disposition (needs filled in before D/C Order can be placed): Home, Self Care Charges/Coding Visit Charges Inpatient E&M: 46291 Disch Hosp >30min
[2022-12-09 14:45] VITALS: BP 148/96; PULSE 98; RESP 16; TEMP 36.1; O2SAT 97
== END 2022-12-09 15:58 | disposition home or self-care (01) | DRG 853 ==
LOC: ED 13:39 → SDC 13:54 → PCU 16:40
PROVIDERS: Family Medicine; Admitting Provider Surgery; Emergency Provider Emergency Medicine; Visit Provider Student in an Organized Health Care Education/Training Program
PROC: 0DTJ4ZZ Resection of Appendix, Percutaneous Endoscopic Approach (ICD-10-PCS; CPT 44970; principal; 2022-12-06 15:45)
DX: A41.9 Sepsis, unspecified organism (principal); K35.21 Acute appendicitis with generalized peritonitis, with abscess; I95.9 Hypotension, unspecified; E11.9 Type 2 diabetes mellitus without complications; Z79.4 Long term (current) use of insulin; I10 Essential (primary) hypertension; E78.5 Hyperlipidemia, unspecified; F17.210 Nicotine dependence, cigarettes, uncomplicated; I25.10 Atherosclerotic heart disease of native coronary artery without angina pectoris; K57.30 Diverticulosis of large intestine without perforation or abscess without bleeding; I25.2 Old myocardial infarction; E66.9 Obesity, unspecified; Z79.02 Long term (current) use of antithrombotics/antiplatelets; Z79.84 Long term (current) use of oral hypoglycemic drugs; Z79.899 Other long term (current) drug therapy; Z95.5 Presence of coronary angioplasty implant and graft; Z68.33 Body mass index [BMI] 33.0-33.9, adult
CPT/HCPCS: 36415; 70450; 71045; 74177; 80048; 80053; 80307; 81001; 82077; 82962; 83036; 83605; 83880; 84484; 85014; 85018; 85025; 85610; 86850; 86900; 86901; 88304; 93005; 94640; 94668; 94762; 96374; 97802; 99285; J7030; J7040; Q9967; A4216; C1760; J2405

== ENCOUNTER → 2023-06-27 | Outpatient (CLI) | payer MEDICARE, MEDICAID, SELFPAY ==
--- NOTE | 2023-06-27 12:53 | RAD_ITS ---
STUDY: X-RAY - RIGHT HAND REASON FOR EXAM: Male, 42 years old. Right hand crush inj TECHNIQUE: 3 view(s) of the hand. COMPARISON: None. FINDINGS: Normal radiocarpal articulation. Normal distal radioulnar joint. Normal visualized carpal bones. Normal carpal articulations Normal carpometacarpal articulation of the thumb. Normal second through fifth carpometacarpal joints. Questionable tiny erosion at the base of the proximal phalanx of the thumb. Normal metacarpophalangeal joint of the thumb. Normal interphalangeal joint of the thumb. Normal proximal and distal phalanges of the thumb. Normal metacarpophalangeal joints of the second through fifth fingers. Normal proximal and distal interphalangeal joints of the second through fifth fingers. Normal phalanges of the second through fifth fingers. Soft tissue swelling. RAD/Hand Min 3 Views IMPRESSION: Soft tissue swelling. Impression both tiny avulsion at the base of the proximal phalanx of the thumb. Clinical correlation recommended. Electronically Signed: Danielito Tim MD at 13:38 EDT ,
== END | disposition home or self-care (01) ==
PROVIDERS: Referring Provider Physician Assistant Surgical; Visit Provider Physician Assistant Surgical
DX: S67.21XA Crushing injury of right hand, initial encounter (principal); X58.XXXA Exposure to other specified factors, initial encounter
CPT/HCPCS: 73130

== ENCOUNTER 2023-09-24 07:15 | Inpatient (IN) | payer MEDICARE, MEDICAID, SELFPAY ==
[2023-09-24] VITALS (19 sets, daily range): BP systolic 146–203; BP diastolic 87–127; PULSE 84–104; RESP 14–24; TEMP 36.4–36.6; O2SAT 93–98; BMI 33.8; BMI 33.7
--- NOTE | 2023-09-24 07:20 | EKG12_ITS ---
Test Reason : CHEST PAIN Blood Pressure : / mmHG Vent. Rate : 099 BPM Atrial Rate : 099 BPM P-R Int : 166 ms QRS Dur : 090 ms QT Int : 360 ms P-R-T Axes : 055 058 022 degrees QTc Int : 462 ms Normal sinus rhythm ST depression, consider subendocardial injury Abnormal ECG Confirmed by Jacob Contreras ([id number]), map editor GOLDIE MCNEAL ([id number]) on 09/25/2023 9:53:46 AM Referred By: Confirmed By:Jacob Contreras
--- NOTE | 2023-09-24 07:20 | RAD_ITS ---
HISTORY: chest pain. TECHNIQUE: XR Chest 1 View. COMPARISON: 12/05/2022. FINDINGS: CARDIOMEDIASTINAL BORDERS: Cardiac silhouette within normal limits in size. Mediastinal contour unremarkable. LUNGS: Radiographically clear. PLEURA: No pleural effusion or pneumothorax seen. OSSEOUS STRUCTURES: Unremarkable. RAD/Chest 1 View (Portable) IMPRESSION: No acute cardiopulmonary process identified. Electronically Signed: Nanette Maya MD at 8:12 EDT ,
[2023-09-24] MEDS: Aspirin 81 MG TAB.CHEW 324 MG PO (07:28)
--- NOTE | 2023-09-24 07:30 | EKG12_ITS ---
Test Reason : REPEAT Blood Pressure : / mmHG Vent. Rate : 086 BPM Atrial Rate : 086 BPM P-R Int : 192 ms QRS Dur : 086 ms QT Int : 366 ms P-R-T Axes : 044 036 165 degrees QTc Int : 437 ms Normal sinus rhythm Marked ST abnormality, possible inferior subendocardial injury Abnormal ECG Confirmed by Jacob Contreras ([id number]), society editor GOLDIE MCNEAL ([id number]) on 09/25/2023 9:53:33 AM Referred By: Confirmed By:Jacob Contreras
[2023-09-24] MEDS: Metoprolol Tartrate 5 MG/5 ML Vial IV ×2 (07:38→08:21)
--- NOTE | 2023-09-24 07:44 | ED.VIS.CHEST ---
HPI History of Present Illness Chief Complaint: Chest Pain Narrative Narrative: 42-year-old male presenting with chest pain and dyspepsia. He states it feels like acid reflux. Patient has a history of CAD, hypertension, obesity, tobacco use, cardiac stents x 5, diabetes. Patient states he started to feel this discomfort at 11 PM last evening. He states it has been constant since then. Denies shortness of breath but does admit to nausea. He states this does not feel like previous ID. Patient denies sharp pleuritic pain. 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) [facility] (current) use of antithrombotics/antiplatelets History of atherosclerotic heart disease Acute appendicitis with generalized peritonitis Type 2 diabetes mellitus Atherosclerotic heart disease [place] coronary artery w/angina pectoris Essential hypertension Smoker DVT (deep venous thrombosis) Tobacco use Hyperlipidemia History of ST elevation myocardial infarction (STEMI) (10/12/19) Tobacco dependence Morbid obesity Poor personal hygiene Noncompliance with diet and medication regimen Uncontrolled type 2 diabetes mellitus Home Medications ?Medication ?Instructions ?Recorded ?Last Taken ?Type nitroglycerin 0.4 mg sublingual 0.4 mg sublingual Q5-15M PRN chest 11/01/20 Unknown Rx tablet (Nitrostat) pain #25 tabs carvedilol 25 mg tablet 6.25 mg PO BID blood pressure 11/17/20 02/13/22 History insulin glargine 100 unit/mL (3 6 unit subcut BREAKFAST diabetes 02/21/21 02/13/22 History mL) subcutaneous pen metformin 500 mg tablet 500 mg PO BID diabetes 02/21/21 02/13/22 History ticagrelor 90 mg tablet 90 mg PO BID anti platelet 02/21/21 02/13/22 History losartan 100 mg tablet 50 mg PO DAILY blood pressure 02/12/22 02/13/22 History oxycodone 5 mg tablet 5 mg PO Q6H PRN pain 3 days #12 12/09/22 Unknown Rx tabs pen needle, diabetic 32 gauge x #100 ea 12/09/22 Unknown Rx (Pen Needle) Allergy/AdvReac Type Severity Reaction Status Date / Time No Known Allergies Allergy Verified 09/24/23 08:18 Family History Father Myocardial infarction Mother CVA (cerebral vascular accident) Surgical History S/P appendectomy History of coronary artery stent placement (11/14/20) H/O cardiac catheterization (11/11/20) Social History housing: other details: 3 dogs Smoking Status: Current every day smoker tobacco type: cigarettes and smokeless tobacco Smokeless tobacco user: chewing tobacco how long ago did patient quit smokin year ago alcohol intake: never substance use type: does not use caffeine: Yes Type: tea ROS ROS ED Constitutional Constitutional ED: Denies chills, fever(s) or sweats Eyes Eyes: Denies blurry vision or change in vision ENT ENT ED: Denies ear pain or sore throat Cardiovascular Cardiovascular: Reports chest pain; Denies palpitations or racing heartbeat Respiratory/Chest Respiratory/Chest: Denies cough, dyspnea or sputum Gastrointestinal Gastrointestinal: Reports nausea, vomiting and other Details: Dyspepsia ; Denies abdominal pain, constipation or diarrhea Genitourinary Genitourinary ED: Denies dysuria, hematuria or urinary frequency Musculoskeletal Musculoskeletal: Denies arthralgias, myalgias or neck pain Integumentary Denies abscess, Abrasions or rash Neurologic Neurologic: Denies headache(s), paresthesias or weakness Psychiatric Psychiatric: Denies anxiety, depression, suicidal ideation or suicidal thoughts Endocrine Endocrinology: Denies polydipsia or polyuria EXAM Physical Exam Const Vital Signs: 09/24/23 07:15 09/24/23 07:16 09/24/23 07:26 Temperature 98 F Temperature Source Temporal Pulse Rate 104 H 100 Respiratory Rate 16 14 Blood Pressure 183/121 H 203/114 H Blood Pressure Mean 141 143 Pulse Ox 94 98 95 Oxygen Delivery Method Room Air Room Air Room Air 09/24/23 07:53 09/24/23 08:12 09/24/23 08:52 Temperature Temperature Source Pulse Rate 90 Respiratory Rate Blood Pressure 153/127 H 179/112 H 162/106 H Blood Pressure Mean 138 134 124 Pulse Ox Oxygen Delivery Method Positive well nourished General Appearance ED: NAD HEENT Reports moist mucous membranes normocephalic Eyes PERRL and EOMs intact bilaterally Resp normal respiratory effort and clear to auscultation bilaterally Auscultation: Negative for rales, rhonchi or wheezes Cardio regular rate and regular rhythm GI normal to inspection, nondistended, normoactive bowel sounds Neuro oriented x3 and CN's II-XII intact bilaterally Sensorium / Orientation: awake and alert Psych mental status grossly normal Skin no rashes or lesions noted MDM MDM MDM Narrative Medical decision making narrative: Patient presenting with dyspepsia and retrosternal chest pain. Is not sharp or pleuritic. Patient with extensive cardiac history. Differential includes but is not limited to ACS, PE, aortic dissection, pneumonia, pneumothorax, muscle strain, costochondritis, pancreatitis, cholelithiasis, gastritis, GERD. CBC will be obtained to assess white blood cell count, hemoglobin, platelets. BMP to assess renal function, electrolytes, glucose. I will also add liver function testing and lipase due to patient's GI symptoms. High-sensitivity troponin and EKG to assess for ischemia/dysrhythmia. D-dimer to assess for PE. Patient does have history of DVT in the past. Chest x-ray to rule out pneumonia. EKG was obtained and does show ST depressions in V3 through V6 as well as leads I, 2, 3, aVF. These were sent to Dr. Contreras at 7:32 PM out of concern that his EKG had changed from his previous and 06 December 2022. He did not have the depressions. He recommended giving the patient metoprolol 5 mg IV as he is hypertensive. Will also start a nitro drip. He also recommended that I reach out to pieter and who is on-call for STEMI's. These were sent to him at 7:41 AM. He recommended treating the patient again with nitro drip and reevaluating. CBC shows normal white blood cell count 9.3. Hemoglobin 14.7. Platelets are normal at 273. Renal function and electrolytes within normal limits. Glucose 331 without anion gap. LFTs are normal. Lipase is normal. High-sensitivity troponin came back at 246. D-dimer negative. Discussed the case with With Dr. Contreras who was in the emergency room to evaluate the patient at 8:20 AM. He recommended another dose of metoprolol and titrating the nitroglycerin to improve his blood pressure. Heparin drip is ordered. Discussed with Dr. Contreras at 8:50 AM. He states that Dr. Bustos he is going to take the patient to the [facility] at 11. Discussed with hospitalist for admission. Impression: 1. Abnormal EKG 2. NSTEMI 3. Chest pain 4. Hypertension Lab Data Attestation: I reviewed the patient's lab results. Labs: Laboratory Results - last 24 hr 09/24/23 09/24/23 07:35 07:45 WBC 9.3 RBC 5.02 Hgb 14.7 Hct 44.0 MCV 87.6 MCH 29.3 MCHC 33.4 RDW Std Deviation 45.2 H RDW Coeff of Hayley 14.3 Plt Count 273 MPV 10.4 Immature Gran % (Auto) 0.200 Neut % (Auto) 64.3 Lymph % (Auto) 24.7 [place] % (Auto) 7.7 Eos % (Auto) 2.2 Baso % (Auto) 0.9 Absolute Neuts (auto) 6.0 Absolute Lymphs (auto) 2.29 Nucleated RBC % 0 D-Dimer Quant (PE/DVT) 0.40 Sodium 135 L Potassium 3.9 Chloride 103 Carbon Dioxide 26.0 Anion Gap 6 BUN 14 Creatinine 1.09 Estim Creat Clear Calc 110.27 Est GFR (MDRD) Af Amer 95 Est GFR (MDRD) Non-Af 78 BUN/Creatinine Ratio 12.8 Glucose 331 H Calcium 9.3 Total Bilirubin 0.30 Direct Bilirubin 0.10 AST 20 ALT 33 Alkaline Phosphatase 114 Troponin I High Sens 246 H* Total Protein 7.1 Albumin 3.6 Globulin 3.5 Lipase 51 Radiography Diagnostic Testing: Clinical Impression(s) from Imaging Studies Chest X-Ray 09/24/23 07:20 IMPRESSION: No acute cardiopulmonary process identified. Electronically Signed: Nanette Maya MD at 8:12 EDT , Discharge Plan Triage Chief Complaint: Chest Pain ED Provider: Jose Harris Dx/Rx/DC Orders Prescriptions: No Action metformin 500 MG tablet 500 mg PO BID insulin glargine 100 UNITS/ML insulin pen 6 unit subcut BREAKFAST ticagrelor 90 MG tablet 90 mg PO BID losartan 100 mg tablet 50 mg PO DAILY oxycodone 5 mg tablet 5 mg PO Q6H PRN (Reason: pain) 3 Days Qty: 12 0RF (DME) pen needle, diabetic [Pen Needle] 32 gauge x 5/32 needle See Rx Instructions .Route Qty: 100 1RF Rx Instructions: As directed nitroglycerin [Nitrostat] 0.4 mg tablet, sublingual 0.4 mg sublingual Q5-15M PRN (Reason: chest pain) Qty: 25 3RF Rx Instructions: do not exceed 3 doses per episode carvedilol 25 mg tablet 6.25 mg PO BID Rx Instructions: must administer with a meal/food Primary Care Provider: Care Physician,No Primary Referrals: Care Physician,No Primary [Primary Care Provider] - Print Language: Telugu
[2023-09-24] MEDS: Nitroglycerin Infusion 250 ML 3 MG CONT INF (07:53)
[2023-09-24 07:58] LABS: Absolute Lymphocyte Count 2.29 X10^3/uL (0.83-4.51); Basophil# 0.08 X10^3/uL; Basophil% 0.9 % (0-1); Eosinophils% 2.2 % (0-5); Hemoglobin 14.7 g/dL (13.0-16.5); Lymphocyte # 2.29 X10^3/ul (0.83-4.51); Lymphocyte % 24.7 % (19-41); Mean Corp Hgb Conc 33.4 g/dL (32-36); Mean Corpuscular Hgb 29.3 pg (27.0-32.0); Mean Corpuscular Volume 87.6 fL (80-94); Mean Platelet Vol. 10.4 fl (6.2-12.0); Monocyte# 0.71 X10^3/uL; Monocyte% 7.7 % (0-10); NRBC Flagged by Analyzer 0 % (0-5); Neutrophil # 5.96 X10^3/uL (2.7-7.7); Neutrophil % 64.3 % (47-70); Platelet Count 273 K/mm3 (150-450); RBC Distribution Width CV 14.3 % (11.6-14.6); RBC Distribution Width SD 45.2 fl (35.1-43.9); Red Blood Count 5.02 M/mm3 (4.6-6.2); White Blood Count 9.3 K/mm3 (4.4-11.0)
[2023-09-24 08:10] LABS: AST(SGOT) 20 U/L (15-37); Alanine Aminotransfer ALT/SGPT 33 U/L (16-61); Albumin, Serum 3.6 g/dL (3.2-5.0); Alkaline Phosphatase 114 U/L (45-117); Anion Gap 6 (5-15); BUN 14 mg/dL (7-18); BUN/Creat Ratio 12.8 RATIO (10-20); Calcium,Total 9.3 mg/dL (8.5-10.1); Chloride 103 mmol/L (98-107); Creatinine, Serum 1.09 mg/dL (0.70-1.30); EST Glomerular Filtration Rate 78 mL/min (>60); Est Glom Filt Rate - Afr Amer 95 mL/min (>60); Estimated Creatinine Clearance 110.27 ml/min; Globulin 3.5 g/dL (2.2-4.2); Glucose 331 mg/dL (74-106); Lipase 51 U/L (13-75); Potassium 3.9 mmol/L (3.5-5.1); Protein, Total 7.1 g/dL (6.4-8.2); Sodium Level 135 mmol/L (136-145); Troponin-I HS (w/2H Reflex) 246 pg/mL (3.0-78.0)
--- NOTE | 2023-09-24 08:37 | CON.PCM.CA_ITS ---
Assessment & Plan Assessment/Plan (1) Atherosclerotic heart disease [place] coronary artery w/angina pectoris: QUALIFIERS: [place] vs. transplanted heart: [place] heart Qualified Code(s): I25.119 - Atherosclerotic heart disease of [place] coronary artery with unspecified angina pectoris PLAN: Patient has a history of at least 2 stenting procedures done 1 at time of his STEMI when he had a circumflex done. His last event was in 2020 where he had been transferred to [facility] for consideration for bypass surgery. He was had a complicated vagal reaction was taken to the [facility] and his LAD and right coronary arteries were stented at that time. He reports that until today he has had no recurrence of any chest symptoms and these chest symptoms are different than the ones he experienced in the past. He does have a history of hypertension there is a history documented in the chart of less than optimal medical compliance. The patient does report has been out of Brilinta he denies being out of his other meds but he does not know which meds he is taking. The patient is EKG is suggestive of ischemic changes his troponin is positive after 8 hours of chest discomfort is 280. He is severely hypertensive blood pressures documented over 200 systolic. (2) History of coronary artery stent placement: PLAN: Stenting last procedure was done at [facility] his original stent was done here by Dr. Vlad Juarez in the circumflex. The patient should undergo a left heart catheterization. (3) Hypertensive urgency: PLAN: Patient's blood pressure is 220 on initial presentation it has come down into the mid 170s with IV nitro and IV Lopressor. We will continue to titrate his meds and get him back on oral antihypertensive including Coreg and losartan. PLAN: Plan 1. Urgent left heart catheterization is indicated given the dynamic EKG changes and positive troponins with known coronary artery disease. 2. Will titrate medical therapy to control his blood pressure. 3. Continue IV heparin and IV nitroglycerin will hold the heparin on-call to the [facility]. 4. Further recommendations pending the outcome of the catheterization. HPI Consult Data Date of Consult: 09/24/23 HPI Narrative Reason for Consultation: Chest pain with EKG changes and positive troponin. HPI Narrative: ARIK CANAS, is a 42 M who presents complaining of epigastric burning sensation that is different than his previous discomfort he had with stents. The last coronary stents I can find documented were from February 2021 at [facility] where he had been referred from [facility] for bypass surgery however it was determined that he would undergo stenting of the LAD ostium and proximal segment as well as a previous stent had been placed in the circumflex and he also had 2 stents in the right coronary artery. This was complicated by a profound vagal episode that required temporary pacemaker placement. The patient has a history of less than optimal compliance with his medications. He is not aware of the meds that he is taking right now other than the fact he says he is taking all on that he was prescribed. The last time he was evaluated in the office at [facility] his medications were adjusted. The last med list I can come up with this he was on Coreg 6.25 mg twice daily insulin metformin Brilinta 90 mg twice daily losartan 50 mg daily and amlodipine 5 or 10 mg daily. On presentation the patient's blood pressure was elevated over 200 systolic he was given IV Lopressor and IV heparin his blood pressure has responded down in the mid 170s. The patient reports he still has some discomfort but it is going away. He is adamant this is different than his previous symptoms that led to his stenting procedures. His initial troponin was 280 but the symptoms started 8 hours prior to that troponin being drawn. 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) shelter (current) use of antithrombotics/antiplatelets History of atherosclerotic heart disease Acute appendicitis with generalized peritonitis Type 2 diabetes mellitus Atherosclerotic heart disease [place] coronary artery w/angina pectoris Essential hypertension Smoker DVT (deep venous thrombosis) Tobacco use Hyperlipidemia History of ST elevation myocardial infarction (STEMI) (10/12/19) Tobacco dependence Morbid obesity Poor personal hygiene Noncompliance with diet and medication regimen Uncontrolled type 2 diabetes mellitus Home Medications ?Medication ?Instructions ?Recorded ?Last Taken ?Type nitroglycerin 0.4 mg sublingual 0.4 mg sublingual Q5-15M PRN chest 11/01/20 Unknown Rx tablet (Nitrostat) pain #25 tabs carvedilol 25 mg tablet 6.25 mg PO BID blood pressure 11/17/20 02/13/22 History insulin glargine 100 unit/mL (3 6 unit subcut BREAKFAST diabetes 02/21/21 02/13/22 History mL) subcutaneous pen metformin 500 mg tablet 500 mg PO BID diabetes 02/21/21 02/13/22 History ticagrelor 90 mg tablet 90 mg PO BID anti platelet 02/21/21 02/13/22 History losartan 100 mg tablet 50 mg PO DAILY blood pressure 02/12/22 02/13/22 History oxycodone 5 mg tablet 5 mg PO Q6H PRN pain 3 days #12 12/09/22 Unknown Rx tabs pen needle, diabetic 32 gauge x #100 ea 12/09/22 Unknown Rx (Pen Needle) Allergy/AdvReac Type Severity Reaction Status Date / Time No Known Allergies Allergy Verified 09/24/23 08:18 Family History Father Myocardial infarction Mother CVA (cerebral vascular accident) Surgical History S/P appendectomy History of coronary artery stent placement (11/14/20) H/O cardiac catheterization (11/11/20) Social History housing: other details: 3 dogs Smoking Status: Current every day smoker tobacco type: cigarettes and smokeless tobacco Smokeless tobacco user: chewing tobacco how long ago did patient quit smokin year ago alcohol intake: never substance use type: does not use caffeine: Yes Type: tea ROS Constitutional Constitutional: Reports as per HPI Eyes Eyes: Reports systems reviewed and no addt'l complaints, except as documented ENT HEENT: Reports systems reviewed and no addt'l complaints, except as documented Cardiovascular Cardiovascular: Reports as per HPI Respiratory/Chest Respiratory/Chest: Reports as per HPI Gastrointestinal Gastrointestinal: Reports systems reviewed and no addt'l complaints, except as documented Genitourinary Genitourinary: Reports systems reviewed and no addt'l complaints, except as documented Musculoskeletal Musculoskeletal: Reports systems reviewed and no addt'l complaints, except as documented Integumentary Integumentary: Reports systems reviewed and no addt'l complaints, except as documented Neurologic Neurologic: Reports systems reviewed and no addt'l complaints, except as documented Psychiatric Psychiatric: Reports as per HPI Endocrine Endocrinology: Reports systems reviewed and no addt'l complaints, except as documented Hematologic/Lymphatic Hematologic/Lymphatic: Reports systems reviewed and no addt'l complaints, except as documented Allergic/Immunologic Allergic/Immunologic: Reports systems reviewed and no addt'l complaints, except as documented Physical Exam Narrative The patient is resting comfortably on the gurney in the ED it is difficult to pin him down on answers to certain questions. Const alert and oriented x3 HEENT normocephalic Eyes EOMs intact bilaterally Neck no JVD Carotids: bruit Positive for right Chest inspection of chest normal Resp normal respiratory effort and clear to auscultation bilaterally Cardio regular rate, regular rhythm, S1 normal heart sound, S2 normal heart sound, no murmurs, no rub and no gallops Peripheral Pulses: radial pulses present bilateral 2+, femoral pulses present bilateral 1+ and dorsalis pedis pulses present bilateral 2+ GI soft to palpation Extremity no pedal edema Skin no rashes or lesions noted Neuro Neuro Narrative: alert and oriented X3 Psych mental status grossly normal Risk Stratification Risk Stratification Applicable: Yes Age >/= 65: No >/= 3 CAD Risk Factors (HTN, HLD, DM, family hx of CAD, or current smoker): Yes Aspirin Use in the Past 7 Days: Yes Severe Angina (>/= episodes in 24 hours): Yes EKG ST Changes >/= 0.5mm: Yes Positive Cardiac Marker: Yes CONI Risk Stratification Score: 5 CONI % Risk: 25% Risk Charges/Coding Visit Charges Inpatient E&M: 69609 Init Hosp L3 Objective Data Vital Signs: Vital Signs Temp Pulse Resp BP Pulse Ox O2 Del Method 98 F 90 14 179/112 H 95 Room Air 09/24/23 07:16 09/24/23 07:53 09/24/23 07:16 09/24/23 08:12 09/24/23 07:26 09/24/23 07:26 Oxygen Delivery Method Room Air Weight: 242 lb 11.663 oz Body Mass Index (BMI) 33.8 Intake & Output: Intake and Output for Last 24 Hours 09/22/23 09/23/23 09/24/23 23:59 23:59 23:59 Intake Total 0.95 / 0.95 Balance 0.95 / 0.95 Lab / Micro Data Attestation: I reviewed the patient's lab results. 09/24/23 07:35 09/24/23 07:35 Labs: Laboratory Results - last 24 hr 09/24/23 07:35: WBC 9.3, RBC 5.02, Hgb 14.7, Hct 44.0, MCV 87.6, MCH 29.3, MCHC 33.4, RDW Std Deviation 45.2 H, RDW Coeff of [place] 14.3, Plt Count 273, MPV 10.4, Immature Gran % (Auto) 0.200, Neut % (Auto) 64.3, Lymph % (Auto) 24.7, [place] % (Auto) 7.7, Eos % (Auto) 2.2, Baso % (Auto) 0.9, Absolute Neuts (auto) 6.0, Absolute Lymphs (auto) 2.29, Nucleated RBC % 0, Sodium 135 L, Potassium 3.9, Chloride 103, Carbon Dioxide 26.0, Anion Gap 6, BUN 14, Creatinine 1.09, Estim Creat Clear Calc 110.27, Est GFR (MDRD) Af Amer 95, Est GFR (MDRD) Non-Af 78, BUN/Creatinine Ratio 12.8, Glucose 331 H, Calcium 9.3, Total Bilirubin 0.30, Direct Bilirubin 0.10, AST 20, ALT 33, Alkaline Phosphatase 114, Troponin I High Sens 246 H*, Total Protein 7.1, Albumin 3.6, Globulin 3.5, Lipase 51 Cardiology Labs/Tests 09/24/23 07:35: WBC 9.3, RBC 5.02, Hgb 14.7, Hct 44.0, MCV 87.6, MCH 29.3, MCHC 33.4, Plt Count 273, MPV 10.4, Immature Gran % (Auto) 0.200, Neut % (Auto) 64.3, Lymph % (Auto) 24.7, [place] % (Auto) 7.7, Eos % (Auto) 2.2, Baso % (Auto) 0.9, Absolute Neuts (auto) 6.0, Nucleated RBC % 0, Sodium 135 L, Potassium 3.9, Chloride 103, Carbon Dioxide 26.0, Anion Gap 6, BUN 14, Creatinine 1.09, Est GFR (MDRD) Af Amer 95, Est GFR (MDRD) Non-Af 78, BUN/Creatinine Ratio 12.8, Glucose 331 H, Calcium 9.3, Total Bilirubin 0.30, Direct Bilirubin 0.10 Rhythm: EKG: ECHO: Stress Test: Cardiac Cath: PCI: CT Surgery: Holter monitor: EPS: PPM: CXR: Chest CT Scan: Radiography Diagnostic Testing: Radiology Impression Chest X-Ray 09/24/23 07:20 IMPRESSION: No acute cardiopulmonary process identified. Electronically Signed: Nanette Maya MD at 8:12 EDT ,
--- NOTE | 2023-09-24 09:02 | NURSING ---
DR ADDIE LONDONO
--- NOTE | 2023-09-24 09:13 | HP.PCM.HOS_ITS ---
[facility] - General General Date of Admission: 09/24/23 Date of Service: 09/24/23 Chief Complaint: Epigastric discomfort HPI Narrative ARIK CANAS, is a 42 M with past medical history signal for coronary artery disease with previous ST segment elevation SC with subsequent stent placement, hypertension, diabetes mellitus type 2 who presented with epigastric discomfort. Patient symptoms started a day prior to his admission. Patient felt he was having acid reflux. His symptoms however persisted throughout the night and in the morning. Given his past history he elected to present to the emergency department. Initial EKG did show ST segment depression in the inferior leads and was also found to have elevated troponin. An assessment of acute non-STEMI was made cardiology consulted patient started on heparin and nitroglycerin drip with plans for patient to undergo emergency left heart cath with intervention if warranted. [facility] Medical History (Updated 09/24/23 @ 09:[address] Miguel Angel Hutson MD) NSTEMI, initial episode of care Encounter for examination required by Department of Transportation (DOT) [facility] (current) use of antithrombotics/antiplatelets History of atherosclerotic heart disease Acute appendicitis with generalized peritonitis Type 2 diabetes mellitus Atherosclerotic heart disease [place] coronary artery w/angina pectoris Essential hypertension Smoker DVT (deep venous thrombosis) Tobacco use Hyperlipidemia History of ST elevation myocardial infarction (STEMI) (10/12/19) Tobacco dependence Morbid obesity Poor personal hygiene Noncompliance with diet and medication regimen Uncontrolled type 2 diabetes mellitus Home Medications ?Medication ?Instructions ?Recorded ?Last Taken ?Type nitroglycerin 0.4 mg sublingual 0.4 mg sublingual Q5-15M PRN chest 11/01/20 Unknown Rx tablet (Nitrostat) pain #25 tabs carvedilol 25 mg tablet 6.25 mg PO BID blood pressure 11/17/20 02/13/22 History insulin glargine 100 unit/mL (3 6 unit subcut BREAKFAST diabetes 02/21/21 02/13/22 History mL) subcutaneous pen metformin 500 mg tablet 500 mg PO BID diabetes 02/21/21 02/13/22 History ticagrelor 90 mg tablet 90 mg PO BID anti platelet 02/21/21 02/13/22 History losartan 100 mg tablet 50 mg PO DAILY blood pressure 02/12/22 02/13/22 History oxycodone 5 mg tablet 5 mg PO Q6H PRN pain 3 days #12 12/09/22 Unknown Rx tabs pen needle, diabetic 32 gauge x #100 ea 12/09/22 Unknown Rx (Pen Needle) Allergy/AdvReac Type Severity Reaction Status Date / Time No Known Allergies Allergy Verified 09/24/23 08:18 Family History Father Myocardial infarction Mother CVA (cerebral vascular accident) Surgical History S/P appendectomy History of coronary artery stent placement (11/14/20) H/O cardiac catheterization (11/11/20) Social History housing: other details: 3 dogs Smoking Status: Current every day smoker tobacco type: cigarettes and smokeless tobacco Smokeless tobacco user: chewing tobacco how long ago did patient quit smokin year ago alcohol intake: never substance use type: does not use caffeine: Yes Type: tea ROS ROS Narrative GENERAL: denies fever, chills, night sweats, weight loss, anorexia HEENT: denies headache, sinus congestion, or drainage, dysphagia RESPIRATORY: denies cough, sputum production, shortness of breath, dyspnea on exertion CARDIAC: chest pain, denies palpitations, orthopnea, PND GASTROINTESTINAL: denies abdominal pain, nausea, vomiting, melena, GENITOURINARY: denies dysuria, urgency, frequency, heamaturia EXTREMITY: denies swelling MUSCULOSKELETAL: denies current joint pain or tenderness NEUROLOGIC: denies focal numbness, weakness, tingling HEMATOLOGIC: denies easy bruising and/or hemorrhage INTEGUMENT: denies rashes PSYCHIATRIC: denies suicidal or homicidal ideation Vital Signs Vital Signs Vital Signs: 09/24/23 07:15 09/24/23 07:16 09/24/23 07:26 Temperature 98 F Temperature Source Temporal Pulse Rate 104 H 100 Respiratory Rate 16 14 Blood Pressure 183/121 H 203/114 H Blood Pressure Mean 141 143 Pulse Ox 94 98 95 Oxygen Delivery Method Room Air Room Air Room Air 09/24/23 07:53 09/24/23 08:12 09/24/23 08:52 Temperature Temperature Source Pulse Rate 90 Respiratory Rate Blood Pressure 153/127 H 179/112 H 162/106 H Blood Pressure Mean 138 134 124 Pulse Ox Oxygen Delivery Method Weight Weight: 110.1 kg Body Mass Index (BMI) 33.8 Physical Exam Narrative GENERAL: cooperative HEENT: Atraumatic; normocephalic EYES; Anicteric, Normal Conjunctiva NECK; supple, normal thyroid, RESPIRATORY: Diminished to auscultation CARDIOVASCULAR: Regular S1 S2, GI: soft, normoactive bowel sounds, : No Renal angle tenderness; EXTREMITIES: No edema, no clubbing, MUSCULOSKELETAL: no muscle wasting NEURO: Awake; no lateralizing signs. SKIN: No Rash PSYCH; Flat affect Results Lab / Micro Data 09/24/23 07:35 09/24/23 07:35 Labs: Laboratory Results - last 24 hr 09/24/23 07:35: WBC 9.3, RBC 5.02, Hgb 14.7, Hct 44.0, MCV 87.6, MCH 29.3, MCHC 33.4, RDW Std Deviation 45.2 H, RDW Coeff of Hayley 14.3, Plt Count 273, MPV 10.4, Immature Gran % (Auto) 0.200, Neut % (Auto) 64.3, Lymph % (Auto) 24.7, [place] % (Auto) 7.7, Eos % (Auto) 2.2, Baso % (Auto) 0.9, Absolute Neuts (auto) 6.0, Absolute Lymphs (auto) 2.29, Nucleated RBC % 0, Sodium 135 L, Potassium 3.9, Chloride 103, Carbon Dioxide 26.0, Anion Gap 6, BUN 14, Creatinine 1.09, Estim Creat Clear Calc 110.27, Est GFR (MDRD) Af Amer 95, Est GFR (MDRD) Non-Af 78, BUN/Creatinine Ratio 12.8, Glucose 331 H, Calcium 9.3, Total Bilirubin 0.30, Direct Bilirubin 0.10, AST 20, ALT 33, Alkaline Phosphatase 114, Troponin I High Sens 246 H*, Total Protein 7.1, Albumin 3.6, Globulin 3.5, Lipase 51 09/24/23 07:45: D-Dimer Quant (PE/DVT) 0.40 Imaging Radiology Impression Chest X-Ray 09/24/23 07:20 IMPRESSION: No acute cardiopulmonary process identified. Electronically Signed: Nanette Maya MD at 8:12 EDT Reading Location ID and State: [facility] / [place] Tel , Service support , Assessment & Plan Assessment/Plan (1) NSTEMI, initial episode of care: PLAN: Plan Patient is a 42-year-old gentleman with significant risk factors presented with epigastric discomfort EKG demonstrated ischemic changes and was found to have elevated troponin. 1. Acute non-STEMI ? Patient admitted to monitored bed treatment initiated per protocol with systemic anticoagulation with heparin, nitroglycerin, patient is already on dual antiplatelet therapy did continue in addition to his beta-blockers RASHEEDA inhibitors and statin therapy. Cardiology was consulted from the ED 2. Coronary artery disease ? With previous STEMI with subsequent intervention. Patient has apparently not been compliant with therapy distress the need for patient to be compliant 3. Diabetes mellitus type II -Apparently noncompliant with therapy patient presented with hyperglycemia with glucose levels of 321. Ordered hemoglobin A1c. Patient's oral hypoglycemics held. Placed on long acting insulin, Accu-Cheks a.c. and at bedtime and covered with sliding scale insulin 4. Acute hypertensive emergency ? Patient presented with markedly elevated blood pressure (203/114 on admission) with evidence of endorgan damage?acute non-STEMI. Home medications resumed in addition patient is on nitroglycerin drip 5. Tobacco dependence - Counseled on cessation, offered nicotine patch for tobacco cravings 6. Class I obesity with BMI of 33.9 ? Complicating care weight loss advised 7. DVT prophylaxis ? Patient is on heparin Time spent in the patient's overall evaluation,decision-making process, review of diagnostic data, adjustment of management, discussion with other providers, nursing nursing and ancillary staff involved in patient's care documentation, 75 Minutes Advance planning; did discuss with the patient regarding advanced directives as well as CODE STATUS. Did explain the various scenarios involved ( FULL CODE, DNR CCA, DNR CCA with no intubation, and DNR CC and what each meant) patient elected to remain full code. Order was placed. Time spent on discussion 18 minutes. Charges/Coding Multi Select Codes Visit Charges Visit Charges: 85430 Init Hosp Hospitalists' Procedures Procedures: 27999 Advncd Care Plan 30 Min
[2023-09-24 09:23] LABS: Prothrombin Time (Protime)PT. 13.3 SECONDS (11.7-14.9)
[2023-09-24 09:24] LABS: Partial Thromboplast Time 27.3 Seconds (24.1-36.2)
[2023-09-24 09:40] LABS: Reflex Troponin-HS? (from REC) Y
--- NOTE | 2023-09-24 09:44 | ED.RN ---
confirmed with dr. 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
[2023-09-24] MEDS: HEPARIN/D5w 25,000 UNITS 25,000 UNITS/250 ML IV.SOLN. 10 UNITS CONT INF (09:53)
--- NOTE | 2023-09-24 09:54 | ED.RN ---
confirmed with catarino Thompson rn for hep. francisca
--- NOTE | 2023-09-24 10:13 | ECHOCS_ITS ---
Reason For Study: Chest Pain Procedure This was a 2D Doppler, Color Flow transthoracic echocardiogram. Technically difficult study. Patient scanned supine at 30 degrees due to femoral cath. Contrast injection was performed. Exam performed portable in patient room. Left Ventricle Normal LV size. Left ventricular systolic function is normal. The left ventricular ejection fraction is 55 %. Stage 1 diastolic dysfunction. No regional wall motion abnormalities noted. Right Ventricle Normal RV size. Normal systolic function. Tricuspid Valve Normal tricuspid valve. Aortic Valve Trisinus/trileaflet aortic valve. Pulmonic Valve The pulmonic valve is not well visualized. Great Vessels Normal aortic root. Pericardium/Pleural No pericardial effusion. Medication Diluted definity 2ml given slow IV push to enhance endocardial definition. MMode/2D Measurements & Calculations LVIDd: 5.0 cm IVSd: 1.3 cm Ao root diam: 3.7 cm LVIDs: 3.7 cm LVPWd: 1.5 cm LA dimension: 3.5 cm RVDd: 3.1 cm FS: 26.2 % LAV(MOD-bp): 44.1 ml LVAd ap4: 37.6 cm2 LVAd ap2: 37.7 cm2 LAV(MOD-bp) Indexed: 19.7 ml/m2 LVLd ap4: 9.0 cm LVLd ap2: 9.4 cm LAV(MOD-sp2): 56.9 ml EDV(MOD-sp4): 126.0 ml EDV(MOD-sp2): 120.1 ml LAV(MOD-sp4): 32.0 ml EDV(sp4-el): 133.5 ml EDV(sp2-el): 128.7 ml LVAs ap4: 27.3 cm2 LVAs ap2: 25.8 cm2 LVLs ap4: 8.2 cm LVLs ap2: 7.9 cm ESV(MOD-sp4): 72.2 ml ESV(MOD-sp2): 67.6 ml ESV(sp4-el): 76.9 ml ESV(sp2-el): 71.5 ml EF(MOD-sp4): 42.7 % EF(MOD-sp2): 43.7 % EF(sp4-el): 42.4 % SV(MOD-sp4): 53.8 ml SV(MOD-sp2): 52.5 ml SV(sp4-el): 56.6 ml TAPSE: 2.1 cm LA A4 area: 14.2 cm2 RA A4 area: 12.7 cm2 Time Measurements MV dec time: 0.21 sec Doppler Measurements & Calculations MV E max darrion: 77.0 cm/sec Lat Peak E' Darrion: 6.9 cm/sec Med Peak E' Darrion: 6.3 cm/sec MV A max darrion: 86.5 cm/sec E/E' lat: 11.1 E/E' med: 12.3 MV E/A: 0.89 MV V2 max: 90.8 cm/sec MV dec slope: 373.5 cm/sec2 Ao V2 max: 107.1 cm/sec MV max P.3 mmHg Ao max P.6 mmHg MV V2 mean: 57.1 cm/sec Ao V2 mean: 70.9 cm/sec MV mean P.5 mmHg Ao mean P.3 mmHg MV V2 VTI: 16.5 cm Ao V2 VTI: 17.9 cm AV (velocity ratio): 0.84 LV V1 max: 84.8 cm/sec PA V2 max: 109.0 cm/sec LV V1 max P.9 mmHg PA V2 mean: 81.0 cm/sec LV V1 mean P.4 mmHg LV V1 mean: 53.1 cm/sec LV V1 VTI: 15.0 cm ECHO/Echo Complete W/ Contrast Interpretation Summary Normal LV size. Left ventricular systolic function is normal. The left ventricular ejection fraction is 55 %. Stage 1 diastolic dysfunction. Contrast injection was performed. Ordering Physician: Miguel Angel Hutson Referring Physician: No PCP Noted Performed By: Leon Groves RCS
[2023-09-24 10:28] LABS: Troponin-I HS 1520 pg/mL (3.0-78.0)
[2023-09-24 11:26] LABS: Hemoglobin A1c 10.7 % (3.8-5.6)
--- NOTE | 2023-09-24 11:53 | CASEMGMT ---
Insurance review for hospitals In-network with[facility] if transfer is recommended is as follows: [facility], [place], [facility], [facility], [facility], [facility], [facility], [facility], and . Laura Gonzalez, Discharge Planning Asst
[2023-09-24] MEDS: 0.9% Normal Saline (1000mL) 1,000 ML 100 ML IV (12:22)
--- NOTE | 2023-09-24 12:23 | PCM.DC.SUM ---
Providers Date of Admission: 09/24/23 Date of Discharge: 09/24/23 Primary Care Physician: Kym Primary Care Phys Consultations 09/24/23 09:10 Consult: Cardiology Stat Consulting Provider: Jacob Contreras Reason for Consult: Chest Pain EMERGENT Consult: Yes MD Notified: Yes Date Notified: 09/24/23 Time Notified: 09:09 Method of Notification: ED Physician Initiated Reason For Visit: NSTEMI Diagnosis Discharge Diagnosis (1) NSTEMI, initial episode of care: Status: Acute Code(s): I21.4 - Non-ST elevation (NSTEMI) myocardial infarction Plan Patient is a 42-year-old gentleman with significant risk factors presented with epigastric discomfort EKG demonstrated ischemic changes and was found to have elevated troponin. 1. Acute non-STEMI ? Patient admitted to monitored bed treatment initiated per protocol with systemic anticoagulation with heparin, nitroglycerin, patient is already on dual antiplatelet therapy did continue in addition to his beta-blockers RASHEEDA inhibitors and statin therapy. Cardiology was consulted from the ED ? Patient left heart catheterization demonstrated left main disease as well as RCA disease. Dr. Denis with cardiology arranged for patient to be transferred to [facility] to be evaluated by cardiothoracic surgery?Dr. Kenrick Garcia for possible CABG. 2. Coronary artery disease ? With previous STEMI with subsequent intervention. Patient has apparently not been compliant with therapy distress the need for patient to be compliant 3. Diabetes mellitus type II -Apparently noncompliant with therapy patient presented with hyperglycemia with glucose levels of 321. Ordered hemoglobin A1c. Patient's oral hypoglycemics held. Placed on long acting insulin, Accu-Cheks a.c. and at bedtime and covered with sliding scale insulin 4. Acute hypertensive emergency ? Patient presented with markedly elevated blood pressure (203/114 on admission) with evidence of endorgan damage?acute non-STEMI. Home medications resumed in addition patient is on nitroglycerin drip 5. Tobacco dependence - Counseled on cessation, offered nicotine patch for tobacco cravings 6. Class I obesity with BMI of 33.9 ? Complicating care weight loss advised 7. DVT prophylaxis ? Patient is on heparin Time spent in the patient's overall evaluation,decision-making process, review of diagnostic data, adjustment of management, discussion with other providers, nursing nursing and ancillary staff involved in patient's care documentation, 85 Minutes Medications at Discharge Home Medications nitroglycerin 0.4 mg sublingual tablet (Nitrostat) 0.4 mg sublingual Q5-15M PRN chest pain #25 tabs 11/01/20 carvedilol 25 mg tablet 6.25 mg PO BID blood pressure 11/17/20 insulin glargine 100 unit/mL (3 mL) subcutaneous pen 6 unit subcut BREAKFAST diabetes 02/21/21 metformin 500 mg tablet 500 mg PO BID diabetes 02/21/21 ticagrelor 90 mg tablet 90 mg PO BID anti platelet 02/21/21 losartan 100 mg tablet 50 mg PO DAILY blood pressure 02/12/22 oxycodone 5 mg tablet 5 mg PO Q6H PRN pain 3 days #12 tabs 12/09/22 pen needle, diabetic 32 gauge x /32 (Pen Needle) #100 ea 12/09/22 atorvastatin 40 mg tablet 40 mg PO QHS #90 tabs 09/24/23 Physical Exam Narrative GENERAL: cooperative HEENT: Atraumatic; normocephalic EYES; Anicteric, Normal Conjunctiva NECK; supple, normal thyroid, RESPIRATORY: Diminished to auscultation CARDIOVASCULAR: Regular S1 S2, GI: soft, normoactive bowel sounds, : No Renal angle tenderness; EXTREMITIES: No edema, no clubbing, MUSCULOSKELETAL: no muscle wasting NEURO: Awake; no lateralizing signs. SKIN: No Rash PSYCH; Flat affect Weight / BMI Weight Weight: 109.9 kg Body Mass Index (BMI) 33.7 ABG / Lab / Microbiology Data 09/24/23 07:35 09/24/23 07:35 Laboratory: Laboratory Results - last 24 hr 09/24/23 07:35: WBC 9.3, RBC 5.02, Hgb 14.7, Hct 44.0, MCV 87.6, MCH 29.3, MCHC 33.4, RDW Std Deviation 45.2 H, RDW Coeff of Hayley 14.3, Plt Count 273, MPV 10.4, Immature Gran % (Auto) 0.200, Neut % (Auto) 64.3, Lymph % (Auto) 24.7, [place] % (Auto) 7.7, Eos % (Auto) 2.2, Baso % (Auto) 0.9, Absolute Neuts (auto) 6.0, Absolute Lymphs (auto) 2.29, Nucleated RBC % 0, Sodium 135 L, Potassium 3.9, Chloride 103, Carbon Dioxide 26.0, Anion Gap 6, BUN 14, Creatinine 1.09, Estim Creat Clear Calc 110.27, Est GFR (MDRD) Af Amer 95, Est GFR (MDRD) Non-Af 78, BUN/Creatinine Ratio 12.8, Glucose 331 H, Hemoglobin A1c 10.7 H, Calcium 9.3, Total Bilirubin 0.30, Direct Bilirubin 0.10, AST 20, ALT 33, Alkaline Phosphatase 114, Troponin I High Sens 246 H*, Total Protein 7.1, Albumin 3.6, Globulin 3.5, Lipase 51 09/24/23 07:45: PT 13.3, INR 1.0, APTT 27.3, D-Dimer Quant (PE/DVT) 0.40 09/24/23 09:30: Troponin I High Sens 1520 H* Radiography Diagnostic Testing: Radiology Impression Chest X-Ray 09/24/23 07:20 IMPRESSION: No acute cardiopulmonary process identified. Electronically Signed: Nanette Maya MD at 8:12 EDT Reading Location ID and State: [facility] / [place] Tel , Service support , D/C Instructions Discharge Diet: Low fat / Low cholesterol and 1800 Calorie Control Diet Discharge Activity: Return to Normal Activity Call your doctor if you observe: Fever of 101 or Higher, Shortness of breath, Fainting spells and Chest pain Meaningful Use Info Meaningful Use Meaningful Use Diagnoses (Choose all that apply): AMI AMI/Post PCI/Angioplasty Aspirin given w/in 24hrs of arrival?: Yes ASA at discharge?: Yes Antiplatelet Therapy at Discharge:: Yes Statins at discharge?: Yes Rasheeda/ARB at discharge?: Yes Beta Lan at discharge?: Yes Done w/ Acute IN measure.: Yes Ischemic Stroke Statin Dosing Therapy Reference: STATIN DOSE THERAPY REFERENCE: * Patients > 75 years receive moderate or high dose statin therapy. * Patients 75 years or YOUNGER should receive HIGH intensity statin dose unless contraindicated. You will be required to document reason for non-treatment if statin daily dose does not meet guidelines. HIGH DOSE STATIN THERAPY DAILY Atorvastatin > than or = to 40 mg Rosuvastatin > than or = to 20 mg Amlodipine + Atorvastatin > than or = to 2.5/40 mg Ezetimibe + Simvastatin 10/80 mg Simvastatin 80mg Discharge Plan Admission Admit Date/Time: 09/24/23 09:02 Attending Provider: Miguel Angel Hutson Primary Care Provider: Care Physician,No Primary Consulting Providers: Jacob Contreras Discharge Orders/Prescriptions Prescriptions: New atorvastatin 40 mg tablet 40 mg PO QHS Qty: 90 0RF Continued metformin 500 MG tablet 500 mg PO BID insulin glargine 100 UNITS/ML insulin pen 6 unit subcut BREAKFAST ticagrelor 90 MG tablet 90 mg PO BID Patient Comments: [facility] [place] HAS NO RECORD OF FILLING THIS RX THIS YEAR. losartan 100 mg tablet 50 mg PO DAILY oxycodone 5 mg tablet 5 mg PO Q6H PRN (Reason: pain) 3 Days Qty: 12 0RF (DME) pen needle, diabetic [Pen Needle] 32 gauge x 5/32 needle See Rx Instructions .Route Qty: 100 1RF Rx Instructions: As directed nitroglycerin [Nitrostat] 0.4 mg tablet, sublingual 0.4 mg sublingual Q5-15M PRN (Reason: chest pain) Qty: 25 3RF Rx Instructions: do not exceed 3 doses per episode carvedilol 25 mg tablet 6.25 mg PO BID Rx Instructions: must administer with a meal/food Referrals / Follow Up: Jacob Contreras MD [Med Staff - Active Staff] - Within 1 Month Care Physician,No Primary [Primary Care Provider] - Within 2 Weeks Disposition Disposition (needs filled in before D/C Order can be placed): Acute Care Hospital Charges/Coding Visit Charges OBSV E&M: 26257 Observ/hosp same date L3
[2023-09-24 12:54] LABS: Bedside Glucose 221 mg/dL (74-106)
[2023-09-24 14:56] LABS: Troponin-I HS 4424 pg/mL (3.0-78.0)
--- NOTE | 2023-09-24 18:08 | CL.D_ITS ---
Patient Name: ARIK CANAS Study Date: 09/24/2023 Performing: Mitchel Denis MD Ht: 71 inches 180.34 cm : 1980 Wt: 242.6 lbs 109.9 kg Age: 42 Gender: male BSA: 2.29 PROCEDURE(S) PERFORMED [id number])[facility] CLINICAL PROFILE AND INDICATIONS Indications: Suspected CAD Heart Failure: None Stress/Imaging Stress/Image Study Performed: No CAD Presentations: Unstable angina. CONCLUSIONS Severe triple-vessel disease as noted above including distal left main subtotally occluded mid LAD high-grade right coronary artery lesions in the dominant vessel RECOMMENDATIONS Surgery consult for coronary revascularization DESCRIPTION OF PROCEDURE The patient arrived to the procedure lab. The risks and benefits of the procedure as well as a full description of our services here and current unavailability of surgical backup were fully explained to the patient and/or their significant other prior to the catheterization. The Timeout was completed, verifying the correct patient and procedure. The patient's procedural site was prepped and draped in the usual fashion. Local anesthetic was given subcutaneously to right radial region with Lidocaine 2%. Local anesthetic was given subcutaneously to right groin region with Lidocaine 2%. Using a modified Seldinger technique, arterial access was obtained via the right femoral artery, a 5Fr sheath was inserted. Left Coronary Artery selective angiography was performed in multiple views using a 5 Fr. JL4 catheter. Right Coronary Artery selective angiography was then performed in multiple views using a 5 Fr. 3DRC (James) catheter.The arterial sheath was pulled and manual compression applied until hemostasis is achieved. CORONARY ANGIOGRAPHY DOMINANCE: Right Dominant LEFT HEART ASSESSMENT Left Ventricular Ejection Fraction: by Echo 55 % Normal LV wall motion LEFT MAIN: Calcified with distal 80% stenotic lesion. LEFT ANTERIOR DESCENDING ARTERY: Medium size vessel previously stented with patent stent with tiny bifurcating first diagonal branch and a second diagonal branch with ostial 90% stenosis. The mid left anterior descending artery has severe 80% stenosis and then diffusely diseased. CIRCUMFLEX ARTERY: Nondominant vessel with 2 obtuse marginal branches which have diffuse 80% stenosis and an AV groove branch which appears to be subtotally occluded. RIGHT CORONARY ARTERY: Large dominant tortuous branch with proximal large biliary stent which is patent and then after that the 70 to 80% stenotic lesion noted, the ostium of the posterior descending artery has a 90% stenosis in the mid PDA also has a 90% long stenosis. The posterolateral vessel is diffusely diseased. There is a large acute marginal branch with a 90% stenosis noted as well. COLLATERAL FLOW: Collateral flow from Right to Left COMPLICATIONS No Complications PROCEDURE MEDICATIONS Fentanyl 50 mcg IV Versed 1 mg IV Versed 1 mg IV Fentanyl 25 mcg IV Oxygen: 2 L/min via nasal cannula Nitro glycerin 25mg / 250ml D5W @ 5 mcg/min IV started 09/24/2023 11:41:57 SUMMARY OF HEMODYNAMIC DATA Time AIR REST ECG 11:00:03 AO 148/91 (114) SA 11:31:31 Signed By Mitchel Denis MD On 09/24/2023 18:07:36 Mitchel Denis MD
== END 2023-09-24 14:48 | disposition short-term general hospital (02) | DRG 281 ==
LOC: ED 08:51 → PCU 09:36
PROVIDERS: Admitting Provider Internal Medicine; Emergency Provider Student in an Organized Health Care Education/Training Program; Visit Provider Internal Medicine
DX: I21.4 Non-ST elevation (NSTEMI) myocardial infarction (principal); I16.1 Hypertensive emergency; E11.9 Type 2 diabetes mellitus without complications; E66.01 Morbid (severe) obesity due to excess calories; Z79.4 Long term (current) use of insulin; I10 Essential (primary) hypertension; F17.210 Nicotine dependence, cigarettes, uncomplicated; I25.119 Atherosclerotic heart disease of native coronary artery with unspecified angina pectoris; E78.5 Hyperlipidemia, unspecified; I25.2 Old myocardial infarction; Z68.33 Body mass index [BMI] 33.0-33.9, adult; Z66 Do not resuscitate; Z86.718 Personal history of other venous thrombosis and embolism; Z82.3 Family history of stroke; Z79.84 Long term (current) use of oral hypoglycemic drugs; Z95.5 Presence of coronary angioplasty implant and graft
CPT/HCPCS: 36415; 71045; 80048; 80076; 82962; 83036; 83690; 84484; 85025; 85379; 85610; 85730; 93005; 93306; 93454; 99152; 99153; 99285; C1760; J7030; Q9957; Q9967; A4216; C1769; C1894; C8929

== ENCOUNTER 2024-01-25 18:34 | Emergency (ER) | payer MEDICARE, MEDICAID, SELFPAY ==
[2024-01-25 18:36] VITALS: BP 135/89; PULSE 86; RESP 18; TEMP 36.6; O2SAT 99; BMI 33.0
[2024-01-25] MEDS: Diphth,Pertuss(Acell),Tet Vac 0.5 ML Vial IM (18:46)
[2024-01-25] MEDS: Lidocaine 1% /Epi 1:100 (20ml) 20 ML Vial 3 ML INFILT (18:48)
== END 2024-01-25 19:27 | disposition home or self-care (01) ==
PROVIDERS: Emergency Provider Emergency Medicine; PCP Registered Nurse; Visit Provider Emergency Medicine
DX: S61.411A Laceration without foreign body of right hand, initial encounter (principal); E11.9 Type 2 diabetes mellitus without complications; I10 Essential (primary) hypertension; I25.10 Atherosclerotic heart disease of native coronary artery without angina pectoris; E78.5 Hyperlipidemia, unspecified; F17.220 Nicotine dependence, chewing tobacco, uncomplicated; Z79.02 Long term (current) use of antithrombotics/antiplatelets; W26.0XXA Contact with knife, initial encounter; Z23 Encounter for immunization
CPT/HCPCS: 12002; 90471; 90715; 99282